=== PATIENT | female | born 1925 | race Caucasian/White ===

== ENCOUNTER 2016-11-09 15:02 | Inpatient (IN) | payer OTHER, MEDICARE ==
[~2016-11-09] VITALS: Ht 152.4 cm; Wt 70.8 kg
[~2016-11-09 15:02] MED LIST: ACCUPRIL20 MG PO; ACTOS15 MG PO; ANASTROZOLE1 M1 PO; ANTIVERT 12.512.5 MG PO; CALCIUM + D3 E1 EACH; CLEOCIN HCL300 MG PO; COUMADIN 2.5 M2.5 MG PO; COUMADIN2.5 M1 PO; FLEXERIL 5MG TAB5 MG PO; FOSAMAX70 M1 PO; FUROSEMIDE20 MG PO; IRON256 MG PO; IRON325 M1 PO; K-DUR 20MEQ TA20 MEQ PO; LASIX20 M1 PO; LASIX40 MG PO; LESCOL XL80 MG PO; LESCOL20 MG PO; LIDODERM 5% PAT1 PAT TOP; MAGNESIUM400 M1 PO; MECLIZINE HCL12.5 M1 PO; METFORMIN HCL500 M4; METFORMIN1000 MG PO; METHIMAZOLE5 M1 PO; METHIMAZOLE5 MG PO; MSM PO; PIOGLITAZONE30 MG PO; POTASSIUM CHLO20 ME2 PO; PROBIOTICA100 Millio PO; TYLENOL WITH C1 EACH PO; VITAMIN D31000 UNI2 PO; VOLTAREN100 GM TOP; WARFARIN SODIUM5 MG PO
--- NOTE | 2016-11-09 15:26 | ED AMS/SEIZURE/WEAK/DIZZY ---
History of Present Illness General Chief Complaint: Altered Mental Status Stated Complaint: BIBA AMS Source: patient Exam Limitations: no limitations Vital Signs & Intake/Output Vital Signs & Intake/Output Vital Signs Date Time Temp Pulse Resp B/P Pulse O2 O2 Flow FiO2 Ox Delivery Rate 11/10 0828 98.8 88 18 126/86 96 Room Air 11/10 0754 88 126/86 11/09 2200 97.4 80 18 150/90 97 Room Air 11/09 2010 96.8 62 18 160/76 97 Room Air 11/09 2007 180/90 11/09 2004 180/90 11/09 1943 200/106 11/09 1941 198/95 11/09 1830 97.8 78 20 200/90 97 Room Air 11/09 1718 98.7 81 227/92 97 11/09 1504 98.2 88 18 180/95 97 Room Air ED Intake and Output 11/10 0000 11/09 1200 Intake Total 540 Output Total Balance 540 Intake, IV 300 Intake, Oral 240 Patient 156 lb Weight Allergies Coded Allergies: atorvastatin (Intermediate, MODERATE PAIN TO BACK AND SHOULDERS 01/20/16) scallops (GI DISTRESS 01/20/16) Triage Note: BIBA FOUND W/ CHANGE IN MENTAL STATUS PER FAMILY MEMBER Triage Nurses Notes Reviewed? yes Onset: Abrupt Duration: day(s):, constant, continues in ED Timing: recent history Injury Environment: home Severity: moderate, severe HPI: 89-year-old female with no history of dementia that lives by herself and is high functioning was brought into the emergency room for increased confusion. Daughter reports the last time the patient was seen her normal self was 2 days ago this past Thursday. Patient cannot answer the phone yesterday. Daughter reports that today the patient has been confused. History of urinary tract infection. Denies any fever chills vomiting. Denies any chest pain shortness of breath. (FARHAT MANRIQUEZ) Reconcile Medications Alendronate Sodium (Fosamax) 70 MG TABLET 1 TAB PO QTUES BONES (Reported) in the morning, at least 30 minutes before the first food, beverage, or medication of the day Anastrozole 1 MG TABLET 1 MG PO DAILY IMMUNE SUPPORT (Reported) Calcium Carb & Citrate/Vit D3 (Calcium + D3 ER Tablet) 600 MG CALCIUM-500 UNIT TABLET.ER HEALTH SUPPLEMENT (Reported) Cholecalciferol (Vitamin D3) 1,000 UNIT TABLET HEALTH SUPPLEMENT (Reported) Diclofenac Sodium (Voltaren) 1 % GEL..GRAM. 1 GM TOP PRN PAIN (Reported) apply to affected area(s) Ferrous Gluconate (IRON) 256 MG (28 MG IRON) TABLET 1 TAB PO TID SUPPLEMENT ( Reported) Fluvastatin Sodium (Lescol 20MG) 20 MG CAP 1 CAP PO AT BEDTIME CHOLESTEROL ( Reported) Furosemide (Lasix) 20 MG TABLET 1 TAB PO PRN EDEMA (Reported) Magnesium Oxide (Magnesium) 400 MG CAPSULE 1 CAP PO DAILY low magnesium follows up with Dr. Young Mecandreszine (Antivert) 12.5 MG TAB 1 TAB PO Q6P PRN VERTIGO Methimazole 5 MG TABLET 2.5 MG PO Thursday THYROID PROBLEMS ( Reported) Potassium Chloride 20 MEQ TAB.ER.PRT 1 TAB PO DAILY SUPPLEMENT (Reported) QUINAPRIL HCL (Quinapril HCl) 20 MG TAB 1 TAB PO DAILY HEART (Reported) Warfarin Sodium (Coumadin) 2.5 MG TABLET 1 TAB PO AD BLOOD THINNER (Reported) (STARLA TSANG,MADELYN) Past History Travel History Traveled to [place] past 21 day No Medical History Any Pertinent Medical History? 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 No (FARHAT MANRIQUEZ) Review of Systems Review of Systems Constitutional: Reports: no symptoms. EENTM: Reports: no symptoms. Respiratory: Reports: no symptoms. Cardiovascular: Reports: no symptoms. GI: Reports: no symptoms. Genitourinary: Reports: no symptoms. Musculoskeletal: Reports: no symptoms. Skin: Reports: no symptoms. Neurological/Psychological: Reports: see HPI. Hematologic/Endocrine: Reports: no symptoms. Immunologic/Allergic: Reports: no symptoms. All Other Systems: Reviewed and Negative (FARHAT MANRIQUEZ) Physical Exam Physical Exam General Appearance: well developed/nourished, no apparent distress, alert Head: atraumatic, normal appearance Eyes: Bilateral: normal appearance. Ears, Nose, Throat: normal ENT inspection, hearing grossly normal Neck: normal inspection Respiratory: normal breath sounds, no respiratory distress Cardiovascular: regular rate/rhythm Gastrointestinal: soft Back: normal inspection, normal range of motion Extremities: normal range of motion Neurologic/Psych: awake, alert, oriented x 3, normal gait, normal mood/affect Skin: intact, normal color Core Measures ACS in differential dx? No CVA/TIA Diagnosis: No Severe Sepsis Present: No Septic Shock Present: No (FARHAT MANRIQUEZ) Progress Differential Diagnosis: arrythmia, alcohol intoxication, CVA/stroke, encephalitis, electrolyte imbalance, GI bleed, hypoxia, meningitis, multiple sclerosis, pneumonia, postural hypotension, presyncope, post-traumatic vertigo, sepsis, seizure disorder, UTI/pyelo Plan of Care: Orders Procedure Date/time Status Heart Healthy Diet 11/10 B Active EKG 11/10 0955 Active Lab Add-on Test 11/10 0954 Active TROPONIN LEVEL 11/10 0630 Complete PROTHROMBIN TIME 11/10 0500 Complete CBC WITHOUT DIFFERENTIAL 11/10 0500 Complete BASIC ELECTROLYTES PLUS BUN&CR 11/10 0500 Complete Lab Add-on Test 11/10 UNK Active Teach/Educate 11/09 2206 Active Nutritional Intake, Monitor 11/09 2206 Active Isolation 11/09 2206 Active Patient Care Conference 11/09 2206 Active Activity/Ambulation 11/09 2206 Active TROPONIN LEVEL 11/09 2199 Complete EKG 11/09 2199 Active Pathway - chart 11/09 2058 Active Pathway - chart 11/09 2054 Active House Staff 11/09 2054 Active Patient Data 11/09 2054 Active Code Status 11/09 2054 Active Intake & Output 11/09 1950 Active Saline Lock 11/09 1934 Active Misc Message 11/09 1934 Active ED Holding Orders 11/09 1934 Active Admit to inpatient 11/09 1934 Active Vital Signs 11/09 1934 Active Code Status 11/09 1934 Complete Patient Data 11/09 191 Active LACTIC ACID 11/09 181 Complete CULTURE,URINE 11/09 1745 Active URINALYSIS 11/09 1518 Complete TROPONIN LEVEL 11/09 1518 Complete PROTHROMBIN TIME 11/09 1518 Complete MAGNESIUM 11/09 1518 Complete LACTIC ACID 11/09 1518 Complete COMPREHENSIVE METABOLIC PANEL 11/09 151 Complete CBC WITHOUT DIFFERENTIAL 11/09 151 Complete EKG 11/09 1518 Active VTE Mechanical Prophylaxis 11/09 UNK Active Telemetry/Firmware Developer 11/09 UNK Active FingerStick- Glucose 11/09 UNK Active Current Medications Sig/Misha Start time Last Medication Dose Stop Time Status Admin Alendronate Sodium 70 MG QTUES 11/11 0700 AC (Fosamax) Simvastatin 10 MG 1700 11/10 1700 AC (Zocor) Acetaminophen 650 MG Q6P PRN 11/09 2100 AC (Tylenol) Ibuprofen 600 MG Q6P PRN 11/09 2100 AC (Motrin) Laboratory Tests 11/10/16 0630: Anion Gap 12, Estimated GFR > 60, BUN/Creatinine Ratio 28.6 H, Troponin I 0.05, PT 33.5 H, INR 3.23 H, CBC w Diff NO MAN DIFF REQ, RBC 3.97 L, MCV 95.2, MCH 31.9 H, RDW 16.8 H, MPV 8.0, Gran % 60.3, Lymphocytes % 24.4, Monocytes % 12.7 H, Eosinophils % 1.9, Basophils % 0.7, Absolute Granulocytes 2.5, Absolute Lymphocytes 1.0 L, Absolute Monocytes 0.5, Absolute Eosinophils 0.1, Absolute Basophils 0, PUBS MCHC 33.5 11/09/16 2150: Troponin I 0.06 11/09/16 1805: Lactic Acid 3.2 H 11/09/16 1745: Urinalysis LIGHT H, Urine Color YEL, Urine Clarity CLEAR, Urine pH 5.5, Ur Specific [place] >= 1.030, Urine Protein NEG, Urine Ketones NEG, Urine Nitrite NEG, Urine Bilirubin NEG, Urine Urobilinogen 0.2, Ur Leukocyte Esterase TRACE H , Ur Microscopic SEDIMENT EXAMINED, Urine WBC RARE, Ur Epithelial Cells FEW, Urine Hemoglobin NEG, Urine Glucose NEG 11/09/16 1544: Anion Gap 14, Estimated GFR > 60, BUN/Creatinine Ratio 26.3 H, Glucose 135 H, Lactic Acid 4.3 H, Calcium 8.8, Magnesium 1.5 L, Total Bilirubin 4.1 H, AST 63 H, ALT 33, Alkaline Phosphatase 126, Troponin I 0.04, Total Protein 6.7, Albumin 2.6 L, Globulin 4.1, Albumin/Globulin Ratio 0.6 L, PT 35.5 H, INR 3.42 H, CBC w Diff NO MAN DIFF REQ, RBC 3.88 L, MCV 94.5, MCH 31.8 H, RDW 16.9 H, MPV 7.9, Gran % 68.3, Lymphocytes % 22.1, Monocytes % 8.4, Eosinophils % 0.2, Basophils % 1.0, Absolute Granulocytes 2.4, Absolute Lymphocytes 0.8 L, Absolute Monocytes 0.3, Absolute Eosinophils 0, Absolute Basophils 0, PUBS MCHC 33.7 Microbiology 11/09 1745 URINE ROUT: Urine Culture - RECD Diagnostic Imaging: Viewed by Me: Radiology Read, CT Scan. Discussed w/RAD: Radiology Read, CT Scan. Radiology Impression: SERVICE DATE: 11/09/16-151 EXAM TYPE: RAD - XRY- PORTABLE CHEST XRAY EXAMINATION: XR PORTABLE CHEST CLINICAL INFORMATION: Altered mental status. COMPARISON: Chest x-ray 10/10/2016. TECHNIQUE: Portable view of the chest was obtained. FINDINGS: Single AP view of the chest demonstrates pulmonary hypoinflation. Redemonstrated is a moderate to large left-sided pleural effusion, not significantly changed in volume relative to a prior examination dated 10/10/2016. There is persistent left basilar opacification which could reflect atelectasis although superimposed infection cannot be excluded. Cardiomediastinal contours are obscured. There are no pneumothoraces. Surgical clips are present within the left axilla. IMPRESSION: Moderate to large left-sided pleural effusion, not significantly changed in volume relative to the prior exam. DICTATED BY: LESTER BRANCH MD DATE/TIME DICTATED:11/09/161601 UNIT ASSISTANT:KWESI DATE/TIME TRANSCRIBED:11/09/161601, EXAM TYPE: CAT - CT HEAD WO IV CONTRAST EXAMINATION: CT HEAD WITHOUT CONTRAST CLINICAL INFORMATION: Confusion. COMPARISON: 09/07/2016 TECHNIQUE: Contiguous axial imaging was performed from the skull base to vertex without intravenous administration of contrast. DLP: 600.71 mGy-cm. FINDINGS: No mass effect or shift of midline structures. The ventricles and sulcal spaces are symmetrically prominent consistent with mild age-related volume loss. No evidence of acute territorial infarction. Patchy periventricular and deep white matter hypoattenuation unchanged consistent with mild chronic ischemic microangiopathy. No acute hemorrhage. No abnormal extra-axial collection. Status post bilateral lens extraction. No acute osseous finding. Mastoid air cells and visualized paranasal sinuses clear. IMPRESSION: No acute intracranial pathology. Mild ischemic microangiopathy and age-related volume loss. Initial ED EKG: rate (90), AFIB Prior EKG: unchanged (FARHAT MANRIQUEZ) Departure Departure Disposition: STILL A PATIENT Condition: Stable Clinical Impression Primary Impression: Hypertensive encephalopathy Secondary Impressions: Lactic acidosis Referrals: AMBAR YOUNG MD (PCP/Family) Departure Forms: Customer Survey General Discharge Information Admission Note Spoke With: ALFREDO JEAN MD Documentation of Exam: Documentation of any treatments & extenuating circumstances including Concerns Regarding Discharge (functional status, medication knowledge or non-compliance, living conditions, etc.) that warrant an admission rather than observation: Patient will require IV antihypertensives. Cardiac telemetry. Serial blood pressure checks. Acutely confused with low blood pressure. (FARHAT MANRIQUEZ) PA/[employer] MANAGED SERV[employer] Co-Sign Statement Statement: ED Attending supervision documentation- [X] I saw and evaluated the patient. I have also reviewed all the pertinent lab results and diagnostic results. I agree with the findings and the plan of care as documented in the PA's/[employer] MANAGED SERVICE SALES [employer]'s documentation. [X] I have reviewed the ED Record and agree with the PA's/[employer] MANA[employer]ED SERV[employer] SALES [employer]'s documentation. [] Additions or exceptions (if any) to the PAs/[employer] MANAGED SERVICE SALES [employer]'s note and plan are summarized below: [] (STARLA TSANG,MADELYN) Critical Care Note Critical Care Note Critical Care Time: 30-74 min (FARHAT MANRIQUEZ) ED Attending Observation Initial Observation Note: I have seen and personally examined RUEL CARRASCO on 11/09/16 at 1529. I agree with the current emergency department documentation. The disposition (admission or discharge) is uncertain at this time, she needs a period of observation for the following reason(s): The ED Nurse caring for this patient has been personally informed as to what the patient is being observed for. (ASHER BRAR,FARHAT)
[2016-11-09 16:04] LABS: ABSOLUTE BASOPHIL COUNT 0 /CUMM (0.0-0.2); ABSOLUTE EOSINOPHIL COUNT 0 /CUMM (0.0-0.7); ABSOLUTE GRANULOCYTE CT 2.4 /CUMM (1.4-6.5); ABSOLUTE LYMPH COUNT 0.8 /CUMM (1.2-3.4); ABSOLUTE MONOCYTE COUNT 0.3 /CUMM (0.10-0.60); EOSINOPHIL % 0.2 % (0-5); GRANULOCYTE % 68.3 % (42.2-75.2); HEMATOCRIT 36.7 % (37-47); MEAN CORPUSCULAR HGB 31.8 PG (27.0-31.0); MEAN CORPUSCULAR HGB CONC 33.7 G/DL (33.0-37.0); MEAN CORPUSCULAR VOLUME 94.5 FL (81.0-99.0); MEAN PLATELET VOLUME 7.9 FL (7.4-10.4); PLATELET COUNT 151 /CUMM (130-400); RBC DISTRIBUTION WIDTH 16.9 % (11.5-14.5); RED BLOOD CELL CT 3.88 /CUMM (4.20-5.40); WHITE BLOOD CELL COUNT 3.5 /CUMM (4.8-10.8)
[2016-11-09 16:11] LABS: PT 35.5 SEC (9.4-12.5)
--- NOTE | 2016-11-09 16:17 | RADIOLOGY REPORT ---
EXAMINATION: XR PORTABLE CHEST CLINICAL INFORMATION: Altered mental status. COMPARISON: Chest x-ray 10/10/2016. TECHNIQUE: Portable view of the chest was obtained. FINDINGS: Single AP view of the chest demonstrates pulmonary hypoinflation. Redemonstrated is a moderate to large left-sided pleural effusion, not significantly changed in volume relative to a prior examination dated 10/10/2016. There is persistent left basilar opacification which could reflect atelectasis although superimposed infection cannot be excluded. Cardiomediastinal contours are obscured. There are no pneumothoraces. Surgical clips are present within the left axilla. IMPRESSION: Moderate to large left-sided pleural effusion, not significantly changed in volume relative to the prior exam.
[2016-11-09] MEDS ORDERED: METFORMIN HCL500 M4 PO (16:46)
--- NOTE | 2016-11-09 19:17 | CT SCAN REPORT ---
EXAMINATION: CT HEAD WITHOUT CONTRAST CLINICAL INFORMATION: Confusion. COMPARISON: 09/07/2016 TECHNIQUE: Contiguous axial imaging was performed from the skull base to vertex without intravenous administration of contrast. DLP: 600.71 mGy-cm. FINDINGS: No mass effect or shift of midline structures. The ventricles and sulcal spaces are symmetrically prominent consistent with mild age-related volume loss. No evidence of acute territorial infarction. Patchy periventricular and deep white matter hypoattenuation unchanged consistent with mild chronic ischemic microangiopathy. No acute hemorrhage. No abnormal extra-axial collection. Status post bilateral lens extraction. No acute osseous finding. Mastoid air cells and visualized paranasal sinuses clear. IMPRESSION: No acute intracranial pathology. Mild ischemic microangiopathy and age-related volume loss.
--- NOTE | 2016-11-09 20:48 | History & Physical ---
General Information and HPI MD Statement: I have seen and personally examined RUEL CARRASCO and documented this H&P. The patient is a 89 year old F who presented with a patient stated chief complaint of [change in mentation and elevated blood ]. Source of Information: patient, family Exam Limitations: clinical condition History of Present Illness: Ms Frausto is an 89-year-old lady with a PMH of A. fib on Coumadin, DM, HTN, previous left-sided pleural effusion S/paracentesis, neutropenia, breast CA S/B bilateral lumpectomy and radiation, multinodular goiter brought in for new onset change in mentation. Information obtained from the patient's daughter indicates that she was last normal 2 days ago. However, after she refilled to answer phone she went to her house and found her disoriented, confused and unable to answer questions appropriately. She denied any noticeable facial droop, slurring speech, bowel/ bladder incontinence. she has previously had similar episodes when she was diagnosed with a UTI but reports that she was more unsteady on her feet today. At her baseline she lives by herself, ambulates with a cane and does have a visiting aide comes to check on her weekly. She denies any fevers, chills, changes in medication, recent travel, headache, chest pain, palpitations, nausea, vomiting, diarrhea, urinary frequency/burning, changes in appetite. She follows up with Dr. Conteh, Dr. Lunyd (hematology oncology), Dr. Herring ( retinopathy), and Dr. Cadena. Allergies/Medications Allergies: Coded Allergies: atorvastatin (Intermediate, MODERATE PAIN TO BACK AND SHOULDERS 01/20/16) scallops (GI DISTRESS 01/20/16) Home Med list Alendronate Sodium (Fosamax) 70 MG TABLET 1 TAB PO QTUES BONES (Reported) in the morning, at least 30 minutes before the first food, beverage, or medication of the day Anastrozole 1 MG TABLET 1 MG PO DAILY IMMUNE SUPPORT (Reported) Calcium Carb & Citrate/Vit D3 (Calcium + D3 ER Tablet) 600 MG CALCIUM-500 UNIT TABLET.ER HEALTH SUPPLEMENT (Reported) Cholecalciferol (Vitamin D3) 1,000 UNIT TABLET HEALTH SUPPLEMENT (Reported) Diclofenac Sodium (Voltaren) 1 % GEL..GRAM. 1 GM TOP PRN PAIN (Reported) apply to affected area(s) Ferrous Gluconate (IRON) 256 MG (28 MG IRON) TABLET 1 TAB PO TID SUPPLEMENT ( Reported) Fluvastatin Sodium (Lescol 20MG) 20 MG CAP 1 CAP PO AT BEDTIME CHOLESTEROL ( Reported) Furosemide (Lasix) 20 MG TABLET 1 TAB PO PRN EDEMA (Reported) Magnesium Oxide (Magnesium) 400 MG CAPSULE 1 CAP PO DAILY low magnesium follows up with Dr. Yougn Meclizine (Antivert) 12.5 MG TAB 1 TAB PO Q6P PRN VERTIGO Methimazole 5 MG TABLET 2.5 MG PO Thursday THYROID PROBLEMS ( Reported) Potassium Chloride 20 MEQ TAB.ER.PRT 1 TAB PO DAILY SUPPLEMENT (Reported) QUINAPRIL HCL (Quinapril HCl) 20 MG TAB 1 TAB PO DAILY HEART (Reported) Warfarin Sodium (Coumadin) 2.5 MG TABLET 1 TAB PO AD BLOOD THINNER (Reported) Past History Travel History Traveled to [place] past 21 day No Medical History Neurological: SHINGLES LYMES DISEASE EENT: allergies, cataracts, hearing loss, POSTNASAL DRIP Cardiovascular: AFIB, hypertension, hyperlipidemia, AORTIC STENOSIS AORTIC STENOSIS Respiratory: bronchitis, pneumonia, L pleural effusion THORACENTESIS Gastrointestinal: NONE Hepatic: NONE Renal: NONE Musculoskeletal: osteoarthritis, osteoporosis, BAKERS CYST LEFT WRIST FRACTURE LEFT ANKLE FRACTURE Psychiatric: NONE Endocrine: diabetes, hyperthyroidism Blood Disorders: anemia, LYME DISEASE Cancer(s): breast cancer, SKIN CANCER 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 self Services at Home: None Review of Systems Review of Systems Constitutional: Reports: see HPI. Exam & Diagnostic Data Last 24 Hrs of Vital Signs/I&O Vital Signs Date Time Temp Pulse Resp B/P Pulse O2 O2 Flow FiO2 Ox Delivery Rate 11/11 0055 152/60 11/11 0033 98.5 68 22 94 Room Air 11/10 1800 82 24 170/98 94 Room Air 11/10 1601 97.6 87 18 175/69 94 Room Air 11/10 1600 94 Room Air 11/10 0828 98.8 88 18 126/86 96 Room Air 11/10 0754 88 126/86 Intake & Output 11/11 0800 11/11 0000 11/10 1600 Intake Total 360 500 Output Total 450 Balance -90 500 Intake, IV 10 Intake, Oral 350 500 Number 0 Bowel Movements Output, Urine 450 Physical Exam General Appearance No Acute Distress HEENT EOMI, Mucous Membr. moist/pink Cardiovascular Normal S1, Normal S2 Lungs Normal Air Movement Abdomen Normal Bowel Sounds, Soft Extremities Normal Pulses Vascular Pulses Symmetrical Last 24 Hrs of Labs/Claude: Laboratory Tests 11/10/16 0630: Anion Gap 12, Estimated GFR > 60, BUN/Creatinine Ratio 28.6 H, Troponin I 0.05, PT 33.5 H, INR 3.23 H, CBC w Diff NO MAN DIFF REQ, RBC 3.97 L, MCV 95.2, MCH 31.9 H, RDW 16.8 H, MPV 8.0, Gran % 60.3, Lymphocytes % 24.4, Monocytes % 12.7 H, Eosinophils % 1.9, Basophils % 0.7, Absolute Granulocytes 2.5, Absolute Lymphocytes 1.0 L, Absolute Monocytes 0.5, Absolute Eosinophils 0.1, Absolute Basophils 0, PUBS MCHC 33.5 Assessment/Plan Assessment: Ms Frausto is an 89-year-old lady with a PMH of A. fib on Coumadin, DM, HTN, previous left-sided pleural effusion S/paracentesis, neutropenia, breast CA s/p bilateral lumpectomy and radiation, multinodular goiter brought in for new onset change in mentation. Information obtained from the patient's daughter indicates that she was last normal 2 days ago. However, after she refilled to answer phone she went to her house and found her disoriented, confused and unable to answer questions appropriately. She denied any noticeable facial droop, slurring speech, bowel/ bladder incontinence. Daughter reports similar episodes when she was diagnosed with a UTI but reports that she was more unsteady on her feet today. At her baseline she lives by herself, ambulates with a cane and does have a visiting aide comes to check on her weekly. She denies any fevers, chills, changes in medication, recent travel, headache, chest pain, palpitations, nausea, vomiting, diarrhea, urinary frequency/burning, changes in appetite. She follows up with Dr. Conteh, Dr. Lundy (hematology oncology), Dr. Herring ( retinopathy), and Dr. Cadena. VS: BP 180/95, HR 80, RR 18, SPO2 97% on RA, T 98.2 Peak blood pressure: 227/92 Pertinent labs: WBC 3.5, H&H 12.4/36.7, sodium 143, potassium 3.8, BUN/Cr/CR 21/ 0.8, glucose 135 INR: 3.42 Lactic acid: 4.3, 3.2 UA: Trace leukocyte esterase CXR: Moderate to large left pleural effusion with no change in volume from previous Head CT: No acute intracranial pathology. Mild ischemic microangiopathic age- related volume loss. EKG: Atrial fibrillation, HR 90. Borderline prolonged QT interval. QTC 495 Problem list: 1. Altered mental status: Likely secondary to hypertensive encephalopathy 2. Hypertensive emergency 3. Elevated INR 4. Neutropenia Plan: * Admit to telemetry for continuous cardiac monitoring. Serial EKG/troponin: 2200 hrs., 0630hrs * Continue to monitor blood pressures with goal BP less than 150/90 * Latest echocardiogram 09/08/2016: LVEF greater than 60%, RV systolic pressure [address]. [address] Manriquez to see patient in the a.m. * Patient is on furosemide 20 mg a.m./afternoon depending on activity according to her medication list. Please dose based on patient's symptoms * Etiology of UTI less likely at this time. If no improvement, consider starting the patient on ceftriaxone * Holding Coumadin at this time in the setting of INR 3.42. Trend INR and dose accordingly * Heart healthy diet * DVT prophylaxis: Coumadin * CODE STATUS: DNR/DNI Of note: Patient's medication list from home does show metformin 500 mg daily. Patient's daughter reports that this medication has been discontinued by her PCP. Monitor Accu-Cheks and consider low-dose sliding scale if needed. As Ranked By This Provider Problem List: 1. Hypertensive encephalopathy 2. Supratherapeutic INR Core Measures/Miscellaneous Acute Coronary Syndrome ACS Diagnosis: No Cerebrovascular Accident CVA/TIA Diagnosis: No Congestive Heart Failure CHF Diagnosis: No Venous Thromboembolism VTE Risk Factors: Age > 40 VTE Prophylaxis Ordered Inpt: Mechanical (ALPS/TEDS) No Mech VTE prophylaxis d/t: No contraindications No VTE Pharm Prophylaxis d/t: No contraindications VTE Diagnosis: No VTE Type: NONE VTE Confirmed by (Test): NONE Severe Sepsis Severe Sepsis Present: No BC x2: Yes Lactic Acid x2: Yes IV ABX Broad Spectrum: Yes Septic Shock Septic Shock Present: No Miscellaneous Documentation Attending Case Discussed With: MIRANDA TSAGN,ALFREDO Fraire Primary Care Physician: AMBAR YOUNG MD Patient sees these Specialists NA Level of Patient Care: Telemetry
[2016-11-09 22:00] VITALS: BP 150/90
[2016-11-10 08:03] LABS: ABSOLUTE BASOPHIL COUNT 0 /CUMM (0.0-0.2); ABSOLUTE EOSINOPHIL COUNT 0.1 /CUMM (0.0-0.7); ABSOLUTE GRANULOCYTE CT 2.5 /CUMM (1.4-6.5); ABSOLUTE MONOCYTE COUNT 0.5 /CUMM (0.10-0.60); BASOPHIL % 0.7 % (0.0-2.0); EOSINOPHIL % 1.9 % (0-5); GRANULOCYTE % 60.3 % (42.2-75.2); HEMATOCRIT 37.7 % (37-47); MEAN CORPUSCULAR HGB 31.9 PG (27.0-31.0); MEAN CORPUSCULAR HGB CONC 33.5 G/DL (33.0-37.0); MEAN CORPUSCULAR VOLUME 95.2 FL (81.0-99.0); PLATELET COUNT 135 /CUMM (130-400); RBC DISTRIBUTION WIDTH 16.8 % (11.5-14.5); RED BLOOD CELL CT 3.97 /CUMM (4.20-5.40); WHITE BLOOD CELL COUNT 4.2 /CUMM (4.8-10.8)
[2016-11-10 08:17] LABS: PT 33.5 SEC (9.4-12.5)
[2016-11-10 08:28] VITALS: BP 126/86
--- NOTE | 2016-11-10 09:31 | PN- Housestaff ---
Subjective Follow-up For: 1. Altered mental status: Likely secondary to hypertensive encephalopathy 2. Hypertensive emergency 3. Elevated INR 4. elevated lactic acid 5. Chronic diastolic congestive heart failure Complaints: pain scale (0-10) Tele-Events Since Last Visit: Atrial fibrillation Rate 68-80 No events on school lunch monitor Subjective: patient was seen and examined this morning. She is alert, awake and oriented to time place and person. No acute events monitored overnight. She denied any headache, confusion, dizziness or lightheadedness. She denied any weakness or sensory changes, gait changes, vision changes, swallowing difficulty. She denied any chest pain, racing of heart, shortness of breath. She offers no complaints this morning. Vitals were stable. Afebrile. Heart rate 88, respiratory rate 18, blood pressure 126/86, saturating at 96% on room air. Review of Systems Constitutional: Denies: see HPI. Objective Last 24 Hrs of Vital Signs/I&O Vital Signs Date Time Temp Pulse Resp B/P Pulse O2 O2 Flow FiO2 Ox Delivery Rate 11/10 1601 97.6 87 18 175/69 94 Room Air 11/10 0828 98.8 88 18 126/86 96 Room Air 11/10 0754 88 126/86 11/09 2200 97.4 80 18 150/90 97 Room Air 11/09 2010 96.8 62 18 160/76 97 Room Air 11/09 2008 180/90 11/09 2004 180/90 11/09 1943 200/106 11/09 1941 198/95 11/09 1830 97.8 78 20 200/90 97 Room Air Intake & Output 11/10 1600 11/10 0800 11/10 0000 Intake Total 500 320 540 Output Total 500 Balance 500 -180 540 Intake, IV 200 300 Intake, Oral 500 120 240 Output, Urine 500 Patient 70.76 kg Weight Physical Exam General Appearance: Alert, Oriented X3, Cooperative, No Acute Distress Skin: No Rashes, No Breakdown HEENT: Atraumatic, Mucous Membr. moist/pink Neck: Supple, No JVD Lymphatic: Cervical nl Cardiovascular: Normal S1, Normal S2, irregular rhythm Lungs: Normal Air Movement Abdomen: Normal Bowel Sounds, Soft, No Tenderness Neurological: Normal Speech, Strength at 5/5 X4 Ext, Normal Tone, Sensation Intact, Cranial Nerves 3-12 NL, Reflexes 2+ Extremities: No Clubbing, No Cyanosis, No Edema Vascular: Normal Pulses Current Medications: Current Medications Sig/Misha Start time Last Medication Dose Route Stop Time Status Admin Acetaminophen 650 MG Q6P PRN 11/09 2099 AC PO Alendronate Sodium 70 MG QTUES 11/11 0700 AC PO Anastrozole 1 MG DAILY 11/10 1000 AC 11/10 PO 0755 Cholecalciferol 1,000 IU DAILY 11/10 1000 AC 11/10 PO 0755 Ferrous Gluconate 325 MG TID 11/09 2200 AC 11/10 PO 0755 Ibuprofen 600 MG Q6P PRN 11/09 2100 AC PO Labetalol HCl 0 .STK-MED ONE 11/09 1954 DC IV Labetalol HCl 10 MG ONCE ONE 11/09 1914 DC 11/09 IV 11/09 Lisinopril 20 MG DAILY 11/10 1000 AC 11/10 PO 0754 Magnesium Oxide 400 MG DAILY 11/10 1000 AC 11/10 PO 0751 Methimazole 2.5 MG 11/10 1000 AC 11/10 PO 0755 Oxycodone/ 1 TAB Q6P PRN 11/09 2099 DC Acetaminophen PO Oxycodone/ 2 TAB Q6P PRN 11/09 2099 DC Acetaminophen PO Potassium Chloride 20 MEQ DAILY 11/10 1000 AC 11/10 PO 0751 Simvastatin 10 MG 1700 11/10 1700 AC PO Sodium Chloride 1,000 ML ONCE ONE 11/09 2029 DC 11/09 IV 11/10 [id number] Last 24 Hrs of Lab/Claude Results Last 24 Hrs of Labs/Mics: Laboratory Tests 11/10/16 0630: Anion Gap 12, Estimated GFR > 60, BUN/Creatinine Ratio 28.6 H, Troponin I 0.05, PT 33.5 H, INR 3.23 H, CBC w Diff NO MAN DIFF REQ, RBC 3.97 L, MCV 95.2, MCH 31.9 H, RDW 16.8 H, MPV 8.0, Gran % 60.3, Lymphocytes % 24.4, Monocytes % 12.7 H, Eosinophils % 1.9, Basophils % 0.7, Absolute Granulocytes 2.5, Absolute Lymphocytes 1.0 L, Absolute Monocytes 0.5, Absolute Eosinophils 0.1, Absolute Basophils 0, PUBS MCHC 33.5 11/09/16 2150: Troponin I 0.06 11/09/16 1805: Lactic Acid 3.2 H 11/09/16 1745: Urinalysis LIGHT H, Urine Color YEL, Urine Clarity CLEAR, Urine pH 5.5, Ur Specific [place] >= 1.030, Urine Protein NEG, Urine Ketones NEG, Urine Nitrite NEG, Urine Bilirubin NEG, Urine Urobilinogen 0.2, Ur Leukocyte Esterase TRACE H , Ur Microscopic SEDIMENT EXAMINED, Urine WBC RARE, Ur Epithelial Cells FEW, Urine Hemoglobin NEG, Urine Glucose NEG Microbiology 11/09 1744 URINE ROUT: Urine Culture - RECD Assessment/Plan Assessment: Ms Frausto is an 89-year-old lady with a PMH of A. fib on Coumadin, DM, HTN, hyperlipidemia,aortic stenosis, previous left-sided pleural effusion S/ paracentesis, neutropenia, breast CA s/p bilateral lumpectomy and radiation, multinodular goiter, chronic diastolic heart failure, Hart's cyst, left wrist fracture, left ankle fracture, osteoarthritis, osteoporosis, hyperthyroidism on methimazole, past history of Lyme's disease brought in for new onset change in mentation. Information obtained from the patient's daughter indicates that she was last normal 2 days ago. However, after she found her disoriented, confused and unable to answer questions appropriately. Daughter reports similar episodes when she was diagnosed with a UTI. VS: BP 180/95, HR 80, RR 18, SPO2 97% on RA, T 98.2. Peak blood pressure: 227/92 Pertinent labs: WBC 3.5, H&H 12.4/36.7, sodium 143, potassium 3.8, BUN/Cr/CR 21/ 0.8, glucose 135 INR: 3.42 Lactic acid: 4.3, 3.2 UA: Trace leukocyte esterase. CXR: Moderate to large left pleural effusion with no change in volume from previous Head CT: No acute intracranial pathology. Mild ischemic microangiopathic age- related volume loss. EKG: Atrial fibrillation, HR 90. Borderline prolonged QT interval. QTC 495. Problem list: 1. Altered mental status: Likely secondary to hypertensive encephalopathy 2. Hypertensive emergency 3. Elevated INR 4. Lactic acidosis 5. Chronic diastolic congestive heart failure 6. Hyperthyroidism 7. Atrial fibrillation on Coumadin 8. Hyperlipidemia Altered mental status/hypertensive encephalopathy Patient was brought to emergency department after she was found altered and confused. Denied any headache, dizziness or lightheadedness, weakness or sensory changes, vision changes, gait changes. neuro Exam is normal. No focal neurologic deficits. CAT scan head was normal. * Found to be hypertensive 220/90 * She was given IV labetalol 10 mg * Admitted to telemetry for continuous cardiac monitoring * Serial EKGs and troponins were negative * Continue to monitor blood pressures with goal BP less than 150/90 * Latest echocardiogram 09/08/2016: LVEF greater than 60%, RV systolic pressure 42 mmHg. * Notified Dr. Manriquez about the admission. * Neuro checks * Ruled out TIA and stroke. * Continue lisinopril 20 mg daily for now. * Monitoring of blood pressures. Atrial fibrillation * On warfarin 2.5 mg daily * Supratherapeutic INR on admission 3.23 * Warfarin on hold for now Hyperlipidemia Continue simvastatin Hyperthyroidism Continue home dose of methimazole on Thursday and Thursday chronic diastolic congestive heart failure Takes Lasix 20 mg whenever necessary for edema Lasix on hold for now vertigo Takes meclizine whenever necessary Meclizine on hold Osteoporosis Continue alendronate Continue vitamin D Diabetes mellitus Metformin was discontinued by her primary care doctor Monitor Accu-Cheks NovoLog sliding scale Patient is DNR/DNI Heart healthy diet Problem List: 1. Hypertensive encephalopathy Pain Ratin Pain Location: none Pain Goal: Remain pain free Pain Plan: wendy Tomorrow's Labs & Rationales: inr in the setting of supratherapeutic range
--- NOTE | 2016-11-10 11:53 | Cons- Cardiology ---
General Information and HPI Consulting Request Date of Consult: 11/10/16 Requested By: ALFREDO JEAN MD Reason for Consult: Hypertension History of Present Illness: The patient is an 89-year-old female with history of hypertension, chronic atrial fibrillation, diabetes mellitus, aortic stenosis, and chronic pleural effusion. She was in her usual state of health until 2 days ago. Subsequently the patient stopped answering the phone. Her daughter went to her house and found her to be disoriented and confused. She was unable to answer questions appropriately. No facial droop or slurring of speech was noted. She's had similar episodes in the past when diagnosed with a urinary tract infection but she was more unsteady on her feet this time. She was brought to the emergency department where she was found to have severely elevated blood pressure. She was admitted for presumed hypertensive encephalopathy. The blood pressure has been decreased, and she is now feeling better. He is now awake and alert and is oriented. She is not having any chest pain. No palpitations. No shortness of breath. No diaphoresis. No syncope. No orthopnea. Allergies/Medications Allergies: Coded Allergies: atorvastatin (Intermediate, MODERATE PAIN TO BACK AND SHOULDERS 01/20/16) scallops (GI DISTRESS 01/20/16) Home Med List: Alendronate Sodium (Fosamax) 70 MG TABLET 1 TAB PO QTUES BONES (Reported) in the morning, at least 30 minutes before the first food, beverage, or medication of the day Anastrozole 1 MG TABLET 1 MG PO DAILY IMMUNE SUPPORT (Reported) Calcium Carb & Citrate/Vit D3 (Calcium + D3 ER Tablet) 600 MG CALCIUM-500 UNIT TABLET.ER HEALTH SUPPLEMENT (Reported) Cholecalciferol (Vitamin D3) 1,000 UNIT TABLET HEALTH SUPPLEMENT (Reported) Diclofenac Sodium (Voltaren) 1 % GEL..GRAM. 1 GM TOP PRN PAIN (Reported) apply to affected area(s) Ferrous Gluconate (IRON) 256 MG (28 MG IRON) TABLET 1 TAB PO TID SUPPLEMENT ( Reported) Fluvastatin Sodium (Lescol 20MG) 20 MG CAP 1 CAP PO AT BEDTIME CHOLESTEROL ( Reported) Furosemide (Lasix) 20 MG TABLET 1 TAB PO PRN EDEMA (Reported) Magnesium Oxide (Magnesium) 400 MG CAPSULE 1 CAP PO DAILY low magnesium follows up with Dr. Radha Constantino (Antivert) 12.5 MG TAB 1 TAB PO Q6P PRN VERTIGO Methimazole 5 MG TABLET 2.5 MG PO Thursday THYROID PROBLEMS ( Reported) Potassium Chloride 20 MEQ TAB.ER.PRT 1 TAB PO DAILY SUPPLEMENT (Reported) QUINAPRIL HCL (Quinapril HCl) 20 MG TAB 1 TAB PO DAILY HEART (Reported) Warfarin Sodium (Coumadin) 2.5 MG TABLET 1 TAB PO AD BLOOD THINNER (Reported) Current Medications: Current Medications Sig/Misha Start time Last Medication Dose Route Stop Time Status Admin Acetaminophen 650 MG Q6P PRN 11/09 2100 AC PO Alendronate Sodium 70 MG QTUES 11/11 0700 AC PO Anastrozole 1 MG DAILY 11/10 1000 AC 11/10 PO 0755 Cholecalciferol 1,000 IU DAILY 11/10 1000 AC 11/10 PO 0755 Ferrous Gluconate 325 MG TID 11/09 2200 AC 11/10 PO 1744 Ibuprofen 600 MG Q6P PRN 11/09 2100 AC PO Labetalol HCl 0 .STK-MED ONE 11/09 1954 DC IV Labetalol HCl 10 MG ONCE ONE 11/09 1914 DC 11/09 IV 11/09 Lisinopril 20 MG DAILY 11/10 1000 AC 11/10 PO 0754 Magnesium Oxide 400 MG DAILY 11/10 1000 AC 11/10 PO 0751 Methimazole 2.5 MG 11/10 1000 AC 11/10 PO 0755 Oxycodone/ 1 TAB Q6P PRN 11/09 2100 DC Acetaminophen PO Oxycodone/ 2 TAB Q6P PRN 11/09 2100 DC Acetaminophen PO Potassium Chloride 20 MEQ DAILY 11/10 1000 AC 11/10 PO 0751 Simvastatin 10 MG 1700 11/10 1700 AC 11/10 PO 1743 Sodium Chloride 1,000 ML ONCE ONE 11/09 2030 DC 11/09 IV 11/10 0309 2030 Review of Systems Review of Systems: No rash. No tremor. No melena. No diaphoresis. All other systems were reviewed, and were noted to be negative. Past History Travel History Traveled to [place] past 21 day No Medical History Blood Transfusion Hx: Yes Neurological: SHINGLES LYMES DISEASE EENT: allergies, cataracts, hearing loss, POSTNASAL DRIP Cardiovascular: AFIB, hypertension, hyperlipidemia, AORTIC STENOSIS Respiratory: bronchitis, pneumonia, L pleural effusion THORACENTESIS Gastrointestinal: NONE Hepatic: NONE Renal: NONE Musculoskeletal: osteoarthritis, osteoporosis, BAKERS CYST LEFT WRIST FRACTURE LEFT ANKLE FRACTURE Psychiatric: NONE Endocrine: diabetes, hyperthyroidism Blood Disorders: anemia, LYME DISEASE Cancer(s): breast cancer, SKIN CANCER (LUMPECTOMY NO LYMPH NODES REMOVED) 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 Home Who Do You Live With? self Services at Home: None Smoking Status: Never Smoked Exam & Diagnostic Data Vital Signs and I&O Vital Signs Date Time Temp Pulse Resp B/P Pulse O2 O2 Flow FiO2 Ox Delivery Rate 11/10 1601 97.6 87 18 175/69 94 Room Air 11/10 827 98.8 88 18 126/86 96 Room Air 11/10 0754 88 126/86 11/09 2200 97.4 80 18 150/90 97 Room Air 11/09 2010 96.8 62 18 160/76 97 Room Air 11/09 2007 180/90 11/09 2003 180/90 11/09 1943 200/106 11/09 1941 198/95 Intake & Output 11/10 1600 11/10 0800 11/10 0000 11/09 1600 11/09 0000 Intake Total 500 320 540 Output Total 500 Balance 500 -180 540 Intake, IV 200 300 Intake, Oral 500 120 240 Output, Urine 500 Patient 156 lb 156 lb Weight Physical Exam: Gen: The patient is in no acute distress HEENT: Normal nose, ears, and oropharynx. Pupils equal bilaterally. Conjunctiva normal. Neck: Supple with no JVD, no masses, and no thyromegaly Lungs: Clear to auscultation with normal respiratory effort Heart: RRR, S1, S2, 3/6 systolic murmur. 1-2 + peripheral edema, 2+ pulses in the lower extremities bilaterally Abdomen: Soft, nontender, no masses. No hepatomegaly. No splenomegaly Extremities: No clubbing or cyanosis. Normal muscle strength in the upper and lower extremities Skin: Normal skin turgor with no skin ulcers or lesions noted. Neuro: Cranial nerves intact. Sensation intact Psych: Alert and oriented 3 with appropriate affect Labs/Claude Results: Laboratory Tests 11/10 11/09 11/09 0630 2150 1805 Chemistry Sodium (137 - 145 mmol/L) 142 Potassium (3.5 - 5.1 mmol/L) 3.5 Chloride (98 - 107 mmol/L) 105 Carbon Dioxide (22 - 30 mmol/L) 24 Anion Gap (5 - 16) 12 BUN (7 - 17 mg/dL) 20 H Creatinine (0.5 - 1.0 mg/dL) 0.7 Estimated GFR (>60 ml/min) > 60 BUN/Creatinine Ratio (7 - 25 %) 28.6 H Lactic Acid (0.7 - 2.1 mmol/L) 3.2 H Troponin I (< 0.11 ng/ml) 0.05 0.06 Coagulation PT (9.4 - 12.5 SEC) 33.5 H INR (0.90 - 1.19) 3.23 H Hematology CBC w Diff NO MAN DIFF REQ WBC (4.8 - 10.8 /CUMM) 4.2 L RBC (4.20 - 5.40 /CUMM) 3.97 L Hgb (12.0 - 16.0 G/DL) 12.6 Hct (37 - 47 %) 37.7 MCV (81.0 - 99.0 FL) 95.2 MCH (27.0 - 31.0 PG) 31.9 H RDW (11.5 - 14.5 %) 16.8 H Plt Count (130 - 400 /CUMM) 135 MPV (7.4 - 10.4 FL) 8.0 Gran % (42.2 - 75.2 %) 60.3 Lymphocytes % (20.5 - 51.1 %) 24.4 Monocytes % (1.7 - 9.3 %) 12.7 H Eosinophils % (0 - 5 %) 1.9 Basophils % (0.0 - 2.0 %) 0.7 Absolute Granulocytes (1.4 - 6.5 /CUMM) 2.5 Absolute Lymphocytes (1.2 - 3.4 /CUMM) 1.0 L Absolute Monocytes (0.10 - 0.60 /CUMM) 0.5 Absolute Eosinophils (0.0 - 0.7 /CUMM) 0.1 Absolute Basophils (0.0 - 0.2 /CUMM) 0 PUBS MCHC (33.0 - 37.0 G/DL) 33.5 11/09 11/09 1745 1544 Chemistry Sodium (137 - 145 mmol/L) 143 Potassium (3.5 - 5.1 mmol/L) 3.8 Chloride (98 - 107 mmol/L) 103 Carbon Dioxide (22 - 30 mmol/L) 26 Anion Gap (5 - 16) 14 BUN (7 - 17 mg/dL) 21 H Creatinine (0.5 - 1.0 mg/dL) 0.8 Estimated GFR (>60 ml/min) > 60 BUN/Creatinine Ratio (7 - 25 %) 26.3 H Glucose (65 - 99 mg/dL) 135 H Lactic Acid (0.7 - 2.1 mmol/L) 4.3 H Calcium (8.4 - 10.2 mg/dL) 8.8 Magnesium (1.6 - 2.3 mg/dL) 1.5 L Total Bilirubin (0.2 - 1.3 mg/dL) 4.1 H AST (14 - 36 U/L) 63 H ALT (9 - 52 U/L) 33 Alkaline Phosphatase (<127 U/L) 126 Troponin I (< 0.11 ng/ml) 0.04 Total Protein (6.3 - 8.2 g/dL) 6.7 Albumin (3.5 - 5.0 g/dL) 2.6 L Globulin (1.9 - 4.2 gm/dL) 4.1 Albumin/Globulin Ratio (1.1 - 2.2 %) 0.6 L Coagulation PT (9.4 - 12.5 SEC) 35.5 H INR (0.90 - 1.19) 3.42 H Hematology CBC w Diff NO MAN DIFF REQ WBC (4.8 - 10.8 /CUMM) 3.5 L RBC (4.20 - 5.40 /CUMM) 3.88 L Hgb (12.0 - 16.0 G/DL) 12.4 Hct (37 - 47 %) 36.7 L MCV (81.0 - 99.0 FL) 94.5 MCH (27.0 - 31.0 PG) 31.8 H RDW (11.5 - 14.5 %) 16.9 H Plt Count (130 - 400 /CUMM) 151 MPV (7.4 - 10.4 FL) 7.9 Gran % (42.2 - 75.2 %) 68.3 Lymphocytes % (20.5 - 51.1 %) 22.1 Monocytes % (1.7 - 9.3 %) 8.4 Eosinophils % (0 - 5 %) 0.2 Basophils % (0.0 - 2.0 %) 1.0 Absolute Granulocytes (1.4 - 6.5 /CUMM) 2.4 Absolute Lymphocytes (1.2 - 3.4 /CUMM) 0.8 L Absolute Monocytes (0.10 - 0.60 /CUMM) 0.3 Absolute Eosinophils (0.0 - 0.7 /CUMM) 0 Absolute Basophils (0.0 - 0.2 /CUMM) 0 PUBS MCHC (33.0 - 37.0 G/DL) 33.7 Urines Urinalysis LIGHT H Urine Color (YEL,AMB,STR) YEL Urine Clarity (CLEAR) CLEAR Urine pH (5.0 - 8.0) 5.5 Ur Specific [place] (1.001 - 1.035) >= 1.030 Urine Protein (NEG,<30 MG/DL) NEG Urine Ketones (NEG) NEG Urine Nitrite (NEG) NEG Urine Bilirubin (NEG) NEG Urine Urobilinogen (0.1 - 1.0 EU/dl) 0.2 Ur Leukocyte Esterase (NEG) TRACE H Ur Microscopic SEDIMENT EXAMINED Urine WBC (0 - 2 /HPF) RARE Ur Epithelial Cells (NONE,FEW) FEW Urine Hemoglobin (NEG) NEG Urine Glucose (N MG/DL) NEG Diagnostic Data EKG Results EKG tracing is independently reviewed, and reveals atrial fibrillation with ventricular response of 90 CXR Results Moderate to large left-sided pleural effusion, not significantly changed in volume relative to the prior exam. Other Results Head CT: No acute intracranial pathology. Mild ischemic microangiopathy and age-related volume loss. Echocardiogram 09/09/16: Mild concentric left ventricular hypertrophy. Normal left ventricular ejection fraction visually estimated at >60 Mild left atrial dilatation. Moderate mitral regurgitation. Moderate aortic stenosis. Mild tricuspid regurgitation. Right ventricular systolic pressure estimated at 42 mmHg. Trace pulmonic regurgitation. Assessment/Plan Assessment/Plan The patient is an 89-year-old female with history of HTN, chronic atrial fibrillation, aortic stenosis, chronic HFpEF, and chronic pleural effusion . She presented with severely elevated blood pressure, and confusion, possibly secondary to hypertensive encephalopathy. Blood pressure is now primarily under control on oral medications. Recommendations: * Continue lisinopril * If she has further significantly elevated blood pressure readings, would consider adding amlodipine 5 mg daily * Hold warfarin today for INR greater than 3, and recheck INR tomorrow. * Check basic metabolic profile in the morning. Consult Acknowledgment - Thank you for your consult request.
--- NOTE | 2016-11-10 14:16 | PN- Att Addend ---
Attending Addendum Attending Brief Note Mrs. Lei was interviewed and examined. Her EMR was reviewed. She is afebrile with stable vital signs. Her systolic blood pressures have been in the mid 120s. Her physical exam is benign. She is alert, oriented, and appropriate. Her laboratory values are satisfactory. At this point we should continue to monitor her blood pressures. Her encephalopathy appears to have cleared. We should also involve physical therapy to increase her activity in anticipation of discharge. Her present medical at the hypertensive should be continued as well as her chronic maintenance medications.
[2016-11-10 16:01] VITALS: BP 175/69
[2016-11-10 18:00] VITALS: BP 170/98
[2016-11-11 00:55] VITALS: BP 152/60
--- NOTE | 2016-11-11 07:21 | PN- Housestaff ---
SULY VIVAR 11/11/16 0721: Subjective Follow-up For: 1. Altered mental status: Likely secondary to hypertensive encephalopathy 2. Hypertensive emergency 3. Elevated INR 4. elevated lactic acid 5. Chronic diastolic congestive heart failure Complaints: pain scale (0-10) Tele-Events Since Last Visit: Atrial fibrillation Rate 68-80 No events on bicycle messenger Subjective: patient was seen and examined this morning. She is alert, awake and oriented to time place and person. No acute events monitored overnight. She denied any headache, confusion, dizziness or lightheadedness. She denied any weakness or sensory changes, gait changes, vision changes, swallowing difficulty. She denied any chest pain, racing of heart, shortness of breath. She offers no complaints this morning. Vitals were stable. Afebrile. Heart rate 68, respiratory rate 20, blood pressure 152/80, saturating at 94% on room air. Review of Systems Constitutional: Denies: see HPI. Objective Last 24 Hrs of Vital Signs/I&O Vital Signs Date Time Temp Pulse Resp B/P Pulse O2 O2 Flow FiO2 Ox Delivery Rate 11/11 1000 84 152/98 11/11 0822 98.6 84 22 152/98 94 Room Air 11/11 0055 152/60 11/11 0033 98.5 68 22 94 Room Air 11/10 1800 82 24 170/98 94 Room Air 11/10 1601 97.6 87 18 175/69 94 Room Air 11/10 1600 94 Room Air Intake & Output 11/11 1600 11/11 0800 11/11 0000 Intake Total 360 Output Total 450 Balance -90 Intake, IV 10 Intake, Oral 350 Number 0 Bowel Movements Output, Urine 450 Physical Exam General Appearance: Alert, Oriented X3, Cooperative, No Acute Distress Skin: No Rashes, No Breakdown HEENT: Atraumatic, Mucous Membr. moist/pink Neck: Supple, No JVD Lymphatic: Cervical nl Cardiovascular: Normal S1, Normal S2 Lungs: Normal Air Movement Abdomen: Normal Bowel Sounds, Soft, No Tenderness Extremities: No Clubbing, No Cyanosis, No Edema Vascular: Normal Pulses Current Medications: Current Medications Sig/Misha Start time Last Medication Dose Route Stop Time Status Admin Acetaminophen 650 MG Q6P PRN 11/09 2100 AC PO Alendronate Sodium 70 MG QTUES 11/11 0700 AC 11/11 PO 0628 Amlodipine Besylate 5 MG DAILY 11/11 1458 AC PO Anastrozole 1 MG DAILY 11/10 1000 AC 11/11 PO 1000 Cholecalciferol 1,000 IU DAILY 11/10 1000 AC 11/11 PO 1000 Ferrous Gluconate 325 MG TID 11/09 2200 AC 11/11 PO 1000 Ibuprofen 600 MG Q6P PRN 11/09 2100 AC PO Lisinopril 20 MG DAILY 11/10 1000 AC 11/11 PO 1000 Magnesium Oxide 400 MG ONE ONE 11/11 0800 DC 11/11 PO 11/11 08 0800 Magnesium Oxide 400 MG DAILY 11/10 1000 AC 11/11 PO 1000 Methimazole 2.5 MG 11/10 1000 AC 11/10 PO 0755 Patient Medication 1 ED .STK-MED ONE 11/11 1359 DC Teaching ED 11/11 1400 Potassium Chloride 20 MEQ DAILY 11/10 1000 AC 11/11 PO 1000 Simvastatin 10 MG 1700 11/10 1700 AC 11/10 PO 1743 Last 24 Hrs of Lab/Claude Results Last 24 Hrs of Labs/Mics: Laboratory Tests 11/11/16 0625: Anion Gap 9, Estimated GFR > 60, BUN/Creatinine Ratio 26.7 H, Magnesium 1.2 L, PT 34.3 H, INR 3.31 H, CBC w Diff NO MAN DIFF REQ, RBC 3.70 L, MCV 94.8, MCH 31.8 H, RDW 16.9 H, MPV 8.4, Gran % 49.9, Lymphocytes % 32.2, Monocytes % 15.1 H, Eosinophils % 2.2, Basophils % 0.6, Absolute Granulocytes 1.5, Absolute Lymphocytes 1.0 L, Absolute Monocytes 0.4, Absolute Eosinophils 0.1, Absolute Basophils 0, PUBS MCHC 33.5 Assessment/Plan Assessment: Ms Frausto is an 89-year-old lady with a PMH of A. fib on Coumadin, DM, HTN, hyperlipidemia,aortic stenosis, previous left-sided pleural effusion S/ paracentesis, neutropenia, breast CA s/p bilateral lumpectomy and radiation, multinodular goiter, chronic diastolic heart failure, Hart's cyst, left wrist fracture, left ankle fracture, osteoarthritis, osteoporosis, hyperthyroidism on methimazole, past history of Lyme's disease brought in for new onset change in mentation. Information obtained from the patient's daughter indicates that she was last normal 2 days ago. However, after she found her disoriented, confused and unable to answer questions appropriately. Daughter reports similar episodes when she was diagnosed with a UTI. VS: BP 180/95, HR 80, RR 18, SPO2 97% on RA, T 98.2. Peak blood pressure: 227/92 Pertinent labs: WBC 3.5, H&H 12.4/36.7, sodium 143, potassium 3.8, BUN/Cr/CR 21/ 0.8, glucose 135 INR: 3.42 Lactic acid: 4.3, 3.2 UA: Trace leukocyte esterase. CXR: Moderate to large left pleural effusion with no change in volume from previous Head CT: No acute intracranial pathology. Mild ischemic microangiopathic age- related volume loss. EKG: Atrial fibrillation, HR 90. Borderline prolonged QT interval. QTC 495. Problem list: 1. Altered mental status: Likely secondary to hypertensive encephalopathy 2. Hypertensive emergency 3. Elevated INR 4. Lactic acidosis 5. Chronic diastolic congestive heart failure 6. Hyperthyroidism 7. Atrial fibrillation on Coumadin 8. Hyperlipidemia Altered mental status/hypertensive encephalopathy Patient was brought to emergency department after she was found altered and confused. Denied any headache, dizziness or lightheadedness, weakness or sensory changes, vision changes, gait changes. neuro Exam is normal. No focal neurologic deficits. CAT scan head was normal. * Found to be hypertensive 220/90 * She was given IV labetalol 10 mg * Admitted to telemetry for continuous cardiac monitoring * Serial EKGs and troponins were negative * Continue to monitor blood pressures with goal BP less than 150/90 * Latest echocardiogram 09/08/2016: LVEF greater than 60%, RV systolic pressure 42 mmHg. * Notified Dr. Manriquez about the admission. * Neuro checks * Ruled out TIA and stroke. * Continue lisinopril 20 mg daily for now. * added amlodipine 5mg today for bp control. * Monitoring of blood pressures. Atrial fibrillation * On warfarin 2.5 mg daily at home * Supratherapeutic INR on admission 3.23 * inr 3.31 today * Warfarin on hold for now left sided pleural effusion cxr- Moderate to large left-sided pleural effusion, not significantly changed in volume relative to the prior exam. * pulmonology was consulted * asymptomatic now Hyperlipidemia Continue simvastatin Hyperthyroidism Continue home dose of methimazole on Thursday and Thursday chronic diastolic congestive heart failure Takes Lasix 20 mg whenever necessary for edema Lasix on hold for now vertigo Takes meclizine whenever necessary Meclizine on hold Osteoporosis Continue alendronate Continue vitamin D Diabetes mellitus Metformin was discontinued by her primary care doctor Monitor Accu-Cheks NovoLog sliding scale Patient is DNR/DNI Heart healthy diet Problem List: 1. Hypertensive encephalopathy Pain Ratin Pain Location: none Pain Goal: Remain pain free Pain Plan: tylinol Tomorrow's Labs & Rationales: inr in the setting of supratherapeutic inr. AMBAR YOUNG MD 11/11/16 1443: Attending MD Review Statement Attending Statement Attending MD Statement: examined this patient, agreed w/resident/PA/DISPATCH CLERK, reviewed EMR data (avail), reviewed images, amended to note Attending Assessment/Plan: Mrs. Lei was again visited today. She has no complaints. Systolic blood pressure today has ranged from 150-170' Notable on exam is patient seems to be a little hyperneic. Her oxygen saturation levels remain adequate on room air. Laboratory values show a neutropenia which is chronic and related to her methimazole. Recent thyroid functions were reviewed and are essentially normal. Her INR remains elevated at above 3. Chest x-ray from admission was also reviewed and shows a moderate to large left pleural effusion. Blood pressure control has been marginal and agree with Dr. Manriquez that amlodipine should be added to her regimen. In addition I have requested Mono Arguello MD to see the patient in order to establish a plan for treatment of her recurrent chronic left pleural effusion. We should continue to hold her warfarin and monitor her INR's.
[2016-11-11 08:22] VITALS: BP 152/98
[2016-11-11 08:23] LABS: ABSOLUTE BASOPHIL COUNT 0 /CUMM (0.0-0.2); ABSOLUTE EOSINOPHIL COUNT 0.1 /CUMM (0.0-0.7); ABSOLUTE GRANULOCYTE CT 1.5 /CUMM (1.4-6.5); ABSOLUTE MONOCYTE COUNT 0.4 /CUMM (0.10-0.60); BASOPHIL % 0.6 % (0.0-2.0); EOSINOPHIL % 2.2 % (0-5); GRANULOCYTE % 49.9 % (42.2-75.2); MEAN CORPUSCULAR HGB 31.8 PG (27.0-31.0); MEAN CORPUSCULAR HGB CONC 33.5 G/DL (33.0-37.0); MEAN CORPUSCULAR VOLUME 94.8 FL (81.0-99.0); MEAN PLATELET VOLUME 8.4 FL (7.4-10.4); PLATELET COUNT 116 /CUMM (130-400); RBC DISTRIBUTION WIDTH 16.9 % (11.5-14.5)
[2016-11-11 08:25] LABS: PT 34.3 SEC (9.4-12.5)
--- NOTE | 2016-11-11 11:56 | Patient Discharge Instructions ---
Discharge Instructions General Discharge Information You were seen/treated for: Hypertensive encephalopathy Supratherapeutic INR left sided pleural effusion You had these procedures: left side thoracocentesis Watch for these problems: Elevated blood pressure Headache Dizziness or lightheadedness Acute confusion Special Instructions: Follow-up with primary care doctor , Dr. Garcia, within a week of discharge and follow up with the pleural fluid results. Follow-up with director of occupational therapy in one week. Follow up with casing trimmer, Dr. Saundra zazueta in one week. Follow up with Dr. Lundy (hematology oncology) and Dr. Herring (retinopathy) in 1-2 weeks. Please monitor daily INRs and does warfarin accordingly, target INR 2-3. Diet Continue normal diet: Yes Activity Full Activity/No Limits: Yes Acute Coronary Syndrome Inclusion Criteria At DC or during hospital stay patient has or had the following: ACS DIAGNOSIS No Discharge Core Measures Meds if any: Prescribed or Continued at Discharge Meds if any: NOT Prescribed or Continued at Discharge Congestive Heart Failure Inclusion Criteria At DC or during hospital stay patient has or had the following: CHF DIAGNOSIS No Discharge Core Measures Meds if any: Prescribed or Continued at Discharge Meds if any: NOT Prescribed or Continued at Discharge Cerebrovascular accident Inclusion Criteria At DC or during hospital stay patient has or had the following: CVA/TIA Diagnosis No Discharge Core Measures Meds if any: Prescribed or Continued at Discharge Meds if any: NOT Prescribed or Continued at Discharge Venous thromboembolism Inclusion Criteria VTE Diagnosis No VTE Type NONE VTE Confirmed by (Test) NONE Discharge Core Measures - Per Current guidelines, there needs to be overlap - treatment for the first 5 days of Warfarin therapy. - If discharged on Warfarin prior to 5 days of - overlap therapy, the patient will need to be - assessed for post discharge needs including - *Post discharge parental anticoagulation - *Warfarin and/or parental anticoagulation education - *Follow up date to check INR post discharge At least 5 days overlap therapy as Inpatient No Meds if any: Prescribed or Continued at Discharge Note: Overlap Therapy is Warfarin and Anticoagulant Meds if any: NOT Prescribed or Continued at Discharge
--- NOTE | 2016-11-11 14:08 | PN- Cardiology ---
Subjective Subjective: Feeling better. Mental status is improving. No chest pain. No shortness of breath. No palpitations. No diaphoresis. Objective Vital Signs and I&Os Vital Signs Date Time Temp Pulse Resp B/P Pulse O2 O2 Flow FiO2 Ox Delivery Rate 11/11 1000 84 152/98 11/11 0822 98.6 84 22 152/98 94 Room Air 11/11 0055 152/60 11/11 0033 98.5 68 22 94 Room Air 11/10 1800 82 24 170/98 94 Room Air 11/10 1601 97.6 87 18 175/69 94 Room Air 11/10 1600 94 Room Air Intake & Output 11/11 1600 11/11 0800 11/11 0000 11/10 1600 11/10 0811/10 0000 Intake Total 360 500 320 540 Output Total 450 500 Balance -90 500 -180 540 Intake, IV 10 200 300 Intake, Oral 350 500 120 240 Number 0 Bowel Movements Output, Urine 450 500 Patient 156 lb Weight Physical Exam: Gen: The patient is in no acute distress HEENT: Normal nose, ears, and oropharynx. Pupils equal bilaterally. Conjunctiva normal. Neck: Supple with no JVD, no masses, and no thyromegaly Lungs: Clear to auscultation with normal respiratory effort Heart: RRR, S1, S2, 3/6 systolic murmur. 1-2 + peripheral edema, 2+ pulses in the lower extremities bilaterally Abdomen: Soft, nontender, no masses. No hepatomegaly. No splenomegaly Extremities: No clubbing or cyanosis. Normal muscle strength in the upper and lower extremities Skin: Normal skin turgor with no skin ulcers or lesions noted. Current Medications: Current Medications Sig/Misha Start time Last Medication Dose Route Stop Time Status Admin Acetaminophen 650 MG Q6P PRN 11/09 2100 AC PO Alendronate Sodium 70 MG QTUES 11/11 07 AC 11/11 PO 0628 Anastrozole 1 MG DAILY 11/10 999 AC 11/11 PO 1000 Cholecalciferol 1,000 IU DAILY 11/10 1000 AC 11/11 PO 1000 Ferrous Gluconate 325 MG TID 11/09 2200 AC 11/11 PO 1000 Ibuprofen 600 MG Q6P PRN 11/09 2100 AC PO Lisinopril 20 MG DAILY 11/10 1000 AC 11/11 PO 1000 Magnesium Oxide 400 MG ONE ONE 11/11 799 DC 11/11 PO 01/10 0801 0800 Magnesium Oxide 400 MG DAILY 11/10 1000 AC 11/11 PO 1000 Methimazole 2.5 MG 11/10 1000 AC 11/10 PO 0755 Patient Medication 1 ED .[facility]-MED ONE 11/11 1359 [place] Teaching ED 11/11 1400 Potassium Chloride 20 MEQ DAILY 11/10 1000 AC 11/11 PO 1000 Simvastatin 10 MG 1700 11/10 1700 AC 11/10 PO 1743 Results Last 48 Hrs of Labs/Mics: Laboratory Tests 11/11/16 0625: Anion Gap 9, Estimated GFR > 60, BUN/Creatinine Ratio 26.7 H, Magnesium 1.2 L, PT 34.3 H, INR 3.31 H, CBC w Diff NO MAN DIFF REQ, RBC 3.70 L, MCV 94.8, MCH 31.8 H, RDW 16.9 H, MPV 8.4, Gran % 49.9, Lymphocytes % 32.2, Monocytes % 15.1 H, Eosinophils % 2.2, Basophils % 0.6, Absolute Granulocytes 1.5, Absolute Lymphocytes 1.0 L, Absolute Monocytes 0.4, Absolute Eosinophils 0.1, Absolute Basophils 0, PUBS MCHC 33.5 11/10/16 0630: Anion Gap 12, Estimated GFR > 60, BUN/Creatinine Ratio 28.6 H, Troponin I 0.05, PT 33.5 H, INR 3.23 H, CBC w Diff NO MAN DIFF REQ, RBC 3.97 L, MCV 95.2, MCH 31.9 H, RDW 16.8 H, MPV 8.0, Gran % 60.3, Lymphocytes % 24.4, Monocytes % 12.7 H, Eosinophils % 1.9, Basophils % 0.7, Absolute Granulocytes 2.5, Absolute Lymphocytes 1.0 L, Absolute Monocytes 0.5, Absolute Eosinophils 0.1, Absolute Basophils 0, PUBS MCHC 33.5 11/09/16 2150: Troponin I 0.06 11/09/16 1805: Lactic Acid 3.2 H 11/09/16 1745: Urinalysis LIGHT H, Urine Color YEL, Urine Clarity CLEAR, Urine pH 5.5, Ur Specific [place] >= 1.030, Urine Protein NEG, Urine Ketones NEG, Urine Nitrite NEG, Urine Bilirubin NEG, Urine Urobilinogen 0.2, Ur Leukocyte Esterase TRACE H , Ur Microscopic SEDIMENT EXAMINED, Urine WBC RARE, Ur Epithelial Cells FEW, Urine Hemoglobin NEG, Urine Glucose NEG 11/09/16 1544: Anion Gap 14, Estimated GFR > 60, BUN/Creatinine Ratio 26.3 H, Glucose 135 H, Lactic Acid 4.3 H, Calcium 8.8, Magnesium 1.5 L, Total Bilirubin 4.1 H, AST 63 H, ALT 33, Alkaline Phosphatase 126, Troponin I 0.04, Total Protein 6.7, Albumin 2.6 L, Globulin 4.1, Albumin/Globulin Ratio 0.6 L, PT 35.5 H, INR 3.42 H, CBC w Diff NO MAN DIFF REQ, RBC 3.88 L, MCV 94.5, MCH 31.8 H, RDW 16.9 H, MPV 7.9, Gran % 68.3, Lymphocytes % 22.1, Monocytes % 8.4, Eosinophils % 0.2, Basophils % 1.0, Absolute Granulocytes 2.4, Absolute Lymphocytes 0.8 L, Absolute Monocytes 0.3, Absolute Eosinophils 0, Absolute Basophils 0, PUBS MCHC 33.7 Assessment/Plan Assessment/Plan Assessment: 1. Chronic atrial fibrillation 2. Chronic HFpEF 3. Chronic pleural effusion 4. Hypertension, uncontrolled 5. Hypertensive encephalopathy, improving Plan: * Amlodipine 5 mg daily for additional blood pressure control * Continue other meds. * Pulmonary consult for pleural effusion, possible thoracentesis * Hold warfarin for possible thoracentesis Continue telemetry? Yes
[2016-11-11 16:18] VITALS: BP 144/80
--- NOTE | 2016-11-11 19:08 | Cons- Pulmonary ---
General Information and HPI Consulting Request Date of Consult: 11/11/16 Requested By: Dr. Garcia Reason for Consult: pleural effusion Source of Information: patient Exam Limitations: no limitations History of Present Illness: 89 year old woman. Consultation for persistent pleural effusion. Mrs. Lei was admitted to with AMS that was deemed to be secondary to hypertensive encephalopathy. Her mentation resolved to baseline and she is doing better with respect to her blood pressure and hemodynamics. Her oxygen saturation is 95% on room air. She is known to me from the office and I have followed her for a persistent left sided pleural effusion that has been sampled diagnostically and therapeutically in the past, last time being in September 2016. At that time 1.2 Liters of clear yellow serous fluid was aspirated. The fluid has not had any features of malignancy with a negative cytology and was transudative in nature. Recently 09/17 admitted for sepsis of urological origin. S/p 1.2L pleural fluid drainage. Mrs. Lei notably has a history of breast cancer, osteoporosis and vertigo. She is on Coumadin for atrial fibrillation. She has dyspnea that is exertional and conversational that has somewhat progressed. The CXR reviewed this admission shows a moderate pleural effusion without significant change in comparison to the last CXR. No fevers, no chills. No chest pain, no n/v/d/c. Allergies/Medications Allergies: Coded Allergies: atorvastatin (Intermediate, MODERATE PAIN TO BACK AND SHOULDERS 01/20/16) scallops (GI DISTRESS 01/20/16) Home Med List: Alendronate Sodium (Fosamax) 70 MG TABLET 1 TAB PO QTUES BONES (Reported) in the morning, at least 30 minutes before the first food, beverage, or medication of the day Anastrozole 1 MG TABLET 1 MG PO DAILY IMMUNE SUPPORT (Reported) Calcium Carb & Citrate/Vit D3 (Calcium + D3 ER Tablet) 600 MG CALCIUM-500 UNIT TABLET.ER HEALTH SUPPLEMENT (Reported) Cholecalciferol (Vitamin D3) 1,000 UNIT TABLET HEALTH SUPPLEMENT (Reported) Diclofenac Sodium (Voltaren) 1 % GEL..GRAM. 1 GM TOP PRN PAIN (Reported) apply to affected area(s) Ferrous Gluconate (IRON) 256 MG (28 MG IRON) TABLET 1 TAB PO TID SUPPLEMENT ( Reported) Fluvastatin Sodium (Lescol 20MG) 20 MG CAP 1 CAP PO AT BEDTIME CHOLESTEROL ( Reported) Furosemide (Lasix) 20 MG TABLET 1 TAB PO PRN EDEMA (Reported) Magnesium Oxide (Magnesium) 400 MG CAPSULE 1 CAP PO DAILY low magnesium follows up with Dr. Radha Constantino (Antivert) 12.5 MG TAB 1 TAB PO Q6P PRN VERTIGO Methimazole 5 MG TABLET 2.5 MG PO Thursday THYROID PROBLEMS ( Reported) Potassium Chloride 20 MEQ TAB.ER.PRT 1 TAB PO DAILY SUPPLEMENT (Reported) QUINAPRIL HCL (Quinapril HCl) 20 MG TAB 1 TAB PO DAILY HEART (Reported) Warfarin Sodium (Coumadin) 2.5 MG TABLET 1 TAB PO AD BLOOD THINNER (Reported) Current Medications: Current Medications Sig/Misha Start time Last Medication Dose Route Stop Time Status Admin Acetaminophen 650 MG Q6P PRN 11/09 2100 AC PO Alendronate Sodium 70 MG QTUES 11/11 0700 AC 11/11 PO 0628 Amlodipine Besylate 5 MG DAILY 11/11 1458 AC 11/11 PO 1703 Anastrozole 1 MG DAILY 11/10 1000 AC 11/11 PO 1000 Cholecalciferol 1,000 IU DAILY 11/10 1000 AC 11/11 PO 1000 Ferrous Gluconate 325 MG TID 11/09 2200 AC 11/11 PO 1703 Ibuprofen 600 MG Q6P PRN 11/09 2100 AC PO Lisinopril 20 MG DAILY 11/10 1000 AC 11/11 PO 1000 Magnesium Oxide 400 MG ONE ONE 11/11 0800 DC 11/11 PO 11/11 0801 0800 Magnesium Oxide 400 MG DAILY 11/10 1000 AC 11/11 PO 1000 Methimazole 2.5 MG 11/10 1000 AC 11/10 PO 0755 Patient Medication 1 ED .STK-MED ONE 11/11 1359 [place] Teaching ED 11/11 1400 Potassium Chloride 20 MEQ DAILY 11/10 1000 AC 11/11 PO 1000 Simvastatin 10 MG 1700 11/10 1700 AC 11/11 PO 1703 Review of Systems Comments 18 point ROS reviewed pertinent positives and negatives are in the HPI otherwise negative Past History Travel History Traveled to [place] past 21 day No Medical History Blood Transfusion Hx: Yes Neurological: SHINGLES LYMES DISEASE EENT: allergies, cataracts, hearing loss, POSTNASAL DRIP Cardiovascular: AFIB, hypertension, hyperlipidemia, AORTIC STENOSIS Respiratory: bronchitis, pneumonia, L pleural effusion THORACENTESIS Gastrointestinal: NONE Hepatic: NONE Renal: NONE Musculoskeletal: osteoarthritis, osteoporosis, BAKERS CYST LEFT WRIST FRACTURE LEFT ANKLE FRACTURE Psychiatric: NONE Endocrine: diabetes, hyperthyroidism Blood Disorders: anemia, LYME DISEASE Cancer(s): breast cancer, SKIN CANCER (LUMPECTOMY NO LYMPH NODES REMOVED) 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 Home Who Do You Live With? self Services at Home: None Smoking Status: Never Smoked Exam & Diagnostic Data Last 24 Hrs of Vital Signs/I&O Vital Signs Date Time Temp Pulse Resp B/P Pulse O2 O2 Flow FiO2 Ox Delivery Rate 11/11 1703 152/60 11/11 1618 99.1 87 22 144/80 95 Room Air 11/11 1600 Room Air 11/11 1000 84 152/98 11/11 0822 98.6 84 22 152/98 94 Room Air 11/11 0055 152/60 11/11 0033 98.5 68 22 94 Room Air Intake & Output 11/11 1600 11/11 0800 11/11 0000 Intake Total 500 360 Output Total 450 450 Balance 50 -90 Intake, IV 10 Intake, Oral 500 350 Number 1 0 Bowel Movements Output, Urine 450 450 Physical Exam Other Physical Findings: gen - awake, alert, oriented heent - ncat cvs - s1, s2, systolic murmur lungs - dimnished breath sounds primarily on the left with dullness ext - edematous Last 48 Hrs of Labs/Claude: Laboratory Tests 11/11/16 0625: Anion Gap 9, Estimated GFR > 60, BUN/Creatinine Ratio 26.7 H, Magnesium 1.2 L, PT 34.3 H, INR 3.31 H, CBC w Diff NO MAN DIFF REQ, RBC 3.70 L, MCV 94.8, MCH 31.8 H, RDW 16.9 H, MPV 8.4, Gran % 49.9, Lymphocytes % 32.2, Monocytes % 15.1 H, Eosinophils % 2.2, Basophils % 0.6, Absolute Granulocytes 1.5, Absolute Lymphocytes 1.0 L, Absolute Monocytes 0.4, Absolute Eosinophils 0.1, Absolute Basophils 0, PUBS MCHC 33.5 11/10/16 0630: Anion Gap 12, Estimated GFR > 60, BUN/Creatinine Ratio 28.6 H, Troponin I 0.05, PT 33.5 H, INR 3.23 H, CBC w Diff NO MAN DIFF REQ, RBC 3.97 L, MCV 95.2, MCH 31.9 H, RDW 16.8 H, MPV 8.0, Gran % 60.3, Lymphocytes % 24.4, Monocytes % 12.7 H, Eosinophils % 1.9, Basophils % 0.7, Absolute Granulocytes 2.5, Absolute Lymphocytes 1.0 L, Absolute Monocytes 0.5, Absolute Eosinophils 0.1, Absolute Basophils 0, PUBS MCHC 33.5 11/09/16 2150: Troponin I 0.06 Assessment/Plan Impression/Plan: Impression 89 year old woman * Resolved hypertensive encephalopathy * atrial fibrillation on coumadin * Left sided Pleural Effusion - fluid has not had any features of malignancy with a negative cytology and was transudative in nature. * Mrs. Lei notably has a history of breast cancer, osteoporosis and vertigo. Plan Dyspnea is exertional and conversational that has somewhat progressed. The CXR reviewed this admission shows a moderate pleural effusion without significant change in comparison to the last CXR. Given symptoms and a significant effusion, a thoracentesis for therapeutic purposes will be pursued with assistance from interventional radiology. Diagnostic specimens should be sent as well including all Lights criteria including: cell count, LDH, total protein, cell count, microbiology with a gram stain, pH and cytology. In order to safely perform the thoracentesis the INR should be less than 1.5. Please continued to hold coumadin and inquire from cardiology if Vit. K administration would be acceptable to facilitate reduction in INR. Lastly the nature of the effusion is unclear. Differential diagnosis can include cirrhosis that the patient has, malignancy is less likely given multiple negative cytology specimens and the transudative nature. Also the pleura with a long standing effusion can facilitate development of a "Trapped Lung" Trapped lung is one of the outcomes of fibrinous or granulomatous pleuritis and is a cause of chronic, benign, unilateral pleural effusion. It is characterized by inability of the lung to expand and fill the thoracic cavity due to a restricting fibrous visceral pleural peel. Will follow with you. Consult Acknowledgment - Thank you for your consult request.
[2016-11-11 23:33] VITALS: BP 140/80
--- NOTE | 2016-11-12 07:31 | PN- Housestaff ---
SULY VIVAR 11/12/16 0731: Subjective Follow-up For: 1. Altered mental status: Likely secondary to hypertensive encephalopathy 2. Hypertensive emergency 3. Elevated INR 4. elevated lactic acid 5. Chronic diastolic congestive heart failurE 6. LEFT SIDED PLEURAL EFFUSION Complaints: pain scale (0-10) Tele-Events Since Last Visit: Atrial fibrillation Rate 69-87 No events on environmental monitoring technician Subjective: patient was seen and examined this morning. She is alert, awake and oriented to time place and person. No acute events monitored overnight. She denied any headache, confusion, dizziness or lightheadedness. She denied any weakness or sensory changes, gait changes, vision changes, swallowing difficulty. She denied any chest pain, racing of heart, shortness of breath. She offers no complaints this morning. Vitals were stable. Afebrile. Heart rate 92, respiratory rate 22, blood pressure 140/80, saturating at 94% on room air. OVERNIGHT SHE DROPPED HER SATURATIONS AND REQUIRED OXYGEN 3L THROUGH NASAL CANULA. Review of Systems Constitutional: Denies: see HPI. Objective Last 24 Hrs of Vital Signs/I&O Vital Signs Date Time Temp Pulse Resp B/P Pulse O2 O2 Flow FiO2 Ox Delivery Rate 11/12 1050 99.2 80 20 164/84 11/12 1049 99.2 80 20 164/84 11/12 0804 99.2 80 20 164/84 92 Room Air 11/12 0000 93 Nasal 3.0L Cannula 11/11 2333 98.9 92 22 140/80 97 Nasal Cannula 11/11 1703 152/60 11/11 1618 99.1 87 22 144/80 95 Room Air 11/11 1600 Room Air Intake & Output 11/12 1600 11/12 0800 11/12 0000 Intake Total 240 Output Total 300 Balance -60 Intake, Oral 240 Output, Urine 300 Physical Exam General Appearance: Alert, Oriented X3, Cooperative, No Acute Distress Skin: No Rashes, No Breakdown HEENT: Atraumatic, Mucous Membr. moist/pink Neck: Supple, No JVD Lymphatic: Cervical nl Cardiovascular: Normal S1, Normal S2, No Murmurs Lungs: Normal Air Movement Abdomen: Normal Bowel Sounds, Soft, No Tenderness Extremities: No Clubbing, No Cyanosis, No Edema, Normal Pulses Vascular: Normal Pulses Current Medications: Current Medications Sig/Misha Start time Last Medication Dose Route Stop Time Status Admin Acetaminophen 650 MG Q6P PRN 11/09 2100 AC PO Alendronate Sodium 70 MG QTUES 11/11 0700 AC 11/11 PO 0628 Amlodipine Besylate 7.5 MG DAILY 11/13 1000 AC PO Amlodipine Besylate 5 MG DAILY 11/11 1458 DC 11/12 PO 1049 Anastrozole 1 MG DAILY 11/10 1000 AC 11/12 PO 1051 Cholecalciferol 1,000 IU DAILY 11/10 1000 AC 11/12 PO 1050 Ferrous Gluconate 325 MG TID 11/09 2200 AC 11/12 PO 1050 Ibuprofen 600 MG Q6P PRN 11/09 2100 AC PO Lisinopril 20 MG DAILY 11/10 1000 AC 11/12 PO 1050 Magnesium Oxide 400 MG ONE ONE 11/12 1400 UNVr PO 11/12 1401 Magnesium Oxide 400 MG DAILY 11/10 1000 AC 11/12 PO 1049 Methimazole 2.5 MG 11/10 1000 AC 11/12 PO 1048 Potassium Chloride 20 MEQ DAILY 11/10 1000 AC 11/12 PO 1048 Simvastatin 10 MG 1700 11/10 1700 AC 11/11 PO 1703 Last 24 Hrs of Lab/Claude Results Last 24 Hrs of Labs/Mics: Laboratory Tests 11/12/16 0610: Anion Gap 10, Estimated GFR > 60, BUN/Creatinine Ratio 31.7 H, Magnesium 1.5 L , PT 28.4 H, INR 2.73 H Assessment/Plan Assessment: Ms Frausto is an 89-year-old lady with a PMH of A. fib on Coumadin, DM, HTN, hyperlipidemia,aortic stenosis, previous left-sided pleural effusion S/ paracentesis, neutropenia, breast CA s/p bilateral lumpectomy and radiation, multinodular goiter, chronic diastolic heart failure, Hart's cyst, left wrist fracture, left ankle fracture, osteoarthritis, osteoporosis, hyperthyroidism on methimazole, past history of Lyme's disease brought in for new onset change in mentation. Information obtained from the patient's daughter indicates that she was last normal 2 days ago. However, after she found her disoriented, confused and unable to answer questions appropriately. Daughter reports similar episodes when she was diagnosed with a UTI. VS: BP 180/95, HR 80, RR 18, SPO2 97% on RA, T 98.2. Peak blood pressure: 227/92 Pertinent labs: WBC 3.5, H&H 12.4/36.7, sodium 143, potassium 3.8, BUN/Cr/CR 21/ 0.8, glucose 135 INR: 3.42 Lactic acid: 4.3, 3.2 UA: Trace leukocyte esterase. CXR: Moderate to large left pleural effusion with no change in volume from previous Head CT: No acute intracranial pathology. Mild ischemic microangiopathic age- related volume loss. EKG: Atrial fibrillation, HR 90. Borderline prolonged QT interval. QTC 495. Problem list: 1. Altered mental status: Likely secondary to hypertensive encephalopathy 2. Hypertensive emergency 3. Elevated INR 4. Lactic acidosis 5. Chronic diastolic congestive heart failure 6. Hyperthyroidism 7. Atrial fibrillation on Coumadin 8. Hyperlipidemia Altered mental status/hypertensive encephalopathy Patient was brought to emergency department after she was found altered and confused. Denied any headache, dizziness or lightheadedness, weakness or sensory changes, vision changes, gait changes. neuro Exam is normal. No focal neurologic deficits. CAT scan head was normal. * Found to be hypertensive 220/90 * She was given IV labetalol 10 mg * Admitted to telemetry for continuous cardiac monitoring * Serial EKGs and troponins were negative * Continue to monitor blood pressures with goal BP less than 150/90 * Latest echocardiogram 09/08/2016: LVEF greater than 60%, RV systolic pressure 42 mmHg. * Notified Dr. Manriquez about the admission. * Neuro checks * Ruled out TIA and stroke. * Continue lisinopril 20 mg daily for now. * added amlodipine 5mg for bp control- amlodipine increased to 7.5 this morning as blood pressure is running around 160s. * Monitoring of blood pressures. Atrial fibrillation * On warfarin 2.5 mg daily at home * Supratherapeutic INR on admission 3.23 * inr 2.73 today * Warfarin on hold for now left sided pleural effusion cxr- Moderate to large left-sided pleural effusion, not significantly changed in volume relative to the prior exam. * pulmonology was consulted * asymptomatic now * planning for thoracocentesis tomorrow if INR is 1.5 and below * Warfarin on hold for now * No recommendations for vitamin K * Patient may require fresh frozen plasma tomorrow if INR remains high Hyperlipidemia Continue simvastatin Hyperthyroidism Continue home dose of methimazole on Thursday and Thursday chronic diastolic congestive heart failure Takes Lasix 20 mg whenever necessary for edema Lasix on hold for now vertigo Takes meclizine whenever necessary Meclizine on hold Osteoporosis Continue alendronate Continue vitamin D Diabetes mellitus Metformin was discontinued by her primary care doctor Monitor Accu-Cheks NovoLog sliding scale Patient is DNR/DNI Heart healthy diet Problem List: 1. Hypertensive encephalopathy 2. Pleural effusion Pain Ratin Pain Location: None Pain Goal: Remain pain free Pain Plan: Tylenol Tomorrow's Labs & Rationales: BEP in the setting of electrolyte abnormality INR in the setting of supratherapeutic INR AMBAR YOUNG MD 11/12/16 0954: Attending MD Review Statement Attending Statement Attending MD Statement: examined this patient, discuss w/resident/PA/CONCRETE PRODUCTS DISPATCHER, agreed w/resident/PA/CONCRETE PRODUCTS DISPATCHER, reviewed EMR data (avail), amended to note Attending Assessment/Plan: Mrs. Lei is comfortable today and she has no complaints. Her systolic blood pressure is improving however it is not consistently below 150 which is desirable. Her physical exam is benign. Her mental status has returned to baseline. We should continue to monitor her blood pressures to get them consistently below 150 perhaps by adjusting her amlodipine. We should continue to hold her warfarin and we should not give oral vitamin K at this time. If her blood pressures are satisfactory and her INR still elevated we can give FFP tomorrow and then proceed with her thoracentesis and possibly consider discharge.
[2016-11-12 08:04] VITALS: BP 164/84
[2016-11-12 08:20] LABS: PT 28.4 SEC (9.4-12.5)
--- NOTE | 2016-11-12 09:52 | PN- Pulmonary ---
Subjective HPI/Critical Care Issues: Patient seen and examined this morning. She is feeling a little better on oxygen however she is continuing to have conversational dyspnea. INR is 2.73 today. Objective Current Medications: Current Medications Sig/Misha Start time Last Medication Dose Route Stop Time Status Admin Acetaminophen 650 MG Q6P PRN 11/09 2100 AC PO Alendronate Sodium 70 MG QTUES 11/11 0700 AC 11/11 PO 0628 Amlodipine Besylate 5 MG DAILY 11/11 1458 AC 11/11 PO 1703 Anastrozole 1 MG DAILY 11/10 1000 AC 11/11 PO 1000 Cholecalciferol 1,000 IU DAILY 11/10 1000 AC 11/11 PO 1000 Ferrous Gluconate 325 MG TID 11/09 2200 AC 11/11 PO 2056 Ibuprofen 600 MG Q6P PRN 11/09 2100 AC PO Lisinopril 20 MG DAILY 11/10 1000 AC 11/11 PO 1000 Magnesium Oxide 400 MG DAILY 11/10 1000 AC 11/11 PO 1000 Methimazole 2.5 MG 11/10 1000 AC 11/10 PO 0755 Patient Medication 1 ED .STK-MED ONE 11/11 1359 [place] Teaching ED 11/11 1400 Potassium Chloride 20 MEQ DAILY 11/10 1000 AC 11/11 PO 1000 Simvastatin 10 MG 1700 11/10 1700 AC 11/11 PO 1703 Vital Signs & I&O Last 24 Hrs of Vitals and I&O: Vital Signs Date Time Temp Pulse Resp B/P Pulse O2 O2 Flow FiO2 Ox Delivery Rate 11/12 0804 99.2 80 20 164/84 92 Room Air 11/12 0000 93 Nasal 3.0L Cannula 11/11 2333 98.9 92 22 140/80 97 Nasal Cannula 11/11 1703 152/60 11/11 1618 99.1 87 22 144/80 95 Room Air 11/11 1600 Room Air 11/11 1000 84 152/98 Intake & Output 11/12 1600 11/12 0800 11/12 0000 Intake Total 240 Output Total 300 Balance -60 Intake, Oral 240 Output, Urine 300 Exam Other Physical Findings: gen - awake, alert, oriented heent - ncat cvs - s1, s2, systolic murmur lungs - dimnished breath sounds primarily on the left with dullness ext - edematous Results Last 24 Hrs of Lab Results: Laboratory Tests 11/12/16 0610: Anion Gap 10, Estimated GFR > 60, BUN/Creatinine Ratio 31.7 H, Magnesium 1.5 L , PT 28.4 H, INR 2.73 H Impression/Plan Impression/Plan Impression/Plan: Impression 89 year old woman * Resolved hypertensive encephalopathy * atrial fibrillation on coumadin * Left sided Pleural Effusion - fluid has not had any features of malignancy with a negative cytology and was transudative in nature. * Mrs. Lei notably has a history of breast cancer, osteoporosis and vertigo. Plan Dyspnea is exertional and conversational that has somewhat progressed. The CXR reviewed this admission shows a moderate pleural effusion without significant change in comparison to the last CXR. Given symptoms and a significant effusion, a thoracentesis for therapeutic purposes will be pursued with assistance from interventional radiology. Diagnostic specimens should be sent as well including all Lights criteria including: cell count, LDH, total protein, cell count, microbiology with a gram stain, pH and cytology. In order to safely perform the thoracentesis the INR should be less than 1.5. Please continued to hold coumadin and inquire from cardiology if Vit. K administration would be acceptable to facilitate reduction in INR. Lastly the nature of the effusion is unclear. Differential diagnosis can include cirrhosis that the patient has, malignancy is less likely given multiple negative cytology specimens and the transudative nature. Also the pleura with a long standing effusion can facilitate development of a "Trapped Lung" Trapped lung is one of the outcomes of fibrinous or granulomatous pleuritis and is a cause of chronic, benign, unilateral pleural effusion. It is characterized by inability of the lung to expand and fill the thoracic cavity due to a restricting fibrous visceral pleural peel. Lastly an indwelling catheter would be the last resort as the thoracentesis episodes are sporadic and intermittent. An indwelling catheter can pose a risk for malnutrition and infection.
--- NOTE | 2016-11-12 13:32 | PN- Cardiology ---
Subjective Subjective: The patient seems to be improving. She remains visibly dyspneic with conversation. Mental status improved. BP remains mildly elevated though improved Objective Vital Signs and I&Os Vital Signs Date Time Temp Pulse Resp B/P Pulse O2 O2 Flow FiO2 Ox Delivery Rate 11/12 1050 99.2 80 20 164/84 11/12 1049 99.2 80 20 164/84 11/12 0804 99.2 80 20 164/84 92 Room Air 11/12 0000 93 Nasal 3.0L Cannula 11/11 2333 98.9 92 22 140/80 97 Nasal Cannula 11/11 1703 152/60 11/11 1618 99.1 87 22 144/80 95 Room Air 11/11 1600 Room Air Intake & Output 11/12 1600 11/12 0800 11/12 0000 11/11 1600 11/11 0800 11/11 0000 Intake Total 240 500 360 Output Total 300 450 450 Balance -60 50 -90 Intake, IV 10 Intake, Oral 240 500 350 Number 1 0 Bowel Movements Output, Urine 300 450 450 Physical Exam: General Appearance: Alert, Oriented X3, Cooperative, No Acute Distress Skin: No Rashes, No Breakdown HEENT: Atraumatic, Mucous Membr. moist/pink Neck: Supple, No JVD, carotids normal Cardiovascular: Normal S1, Normal S2, 2/6 systolic murmur Lungs: Clear bilaterally Abdomen: Normal Bowel Sounds, Soft, No Tenderness Extremities: No Clubbing, No Cyanosis, No Edema, Normal Pulses Vascular: Normal Pulses Current Medications: Current Medications Sig/Misha Start time Last Medication Dose Route Stop Time Status Admin Acetaminophen 650 MG Q6P PRN 11/09 2100 AC PO Alendronate Sodium 70 MG QTUES 11/11 0700 AC 11/11 PO 0628 Amlodipine Besylate 7.5 MG DAILY 11/13 1000 AC PO Amlodipine Besylate 5 MG DAILY 11/11 1458 DC 11/12 PO 1049 Anastrozole 1 MG DAILY 11/10 1000 AC 11/12 PO 1051 Cholecalciferol 1,000 IU DAILY 11/10 1000 AC 11/12 PO 1050 Ferrous Gluconate 325 MG TID 11/09 2200 AC 11/12 PO 1050 Ibuprofen 600 MG Q6P PRN 11/09 2100 AC PO Lisinopril 20 MG DAILY 11/10 1000 AC 11/12 PO 1050 Magnesium Oxide 400 MG DAILY 11/10 1000 AC 11/12 PO 1049 Methimazole 2.5 MG 11/10 1000 AC 11/12 PO 1048 Patient Medication 1 ED .K-MED ONE 11/11 1359 [place] Teaching ED 11/11 1400 Potassium Chloride 20 MEQ DAILY 11/10 1000 AC 11/12 PO 1048 Simvastatin 10 MG 1700 11/10 1700 AC 11/11 PO 1703 Results Last 48 Hrs of Labs/Mics: Laboratory Tests 11/12/16 0610: Anion Gap 10, Estimated GFR > 60, BUN/Creatinine Ratio 31.7 H, Magnesium 1.5 L , PT 28.4 H, INR 2.73 H 11/11/16 0625: Anion Gap 9, Estimated GFR > 60, BUN/Creatinine Ratio 26.7 H, Magnesium 1.2 L, PT 34.3 H, INR 3.31 H, CBC w Diff NO MAN DIFF REQ, RBC 3.70 L, MCV 94.8, MCH 31.8 H, RDW 16.9 H, MPV 8.4, Gran % 49.9, Lymphocytes % 32.2, Monocytes % 15.1 H, Eosinophils % 2.2, Basophils % 0.6, Absolute Granulocytes 1.5, Absolute Lymphocytes 1.0 L, Absolute Monocytes 0.4, Absolute Eosinophils 0.1, Absolute Basophils 0, PUBS MCHC 33.5 Assessment/Plan Assessment/Plan Assessment: 1. Chronic atrial fibrillation 2. Chronic HFpEF 3. Chronic pleural effusion 4. Hypertension, uncontrolled 5. Hypertensive encephalopathy, improving Recommendations: -The patient's mental status has significantly improved. -As discussed with Dr. Garcia, more aggressive blood pressure control. -If possible, avoid giving vitamin K for another 24 hours. Recheck INR tomorrow. Further plans at that time. Continue telemetry? No
[2016-11-12 16:16] VITALS: BP 116/70
[2016-11-13 01:16] VITALS: BP 102/62
--- NOTE | 2016-11-13 07:20 | PN- Housestaff ---
SULY VIVAR 11/13/16 0720: Subjective Follow-up For: 1. Altered mental status: Likely secondary to hypertensive encephalopathy 2. Hypertensive emergency 3. Elevated INR 4. elevated lactic acid 5. Chronic diastolic congestive heart failurE 6. LEFT SIDED PLEURAL EFFUSION Complaints: pain scale (0-10) Tele-Events Since Last Visit: Atrial fibrillation Rate 77-90 No events on lunchroom monitor Subjective: patient was seen and examined this morning. She is alert, awake and oriented to time place and person. No acute events monitored overnight. She denied any headache, confusion, dizziness or lightheadedness. She denied any weakness or sensory changes, gait changes, vision changes, swallowing difficulty. She denied any chest pain, racing of heart, shortness of breath. She offers no complaints this morning. Vitals were stable. Afebrile. Heart rate 96, respiratory rate 20, blood pressure 102/62, saturating at 93% on room air. Review of Systems Constitutional: Denies: see HPI. Objective Last 24 Hrs of Vital Signs/I&O Vital Signs Date Time Temp Pulse Resp B/P Pulse O2 O2 Flow FiO2 Ox Delivery Rate 11/13 0949 83 122/64 11/13 0948 83 122/64 11/13 0800 98.5 83 20 122/64 92 Room Air 11/13 0116 98.9 96 20 102/62 93 11/13 0000 Room Air 11/12 1616 99.5 81 15 116/70 96 Room Air 11/12 1600 Room Air Intake & Output 11/13 1600 11/13 0800 11/13 0000 Intake Total 480 100 240 Output Total 400 550 300 Balance 80 -450 -60 Intake, Oral 480 100 240 Output, Urine 400 550 300 Physical Exam General Appearance: Alert, Oriented X3, Cooperative, No Acute Distress Skin: No Rashes, No Breakdown HEENT: Atraumatic, Mucous Membr. moist/pink Neck: Supple, No JVD Lymphatic: Cervical nl Cardiovascular: Normal S1, Normal S2 Lungs: exp wheezes Abdomen: Normal Bowel Sounds, Soft, No Tenderness Extremities: No Clubbing, No Cyanosis, No Edema Vascular: Normal Pulses Current Medications: Current Medications Sig/Misah Start time Last Medication Dose Route Stop Time Status Admin Acetaminophen 650 MG Q6P PRN 11/09 2100 AC PO Alendronate Sodium 70 MG QTUES 11/11 0700 AC 11/11 PO 0628 Amlodipine Besylate 7.5 MG DAILY 11/13 1000 DC PO Amlodipine Besylate 5 MG DAILY 11/13 1000 AC 11/13 PO 0948 Anastrozole 1 MG DAILY 11/10 999 AC 11/13 PO 0948 Cholecalciferol 1,000 IU DAILY 11/10 999 AC 11/13 PO 0948 Ferrous Gluconate 325 MG TID 11/09 2200 AC 11/13 PO 0948 Ibuprofen 600 MG Q6P PRN 11/09 2100 AC PO Lisinopril 20 MG DAILY 11/10 1000 AC 11/13 PO 0949 Magnesium Oxide 400 MG DAILY 11/10 1000 AC 11/13 PO 0949 Methimazole 2.5 MG 11/10 1000 AC 11/12 PO 1048 Patient Medication 1 ED .STK-MED ONE 11/13 1359 DC Teaching ED 11/13 1400 Potassium Chloride 20 MEQ DAILY 11/10 999 AC 11/13 PO 0949 Simvastatin 10 MG 1700 11/10 1700 AC 11/12 PO 1726 Last 24 Hrs of Lab/Claude Results Last 24 Hrs of Labs/Mics: Laboratory Tests 11/13/16 0635: Anion Gap 9, Estimated GFR > 60, BUN/Creatinine Ratio 31.4 H, Magnesium 1.6, Lactate Dehydrogenase 704 H, Total Protein 6.7, PT 24.5 H, INR 2.35 H Microbiology 11/13 899 BODY FLUID: Body Fluid Culture - COLB 11/13 899 BODY FLUID: Gram Stain - COLB Assessment/Plan Assessment: Ms Frausto is an 89-year-old lady with a PMH of A. fib on Coumadin, DM, HTN, hyperlipidemia,aortic stenosis, previous left-sided pleural effusion S/ paracentesis, neutropenia, breast CA s/p bilateral lumpectomy and radiation, multinodular goiter, chronic diastolic heart failure, Hart's cyst, left wrist fracture, left ankle fracture, osteoarthritis, osteoporosis, hyperthyroidism on methimazole, past history of Lyme's disease brought in for new onset change in mentation. Information obtained from the patient's daughter indicates that she was last normal 2 days ago. However, after she found her disoriented, confused and unable to answer questions appropriately. Daughter reports similar episodes when she was diagnosed with a UTI. VS: BP 180/95, HR 80, RR 18, SPO2 97% on RA, T 98.2. Peak blood pressure: 227/92 Pertinent labs: WBC 3.5, H&H 12.4/36.7, sodium 143, potassium 3.8, BUN/Cr/CR 21/ 0.8, glucose 135 INR: 3.42 Lactic acid: 4.3, 3.2 UA: Trace leukocyte esterase. CXR: Moderate to large left pleural effusion with no change in volume from previous Head CT: No acute intracranial pathology. Mild ischemic microangiopathic age- related volume loss. EKG: Atrial fibrillation, HR 90. Borderline prolonged QT interval. QTC 495. Problem list: 1. Altered mental status: Likely secondary to hypertensive encephalopathy 2. Hypertensive emergency 3. Elevated INR 4. Lactic acidosis 5. Chronic diastolic congestive heart failure 6. Hyperthyroidism 7. Atrial fibrillation on Coumadin 8. Hyperlipidemia Altered mental status/hypertensive encephalopathy Patient was brought to emergency department after she was found altered and confused. Denied any headache, dizziness or lightheadedness, weakness or sensory changes, vision changes, gait changes. neuro Exam is normal. No focal neurologic deficits. CAT scan head was normal. * Found to be hypertensive 220/90 * She was given IV labetalol 10 mg * Admitted to telemetry for continuous cardiac monitoring * Serial EKGs and troponins were negative * Continue to monitor blood pressures with goal BP less than 150/90 * Latest echocardiogram 09/08/2016: LVEF greater than 60%, RV systolic pressure 42 mmHg. * Notified Dr. Manriquez about the admission. * Neuro checks * Ruled out TIA and stroke. * Continue lisinopril 20 mg daily for now. * added amlodipine 5mg for bp control- amlodipine can be increased to 7.5 if blood pressure greater than 150s. * Monitoring of blood pressures. Atrial fibrillation * On warfarin 2.5 mg daily at home * Supratherapeutic INR on admission 3.23 * inr 2.35 today * Warfarin on hold for now left sided pleural effusion cxr- Moderate to large left-sided pleural effusion, not significantly changed in volume relative to the prior exam. * pulmonology was consulted * asymptomatic now * planning for thoracocentesis tomorrow if INR is 2 and below * Warfarin on hold for now * No recommendations for vitamin K * Patient may require fresh frozen plasma tomorrow if INR remains high Hyperlipidemia Continue simvastatin Hyperthyroidism Continue home dose of methimazole on Thursday and [place]ner chronic diastolic congestive heart failure Takes Lasix 20 mg whenever necessary for edema Lasix on hold for now vertigo Takes meclizine whenever necessary Meclizine on hold Osteoporosis Continue alendronate Continue vitamin D Diabetes mellitus Metformin was discontinued by her primary care doctor Monitor Accu-Cheks NovoLog sliding scale Patient is DNR/DNI Heart healthy diet Problem List: 1. Hypertensive encephalopathy 2. Pleural effusion 3. Lactic acidosis Pain Ratin Pain Location: none Pain Goal: Remain pain free Pain Plan: tylinol Tomorrow's Labs & Rationales: inr- supratherapeutic now AMBAR YOUNG MD 11/13/16 1506: Attending MD Review Statement Attending Statement Attending MD Statement: examined this patient, discuss w/resident/PA/DOCUMENT CLERK, agreed w/resident/PA/DOCUMENT CLERK, reviewed EMR data (avail), discussed with nursing, amended to note Attending Assessment/Plan: Mrs. Lei was interviewed and examined. Her EMR was reviewed. She has no complaints today. Her blood pressure is much improved with systolic pressures during the day in the 120 systolic range. Pulmonary exam reveals an expiratory wheeze. Her INR is again greater than 2. Her hypertensive encephalopathy has resolved. I agree with Dr. Arguello given her symptoms that the thoracentesis should be pursued. Arrangements have been made in should her INR still be elevated tomorrow she will be given FFP prior to her procedure. Should everything go well it is possible that she may be discharged to home tomorrow afternoon.
[2016-11-13 08:00] VITALS: BP 122/64
[2016-11-13 08:25] LABS: PT 24.5 SEC (9.4-12.5)
--- NOTE | 2016-11-13 08:39 | PN- Cardiology ---
Subjective Subjective: The patient seems to be doing well today. She has no current symptoms. She notes that she had a low-grade fever overnight. Her blood pressure is significantly improved today. Today's lab reports are pending. Objective Vital Signs and I&Os Vital Signs Date Time Temp Pulse Resp B/P Pulse O2 O2 Flow FiO2 Ox Delivery Rate 11/13 0116 98.9 96 20 102/62 93 11/13 0000 Room Air 11/12 1616 99.5 81 15 116/70 96 Room Air 11/12 1600 Room Air 11/12 1050 99.2 80 20 164/84 11/12 1049 99.2 80 20 164/84 Intake & Output 11/13 1600 11/13 0800 11/13 0000 11/12 1600 11/12 0800 11/12 0000 Intake Total 100 240 480 240 Output Total 550 300 300 Balance -450 -60 480 -60 Intake, Oral 100 240 480 240 Output, Urine 550 300 300 Current Medications: Current Medications Sig/Misha Start time Last Medication Dose Route Stop Time Status Admin Acetaminophen 650 MG Q6P PRN 11/09 2100 AC PO Alendronate Sodium 70 MG QTUES 11/11 0700 AC 11/11 PO 0628 Amlodipine Besylate 7.5 MG DAILY 11/13 1000 DC PO Amlodipine Besylate 5 MG DAILY 11/13 1000 AC PO Amlodipine Besylate 5 MG DAILY 11/11 1458 DC 11/12 PO 1049 Anastrozole 1 MG DAILY 11/10 1000 AC 11/12 PO 1051 Cholecalciferol 1,000 IU DAILY 11/10 1000 AC 11/12 PO 1050 Ferrous Gluconate 325 MG TID 11/09 2200 AC 11/12 PO 2121 Ibuprofen 600 MG Q6P PRN 11/09 2100 AC PO Lisinopril 20 MG DAILY 11/10 1000 AC 11/12 PO 1050 Magnesium Oxide 400 MG ONE ONE 11/12 1400 DC 11/12 PO 11/12 1401 1451 Magnesium Oxide 400 MG DAILY 11/10 1000 AC 11/12 PO 1049 Methimazole 2.5 MG 11/10 1000 AC 11/12 PO 1048 Potassium Chloride 20 MEQ DAILY 11/10 1000 AC 11/12 PO 1048 Simvastatin 10 MG 1700 11/10 1700 AC 11/12 PO 1726 Results Last 48 Hrs of Labs/Mics: Laboratory Tests 11/13/16 0635: Anion Gap 9, Estimated GFR > 60, BUN/Creatinine Ratio 31.4 H, Magnesium 1.6, Lactate Dehydrogenase 704 H, Total Protein 6.7, PT 24.5 H, INR 2.35 H 11/12/16 0610: Anion Gap 10, Estimated GFR > 60, BUN/Creatinine Ratio 31.7 H, Magnesium 1.5 L , PT 28.4 H, INR 2.73 H Assessment/Plan Assessment/Plan Assessment: 1. Chronic atrial fibrillation 2. Chronic HFpEF 3. Chronic pleural effusion 4. Hypertension, uncontrolled 5. Hypertensive encephalopathy, improving Recommendations: -The patient's mental status has significantly improved. -Blood pressure improved today, continue current regimen. -Further plans about timing of thoracentesis depending on today's INR. Continue telemetry? No
--- NOTE | 2016-11-13 10:53 | PN- Pulmonary ---
Subjective HPI/Critical Care Issues: Patient seen and examined. No chest pain, dyspnea somewhat improved but remains No nausea, vomiting, diarrhea or constipation. Afebrile and hemodynamically stable. Objective Current Medications: Current Medications Sig/Misha Start time Last Medication Dose Route Stop Time Status Admin Acetaminophen 650 MG Q6P PRN 11/09 2100 AC PO Alendronate Sodium 70 MG QTUES 11/11 0700 AC 11/11 PO 0628 Amlodipine Besylate 7.5 MG DAILY 11/13 1000 DC PO Amlodipine Besylate 5 MG DAILY 11/13 1000 AC 11/13 PO 0948 Amlodipine Besylate 5 MG DAILY 11/11 1458 DC 11/12 PO 1049 Anastrozole 1 MG DAILY 11/10 1000 AC 11/13 PO 0948 Cholecalciferol 1,000 IU DAILY 11/10 1000 AC 11/13 PO 0948 Ferrous Gluconate 325 MG TID 11/09 2200 AC 11/13 PO 0948 Ibuprofen 600 MG Q6P PRN 11/09 2100 AC PO Lisinopril 20 MG DAILY 11/10 1000 AC 11/13 PO 0949 Magnesium Oxide 400 MG ONE ONE 11/12 1400 DC 11/12 PO 11/12 1401 1451 Magnesium Oxide 400 MG DAILY 11/10 1000 AC 11/13 PO 0949 Methimazole 2.5 MG 11/10 1000 AC 11/12 PO 1048 Potassium Chloride 20 MEQ DAILY 11/10 1000 AC 11/13 PO 0949 Simvastatin 10 MG 1700 11/10 1700 AC 11/12 PO 1726 Vital Signs & I&O Last 24 Hrs of Vitals and I&O: Vital Signs Date Time Temp Pulse Resp B/P Pulse O2 O2 Flow FiO2 Ox Delivery Rate 11/13 0949 83 122/64 11/13 0948 83 122/64 11/13 0800 98.5 83 20 122/64 92 Room Air 11/13 0116 98.9 96 20 102/62 93 11/13 0000 Room Air 11/12 1616 99.5 81 15 116/70 96 Room Air 11/12 1600 Room Air Intake & Output 11/13 1600 11/13 0800 11/13 0000 Intake Total 100 240 Output Total 550 300 Balance -450 -60 Intake, Oral 100 240 Output, Urine 550 300 Exam Other Physical Findings: gen - awake, alert, oriented heent - ncat cvs - s1, s2, systolic murmur lungs - dimnished breath sounds primarily on the left with dullness ext - edematous Results Last 24 Hrs of Lab Results: Laboratory Tests 11/13/16 0635: Anion Gap 9, Estimated GFR > 60, BUN/Creatinine Ratio 31.4 H, Magnesium 1.6, Lactate Dehydrogenase 704 H, Total Protein 6.7, PT 24.5 H, INR 2.35 H Impression/Plan Impression/Plan Impression/Plan: Impression 89 year old woman * Left sided Pleural Effusion - fluid has not had any features of malignancy with a negative cytology and was transudative in nature. * Mrs. Lei notably has a history of breast cancer, osteoporosis and vertigo. Plan Given symptoms and a significant effusion, a thoracentesis for therapeutic purposes will be pursued with assistance from interventional radiology. Diagnostic specimens should be sent as well including all Lights criteria including: cell count, LDH, total protein, cell count, microbiology with a gram stain, pH and cytology. Based on INR tomorrow thoracentesis should be performed the patient did not do well with vitamin K previously and took a really long time to return to therapeutic INR. If INR is greater than acceptable level per IR would administer FFP.
[2016-11-13 16:01] VITALS: BP 100/60
[2016-11-14 00:53] VITALS: BP 122/72
[2016-11-14 05:50] LABS: PT 23.2 SEC (9.4-12.5)
--- NOTE | 2016-11-14 07:38 | PN- Housestaff ---
Subjective Follow-up For: 1. Altered mental status: Likely secondary to hypertensive encephalopathy 2. Hypertensive emergency 3. Elevated INR 4. elevated lactic acid 5. Chronic diastolic congestive heart failurE 6. 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 She is alert, awake and oriented to time place and person. No acute events monitored overnight. She denied any headache, confusion, dizziness or lightheadedness. She denied any weakness or sensory changes, gait changes, vision changes, swallowing difficulty. She denied any chest pain, racing of heart. Mild short of breath and cough this morning. Vitals were stable. Afebrile. Heart rate 92, respiratory rate 20, blood pressure 122/62, saturating at 94% on room air. Review of Systems Constitutional: Denies: see HPI. Objective Last 24 Hrs of Vital Signs/I&O Vital Signs Date Time Temp Pulse Resp B/P Pulse O2 O2 Flow FiO2 Ox Delivery Rate 11/14 1028 Room Air 3.0L 11/14 1002 130/76 11/14 1002 130/76 11/14 0918 Room Air 11/14 0828 97.9 86 17 130/76 96 Room Air 11/14 0053 97.8 92 20 122/72 94 Room Air 11/14 0000 94 Room Air 11/13 1601 98.3 71 18 100/60 94 Room Air Intake & Output 11/14 1600 11/14 0800 11/14 0000 Intake Total 200 210 Output Total 450 Balance -250 210 Intake, IV 10 Intake, Oral 200 200 Output, Urine 450 Physical Exam General Appearance: Alert, Oriented X3, Cooperative, No Acute Distress Skin: No Rashes, No Breakdown HEENT: Atraumatic, Mucous Membr. moist/pink Neck: Supple, No JVD Lymphatic: Cervical nl Cardiovascular: Normal S1, Normal S2, No Murmurs Lungs: Normal Air Movement, b/l wheezes Abdomen: Normal Bowel Sounds, Soft, No Tenderness Extremities: No Clubbing, No Cyanosis, No Edema Vascular: Normal Pulses Current Medications: Current Medications Sig/Misha Start time Last Medication Dose Route Stop Time Status Admin Acetaminophen 650 MG Q6P PRN 11/09 2100 AC PO Alendronate Sodium 70 MG QTUES 11/11 0700 AC 11/11 PO 0628 Amlodipine Besylate 5 MG DAILY 11/13 1000 AC 11/14 PO 1002 Anastrozole 1 MG DAILY 11/10 1000 AC 11/14 PO 1001 Cholecalciferol 1,000 IU DAILY 11/10 1000 AC 11/14 PO 1002 Ferrous Gluconate 325 MG TID 11/09 2200 AC 11/14 PO 1004 Ibuprofen 600 MG Q6P PRN 11/09 2100 AC PO Lisinopril 20 MG DAILY 11/10 1000 AC 11/14 PO 1002 Magnesium Oxide 400 MG DAILY 11/10 1000 AC 11/14 PO 1001 Methimazole 2.5 MG 11/10 1000 AC 11/14 PO 1003 Potassium Chloride 20 MEQ DAILY 11/10 1000 AC 11/14 PO 1001 Simvastatin 10 MG 1700 11/10 1700 AC 11/13 PO 1558 Warfarin Sodium 2.5 MG COUMADIN 1700 ONE 11/14 1700 AC PO 11/14 1701 Last 24 Hrs of Lab/Claude Results Last 24 Hrs of Labs/Mics: Laboratory Tests 11/14/16 1140: Pleural pH 7.47 11/14/16 1140: Fluid WBC 305 H, Fld Total RBCs Counted 768 H 11/14/16 1140: Lymphocytes 11, % Normal PMNs 3, Misc Hematology Test 85, Phlebotomy Draw Site LT THORA, Fluid Glucose 178, Fluid Total Protein 2.4, Fluid Albumin < 1.0, Fluid LDH 384, Fluid Amylase < 30 11/14/16 1020: PT 21.7 H, INR 2.08 H 11/14/16 0515: Anion Gap 8, Estimated GFR > 60, BUN/Creatinine Ratio 35.0 H, Magnesium 1.7, Lactate Dehydrogenase 633 H, Total Protein 6.6, PT 23.2 H, INR 2.23 H Microbiology 11/14 1140 BODY FLUID: Body Fluid Culture - RECD 11/14 114 BODY FLUID: Gram Stain - RECD 11/14 822 BODY FLUID: Body Fluid Culture - CAN Cancelled: WRONG SITE 11/14 822 BODY FLUID: Gram Stain - CAN Cancelled: WRONG SITE Assessment/Plan Assessment: Ms Frausto is an 89-year-old lady with a PMH of A. fib on Coumadin, DM, HTN, hyperlipidemia,aortic stenosis, previous left-sided pleural effusion S/ paracentesis, neutropenia, breast CA s/p bilateral lumpectomy and radiation, multinodular goiter, chronic diastolic heart failure, Hart's cyst, left wrist fracture, left ankle fracture, osteoarthritis, osteoporosis, hyperthyroidism on methimazole, past history of Lyme's disease brought in for new onset change in mentation. Information obtained from the patient's daughter indicates that she was last normal 2 days ago. However, after she found her disoriented, confused and unable to answer questions appropriately. Daughter reports similar episodes when she was diagnosed with a UTI. VS: BP 180/95, HR 80, RR 18, SPO2 97% on RA, T 98.2. Peak blood pressure: 227/92 Pertinent labs: WBC 3.5, H&H 12.4/36.7, sodium 143, potassium 3.8, BUN/Cr/CR 21/ 0.8, glucose 135 INR: 3.42 Lactic acid: 4.3, 3.2 UA: Trace leukocyte esterase. CXR: Moderate to large left pleural effusion with no change in volume from previous Head CT: No acute intracranial pathology. Mild ischemic microangiopathic age- related volume loss. EKG: Atrial fibrillation, HR 90. Borderline prolonged QT interval. QTC 495. Problem list: 1. Altered mental status: Likely secondary to hypertensive encephalopathy 2. Hypertensive emergency 3. Elevated INR 4. Lactic acidosis 5. Chronic diastolic congestive heart failure 6. Hyperthyroidism 7. Atrial fibrillation on Coumadin 8. Hyperlipidemia Altered mental status/hypertensive encephalopathy Patient was brought to emergency department after she was found altered and confused. Denied any headache, dizziness or lightheadedness, weakness or sensory changes, vision changes, gait changes. neuro Exam is normal. No focal neurologic deficits. CAT scan head was normal. * Found to be hypertensive 220/90 * She was given IV labetalol 10 mg * Admitted to telemetry for continuous cardiac monitoring * Serial EKGs and troponins were negative * Continue to monitor blood pressures with goal BP less than 150/90 * Latest echocardiogram 09/08/2016: LVEF greater than 60%, RV systolic pressure 42 mmHg. * Notified Dr. Manriquez about the admission. * Neuro checks * Ruled out TIA and stroke. * Continue lisinopril 20 mg daily for now. * added amlodipine 5mg for bp control- amlodipine can be increased to 7.5 if blood pressure greater than 150s. * Monitoring of blood pressures. Atrial fibrillation * On warfarin 2.5 mg daily at home * Supratherapeutic INR on admission 3.23 * inr 2.08 today * will get warfarin 2.5 mg today left sided pleural effusion cxr- Moderate to large left-sided pleural effusion, not significantly changed in volume relative to the prior exam. * pulmonology was consulted * asymptomatic now * patient received one bag of ffp this morning. INR came down to 2.03. * thoracocentesis done today. * transudative effusion Hyperlipidemia Continue simvastatin Hyperthyroidism Continue home dose of methimazole on Thursday and Thursday chronic diastolic congestive heart failure Takes Lasix 20 mg whenever necessary for edema Lasix on hold for now vertigo Takes meclizine whenever necessary Meclizine on hold Osteoporosis Continue alendronate Continue vitamin D Diabetes mellitus Metformin was discontinued by her primary care doctor Monitor Accu-CheRuiYi NovoLog sliding scale Patient is DNR/DNI Heart healthy diet Problem List: 1. Hypertensive encephalopathy 2. Pleural effusion due to CHF (congestive heart failure) Pain Ratin Pain Location: none Pain Goal: Remain pain free Pain Plan: adriannainol Tomorrow's Labs & Rationales: inr in the setting to dose coumadin
[2016-11-14 08:28] VITALS: BP 130/76
[2016-11-14 10:42] LABS: PT 21.7 SEC (9.4-12.5)
--- NOTE | 2016-11-14 11:13 | PN- Pulmonary ---
Subjective HPI/Critical Care Issues: Patient seen and examined. No chest pain, at respiratory baseline. No nausea, vomiting, diarrhea or constipation. Afebrile and hemodynamically stable. Objective Current Medications: Current Medications Sig/Misha Start time Last Medication Dose Route Stop Time Status Admin Acetaminophen 650 MG Q6P PRN 11/09 2100 AC PO Alendronate Sodium 70 MG QTUES 11/11 0700 AC 11/11 PO 0628 Amlodipine Besylate 5 MG DAILY 11/13 1000 AC 11/14 PO 1002 Anastrozole 1 MG DAILY 11/10 1000 AC 11/14 PO 1001 Cholecalciferol 1,000 IU DAILY 11/10 1000 AC 11/14 PO 1002 Ferrous Gluconate 325 MG TID 11/09 2200 AC 11/14 PO 1004 Ibuprofen 600 MG Q6P PRN 11/09 2100 AC PO Lisinopril 20 MG DAILY 11/10 1000 AC 11/14 PO 1002 Magnesium Oxide 400 MG DAILY 11/10 1000 AC 11/14 PO 1001 Methimazole 2.5 MG 11/10 1000 AC 11/14 PO 1003 Patient Medication 1 ED .STK-MED ONE 11/13 1359 DC Teaching ED 11/13 1400 Potassium Chloride 20 MEQ DAILY 11/10 1000 AC 11/14 PO 1001 Simvastatin 10 MG 1700 11/10 1700 AC 11/13 PO 1558 Vital Signs & I&O Last 24 Hrs of Vitals and I&O: Vital Signs Date Time Temp Pulse Resp B/P Pulse O2 O2 Flow FiO2 Ox Delivery Rate 11/14 1028 Room Air 3.0L 11/14 1002 130/76 11/14 1002 130/76 11/14 0918 Room Air 11/14 0828 97.9 86 17 130/76 96 Room Air 11/14 0053 97.8 92 20 122/72 94 Room Air 11/14 0000 94 Room Air 11/13 1601 98.3 71 18 100/60 94 Room Air Intake & Output 11/14 1600 11/14 0800 11/14 0000 Intake Total 200 210 Output Total 450 Balance -250 210 Intake, IV 10 Intake, Oral 200 200 Output, Urine 450 Exam Other Physical Findings: gen - awake, alert, oriented heent - ncat cvs - s1, s2, systolic murmur lungs - dimnished breath sounds primarily on the left with dullness ext - edematous Results Last 24 Hrs of Lab Results: Laboratory Tests 11/14/16 1020: PT 21.7 H, INR 2.08 H 11/14/16 0515: Anion Gap 8, Estimated GFR > 60, BUN/Creatinine Ratio 35.0 H, Magnesium 1.7, Lactate Dehydrogenase 633 H, Total Protein 6.6, PT 23.2 H, INR 2.23 H Impression/Plan Impression/Plan Impression/Plan: Impression 89 year old woman * Left sided Pleural Effusion - fluid has not had any features of malignancy with a negative cytology and was transudative in nature. * Mrs. Lei notably has a history of breast cancer, osteoporosis and vertigo. Plan -Plan for thoracentesis for therapeutic purposes will be pursued with assistance from interventional radiology. FFP may be warranted. -Diagnostic specimens should be sent as well including all Lights criteria including: cell count, LDH, total protein, cell count, microbiology with a gram stain, pH and cytology.
--- NOTE | 2016-11-14 12:19 | RADIOLOGY REPORT ---
EXAMINATION:\H\ \N\XR CHEST CLINICAL INFORMATION: Status post left thoracentesis. Left-sided pleural effusion. COMPARISON: Chest x-ray dated 11/09/2016. TECHNIQUE: Single AP semierect view of the chest was obtained. FINDINGS: Compared to prior exam, decrease in size of the left-sided pleural effusion is seen. A moderate left-sided pleural effusion remains with improved aeration in the left lung base. No pneumothorax is present. Low lung volumes are seen. No evidence of pulmonary edema. Bony structures grossly unremarkable. Changes of prior left axillary lymph node resection seen. IMPRESSION: Improved aeration in the left lung base with decrease in size of left-sided pleural effusion status post thoracentesis. No evidence of pneumothorax.
[2016-11-14] MEDS ORDERED: AMLODIPINE BESYL5 M1 PO (13:24)
--- NOTE | 2016-11-14 14:26 | Discharge Summary ---
Visit Information Visit Dates Admission Date: 11/09/16 Discharge Date: 11/17/16 Hospital Course Course Attending Physician: ALFREDO JEAN MD Primary Care Physician: AMBAR YOUNG MD Consulting Request: 1 Consulting Specialty: Cardiology Consulting Request: 2 Consulting Specialty: Pulmonary Disease Hospital Course: This is an 89-year-old lady with past medical history significant for atrial fibrillation on warfarin, diabetes, hypertension, previous left-sided pleural effusion S/P paracentesis, neutropenia, breast CA S/B bilateral lumpectomy and radiation, multinodular goiter who was brought to the hospital for altered mental status. On admission, the patient denied any fevers, chills, changes in medication, recent travel, headache, chest pain, palpitations, nausea, vomiting, diarrhea, urinary frequency/burning, changes in appetite. Vital signs on admission: Blood pressure 180/95, HR 80, RR 18, SPO2 97% on RA, T 98.2. Peak blood pressure : 227/92 Pertinent physical exam at the time of admission:General Appearance: Alert, Oriented X3, Cooperative, No Acute Distress Skin: No Rashes, No Breakdown HEENT: Atraumatic, Mucous Membr. moist/pink Neck: Supple, No JVD Lymphatic: Cervical nl Cardiovascular: Normal S1, Normal S2, No Murmurs Lungs: Normal Air Movement, b/l wheezes Abdomen: Normal Bowel Sounds, Soft, No Tenderness Extremities: No Clubbing, No Cyanosis, No Edema Vascular: Normal Pulses Pertinent labs: WBC 3.5, H&H 12.4/36.7, sodium 143, potassium 3.8, BUN/Cr/CR 21/ 0.8, glucose 135 INR: 3.42 Lactic acid: 4.3, 3.2 UA: Trace leukocyte esterase. CXR: Moderate to large left pleural effusion with no change in volume from previous Head CT: No acute intracranial pathology. Mild ischemic microangiopathic age- related volume loss. EKG: Atrial fibrillation, HR 90. Borderline prolonged QT interval. QTC 495. The patient was admitted to telemetry monitored sepsis. The following problems were addressed during the course of her hospital stay: #Altered mental status/hypertensive encephalopathy: Patient was brought to emergency department after she was found altered and confused. Denied any headache, dizziness or lightheadedness, weakness or sensory changes, vision changes, gait changes. No focal neurologic deficits. CAT scan head was normal. He was found to be hypertensive to 220/90, she was given IV labetalol 10 mg 1 was admitted to telemetry monitored service for continuous cardiac monitoring. Cardiology was consulted. Vital signs were monitored closely. Frequent neuro checks were performed. ACS was ruled out with serial troponins and EKGs. Her blood pressures were monitored closely with goal of <150/90. Latest echocardiogram 09/08/2016: LVEF greater than 60%, RV systolic pressure 42 mmHg. Mild left atrial dilatation. Moderate mitral regurgitation. Moderate aortic stenosis. Mild tricuspid regurgitation. Right ventricular systolic pressure estimated at 42 mmHg. Trace pulmonic regurgitation. Large left pleural effusion. She was maintained on lisinopril 20 mg daily, amlodipine 5 mg daily was added to her antihypertensive regimen. She remained well controlled during the course of her hospital stay. #Left sided pleural effusion: Chest x-ray on admission showed moderate to large left-sided pleural effusion. The patient underwent thoracentesis for therapeutic purposes with approximately 1 L of transudate removed. The patient received 1 unit of FFP to reverse INR before the procedure. Warfarin was resumed after the procedure. Diagnostic specimens were sent as well including all Lights criteria including: cell count, LDH, total protein, cell count, microbiology with a gram stain, pH and cytology. #Atrial fibrillation The patient had INR elevated to 3.23 on admission. Her home medication of warfarin was held. Was resumed on 11/14/2016. #Hyperlipidemia Was maintained on simvastatin #Chronic HFpEF, lower extremity edema: Stable, was maintained on CHF diet. His monitorings of vitals on daily weights, Is &Os . Patient was on furosemide as outpatient on when necessary basis for lower extremity edema. She was maintained on PO furosemide 20 mg Q48 hrs. #Hyperthyroidism Was maintained on home dose of methimazole on Thursday and Thursday #Osteoporosis Was maintained on alendronate and vitamin D #Diabetes mellitus Was held on admission. Blood glucose levels were monitored closely. She was placed on diabetic diet. Glucose levels ranging from 86-231. She received insulin sliding scale. 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 #CODE STATUS DNI DNR Allergies: Coded Allergies: atorvastatin (Intermediate, MODERATE PAIN TO BACK AND SHOULDERS 01/20/16) scallops (GI DISTRESS 01/20/16) Significant Procedures: Therapeutic thoracentesis for left-sided pleural effusion. Pertinent Lab Results: Laboratory Tests 11/15 11/14 11/14 11/14 0700 1140 1140 1140 Coagulation PT (9.4 - 12.5 SEC) 21.5 H INR (0.90 - 1.19) 2.06 H Hematology Lymphocytes (%) 11 % Normal PMNs (%) 3 Misc Hematology Test (%) 85 Miscellaneous Phlebotomy Draw Site LT THORA Other Body Source Fluid WBC (0 - 5 /CUMM) 305 H Fld Total RBCs Counted (0 /CUMM) 768 H Fluid Glucose (mg/dL) 178 Fluid Total Protein (g/dL) 2.4 Fluid Albumin (g/dL) < 1.0 Fluid LDH (U/L) 384 Fluid Amylase (U/L) < 30 Pleural pH (PH) 7.47 Disposition Summary Disposition Principal Diagnosis: Altered mental status/hypertensive encephalopathy Additional Diagnosis: Left-sided pleural effusion Discharge Disposition: SNF Discharge Instructions General Discharge Information Code Status: Do Not Resucitate/Intubat Patient's Diet: CHF/diabetes diet Patient's Activity: As tolerated Follow-Up Instructions/Appts: Follow-up with primary care doctor , Dr. Young, within a week of discharge and follow up with the pleural fluid results. Follow-up with account manager sales representative Sarah Daley MD in one week. Follow up with manager privacy, Dr. Isidro zazueta in one week. Follow up with Dr. Lundy (hematology oncology) and Dr. Herring (retinopathy) in 1-2 weeks. Please monitor daily INRs and does warfarin accordingly, target INR 2-3. Medications at Discharge Discharge Medications: Continue taking these medications: Anastrozole (Anastrozole) 1 MG TABLET 1 Milligram ORAL DAILY Comments: Last Taken: 11/17/16 Time: 10:00A.M Cholecalciferol (Vitamin D3) 1,000 UNIT TABLET Comments: Last Taken:11/17/16 Time:10AM Calcium Carb & Citrate/Vit D3 (Calcium + D3 ER Tablet) 600 MG CALCIUM-500 UNIT TABLET.ER Comments: Last Taken: NOT GIVEN THIS ADMISSION Time:10AM Alendronate Sodium (Fosamax) 70 MG TABLET 1 Tablet ORAL EVERY THURSDAY Instructions: in the morning, at least 30 minutes before the first food, beverage, or medication of the day Comments: Last Taken:11/11/16 Time: 6:28A.M Methimazole (Methimazole) 5 MG TABLET 2.5 Milligram ORAL THURSDAY, THURSDAY AND THURSDAY Comments: Last Taken:11/17/26 Time:10AM QUINAPRIL HCL (Quinapril HCl) 20 MG TAB 1 Tablet ORAL DAILY Qty = 90 Comments: Last Taken:11/19 Time:9AM (LISINOPRIL) Fluvastatin Sodium (Lescol 20MG) 20 MG CAP 1 Capsule ORAL AT BEDTIME Meclizine (Antivert) 12.5 MG TAB 1 Tablet ORAL EVERY SIX HOURS NEEDED as needed for VERTIGO Qty = 30 Ferrous Gluconate (IRON) 256 MG (28 MG IRON) TABLET 1 Tablet ORAL THREE TIMES DAILY Comments: Last Taken:11/17/16 Time:10AM Potassium Chloride (Potassium Chloride) 20 MEQ TAB.ER.PRT 1 Tablet ORAL DAILY Qty = 90 Comments: Last Taken: 11/17/16 Time:10AM Warfarin Sodium (Coumadin) 2.5 MG TABLET 1 Tablet ORAL As Directed Qty = 90 Comments: Last Taken:11/16/16 Time: 5:22P.M Diclofenac Sodium (Voltaren) 1 % GEL..GRAM. 1 Gram On the skin as needed for PAIN Instructions: apply to affected area(s) Comments: NOT GIVEN IN THE HOSPITAL Furosemide (Lasix) 20 MG TABLET 1 Tablet ORAL as needed for EDEMA Comments: Last Taken: 11/15/16 Time: 6:18P.M Magnesium Oxide (Magnesium) 400 MG CAPSULE 1 Capsule ORAL DAILY Qty = 30 Instructions: follows up with Dr. Young Comments: Last Taken: 11/17/16 Time: 10:00A.M Metformin HCl (Metformin HCl ER) 500 MG TAB.ER.24 1 Tablet ORAL DAILY Comments: Last Taken:NOT GIVEN THIS ADMISSION Time: Start taking the following new medications: Amlodipine Besylate (Amlodipine Besylate) 5 MG TABLET 1 Tablet ORAL DAILY Qty = 30 No Refills Comments: Last Taken:11/17/16 Time: 10:00A.M Copies To: HECTOR TSANG,AMBAR Santos; Gab DALEY MD; ISIDRO TSANG,DARIEL; MATTHEW TSANG,CESAR
--- NOTE | 2016-11-14 14:35 | PN- Att Addend ---
Attending Addendum Attending Brief Note Mrs. Lei was again interviewed, examined and her EMR reviewed. She is status post an uneventful thoracentesis with approximately 1 L of transudate removed. She denies cough and shortness of breath. She is afebrile with systolic BPs of approximately 120 to 130 and satisfactory SaO2 on room air. She is in no acute distress and her respiratory effort is normalized. Her mental status is back to baseline. As she received FFP prior to her procedure we will reinitiate warfarin and repeat an INR in the a.m. As she is somewhat deconditioned short-term rehabilitation will be pursued. Her CMR has been reviewed and signed.
[2016-11-14 15:56] VITALS: BP 152/78
--- NOTE | 2016-11-14 16:58 | PN- Cardiology ---
Subjective Subjective: She continues to do ok. STable post thoracentesis. Respiratory status improved. Objective Vital Signs and I&Os Vital Signs Date Time Temp Pulse Resp B/P Pulse O2 O2 Flow FiO2 Ox Delivery Rate 11/14 1556 98.1 72 16 152/78 95 Room Air 11/14 1028 Room Air 3.0L 11/14 1002 130/76 11/14 1002 130/76 11/14 0918 Room Air 11/14 0828 97.9 86 17 130/76 96 Room Air 11/14 0053 97.8 92 20 122/72 94 Room Air 11/14 0000 94 Room Air Intake & Output 11/14 1600 11/14 0800 11/14 0000 11/13 1600 11/13 0800 11/13 0000 Intake Total 720 200 210 480 100 240 Output Total 450 400 550 300 Balance 720 -250 210 80 -450 -60 Intake, IV 10 Intake, Oral 720 200 200 480 100 240 Output, Urine 450 400 550 300 Patient 156 lb Weight Physical Exam: Physical Exam: General Appearance: Alert, Oriented X3, Cooperative, No Acute Distress Skin: No Rashes, No Breakdown HEENT: Atraumatic, Mucous Membr. moist/pink Neck: Supple, No JVD, carotids normal Cardiovascular: Normal S1, Normal S2, 2/6 systolic murmur Lungs: Clear bilaterally Abdomen: Normal Bowel Sounds, Soft, No Tenderness Extremities: No Clubbing, No Cyanosis, No Edema, Normal Pulses Vascular: Normal Pulses Current Medications: Current Medications Sig/Misha Start time Last Medication Dose Route Stop Time Status Admin Acetaminophen 650 MG Q6P PRN 11/09 2099 AC PO Alendronate Sodium 70 MG QTUES 11/11 0700 AC 11/11 PO 0628 Amlodipine Besylate 5 MG DAILY 11/13 1000 AC 11/14 PO 1002 Anastrozole 1 MG DAILY 11/10 999 AC 11/14 PO 1001 Cholecalciferol 1,000 IU DAILY 11/10 1000 AC 11/14 PO 1002 Ferrous Gluconate 325 MG TID 11/09 2199 AC 11/14 PO 1612 Ibuprofen 600 MG Q6P PRN 11/09 2100 AC PO Lisinopril 20 MG DAILY 11/10 999 AC 11/14 PO 1002 Magnesium Oxide 400 MG DAILY 11/10 999 AC 11/14 PO 1001 Melatonin 5 MG AT BEDTIME 11/14 2199 AC PO Methimazole 2.5 MG 11/10 AC 11/14 PO 1003 Potassium Chloride 20 MEQ DAILY 11/10 1000 AC 11/14 PO 1001 Simvastatin 10 MG 1700 11/10 1700 AC 11/14 PO 1613 Warfarin Sodium 2.5 MG COUMADIN 1700 ONE 11/14 1700 AC 11/14 PO 11/14 1701 1614 Results Last 48 Hrs of Labs/Mics: Laboratory Tests 11/14/16 1140: Pleural pH 7.47 11/14/16 1140: Fluid WBC 305 H, Fld Total RBCs Counted 768 H 11/14/16 1140: Lymphocytes 11, % Normal PMNs 3, Misc Hematology Test 85, Phlebotomy Draw Site LT THORA, Fluid Glucose 178, Fluid Total Protein 2.4, Fluid Albumin < 1.0, Fluid LDH 384, Fluid Amylase < 30 11/14/16 1020: PT 21.7 H, INR 2.08 H 11/14/16 0515: Anion Gap 8, Estimated GFR > 60, BUN/Creatinine Ratio 35.0 H, Magnesium 1.7, Lactate Dehydrogenase 633 H, Total Protein 6.6, PT 23.2 H, INR 2.23 H 11/13/16 0900: Fluid WBC Cancelled, Fld Total RBCs Counted Cancelled 11/13/16 0900: Fluid Glucose Cancelled, Fluid Total Protein Cancelled, Fluid Albumin Cancelled, Fluid LDH Cancelled, Fluid Amylase Cancelled 11/13/16 0635: Anion Gap 9, Estimated GFR > 60, BUN/Creatinine Ratio 31.4 H, Magnesium 1.6, Lactate Dehydrogenase 704 H, Total Protein 6.7, PT 24.5 H, INR 2.35 H Assessment/Plan Assessment/Plan Assessment: 1. Chronic atrial fibrillation 2. Chronic HFpEF 3. Chronic pleural effusion 4. Hypertension, uncontrolled 5. Hypertensive encephalopathy, improving Recommendations: -The patient's mental status has significantly improved. -Blood pressure improved today, continue current regimen. -Discharge planning -Followup with me 4-6 weeks post discharge Continue telemetry? No
--- NOTE | 2016-11-14 17:09 | ULTRASOUND REPORT ---
PROCEDURE: Thoracentesis CLINICAL INFORMATION: Pleural Effusion COMPARISON: Chest x-ray 11/09/2015 TECHNIQUE: Indirect ultrasound guided thoracentesis using a 5 [place] Yueh catheter. FINDINGS: Informed consent was obtained from the patient prior to the procedure. During this process, the procedure alternatives were explained, along with the intended outcome and benefits. The risks of the procedure, as well as the risk of not doing the procedure, was discussed. The patient was given the opportunity to ask questions regarding the procedure and appeared competent to make medical decisions. A signed consent form which documents this discussion was placed in the medical record. A timeout procedure was performed. Ultrasound evaluation of the chest for pleural fluid was performed. A large pleural effusion is noted on the left side. Using standard interventional and sterile techniques, lidocaine was used to anesthetize the region. A 5 [place] Isac catheter was introduced into the left pleural fluid using standard safety needle technique. Approximately 1600 mL of light yellow fluid was removed into the Vacutainer bottles. The catheter was then removed. Good hemostasis was achieved. The patient tolerated the procedure well. A sterile dressing was placed. The patient was discharged from the department in stable condition. Patient scheduled for post procedure followup x-ray. COMPLICATIONS: None. IMPRESSION: Successful ultrasound-guided thoracentesis of approximately 1 L of fluid.
[2016-11-14 23:00] VITALS: BP 132/76
[2016-11-15 08:31] LABS: PT 21.5 SEC (9.4-12.5)
[2016-11-15 08:36] VITALS: BP 110/70
--- NOTE | 2016-11-15 08:40 | PN- Housestaff ---
Subjective Follow-up For: 1. Altered mental status: Likely secondary to hypertensive encephalopathy 2. Hypertensive emergency 3. Elevated INR 4. elevated lactic acid 5. Chronic diastolic congestive heart failurE 6. LEFT SIDED PLEURAL EFFUSION- s/p thoracocentesis Complaints: pain scale (0-10) Tele-Events Since Last Visit: Atrial fibrillation Rate 60-84 No events on monitoring tech Subjective: patient was seen and examined this morning. She is alert, awake and oriented to time place and person. No acute events monitored overnight. She denied any headache, confusion, dizziness or lightheadedness. She denied any weakness or sensory changes, gait changes, vision changes, swallowing difficulty. She denied any chest pain, racing of heart. Mild short of breath and cough this morning. Vitals were stable. Afebrile. Heart rate 60, respiratory rate 20, blood pressure 122/62, saturating at 94% on room air Review of Systems Constitutional: Denies: see HPI. Objective Last 24 Hrs of Vital Signs/I&O Vital Signs Date Time Temp Pulse Resp B/P Pulse O2 O2 Flow FiO2 Ox Delivery Rate 11/15 1611 97.8 69 18 120/62 97 Room Air 11/15 1600 97 Room Air 11/15 1020 64 110/70 11/15 1020 64 110/70 11/15 0836 97.9 64 20 110/70 98 Room Air 11/15 0000 Room Air 11/14 2300 98.7 67 20 132/76 98 Room Air Intake & Output 11/15 1600 11/15 0800 11/15 0000 Intake Total 700 250 350 Output Total 450 450 Balance 700 -200 -100 Intake, IV 0 0 Intake, Oral 700 250 350 Number 0 0 Bowel Movements Output, Urine 450 450 Physical Exam General Appearance: Alert, Oriented X3, Cooperative, No Acute Distress Skin: No Rashes, No Breakdown HEENT: Atraumatic, Mucous Membr. moist/pink Neck: Supple, No JVD Lymphatic: Cervical nl Cardiovascular: Normal S1, Normal S2 Lungs: Normal Air Movement Abdomen: Normal Bowel Sounds, Soft, No Tenderness Extremities: No Clubbing, No Cyanosis, No Edema Vascular: Normal Pulses Current Medications: Current Medications Sig/Misha Start time Last Medication Dose Route Stop Time Status Admin Acetaminophen 650 MG Q6P PRN 11/09 2100 AC PO Alendronate Sodium 70 MG QTUES 11/11 0700 AC 11/11 PO 0628 Amlodipine Besylate 5 MG DAILY 11/13 1000 AC 11/15 PO 1020 Anastrozole 1 MG DAILY 11/10 1000 AC 11/15 PO 1021 Calcium Carbonate 500 MG DAILY PRN 11/15 1700 AC PO Cholecalciferol 1,000 IU DAILY 11/10 1000 AC 11/15 PO 1020 Ferrous Gluconate 325 MG TID 11/09 2200 AC 11/15 PO 1621 Furosemide 20 MG Q48H 11/15 1700 AC PO Furosemide 20 MG DAILY 11/15 1645 DC PO Ibuprofen 600 MG Q6P PRN 11/09 2100 AC 11/15 PO 1704 Lisinopril 20 MG DAILY 11/10 1000 AC 11/15 PO 1020 Magnesium Oxide 400 MG DAILY 11/10 1000 AC 11/15 PO 1020 Melatonin 5 MG AT BEDTIME 11/14 2200 AC 11/14 PO 2117 Methimazole 2.5 MG 11/10 1000 AC 11/14 PO 1003 Patient Medication 1 UNIT ONE NR 11/15 1700 DC Teaching ED 11/15 1730 Potassium Chloride 20 MEQ DAILY 11/10 1000 AC 11/15 PO 1020 Simvastatin 10 MG 1700 11/10 1700 AC 11/15 PO 1621 Warfarin Sodium 2.5 MG COUMADIN 1700 ONE 11/15 1700 DC 11/15 PO 11/15 1701 1621 Last 24 Hrs of Lab/Claude Results Last 24 Hrs of Labs/Mics: Laboratory Tests 11/15/16 0700: PT 21.5 H, INR 2.06 H Assessment/Plan Assessment: Ms Frausto is an 89-year-old lady with a PMH of A. fib on Coumadin, DM, HTN, hyperlipidemia,aortic stenosis, previous left-sided pleural effusion S/ paracentesis, neutropenia, breast CA s/p bilateral lumpectomy and radiation, multinodular goiter, chronic diastolic heart failure, Hart's cyst, left wrist fracture, left ankle fracture, osteoarthritis, osteoporosis, hyperthyroidism on methimazole, past history of Lyme's disease brought in for new onset change in mentation. Information obtained from the patient's daughter indicates that she was last normal 2 days ago. However, after she found her disoriented, confused and unable to answer questions appropriately. Daughter reports similar episodes when she was diagnosed with a UTI. VS: BP 180/95, HR 80, RR 18, SPO2 97% on RA, T 98.2. Peak blood pressure: 227/92 Pertinent labs: WBC 3.5, H&H 12.4/36.7, sodium 143, potassium 3.8, BUN/Cr/CR 21/ 0.8, glucose 135 INR: 3.42 Lactic acid: 4.3, 3.2 UA: Trace leukocyte esterase. CXR: Moderate to large left pleural effusion with no change in volume from previous Head CT: No acute intracranial pathology. Mild ischemic microangiopathic age- related volume loss. EKG: Atrial fibrillation, HR 90. Borderline prolonged QT interval. QTC 495. Problem list: 1. Altered mental status: Likely secondary to hypertensive encephalopathy 2. Hypertensive emergency 3. Elevated INR 4. Lactic acidosis 5. Chronic diastolic congestive heart failure 6. Hyperthyroidism 7. Atrial fibrillation on Coumadin 8. Hyperlipidemia Altered mental status/hypertensive encephalopathy Patient was brought to emergency department after she was found altered and confused. Denied any headache, dizziness or lightheadedness, weakness or sensory changes, vision changes, gait changes. neuro Exam is normal. No focal neurologic deficits. CAT scan head was normal. * Found to be hypertensive 220/90 * She was given IV labetalol 10 mg * Admitted to telemetry for continuous cardiac monitoring * Serial EKGs and troponins were negative * Continue to monitor blood pressures with goal BP less than 150/90 * Latest echocardiogram 09/08/2016: LVEF greater than 60%, RV systolic pressure 42 mmHg. * Notified Dr. Manriquez about the admission. * Neuro checks * Ruled out TIA and stroke. * Continue lisinopril 20 mg daily for now. * added amlodipine 5mg for bp control- amlodipine can be increased to 7.5 if blood pressure greater than 150s. * Monitoring of blood pressures. Atrial fibrillation * On warfarin 2.5 mg daily at home * Supratherapeutic INR on admission 3.23 * inr 2.06 today * will get warfarin 2.5 mg today left sided pleural effusion cxr- Moderate to large left-sided pleural effusion, not significantly changed in volume relative to the prior exam. * pulmonology was consulted * asymptomatic now * patient received one bag of ffp this morning. INR came down to 2.03. * thoracocentesis done * transudative effusion Hyperlipidemia Continue simvastatin Hyperthyroidism Continue home dose of methimazole on Thursday and Thursday chronic diastolic congestive heart failure Takes Lasix 20 mg whenever necessary for edema at home getting lasix 20 every other day vertigo Takes meclizine whenever necessary Meclizine on hold Osteoporosis Continue alendronate Continue vitamin D Diabetes mellitus Metformin was discontinued by her primary care doctor Monitor Accu-Cheks NovoLog sliding scale Patient is DNR/DNI Heart healthy diet Problem List: 1. Hypertensive encephalopathy Pain Ratin Pain Location: none Pain Goal: Remain pain free Pain Plan: tylinol Tomorrow's Labs & Rationales: inr- on coumadin Consulting Request: Consulting Specialty: Pulmonary Disease
[2016-11-15] MEDS ORDERED: METFORMIN HCL500 M2 PO (10:01)
--- NOTE | 2016-11-15 12:21 | PN- Pulmonary ---
Subjective HPI/Critical Care Issues: Doing much better Afebrile Review of symptoms unremarkable Objective Current Medications: Current Medications Sig/Misha Start time Last Medication Dose Route Stop Time Status Admin Acetaminophen 650 MG Q6P PRN 11/09 2100 AC PO Alendronate Sodium 70 MG QTUES 11/11 0700 AC 11/11 PO 0628 Amlodipine Besylate 5 MG DAILY 11/13 1000 AC 11/15 PO 1020 Anastrozole 1 MG DAILY 11/10 1000 AC 11/15 PO 1021 Cholecalciferol 1,000 IU DAILY 11/10 1000 AC 11/15 PO 1020 Ferrous Gluconate 325 MG TID 11/09 2200 AC 11/15 PO 1021 Ibuprofen 600 MG .STK-MED ONE 11/14 1705 DC PO 11/14 1706 Ibuprofen 600 MG Q6P PRN 11/09 2100 AC 11/14 PO 1708 Lisinopril 20 MG DAILY 11/10 1000 AC 11/15 PO 1020 Magnesium Oxide 400 MG DAILY 11/10 1000 AC 11/15 PO 1020 Melatonin 5 MG AT BEDTIME 11/14 2200 AC 11/14 PO 2117 Methimazole 2.5 MG 11/10 1000 AC 11/14 PO 1003 Potassium Chloride 20 MEQ DAILY 11/10 1000 AC 11/15 PO 1020 Simvastatin 10 MG 1700 11/10 1700 AC 11/14 PO 1613 Warfarin Sodium 2.5 MG COUMADIN 1700 ONE 11/14 1700 DC 11/14 PO 11/14 1701 1614 Warfarin Sodium 5 MG .STK-MED ONE 11/14 1608 DC PO 11/14 1609 Vital Signs & I&O Last 24 Hrs of Vitals and I&O: Vital Signs Date Time Temp Pulse Resp B/P Pulse O2 O2 Flow FiO2 Ox Delivery Rate 11/15 1020 64 110/70 11/15 1020 64 110/70 11/15 0836 97.9 64 20 110/70 98 Room Air 11/15 0000 Room Air 11/14 2300 98.7 67 20 132/76 98 Room Air 11/14 1556 98.1 72 16 152/78 95 Room Air Intake & Output 11/15 1600 11/15 0800 11/15 0000 Intake Total 300 250 350 Output Total 450 450 Balance 300 -200 -100 Intake, IV 0 0 Intake, Oral 300 250 350 Number 0 0 Bowel Movements Output, Urine 450 450 Laboratory Tests 11/15 11/14 11/14 11/14 11/14 0700 1140 1140 1140 1020 Coagulation PT (9.4 - 12.5 SEC) 21.5 H 21.7 H INR (0.90 - 1.19) 2.06 H 2.08 H Hematology Lymphocytes (%) 11 % Normal PMNs (%) 3 Misc Hematology Test (%) 85 Miscellaneous Phlebotomy Draw Site LT THORA Other Body Source Fluid WBC (0 - 5 /CUMM) 305 H Fld Total RBCs Counted (0 /CUMM) 768 H Fluid Glucose (mg/dL) 178 Fluid Total Protein (g/dL) 2.4 Fluid Albumin (g/dL) < 1.0 Fluid LDH (U/L) 384 Fluid Amylase (U/L) < 30 Pleural pH (PH) 7.47 11/14 0515 Chemistry Sodium (137 - 145 mmol/L) 138 Potassium (3.5 - 5.1 mmol/L) 4.5 Chloride (98 - 107 mmol/L) 99 Carbon Dioxide (22 - 30 mmol/L) 31 H Anion Gap (5 - 16) 8 BUN (7 - 17 mg/dL) 28 H Creatinine (0.5 - 1.0 mg/dL) 0.8 Estimated GFR (>60 ml/min) > 60 BUN/Creatinine Ratio (7 - 25 %) 35.0 H Magnesium (1.6 - 2.3 mg/dL) 1.7 Lactate Dehydrogenase (313 - 618 U/L) 633 H Total Protein (6.3 - 8.2 g/dL) 6.6 Coagulation PT (9.4 - 12.5 SEC) 23.2 H INR (0.90 - 1.19) 2.23 H Microbiology Date/Time Procedure - Status Source Growth 11/14 1140 Body Fluid Culture - RES BODY FLUID 11/14 1140 Gram Stain - RES BODY FLUID 11/14 0823 Body Fluid Culture - CAN BODY FLUID Cancelled: WRONG SITE 11/14 822 Gram Stain - CAN BODY FLUID Cancelled: WRONG SITE 11/13 09 Body Fluid Culture - CAN BODY FLUID Cancelled: SPECIMEN NEVER RECEIVED 11/13 899 Gram Stain - CAN BODY FLUID Cancelled: SPECIMEN NEVER RECEIVED Impression/Plan Impression/Plan Impression/Plan: SIGNIFICANT DATA BUN/creatinine stable white count down to 3 hemoglobin 11.8 platelets are low with 15% monocytes Pleural fluid analysis was suggestive of a transudate LDH was slightly elevated The cell count and differential showed miso monocyte combination with one eosinophil no significant hemothorax INR 2.06 Pleural pH normal IMPRESSION This is a lady with atrial fibrillation with * Chronic AF stable * Chronic heart failure with preserved ejection fraction * Chronic pleural effusion which appears to be a transudate * Hypertensive encephalopathy which is now resolved and improving * 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
[2016-11-15 16:11] VITALS: BP 120/62
[2016-11-16 01:00] VITALS: BP 118/64
[2016-11-16 08:07] VITALS: BP 110/60
--- NOTE | 2016-11-16 08:15 | PN- Housestaff ---
Subjective Follow-up For: 1. Altered mental status: Likely secondary to hypertensive encephalopathy 2. Hypertensive emergency 3. Elevated INR 4. elevated lactic acid 5. Chronic diastolic congestive heart failurE 6. LEFT SIDED PLEURAL EFFUSION- s/p thoracocentesis Tele-Events Since Last Visit: Atrial fibrillation, rate 60-72, no events. Subjective: Patient seen and examined. Feels much better compared to yesterday. Denies nausea, vomiting, headache, shortness of breath, chest pain, palpitation, abdominal pain, urinary symptoms. Vital signs stable, no overnight events reported. Review of Systems Constitutional: Denies: see HPI. Objective Last 24 Hrs of Vital Signs/I&O Vital Signs Date Time Temp Pulse Resp B/P Pulse O2 O2 Flow FiO2 Ox Delivery Rate 11/16 0923 68 116/66 11/16 0923 68 11666 11/16 0807 97.5 68 20 110/60 96 Room Air 11/16 0100 97.6 70 20 118/64 95 Room Air 11/15 1611 97.8 69 18 120/62 97 Room Air 11/15 1600 97 Room Air Intake & Output 11/16 1600 11/16 0800 11/16 0000 Intake Total 300 100 640 Output Total 250 250 Balance 50 -150 640 Intake, Oral 300 100 640 Number 1 Bowel Movements Output, Urine 250 250 Physical Exam General Appearance: Alert, Oriented X3, Cooperative Skin: No Rashes, No Breakdown, No Significant Lesion HEENT: Atraumatic, PERRLA, EOMI, Mucous Membr. moist/pink Neck: Supple, No JVD, No thryomegaly, +2 Carotid Pulse wo Bruit Lymphatic: Axillary nl, Cervical nl Cardiovascular: Regular Rate, Normal S1, Normal S2, No Murmurs Lungs: Clear to Auscultation, Normal Air Movement Abdomen: Normal Bowel Sounds, Soft, No Tenderness Neurological: Normal Speech, Strength at 5/5 X4 Ext, Normal Tone, Sensation Intact, Cranial Nerves 3-12 NL Extremities: No Clubbing, No Cyanosis, No Edema, Normal Pulses, No Tenderness/ Swelling Assessment/Plan Assessment: Ms Frausto is an 89-year-old lady with a PMH of A. fib on Coumadin, DM, HTN, hyperlipidemia,aortic stenosis, previous left-sided pleural effusion S/ paracentesis, neutropenia, breast CA s/p bilateral lumpectomy and radiation, multinodular goiter, chronic diastolic heart failure, Hart's cyst, left wrist fracture, left ankle fracture, osteoarthritis, osteoporosis, hyperthyroidism on methimazole, past history of Lyme's disease brought in for new onset change in mentation. Problem list: 1. Altered mental status: Likely secondary to hypertensive encephalopathy 2. Hypertensive emergency 3. Elevated INR 4. Lactic acidosis 5. Chronic diastolic congestive heart failure 6. Hyperthyroidism 7. Atrial fibrillation on Coumadin 8. Hyperlipidemia Altered mental status/hypertensive encephalopathy Patient was brought to emergency department after she was found altered and confused. Denied any headache, dizziness or lightheadedness, weakness or sensory changes, vision changes, gait changes. neuro Exam is normal. No focal neurologic deficits. CAT scan head was normal. * Found to be hypertensive 220/90 * She was given IV labetalol 10 mg * Admitted to telemetry for continuous cardiac monitoring * Serial EKGs and troponins were negative * Continue to monitor blood pressures with goal BP less than 150/90 * Latest echocardiogram 09/08/2016: LVEF greater than 60%, RV systolic pressure 42 mmHg. * Notified Dr. Manriquez about the admission. * Neuro checks * Ruled out TIA and stroke. * Continue lisinopril 20 mg daily for now. * added amlodipine 5mg for bp control- amlodipine can be increased to 7.5 if blood pressure greater than 150s. * Monitoring of blood pressures. Atrial fibrillation * On warfarin 2.5 mg daily at home * Supratherapeutic INR on admission 3.23 * inr 2.06 today * will get warfarin 2.5 mg today left sided pleural effusion cxr- Moderate to large left-sided pleural effusion, not significantly changed in volume relative to the prior exam. * pulmonology was consulted * asymptomatic now * patient received one bag of ffp this morning. INR came down to 2.03. * thoracocentesis done * transudative effusion Hyperlipidemia Continue simvastatin Hyperthyroidism Continue home dose of methimazole on Thursday and Thursday chronic diastolic congestive heart failure Takes Lasix 20 mg whenever necessary for edema at home getting lasix 20 every other day vertigo Takes meclizine whenever necessary Meclizine on hold Osteoporosis Continue alendronate Continue vitamin D Diabetes mellitus Metformin was discontinued by her primary care doctor Monitor Accu-Cheks NovoLog sliding scale Patient is DNR/DNI Heart healthy diet Problem List: 1. Hypertensive encephalopathy Pain Ratin Pain Location: NA Pain Goal: Remain pain free Pain Plan: Tylenol Tomorrow's Labs & Rationales: INR; Pt on warfarin Consulting Request: Consulting Specialty: Pulmonary Disease Consulting Request: Consulting Specialty: Pulmonary Disease
[2016-11-16 08:52] LABS: PT 23.4 SEC (9.4-12.5)
--- NOTE | 2016-11-16 10:28 | PN- Pulmonary ---
Subjective HPI/Critical Care Issues: Doing much better Wishes to be discharged Afebrile Review of symptoms otherwise unremarkable Objective Current Medications: Current Medications Sig/Misha Start time Last Medication Dose Route Stop Time Status Admin Acetaminophen 650 MG .STK-MED ONE 11/15 1647 DC PO 11/15 1648 Acetaminophen 650 MG Q6P PRN 11/09 2100 AC PO Alendronate Sodium 70 MG QTUES 11/11 0700 AC 11/11 PO 0628 Amlodipine Besylate 5 MG DAILY 11/13 1000 AC 11/16 PO 0923 Anastrozole 1 MG DAILY 11/10 1000 AC 11/16 PO 0922 Calcium Carbonate 500 MG DAILY PRN 11/15 1700 AC 11/15 PO 1819 Cholecalciferol 1,000 IU DAILY 11/10 1000 AC 11/16 PO 0923 Ferrous Gluconate 325 MG TID 11/09 2200 AC 11/16 PO 0922 Furosemide 20 MG Q48H 11/15 1700 AC 11/15 PO 1819 Furosemide 20 MG DAILY 11/15 1645 DC PO Ibuprofen 600 MG .STK-MED ONE 11/15 1658 DC PO 11/15 1659 Ibuprofen 600 MG Q6P PRN 11/09 2100 AC 11/15 PO 1704 Lisinopril 20 MG DAILY 11/10 1000 AC 11/16 PO 0923 Magnesium Oxide 400 MG DAILY 11/10 1000 AC 11/16 PO 0923 Melatonin 5 MG AT BEDTIME 11/14 2200 AC 11/15 PO 2054 Methimazole 2.5 MG 11/10 1000 AC 11/14 PO 1003 Patient Medication 1 UNIT ONE NR 11/15 1700 NH Teaching ED 11/15 1730 Potassium Chloride 20 MEQ DAILY 11/10 1000 AC 11/16 PO 0923 Simvastatin 10 MG 1700 11/10 1700 AC 11/15 PO 1621 Warfarin Sodium 2.5 MG COUMADIN 1700 ONE 11/15 1700 DC 11/15 PO 11/15 1701 1621 Vital Signs & I&O Last 24 Hrs of Vitals and I&O: Vital Signs Date Time Temp Pulse Resp B/P Pulse O2 O2 Flow FiO2 Ox Delivery Rate 11/16 922 68 116/66 11/16 09 68 116/66 11/16 0807 97.5 68 20 110/60 96 Room Air 11/16 0100 97.6 70 20 118/64 95 Room Air 11/15 1611 97.8 69 18 120/62 97 Room Air 11/15 1600 97 Room Air Intake & Output 11/16 1600 11/16 0800 11/16 0000 Intake Total 100 640 Output Total 250 Balance -150 640 Intake, Oral 100 640 Output, Urine 250 Impression/Plan Impression/Plan Impression/Plan: SIGNIFICANT DATA BUN/creatinine stable white count down to 3 hemoglobin 11.8 platelets are low with 15% monocytes Pleural fluid analysis was suggestive of a transudate LDH was slightly elevated The cell count and differential showed miso monocyte combination with one eosinophil no significant hemothorax INR 2.06 Pleural pH normal IMPRESSION This is a lady with atrial fibrillation with * Chronic AF stable * Chronic heart failure with preserved ejection fraction * Chronic pleural effusion which appears to be a transudate * Hypertensive encephalopathy which is now resolved and improving * Probable myelodysplasia as blood work is highly suggestive of that patient would benefit from JK2 mutation and peripheral flow cytometry in the future as she has significant monocytosis thrombocytopenia and leukopenia * Hyperthyroid on methimazole RECOMMENDATION Continue present therapy Patient should be discharged to rehabilitation facility Blood pressure management per cardiology Continue her current medications Patient might benefit from Lasix every other day 20 mg Discharge patient to group home facility
[2016-11-16 15:48] VITALS: BP 110/60
[2016-11-16 22:58] VITALS: BP 110/60
--- NOTE | 2016-11-17 07:29 | PN- Housestaff ---
SULY VIVAR 11/17/16 0729: Subjective Follow-up For: 1. Altered mental status: Likely secondary to hypertensive encephalopathy 2. Hypertensive emergency 3. Elevated INR 4. elevated lactic acid 5. Chronic diastolic congestive heart failurE 6. LEFT SIDED PLEURAL EFFUSION- s/p thoracocentesis Complaints: pain scale (0-10) Tele-Events Since Last Visit: Atrial fibrillation Rate 70-90 No events on threat monitoring analyst Subjective: patient was seen and examined this morning. She is alert, awake and oriented to time place and person. No acute events monitored overnight. She denied any headache, confusion, dizziness or lightheadedness. She denied any weakness or sensory changes, gait changes, vision changes, swallowing difficulty. She denied any chest pain, racing of heart. Mild short of breath. Vitals were stable. Afebrile. Heart rate 70, respiratory rate 20, blood pressure 112/62, saturating at 94% on room air Review of Systems Constitutional: Denies: see HPI. Objective Last 24 Hrs of Vital Signs/I&O Vital Signs Date Time Temp Pulse Resp B/P Pulse O2 O2 Flow FiO2 Ox Delivery Rate 11/17 0957 83 120/62 11/17 0957 97.8 83 20 120/62 11/17 0815 97.8 83 20 120/62 94 Room Air 11/17 0000 Room Air 11/16 2258 98.6 70 20 110/60 98 Room Air 11/16 1600 96 Room Air 11/16 1548 98.2 77 20 110/60 96 Room Air Intake & Output 11/17 1600 11/17 0800 11/17 0000 Intake Total 440 Output Total Balance 440 Intake, Oral 440 Physical Exam General Appearance: Alert, Oriented X3, Cooperative, No Acute Distress Skin: No Rashes, No Breakdown HEENT: Atraumatic, Mucous Membr. moist/pink Neck: Supple, No JVD Lymphatic: Cervical nl Cardiovascular: Normal S1, Normal S2 Lungs: Normal Air Movement Abdomen: Normal Bowel Sounds, Soft, No Tenderness Extremities: No Clubbing, No Cyanosis, No Edema Vascular: Normal Pulses Current Medications: Current Medications Sig/Misha Start time Last Medication Dose Route Stop Time Status Admin Acetaminophen 650 MG Q6P PRN 11/09 2100 AC PO Alendronate Sodium 70 MG QTUES 11/11 0700 AC 11/11 PO 0628 Amlodipine Besylate 5 MG DAILY 11/13 1000 AC 11/17 PO 0957 Anastrozole 1 MG DAILY 11/10 1000 AC 11/17 PO 0958 Calcium Carbonate 500 MG DAILY PRN 11/15 1700 AC 11/16 PO 1529 Cholecalciferol 1,000 IU DAILY 11/10 1000 AC 11/17 PO 0958 Ferrous Gluconate 325 MG TID 11/09 2200 AC 11/17 PO 0958 Furosemide 20 MG Q48H 11/15 1700 AC 11/15 PO 1819 Ibuprofen 600 MG Q6P PRN 11/09 2100 AC 11/15 PO 1704 Lisinopril 20 MG DAILY 11/10 1000 AC 11/17 PO 0957 Magnesium Oxide 400 MG DAILY 11/10 1000 AC 11/17 PO 0957 Melatonin 5 MG AT BEDTIME 11/14 2199 AC 11/16 PO 2140 Methimazole 2.5 MG 11/10 1000 AC 11/17 PO 0958 Patient Medication 1 UNIT ONE NR 11/16 1115 DC Teaching ED 11/16 1200 Potassium Chloride 20 MEQ DAILY 11/10 1000 AC 11/17 PO 0957 Simvastatin 10 MG 1700 11/10 1700 AC 11/16 PO 1723 Warfarin Sodium 2.5 MG COUMADIN 1700 ONE 11/17 1700 AC PO 11/17 1701 Warfarin Sodium 2.5 MG COUMADIN 1700 ONE 11/16 1700 DC 11/16 PO 11/16 1701 1722 Last 24 Hrs of Lab/Claude Results Last 24 Hrs of Labs/Mics: Laboratory Tests 11/17/16 0625: Anion Gap 3 L, Estimated GFR > 60, BUN/Creatinine Ratio 42.9 H, PT 28.5 H, INR 2.74 H, CBC w Diff NO MAN DIFF REQ, RBC 3.58 L, MCV 96.8, MCH 32.3 H, RDW 16.0 H, MPV 8.7, Gran % 51.6, Lymphocytes % 31.8, Monocytes % 11.8 H, Eosinophils % 4.1, Basophils % 0.7, Absolute Granulocytes 2.1, Absolute Lymphocytes 1.3, Absolute Monocytes 0.5, Absolute Eosinophils 0.2, Absolute Basophils 0, PUBS MCHC 33.3 Assessment/Plan Assessment: Ms Frausto is an 89-year-old lady with a PMH of A. fib on Coumadin, DM, HTN, hyperlipidemia,aortic stenosis, previous left-sided pleural effusion S/ paracentesis, neutropenia, breast CA s/p bilateral lumpectomy and radiation, multinodular goiter, chronic diastolic heart failure, Hart's cyst, left wrist fracture, left ankle fracture, osteoarthritis, osteoporosis, hyperthyroidism on methimazole, past history of Lyme's disease brought in for new onset change in mentation. Information obtained from the patient's daughter indicates that she was last normal 2 days ago. However, after she found her disoriented, confused and unable to answer questions appropriately. Daughter reports similar episodes when she was diagnosed with a UTI. VS: BP 180/95, HR 80, RR 18, SPO2 97% on RA, T 98.2. Peak blood pressure: 227/92 Pertinent labs: WBC 3.5, H&H 12.4/36.7, sodium 143, potassium 3.8, BUN/Cr/CR 21/ 0.8, glucose 135 INR: 3.42 Lactic acid: 4.3, 3.2 UA: Trace leukocyte esterase. CXR: Moderate to large left pleural effusion with no change in volume from previous Head CT: No acute intracranial pathology. Mild ischemic microangiopathic age- related volume loss. EKG: Atrial fibrillation, HR 90. Borderline prolonged QT interval. QTC 495. Problem list: 1. Altered mental status: Likely secondary to hypertensive encephalopathy 2. Hypertensive emergency 3. Elevated INR 4. Lactic acidosis 5. Chronic diastolic congestive heart failure 6. Hyperthyroidism 7. Atrial fibrillation on Coumadin 8. Hyperlipidemia Altered mental status/hypertensive encephalopathy Patient was brought to emergency department after she was found altered and confused. Denied any headache, dizziness or lightheadedness, weakness or sensory changes, vision changes, gait changes. neuro Exam is normal. No focal neurologic deficits. CAT scan head was normal. * Found to be hypertensive 220/90 * She was given IV labetalol 10 mg * Admitted to telemetry for continuous cardiac monitoring * Serial EKGs and troponins were negative * Continue to monitor blood pressures with goal BP less than 150/90 * Latest echocardiogram 09/08/2016: LVEF greater than 60%, RV systolic pressure 42 mmHg. * Notified Dr. Manriquez about the admission. * Neuro checks * Ruled out TIA and stroke. * Continue lisinopril 20 mg daily for now. * added amlodipine 5mg for bp control- amlodipine can be increased to 7.5 if blood pressure greater than 150s. * Monitoring of blood pressures. Atrial fibrillation * On warfarin 2.5 mg daily at home * Supratherapeutic INR on admission 3.23 * inr 1.96 today * will get warfarin 2.5 mg today left sided pleural effusion cxr- Moderate to large left-sided pleural effusion, not significantly changed in volume relative to the prior exam. * pulmonology was consulted * asymptomatic now * patient received one bag of ffp before thoracocentesis * thoracocentesis done * transudative effusion Hyperlipidemia Continue simvastatin Hyperthyroidism Continue home dose of methimazole on Thursday and Thursday chronic diastolic congestive heart failure Takes Lasix 20 mg whenever necessary for edema at home getting lasix 20 every other day vertigo Takes meclizine whenever necessary Meclizine on hold Osteoporosis Continue alendronate Continue vitamin D Diabetes mellitus Metformin was discontinued by her primary care doctor Monitor Accu-Cheks NovoLog sliding scale Patient is DNR/DNI Heart healthy diet Problem List: 1. Hypertensive encephalopathy 2. Pleural effusion Pain Ratin Pain Location: none Pain Goal: Remain pain free Pain Plan: tylinol Tomorrow's Labs & Rationales: none Consulting Request: Consulting Specialty: Pulmonary Disease AMBAR YOUNG MD 11/17/16 1124: Attending MD Review Statement Attending Statement Attending MD Statement: examined this patient, discuss w/resident/PA/CAMPAIGN COORDINATOR, agreed w/resident/PA/CAMPAIGN COORDINATOR, reviewed EMR data (avail), discussed with nursing, discussed with case mgmt, amended to note Attending Assessment/Plan: Mrs. Lei was interviewed and examined. Her EMR was reviewed. She has remained stable over the weekend while a bed search was undertaken.'s is been successful and she is now stable for transfer to short-term rehabilitation.
[2016-11-17 08:15] VITALS: BP 120/62
[2016-11-17 08:22] LABS: PT 28.5 SEC (9.4-12.5)
[2016-11-17 08:45] LABS: ABSOLUTE BASOPHIL COUNT 0 /CUMM (0.0-0.2); ABSOLUTE EOSINOPHIL COUNT 0.2 /CUMM (0.0-0.7); ABSOLUTE GRANULOCYTE CT 2.1 /CUMM (1.4-6.5); ABSOLUTE LYMPH COUNT 1.3 /CUMM (1.2-3.4); ABSOLUTE MONOCYTE COUNT 0.5 /CUMM (0.10-0.60); BASOPHIL % 0.7 % (0.0-2.0); EOSINOPHIL % 4.1 % (0-5); GRANULOCYTE % 51.6 % (42.2-75.2); HEMATOCRIT 34.7 % (37-47); MEAN CORPUSCULAR HGB 32.3 PG (27.0-31.0); MEAN CORPUSCULAR HGB CONC 33.3 G/DL (33.0-37.0); MEAN CORPUSCULAR VOLUME 96.8 FL (81.0-99.0); MEAN PLATELET VOLUME 8.7 FL (7.4-10.4); PLATELET COUNT 148 /CUMM (130-400); RED BLOOD CELL CT 3.58 /CUMM (4.20-5.40)
--- NOTE | 2016-11-17 09:14 | PN- Pulmonary ---
Subjective HPI/Critical Care Issues: pt seen and examined s/p thoracentesis INR 2.74 continues to be transudative no other new events no n/v/d/c no shah Objective Current Medications: Current Medications Sig/Misha Start time Last Medication Dose Route Stop Time Status Admin Acetaminophen 650 MG Q6P PRN 11/09 2100 AC PO Alendronate Sodium 70 MG QTUES 11/11 0700 AC 11/11 PO 0628 Amlodipine Besylate 5 MG DAILY 11/13 1000 AC 11/16 PO 0923 Anastrozole 1 MG DAILY 11/10 1000 AC 11/16 PO 0922 Calcium Carbonate 500 MG DAILY PRN 11/15 1700 AC 11/16 PO 1529 Cholecalciferol 1,000 IU DAILY 11/10 1000 AC 11/16 PO 0923 Ferrous Gluconate 325 MG TID 11/09 2200 AC 11/16 PO 2140 Furosemide 20 MG Q48H 11/15 1700 AC 11/15 PO 1819 Ibuprofen 600 MG Q6P PRN 11/09 2100 AC 11/15 PO 1704 Lisinopril 20 MG DAILY 11/10 1000 AC 11/16 PO 0923 Magnesium Oxide 400 MG DAILY 11/10 1000 AC 11/16 PO 0923 Melatonin 5 MG AT BEDTIME 11/14 2200 AC 11/16 PO 2140 Methimazole 2.5 MG 11/10 1000 AC 11/14 PO 1003 Patient Medication 1 UNIT ONE NR 11/16 1115 DC Teaching ED 11/16 1200 Potassium Chloride 20 MEQ DAILY 11/10 1000 AC 11/16 PO 0923 Simvastatin 10 MG 1700 11/10 1700 AC 11/16 PO 1723 Warfarin Sodium 2.5 MG COUMADIN 1700 ONE 11/16 1700 DC 11/16 PO 11/16 1701 1722 Vital Signs & I&O Last 24 Hrs of Vitals and I&O: Vital Signs Date Time Temp Pulse Resp B/P Pulse O2 O2 Flow FiO2 Ox Delivery Rate 11/17 814 97.8 83 20 120/62 94 Room Air 11/17 0000 Room Air 11/16 2258 98.6 70 20 110/60 98 Room Air 11/16 1600 96 Room Air 11/16 1548 98.2 77 20 110/60 96 Room Air 11/16 0923 68 116/66 11/16 0923 68 116/66 Intake & Output 11/17 1600 11/17 0800 11/17 0000 Intake Total 440 Output Total Balance 440 Intake, Oral 440 Exam Other Physical Findings: gen - awake, alert, oriented heent - ncat cvs - s1, s2, systolic murmur lungs - dimnished breath sounds primarily on the left minimal improvement ext - edematous Results Last 24 Hrs of Lab Results: Laboratory Tests 11/17/16 0625: Anion Gap 3 L, Estimated GFR > 60, BUN/Creatinine Ratio 42.9 H, PT 28.5 H, INR 2.74 H, CBC w Diff NO MAN DIFF REQ, RBC 3.58 L, MCV 96.8, MCH 32.3 H, RDW 16.0 H, MPV 8.7, Gran % 51.6, Lymphocytes % 31.8, Monocytes % 11.8 H, Eosinophils % 4.1, Basophils % 0.7, Absolute Granulocytes 2.1, Absolute Lymphocytes 1.3, Absolute Monocytes 0.5, Absolute Eosinophils 0.2, Absolute Basophils 0, PUBS MCHC 33.3 Impression/Plan Impression/Plan Impression/Plan: Impression 89 year old woman * Left sided Pleural Effusion - fluid has not had any features of malignancy with a negative cytology and was transudative in nature. * Mrs. Lei notably has a history of breast cancer, osteoporosis and vertigo. Plan -s/p thoracentesis, continues to be transudative, cytology pending -inr therapeutic -dc planning
[2016-11-17 15:18] VITALS: BP 112/58
[2016-11-17 15:47] VITALS: BP 112/58
== END 2016-11-17 17:02 | DRG 78 ==
LOC: ERH 15:02 → 1NO 19:35 → ERHI 19:35 → ENPENDDIS 19:35 → 1NO 20:44
PROVIDERS: Internal Medicine; Physician Assistant Medical; ADMIT Internal Medicine
PROC: 0W9B3ZX Drainage of Left Pleural Cavity, Percutaneous Approach, Diagnostic (ICD-10-PCS; principal; 2016-11-14)
DX: I67.4 Hypertensive encephalopathy (principal); E87.2 Acidosis; J90 Pleural effusion, not elsewhere classified; I11.0 Hypertensive heart disease with heart failure; I50.32 Chronic diastolic (congestive) heart failure; I16.1 Hypertensive emergency; I48.2 Chronic atrial fibrillation; Z79.01 Long term (current) use of anticoagulants; E11.9 Type 2 diabetes mellitus without complications; Z85.3 Personal history of malignant neoplasm of breast; E04.2 Nontoxic multinodular goiter; E78.5 Hyperlipidemia, unspecified; I35.0 Nonrheumatic aortic (valve) stenosis; M81.0 Age-related osteoporosis without current pathological fracture; R42 Dizziness and giddiness
CPT/HCPCS: 1NSP; 87075; 36415; 81001; 82436; 87086; 88305; 93005; 93010; 96374; 97110-GO; 97116-GO; 97162-GP; 97530-GO; 99291; J3490

== ENCOUNTER 2016-12-03 18:06 | Inpatient (IN) | payer OTHER, MEDICARE ==
[~2016-12-03] VITALS: Ht 157.5 cm; Wt 73.9 kg
[~2016-12-03 18:06] MED LIST changes: +AMLODIPINE BESYL5 M1 PO; +METFORMIN HCL500 M2 PO; +METFORMIN HCL500 M4 PO
--- NOTE | 2016-12-03 18:10 | NUR ---
PT BIBA FROM [facility] FOR ALTERED MENTAL STATUS, LETHARGY. [facility] STATES PT IS USUALLY A/OX3. PT HAS NOT BEEN TALKING AND CONFUSED WHEN SHE DOES TALK. PT ARRIVES TO ED ALERT, RESPONDS TO PAINFUL STIMULI. VSS. PT ON 2L NC, SATS 99%. DR CHA AT BEDSIDE FOR EVAL UPON PT'S ARRIVAL TO ROOM.
--- NOTE | 2016-12-03 18:12 | ED AMS/SEIZURE/WEAK/DIZZY ---
History of Present Illness General Chief Complaint: Altered Mental Status Stated Complaint: BIBA, UNRESPONSIVE Source: family, EMS, W10 Exam Limitations: clinical condition Vital Signs & Intake/Output Vital Signs & Intake/Output Vital Signs Date Time Temp Pulse Resp B/P Pulse O2 O2 Flow FiO2 Ox Delivery Rate 12/10 0838 99.6 90 18 142/70 97 12/10 0817 95 Room Air Room Air 12/10 0358 96 Room Air 12/10 0335 100.1 83 18 110/72 98 Room Air 12/10 0032 98.6 80 20 126/68 97 Room Air 12/10 0022 97 12/09 1906 97 Room Air Room Air 12/09 1624 98.0 86 19 120/70 97 ED Intake and Output 12/10 0000 12/09 1200 Intake Total 1120 Output Total 200 200 Balance 920 -200 Intake, Oral 1120 Number 2 2 Bowel Movements Output, Urine 200 200 Allergies Coded Allergies: atorvastatin (Intermediate, MODERATE PAIN TO BACK AND SHOULDERS 01/20/16) scallops (GI DISTRESS 01/20/16) Reconcile Medications Acetaminophen (Tylenol) 325 MG TABLET 2 TAB PO Q6-PRN PRN FEVER > 101 ( Reported) Acetaminophen (Tylenol Arthritis) 650 MG TABLET.ER SUPPLEMENT (Reported) Alendronate Sodium (Fosamax) 70 MG TABLET 1 TAB PO QTUES BONES (Reported) in the morning, at least 30 minutes before the first food, beverage, or medication of the day Amlodipine Besylate 5 MG TABLET 1 TAB PO DAILY hypertension Anastrozole 1 MG TABLET 1 MG PO DAILY IMMUNE SUPPORT (Reported) Calcium Carbonate/Vitamin D3 (Os-Phill 500+D3 Caplet) 500 MG-200 TABLET 1 TAB PO BID SUPPLEMENT (Reported) Cholecalciferol (Vitamin D3) 1,000 UNIT TABLET HEALTH SUPPLEMENT (Reported) Diclofenac Sodium (Voltaren) 1 % GEL..GRAM. 1 GM TOP PRN PAIN (Reported) apply to affected area(s) Ferrous Gluconate (IRON) 256 MG (28 MG IRON) TABLET 1 TAB PO TID SUPPLEMENT ( Reported) Fluvastatin Sodium (Lescol 20MG) 20 MG CAP 1 CAP PO AT BEDTIME CHOLESTEROL ( Reported) Furosemide (Lasix) 20 MG TABLET 1 TAB PO PRN EDEMA (Reported) Ibuprofen 400 MG TABLET SUPPLEMENT (Reported) Magnesium Oxide (Magnesium) 400 MG CAPSULE 1 CAP PO DAILY low magnesium follows up with Dr. Garcia Meclizine (Antivert) 12.5 MG TAB 1 TAB PO Q6P PRN VERTIGO Melatonin 3 MG TABLET 1 TAB PO QPM INSOMNIA (Reported) Methimazole 5 MG TABLET 2.5 MG PO Thursday THYROID PROBLEMS ( Reported) Naloxone HCl (Narcan) 4 MG/ACTUATION SPRAY OPIOID INDUCED RD (Reported) Potassium Chloride 20 MEQ TAB.ER.PRT 1 TAB PO DAILY SUPPLEMENT (Reported) QUINAPRIL HCL (Quinapril HCl) 20 MG TAB 1 TAB PO DAILY HEART (Reported) Warfarin Sodium (Coumadin) 2.5 MG TABLET 1 TAB PO AD BLOOD THINNER (Reported) Triage Nurses Notes Reviewed? yes Onset: Gradual Duration: day(s): (few) Timing: recent history Injury Environment: [facility] Severity: moderate No Modifying Factors: none HPI: 89 year old female presents via EMS from [facility] for chief complaint of AMS and elevated INR. Daughter reports that they noted blood in her stool. They also report AMS and lethargy. According to her daughter she is usually much more alert than this. No reported fevers. Patient is resting with eyes closed, easily awoken with verbal stimuli, however not oriented. Past History Travel History Traveled to [place] past 21 day No Medical History Any Pertinent Medical History? see below for history Neurological: SHINGLES LYMES DISEASE EENT: allergies, cataracts, hearing loss, POSTNASAL DRIP Cardiovascular: AFIB, hypertension, hyperlipidemia, AORTIC STENOSIS Respiratory: bronchitis, pneumonia, L pleural effusion THORACENTESIS Gastrointestinal: NONE Hepatic: NONE Renal: NONE Musculoskeletal: osteoarthritis, osteoporosis, BAKERS CYST LEFT WRIST FRACTURE LEFT ANKLE FRACTURE Psychiatric: NONE Endocrine: diabetes, hyperthyroidism Blood Disorders: anemia, LYME DISEASE Cancer(s): breast cancer, SKIN CANCER (LUMPECTOMY NO LYMPH NODES REMOVED) COMMERCIAL AGENT/Reproductive: NONE History of MRSA: No History of VRE: No History of CDIFF: No Tetanus Vaccine: 09/02/15 Surgical History Surgical History: APPENDECTOMY BILATERAL LUMPECTOMY (NO LYMPH NODES REMOVED) Psychosocial History Who do you live with Patient/Self Services at Home None What is your primary language Indonesian Family History Family History, If Any: SON FH: Hodgkins disease MOTHER FH: diabetes mellitus FH: heart disease MOTHER FATHER FH: heart disease Hx Contributory? No Review of Systems Review of Systems Constitutional: Reports: see HPI (per w10). GI: Denies: vomiting. Neurological/Psychological: Reports: weakness, other (AMS). Hematologic/Endocrine: Reports: bleeding (IN STOOL). Physical Exam Physical Exam General Appearance: well developed/nourished, mild distress, AROUSABLE Head: atraumatic, normal appearance Eyes: Bilateral: PERRL. Ears, Nose, Throat: DRY MUCUS MEMBRANES Neck: normal inspection, supple, full range of motion Respiratory: normal breath sounds, chest non-tender, no respiratory distress Cardiovascular: regular rate/rhythm Peripheral Pulses: 2+ radial (R), 2+ radial (L) Gastrointestinal: soft, non-tender Back: BLOOD IN STOOL Extremities: normal range of motion, evidence of injury Neurologic/Psych: MOVING ALL EXTREMITIES Skin: intact, normal color, warm/dry Core Measures ACS in differential dx? No CVA/TIA Diagnosis: No Severe Sepsis Present: No Septic Shock Present: No Progress Differential Diagnosis: anemia, CVA/stroke, dehydration, hypoxia, UTI/pyelo Plan of Care: Orders Procedure Date/time Status CULTURE,BODY FLUID 12/10 07 Active CYTOLOGY SPECIMEN 12/10 712 Active BODY FLUID TOTAL PROTEIN 12/10 07 Active BODY FLUID LDH 12/10 07 Active BODY FLUID CELL COUNT 12/10 07 Active BODY FLUID GLUCOSE 12/10 07 Active BODY FLUID AMYLASE 12/10 07 Active BODY FLUID ALBUMIN 12/10 07 Active US-THORACENTESIS 12/10 0712 Active LDH (LACT ACID DEHYDROGENASE) 12/10 0645 Complete PROTHROMBIN TIME 12/10 06 Complete HEPATIC FUNCTION PANEL 12/10 06 Complete CBC WITHOUT DIFFERENTIAL 12/10 06 Complete Nursing Misc 12/10 0400 Active FRESH FROZEN PLASMA 12/10 0400 Complete BLOOD PRODUCT PICKUP 12/10 0321 Active Lab Add-on Test 12/10 UNK Active AEROSOL CHG 12/09 UNK Complete Therapeutic Activities 12/09 UNK Complete PT EVAL MOD COMPLEX 30 MIN 12/09 UNK Complete Laboratory Tests 12/10/16 0645: Total Bilirubin 3.7 H, Direct Bilirubin 1.6 H, AST 57 H, ALT 42, Alkaline Phosphatase 141 H, Lactate Dehydrogenase 719 H, Total Protein 6.6, Albumin 2.4 L, PT 19.3 H, INR 1.85 H, CBC w Diff NO MAN DIFF REQ, RBC 2.98 L, MCV 96.9, MCH 32.7 H, RDW 15.4 H, MPV 8.6, Gran % 75.1, Lymphocytes % 9.7 L, Monocytes % 11.0 H, Eosinophils % 3.8, Basophils % 0.4, Absolute Granulocytes 3.3, Absolute Lymphocytes 0.4 L, Absolute Monocytes 0.5, Absolute Eosinophils 0.2, Absolute Basophils 0, PUBS MCHC 33.7 Microbiology 12/10 712 BODY FLUID: Body Fluid Culture - COLB 12/10 712 BODY FLUID: Gram Stain - COLB Diagnostic Imaging: Viewed by Me: CT Scan. Discussed w/RAD: CT Scan. Initial ED EKG: AFIB Prior EKG: unchanged Rhythm Strip: atrial fibrillation Comments: PATIENT: RUEL CARRASCO PRESENT AGE: 89 PATIENT ACCOUNT NO: [id number] : [birth year] LOCATION: [facility] ORDERING PHYSICIAN: MADELYN CHA MD SERVICE DATE: 12/03/16 EXAM TYPE: CAT - CT HEAD WO IV CONTRAST EXAMINATION: CT HEAD WITHOUT CONTRAST CLINICAL INFORMATION: Altered mental status. Coagulopathy COMPARISON: CT head 11/09/2016 TECHNIQUE: Contiguous axial imaging was performed from the skull base to vertex without intravenous administration of contrast. DLP: 743.8 mGy-cm. FINDINGS: There is no evidence of acute intracranial hemorrhage or territorial infarction. No abnormal mass effect or midline shift is seen. Brantley to white matter differentiation is well preserved. No extra-axial fluid collections are identified. There is atrophy with prominence of the ventricles and the sulci and hypodensity of the periventricular white matter due to chronic small vessel ischemic disease. There is vascular calcifications of the internal carotid arteries bilaterally. The osseous structures and soft tissues are normal. The mastoid air cells and visualized portions of the paranasal sinuses are well aerated. Bilateral lens extraction. IMPRESSION: No acute intracranial pathology. DICTATED BY: EMELY JEWELL MD DATE/TIME DICTATED:12/03/161828 TRANSITION PROGRAM MANAGER:KWESI DATE/TIME TRANSCRIBED:12/03/161828 CONFIDENTIAL, DO NOT COPY WITHOUT APPROPRIATE AUTHORIZATION. <Electronically signed in Other Vendor System> SIGNED BY: EMELY JEWELL MD 12/03/16 1841 PATIENT: RUEL CARRASCO PRESENT AGE: 89 PATIENT ACCOUNT NO: [id number] : [birth year] LOCATION: [facility] ORDERING PHYSICIAN: MADELYN CHA MD SERVICE DATE: 12/03/16 EXAM TYPE: CAT - CT ABD & PELVIS W/O IV CONTRAS; CT CHEST WO IV CONTRAST EXAMINATION: CT CHEST WITHOUT CONTRAST CT ABDOMEN AND PELVIS WITHOUT CONTRAST CLINICAL INFORMATION: GI bleed. Coagulopathy. Retroperitoneal bleed. History of breast cancer. COMPARISON: CT chest 09/07/2016. MR abdomen 09/08/2016. TECHNIQUE: Multidetector volumetric CT imaging of the chest, abdomen and pelvis was obtained without IV or oral contrast. Coronal and sagittal reformatted images were performed at the CT scanner. DLP: 825.70 mGy-cm FINDINGS: CT CHEST: Lungs: Compression of atelectasis of the left lung inferiorly related to the large left pleural effusion. Right lung is clear. Mediastinum: Multiple coarse calcifications within the thyroid. Thyroid mildly prominent. Heart size enlarged. There are vascular calcifications of the aorta and coronary arteries. Small shotty lymph nodes in the mediastinum similar to prior CT scan. No bulky lymphadenopathy. Pleura: Large volume left pleural effusion similar to prior CT scan of 09/07/2016. Axillae: No lymphadenopathy. CT ABDOMEN AND PELVIS: Liver, Gallbladder, and Biliary Tree: Lobular contour of the surface of the liver consistent with cirrhosis. No focal liver lesion. No intrahepatic bile duct dilatation. Gallbladder is moderately distended. Calcified gallstones layering dependently in the gallbladder. No evidence of bile duct dilatation. The extrahepatic CBD measures 6 mm. No calcified stone within the bile ducts. Pancreas: Pancreas is atrophic. Spleen: Spleen normal in size and contour. No focal lesion. Adrenal Glands: Adrenal glands are normal in size. No focal mass. Kidneys and Ureters: The kidneys are normal in size, shape, and attenuation. No hydronephrosis, hydroureter, or calculi are seen. No perinephric stranding. Bladder: Patel catheter within the bladder. Bladder is empty. Gastrointestinal Tract: No acute change of the bowel. No bowel obstruction. No bowel wall thickening or edema. Moderate volume of stool throughout colon. Small bowel loops are normal. The appendix is not seen. Mesentery: Small volume of abdominal ascites around the liver and in the pelvis. No abscess or inflammation of the mesentery. No retroperitoneal bleed. No mesenteric mass. Abdominal Wall: No significant hernia is appreciated. Generalized anasarca present. Lymph Nodes: Small shotty lymph nodes in the retroperitoneum. No bulky adenopathy in the abdomen or pelvis. Vascular: Atherosclerotic vascular calcifications of the aorta and major branch vessels of the aorta without aneurysm. Pelvic Viscera: Uterus is retroverted. Small calcifications within the myometrium. No adnexal abnormality. Osseous Structures: Multilevel degenerative change of the spine with disc height narrowing, endplate spurs and facet joint arthrosis. S-shaped scoliosis of the spine. IMPRESSION: 1. Large left pleural effusion similar in volume to the prior CT scan of 09/07/2016. Compressive atelectasis at left lung base. 2. Small volume of abdominal ascites. Generalized anasarca. No retroperitoneal or intraperitoneal bleed or mass. 3. Cholelithiasis. 4. Cirrhosis of the liver. DICTATED BY: EMELY JEWELL MD DATE/TIME DICTATED:12/03/162017 TRANSITION PROGRAM MANAGER:KWESI DATE/TIME TRANSCRIBED:12/03/162017 CONFIDENTIAL, DO NOT COPY WITHOUT APPROPRIATE AUTHORIZATION. <Electronically signed in Other Vendor System> SIGNED BY: EMELY JEWELL MD 12/03/162055 PATIENT: RUEL CARRASCO PRESENT AGE: 89 PATIENT ACCOUNT NO: [id number] : [birth year] LOCATION: [facility] ORDERING PHYSICIAN: MADELYN CHA MD SERVICE DATE: 12/03/16 EXAM TYPE: CAT - CT ABD & PELVIS W/O IV CONTRAS; CT CHEST WO IV CONTRAST EXAMINATION: CT CHEST WITHOUT CONTRAST CT ABDOMEN AND PELVIS WITHOUT CONTRAST CLINICAL INFORMATION: GI bleed. Coagulopathy. Retroperitoneal bleed. History of breast cancer. COMPARISON: CT chest 09/07/2016. MR abdomen 09/08/2016. TECHNIQUE: Multidetector volumetric CT imaging of the chest, abdomen and pelvis was obtained without IV or oral contrast. Coronal and sagittal reformatted images were performed at the CT scanner. DLP: 825.70 mGy-cm FINDINGS: CT CHEST: Lungs: Compression of atelectasis of the left lung inferiorly related to the large left pleural effusion. Right lung is clear. Mediastinum: Multiple coarse calcifications within the thyroid. Thyroid mildly prominent. Heart size enlarged. There are vascular calcifications of the aorta and coronary arteries. Small shotty lymph nodes in the mediastinum similar to prior CT scan. No bulky lymphadenopathy. Pleura: Large volume left pleural effusion similar to prior CT scan of 09/07/2016. Axillae: No lymphadenopathy. CT ABDOMEN AND PELVIS: Liver, Gallbladder, and Biliary Tree: Lobular contour of the surface of the liver consistent with cirrhosis. No focal liver lesion. No intrahepatic bile duct dilatation. Gallbladder is moderately distended. Calcified gallstones layering dependently in the gallbladder. No evidence of bile duct dilatation. The extrahepatic CBD measures 6 mm. No calcified stone within the bile ducts. Pancreas: Pancreas is atrophic. Spleen: Spleen normal in size and contour. No focal lesion. Adrenal Glands: Adrenal glands are normal in size. No focal mass. Kidneys and Ureters: The kidneys are normal in size, shape, and attenuation. No hydronephrosis, hydroureter, or calculi are seen. No perinephric stranding. Bladder: Patel catheter within the bladder. Bladder is empty. Gastrointestinal Tract: No acute change of the bowel. No bowel obstruction. No bowel wall thickening or edema. Moderate volume of stool throughout colon. Small bowel loops are normal. The appendix is not seen. Mesentery: Small volume of abdominal ascites around the liver and in the pelvis. No abscess or inflammation of the mesentery. No retroperitoneal bleed. No mesenteric mass. Abdominal Wall: No significant hernia is appreciated. Generalized anasarca present. Lymph Nodes: Small shotty lymph nodes in the retroperitoneum. No bulky adenopathy in the abdomen or pelvis. Vascular: Atherosclerotic vascular calcifications of the aorta and major branch vessels of the aorta without aneurysm. Pelvic Viscera: Uterus is retroverted. Small calcifications within the myometrium. No adnexal abnormality. Osseous Structures: Multilevel degenerative change of the spine with disc height narrowing, endplate spurs and facet joint arthrosis. S-shaped scoliosis of the spine. IMPRESSION: 1. Large left pleural effusion similar in volume to the prior CT scan of 09/07/2016. Compressive atelectasis at left lung base. 2. Small volume of abdominal ascites. Generalized anasarca. No retroperitoneal or intraperitoneal bleed or mass. 3. Cholelithiasis. 4. Cirrhosis of the liver. DICTATED BY: EMELY JEWELL MD DATE/TIME DICTATED:12/03/162017 TRANSITION PROGRAM MANAGER:KWESI DATE/TIME TRANSCRIBED:12/03/162017 CONFIDENTIAL, DO NOT COPY WITHOUT APPROPRIATE AUTHORIZATION. <Electronically signed in Other Vendor System> SIGNED BY: EMELY JEWELL MD 12/03/162055 Departure Departure Time of Disposition: 2116 Disposition: STILL A PATIENT Condition: Stable Clinical Impression Primary Impression: Encephalopathy Secondary Impressions: Altered mental status, Coagulopathy, Lactic acidosis, Rectal bleeding Referrals: JOB TSANG,RASTA Departure Forms: Customer Survey General Discharge Information Admission Note Spoke With: HECTOR TSANG,AMBAR Santos Documentation of Exam: Documentation of any treatments & extenuating circumstances including Concerns Regarding Discharge (functional status, medication knowledge or non-compliance, living conditions, etc.) that warrant an admission rather than observation: [ Monitor PT/INR, vitamin K, hold anticoagulation, monitor H&H, consider GI consultation, serial neuro checks as patient is encephalopathic, lactulose ( RESIDENT ORDERING NGT)]
--- NOTE | 2016-12-03 18:28 | NUR ---
TO AND FROM CAT SCAN ON MONITOR WITH THIS RN
[2016-12-03 18:32] LABS: ABSOLUTE BASOPHIL COUNT 0 /CUMM (0.0-0.2); ABSOLUTE EOSINOPHIL COUNT 0 /CUMM (0.0-0.7); ABSOLUTE GRANULOCYTE CT 2.2 /CUMM (1.4-6.5); ABSOLUTE LYMPH COUNT 0.6 /CUMM (1.2-3.4); ABSOLUTE MONOCYTE COUNT 0.3 /CUMM (0.10-0.60); BASOPHIL % 0.5 % (0.0-2.0); EOSINOPHIL % 0.5 % (0-5); GRANULOCYTE % 72.1 % (42.2-75.2); HEMATOCRIT 31.2 % (37-47); MEAN CORPUSCULAR HGB CONC 33.5 G/DL (33.0-37.0); MEAN CORPUSCULAR VOLUME 95.3 FL (81.0-99.0); MEAN PLATELET VOLUME 8.3 FL (7.4-10.4); PLATELET COUNT 161 /CUMM (130-400); RBC DISTRIBUTION WIDTH 15.8 % (11.5-14.5); RED BLOOD CELL CT 3.27 /CUMM (4.20-5.40); WHITE BLOOD CELL COUNT 3.1 /CUMM (4.8-10.8)
--- NOTE | 2016-12-03 18:35 | NUR ---
URINE TRIO SENT TO LAB
--- NOTE | 2016-12-03 18:41 | CT SCAN REPORT ---
EXAMINATION: CT HEAD WITHOUT CONTRAST CLINICAL INFORMATION: Altered mental status. Coagulopathy COMPARISON: CT head 11/09/2016 TECHNIQUE: Contiguous axial imaging was performed from the skull base to vertex without intravenous administration of contrast. DLP: 743.8 mGy-cm. FINDINGS: There is no evidence of acute intracranial hemorrhage or territorial infarction. No abnormal mass effect or midline shift is seen. Brantley to white matter differentiation is well preserved. No extra-axial fluid collections are identified. There is atrophy with prominence of the ventricles and the sulci and hypodensity of the periventricular white matter due to chronic small vessel ischemic disease. There is vascular calcifications of the internal carotid arteries bilaterally. The osseous structures and soft tissues are normal. The mastoid air cells and visualized portions of the paranasal sinuses are well aerated. Bilateral lens extraction. IMPRESSION: No acute intracranial pathology.
[2016-12-03 18:46] LABS: PTT 61 SEC (25-37)
--- NOTE | 2016-12-03 18:52 | NUR ---
CRITICAL TEST RESULTS [id number] RUEL CARRASCO 89 F TESTS AND RESULTS: PT 63.7, INR 6.18 Results received and read back by: BIGG DE LA ROSA Results received date and time: 12/03/161852 The following provider was notified of the results, and read the results back: DR. CHA Notified date and time: 12/03/16 at [id number]
[2016-12-03 18:53] LABS: PT 63.7 SEC (9.4-12.5)
--- NOTE | 2016-12-03 19:07 | NUR ---
ASSUMED CARE OF PT PER GREGORIO SHARIF. PT RESTING IN RM WITH FAMILY AT BEDSIDE WILL CONTINUE TO MONITOR
--- NOTE | 2016-12-03 19:28 | NUR ---
SECOND IV SITE ESTABLISHED BY THIS RN #22 RH.
--- NOTE | 2016-12-03 19:34 | NUR ---
DR CHA IN FOR GUIAC +, RECTAL TEMP 95.1.
--- NOTE | 2016-12-03 19:54 | NUR ---
PT MEDICATED WITH 10MG VITAMIN K PER EMAR IN RIGHT ARM.
--- NOTE | 2016-12-03 19:56 | NUR ---
PT TO CT SCAN VIA STREMACIEL
--- NOTE | 2016-12-03 20:15 | NUR ---
PT O2 SAT 87% ON RA WHILE RESTING. jazz loyd notified and is at bedside now for POC
--- NOTE | 2016-12-03 20:55 | NUR ---
PT READJUSTED FOR COMFORT BY THIS RN AND GREGORIO RODRÍGUEZ.
--- NOTE | 2016-12-03 20:56 | CT SCAN REPORT ---
EXAMINATION: CT CHEST WITHOUT CONTRAST CT ABDOMEN AND PELVIS WITHOUT CONTRAST CLINICAL INFORMATION: GI bleed. Coagulopathy. Retroperitoneal bleed. History of breast cancer. COMPARISON: CT chest 09/07/2016. MR abdomen 09/08/2016. TECHNIQUE: Multidetector volumetric CT imaging of the chest, abdomen and pelvis was obtained without IV or oral contrast. Coronal and sagittal reformatted images were performed at the CT scanner. DLP: 825.70 mGy-cm FINDINGS: CT CHEST: Lungs: Compression of atelectasis of the left lung inferiorly related to the large left pleural effusion. Right lung is clear. Mediastinum: Multiple coarse calcifications within the thyroid. Thyroid mildly prominent. Heart size enlarged. There are vascular calcifications of the aorta and coronary arteries. Small shotty lymph nodes in the mediastinum similar to prior CT scan. No bulky lymphadenopathy. Pleura: Large volume left pleural effusion similar to prior CT scan of 09/07/2016. Axillae: No lymphadenopathy. CT ABDOMEN AND PELVIS: Liver, Gallbladder, and Biliary Tree: Lobular contour of the surface of the liver consistent with cirrhosis. No focal liver lesion. No intrahepatic bile duct dilatation. Gallbladder is moderately distended. Calcified gallstones layering dependently in the gallbladder. No evidence of bile duct dilatation. The extrahepatic CBD measures 6 mm. No calcified stone within the bile ducts. Pancreas: Pancreas is atrophic. Spleen: Spleen normal in size and contour. No focal lesion. Adrenal Glands: Adrenal glands are normal in size. No focal mass. Kidneys and Ureters: The kidneys are normal in size, shape, and attenuation. No hydronephrosis, hydroureter, or calculi are seen. No perinephric stranding. Bladder: Patel catheter within the bladder. Bladder is empty. Gastrointestinal Tract: No acute change of the bowel. No bowel obstruction. No bowel wall thickening or edema. Moderate volume of stool throughout colon. Small bowel loops are normal. The appendix is not seen. Mesentery: Small volume of abdominal ascites around the liver and in the pelvis. No abscess or inflammation of the mesentery. No retroperitoneal bleed. No mesenteric mass. Abdominal Wall: No significant hernia is appreciated. Generalized anasarca present. Lymph Nodes: Small shotty lymph nodes in the retroperitoneum. No bulky adenopathy in the abdomen or pelvis. Vascular: Atherosclerotic vascular calcifications of the aorta and major branch vessels of the aorta without aneurysm. Pelvic Viscera: Uterus is retroverted. Small calcifications within the myometrium. No adnexal abnormality. Osseous Structures: Multilevel degenerative change of the spine with disc height narrowing, endplate spurs and facet joint arthrosis. S-shaped scoliosis of the spine. IMPRESSION: 1. Large left pleural effusion similar in volume to the prior CT scan of 09/07/2016. Compressive atelectasis at left lung base. 2. Small volume of abdominal ascites. Generalized anasarca. No retroperitoneal or intraperitoneal bleed or mass. 3. Cholelithiasis. 4. Cirrhosis of the liver.
--- NOTE | 2016-12-03 21:13 | NUR ---
DR CHA IN FOR POC
--- NOTE | 2016-12-03 21:15 | NUR ---
PTS DAUGHTER BA RODRIGUEZ CELL [phone] [place] [phone]
--- NOTE | 2016-12-03 21:35 | NUR ---
PT READJUSTED IN BED FOR COMFORT. 2L NC 02 REMOVED, PA SAT ON RA 98%. AMMONIA DRAWN BY WINSTON NEUMANN AND SENT TO LAB. QUICK FLU COLLECTED AND SENT TO LAB BY SKINNY PERKINS
--- NOTE | 2016-12-03 21:59 | NUR ---
HOUSE STAFF IN FOR EVAL, THIS RN INFORMED HOUSE STAFF THAT PT MOST LIKELY WILL NOT ANSWER QUESTIONS CORRECTLY DUE TO DEMENITA AND AMS, THIS RN GAVE HOUSE STAFF DAUGHTER (IMELDA) CELL PHONE AND HOME NUMBER
[2016-12-03] MEDS ORDERED: OS-CAL 500+D31 EAC1 PO (22:09)
[2016-12-03] MEDS ORDERED: MELATONIN3 M4 PO (22:10)
--- NOTE | 2016-12-03 22:12 | History & Physical ---
See Addendum KAILYN TSANG,DEE DEE 12/03/16 2211: General Information and HPI MD Statement: I have seen and personally examined RUEL CARRASCO and documented this H&P. The patient is a 89 year old F who presented with a patient stated chief complaint of [altered mental status and bloody stool]. Source of Information: family, old records Exam Limitations: unable to give history, not alert/orientated History of Present Illness: Patient is a 89 year old lady who was BIBA from [facility] due to altered mental status since yesterday morning. According to the daughter patient was in her usual state and was supposed to get discharged home today but then the daughter got a call from the facility that she is not communicating and is very weak and lethargic. Patient also had chills, nausea but not vomiting, was able to follow directions, had small amount of food. She was also noted to have dark blood in the stool. In the ED patient appears lethargic, she is not following directions, says 'yes' to all questions, appears to be in pain, not diaphoretic, has swollen legs and arms, extremities are warm and distal pulses are palpable. she is saturating at 98% in room air, not in respiratory distress. patient has lizarraga catheter placed and urine appears clear but is dark yellow to orange. Patient was recently admitted at [facility] (11/09 to 11/17/2016) due to AMs and hypertensive encephalopathy. She was also admitted to the ICU in September 07, 2016 after an unwitnessed fall and was found to be in septic shock likely of urologic origin. Acute cholecystitis was ruled out, urine culture came back positive for Ecoli for which she received treatment with IV ceftriaxone. She was also found to have left pleural effusion at that time and underwent thoracentesis, which was negative for malignancy (of note, patient has a history of breast cancer and takes anastrozole). Allergies/Medications Allergies: Coded Allergies: atorvastatin (Intermediate, MODERATE PAIN TO BACK AND SHOULDERS 01/20/16) scallops (GI DISTRESS 01/20/16) Home Med list Acetaminophen (Tylenol) 325 MG TABLET 2 TAB PO Q6-PRN PRN FEVER > 101 ( Reported) Acetaminophen (Tylenol Arthritis) 650 MG TABLET.ER SUPPLEMENT (Reported) Alendronate Sodium (Fosamax) 70 MG TABLET 1 TAB PO QTUES BONES (Reported) in the morning, at least 30 minutes before the first food, beverage, or medication of the day Amlodipine Besylate 5 MG TABLET 1 TAB PO DAILY hypertension Anastrozole 1 MG TABLET 1 MG PO DAILY IMMUNE SUPPORT (Reported) Calcium Carbonate/Vitamin D3 (Os-Phill 500+D3 Caplet) 500 MG-200 TABLET 1 TAB PO BID SUPPLEMENT (Reported) Cholecalciferol (Vitamin D3) 1,000 UNIT TABLET HEALTH SUPPLEMENT (Reported) Diclofenac Sodium (Voltaren) 1 % GEL..GRAM. 1 GM TOP PRN PAIN (Reported) apply to affected area(s) Ferrous Gluconate (IRON) 256 MG (28 MG IRON) TABLET 1 TAB PO TID SUPPLEMENT ( Reported) Fluvastatin Sodium (Lescol 20MG) 20 MG CAP 1 CAP PO AT BEDTIME CHOLESTEROL ( Reported) Furosemide (Lasix) 20 MG TABLET 1 TAB PO PRN EDEMA (Reported) Ibuprofen 400 MG TABLET SUPPLEMENT (Reported) Magnesium Oxide (Magnesium) 400 MG CAPSULE 1 CAP PO DAILY low magnesium follows up with Dr. Radha Constantino (Antivert) 12.5 MG TAB 1 TAB PO Q6P PRN VERTIGO Melatonin 3 MG TABLET 1 TAB PO QPM INSOMNIA (Reported) Methimazole 5 MG TABLET 2.5 MG PO Thursday THYROID PROBLEMS ( Reported) Naloxone HCl (Narcan) 4 MG/ACTUATION SPRAY OPIOID INDUCED RD (Reported) Potassium Chloride 20 MEQ TAB.ER.PRT 1 TAB PO DAILY SUPPLEMENT (Reported) QUINAPRIL HCL (Quinapril HCl) 20 MG TAB 1 TAB PO DAILY HEART (Reported) Warfarin Sodium (Coumadin) 2.5 MG TABLET 1 TAB PO AD BLOOD THINNER (Reported) Past History Travel History Traveled to [place] past 21 day No Medical History Neurological: SHINGLES LYMES DISEASE EENT: allergies, cataracts, hearing loss, POSTNASAL DRIP Cardiovascular: AFIB, hypertension, hyperlipidemia, AORTIC STENOSIS Respiratory: bronchitis, pneumonia, L pleural effusion THORACENTESIS Gastrointestinal: NONE Hepatic: NONE Renal: NONE Musculoskeletal: osteoarthritis, osteoporosis, BAKERS CYST LEFT WRIST FRACTURE LEFT ANKLE FRACTURE Psychiatric: NONE Endocrine: diabetes, hyperthyroidism Blood Disorders: anemia, LYME DISEASE Cancer(s): breast cancer, SKIN CANCER (LUMPECTOMY NO LYMPH NODES REMOVED) LAB SUPPORT TECHNICIAN/Reproductive: NONE History of MRSA: No History of VRE: No History of CDIFF: No Tetanus Vaccine: 09/02/15 Surgical History Surgical History: APPENDECTOMY BILATERAL LUMPECTOMY (NO LYMPH NODES REMOVED) Past Family/Social History Family History Relations & Conditions if any SON FH: Hodgkins disease MOTHER FH: diabetes mellitus FH: heart disease MOTHER FATHER FH: heart disease Psychosocial History Who Do You Live With? self Services at Home: None ETOH Use: 6 Illicit Drug Use: UTD Functional Ability ADLs Needs Assist: dressing, eating, toileting, bathing. IADLs Needs Assist: shopping, housework, finances, food prep, telephone, transportation, medication admin. Review of Systems Review of Systems Constitutional: Denies: chills (ROS per daughter on the phone), fever. EENTM: Reports: no symptoms. Cardiovascular: Reports: edema. Denies: chest pain, palpitations. Respiratory: Denies: cough, short of breath, sputum production. GI: Reports: nausea, bloody stool. Denies: abdominal pain, diarrhea, vomiting. Genitourinary: Reports: no symptoms. Musculoskeletal: Reports: no symptoms. Skin: Reports: no symptoms. Neurological/Psychological: Reports: confusion, weakness. Hematologic/Endocrine: Reports: bruising, bleeding. Denies: polyuria, polydipsia. Exam & Diagnostic Data Last 24 Hrs of Vital Signs/I&O Vital Signs Date Time Temp Pulse Resp B/P Pulse O2 O2 Flow FiO2 Ox Delivery Rate 12/03 2202 98 Room Air 12/03 2144 97.3 81 18 118/58 99 Room Air 12/039 95.3 77 18 107/56 98 12/03 1932 95.1 12/03 1905 98 Nasal 2.0L Cannula 12/03 1843 95.3 68 20 100 Nasal 2.0L Cannula 12/03 1816 94.0 88 20 133/63 100 Nasal 2.0L Cannula Physical Exam General Appearance No Acute Distress, not alert or oirented, eyes are closed and will not open with verbal and tactile stimuli Skin No Rashes, No Breakdown, No Significant Lesion HEENT Atraumatic, PERRLA, EOMI, Mucous Membr. moist/pink Neck Supple, No JVD Lymphatic no LAP Cardiovascular Regular Rate, Normal S1, Normal S2, 3/6 murmur in aortic, pulmonic areas amd LSB Lungs unreliable exam, patient unable to follow command for deep respiration. decreased breath sounds on the left sides scattered rhonchi on both sides and Abdomen Normal Bowel Sounds, Soft, No Tenderness, No Hepatospenomegaly Neurological unreliable exam, patient does not follow directions. no leterality noted, normal muscle tones in BL upper and lower extrimities. Extremities 3+ pitting edema BL LE, edema of the upper extremities up to the elbows. pulses palpable and symmetric. Vascular Normal Pulses, Pulses Symmetrical Last 24 Hrs of Labs/Claude: Laboratory Tests 12/03/162133: Ammonia 129 H 12/03/162129: Urine Color Cancelled, Urine Clarity Cancelled, Urine pH Cancelled, Ur Specific [place] Cancelled, Urine Protein Cancelled, Urine Ketones Cancelled, Urine Nitrite Cancelled, Urine Bilirubin Cancelled, Urine Urobilinogen Cancelled, Ur Leukocyte Esterase Cancelled, Ur Microscopic Cancelled, Urine Hemoglobin Cancelled, Urine Glucose Cancelled 12/03/161834: Lactic Acid 2.8 H, Urine Color YEL, Urine Clarity CLEAR, Urine pH 6.0, Ur Specific [place] 1.015, Urine Protein NEG, Urine Ketones NEG, Urine Nitrite NEG, Urine Bilirubin NEG, Urine Urobilinogen 0.2, Ur Leukocyte Esterase NEG, Ur Microscopic SEDIMENT EXAMINED, Urine RBC RARE, Ur Epithelial Cells RARE, Hyaline Casts 3-5 H, Urine Hemoglobin TRACE-INTACT, Urine Glucose NEG 12/03/161816: Anion Gap 9, Estimated GFR 59 L, BUN/Creatinine Ratio 41.1 H, Glucose 90, Calcium 8.8, Total Bilirubin 2.1 H, Direct Bilirubin 1.2 H, AST 57 H, ALT 42, Alkaline Phosphatase 156 H, Troponin I 0.02, Total Protein 6.3, Albumin 2.4 L, Globulin 3.9, Albumin/Globulin Ratio 0.6 L, PT 63.7 *H, INR 6.18 *H, APTT 61 H , CBC w Diff NO MAN DIFF REQ, RBC 3.27 L, MCV 95.3, MCH 32.0 H, RDW 15.8 H, MPV 8.3, Gran % 72.1, Lymphocytes % 18.8 L, Monocytes % 8.1, Eosinophils % 0.5, Basophils % 0.5, Absolute Granulocytes 2.2, Absolute Lymphocytes 0.6 L, Absolute Monocytes 0.3, Absolute Eosinophils 0, Absolute Basophils 0, PUBS MCHC 33.5 12/03/161809: pH 7.49 H, pCO2 30 L, pO2 143 H, HCO3 22, ABG O2 Sat (Measured) 98.0, Carboxyhemoglobin 0.3 L, O2 Concentration % 3L, O2 Delivery Method NC, Phlebotomy Draw Site RIGHT RADIAL Microbiology 12/03 1851 BLOOD: Blood Culture - RECD 12/03 1850 BLOOD: Blood Culture - RECD 12/03 1834 URINE ROUT: Urine Culture - RECD Assessment/Plan Assessment: Patient is a 89 year old lady with PMH of liver cirrhosis, atrial fibrillation ( warfarin on hold due to supratherapeutic INR), diabetes, hypertension, breast CA S/B bilateral lumpectomy and radiation, persistent left-sided pleural effusion s /p paracentesis (non-malignant following with Dr. Arguello), neutropenia, multinodular goiter, who is BIBA from ECF due to acute onset AMS, decreased oral intake and blood in the stool. In the ED she was hypothermic (94.0 rectal T), lethargic, with generalized edema and was found to have blood in the stool. Lab work showed elevated ammonia level of 129, INR of 6.18, mildly elevated liver enzymes (AST and ALP), elevated total and direct bilirubin (2.1 and 1.2 respectively), and elevated lactic acid of 2.8 . Problem list and plan: Altered mental status likely due to hepatic encephalopathy in the setting of liver cirrhosis possible etiologies: 1. Intracranial bleed: Head CT unremarkable (patient has elevated INR). 2. Hepatic encephalopathy: history of liver dysfunction, with elevated ammonia and AMS 3. Sepsis: mild hypothermia, rest of the vital signs are stable, extremities are warm and pulses are full. Lactic acid elevated to 2.8. Although sepsis is a less likely diagnosis, possible sources of infection are: - Urinary tract: UA is normal and urine culture and blood cultures are sent. Patient was not reported to have UTI symptoms, urine look clear and UA is negative - Respiratory tract: patient has no symptoms of respiratory tract infection. She is not in respiratory distress and is saturating at 98% in RA. chest CT shows a stable large left sided pleural effusion. - Biliary tract: unlikely due to negative physical exam (no tenderness in RUQ). patient has history of cholelithiasis, today's CT shows 'No intrahepatic bile duct dilatation. Gallbladder is moderately distended. Calcified gallstones layering dependently in the gallbladder. No evidence of bile duct dilatation. The extrahepatic CBD measures 6 mm. No calcified stone within the bile ducts.' * Passive external warming for mild hypothermia * Monitor Temperature closely * vital signs every shift * IV fluids * Repeat lactic acid in 6 hours is 2.1, held off on antibiotics for now * follow blood culture x2 * follow urine culture * Lactulose enema * Recheck ammonia in a.m. Lower GI bleed and supratherapeutic INR Etiologies include upper GIB bleed from possible esophageal varices or upper/ lower GIB in the setting of coagulopathy and liver dysfunction. * Vitamin K was given the ED, second dose at 8 am * Warfarin on hold * Guaiac all stools * GI consult is placed for Dr. Yue HUFF * monitor H&H and INR closely History of breast cancer * continued anastrozole 1 mg daily Chronic left sided pleural effusion Patient underwent thoracentesis in September 2016, chest CT today showed large left pleural effusion similar in volume to the prior CT scan of 09/07/2016. Compressive atelectasis at left lung base. Patient is breathing comfortably and saturating in RA. History of DM * accu checks * not on oral agents or insulin History of HTN, HLD * Held BP meds for now due to low BP * Fluvastatin, currently on hold due to mental status, aspiration risk Multinodular goiter * on methimazole * check TSH, FT4 * consider consulting endocrinology DVT px * No pharm/mechanical prophylaxis (INR supratherapeutic) Diet * NPO Code Status * DNR/DNI As Ranked By This Provider Problem List: 1. Atrial fibrillation 2. Elevated bilirubin 3. Pleural effusion 4. Altered mental status 5. Coagulopathy 6. Rectal bleeding 7. Encephalopathy Core Measures/Miscellaneous Acute Coronary Syndrome ACS Diagnosis: No Cerebrovascular Accident CVA/TIA Diagnosis: No Congestive Heart Failure CHF Diagnosis: No Venous Thromboembolism VTE Risk Factors: Acute medical illness, Age > 40, Immobility, paresis, Obesity VTE Prophylaxis Ordered Inpt: Mech/Pharm Contraindicate No Mech VTE prophylaxis d/t: Confusional state No VTE Pharm Prophylaxis d/t: Active bleeding VTE Diagnosis: No VTE Type: NONE VTE Confirmed by (Test): NONE Severe Sepsis Severe Sepsis Present: No BC x2: Yes Lactic Acid x2: Yes IV ABX Broad Spectrum: Yes Septic Shock Septic Shock Present: No Miscellaneous Documentation Attending Case Discussed With: DR YOUNG Primary Care Physician: UNKNOWN Patient sees these Specialists unknown Level of Patient Care: General Medicine ROCHELLEARCADIO 12/03/16 2334: Resident Review Statement Resident Statement: examined this patient, discussed with commander internal affairs, agreed with commander internal affairs Other Findings: Patient is 89-year-old female with past medical history significant for atrial fibrillation on Coumadin, type 2 diabetes not on hypoglycemic agents, hypertension, hyperlipidemia, history of breast cancer status post lumpectomy and radiation, history of regarding her goiter on methimazole, chronic left- sided pleural effusion, osteoporosis and cirrhosis was recently admitted to [facility] due to hypertensive encephalopathy and was discharged to [facility] on November 17. Patient was brought in from facility due to confusion, lethargy and altered mental status since yesterday. When reexamined the patient patient was very confused and lethargic, continuously closed her eyes and was not able to answer any of our questions but was responding to loud voice and painful stimuli. History was taken on telephone from her daughter. According to her patient worse progressively doing better at nursing facility and was about to discharge today when she gets called from facility that her mom is not doing well. When she went to see her she was very weak and lethargic but able to hold conversation and was fed by her. She complains of some nausea and chills but denied chest pain, cough, fever, diarrhea, constipation, palpitations , headaches, any urinary or bowel complaints. Her vital signs on admission were temperature 94.0 liters on came back normal to 97.3, pulse 88, respiratory rate 20, blood pressure 133/63 and she was saturating 98% on 2 L nasal cannula later on was saturating fine on room air. Labs were significant for WBC count 3.1, hemoglobin 10.4, hematocrit 31.2, platelet count 161, INR 6.18 and PTT 63.7, sodium 143, potassium 4.8, BU and 37 and creatinine 0.9. Glucose was 90 and lactic acid was high to 2.8, phosphorus 4.7, bilirubin was 2.1, ammonia 129 and albumin was 2.4. Head CT was negative for any intracranial bleed, abdomen and pelvis CT was also negative for any retroperitoneal or intraperitoneal bleed, chest CT showed pleural effusion not changed from the previous examination. EKG showed atrial fibrillation with no acute ST-T wave changes Physical examination showed Lethargic, not oriented to time person and place Head atraumatic Neck supple Chest auscultation showed irregularly irregular heart rate. 3/6 systolic murmur Lungs decreased air entry Abdomen soft nontender with positive bowel sounds Bilateral lower extremity edema, anasarca Assessment and plan Patient is 89-year-old female with complicated past medical history including multinodular goiter, diabetes, hypertension, hyperlipidemia, osteoporosis, breast cancer, chronic pleural effusion, liver cirrhosis came with acute change in her mental status and found to have elevated ammonia and elevated INR. Her problem list includes 1. Altered mental status and hyper ammonemia most likely due to hepatic encephalopathy due to underlying cirrhosis 2. Coagulopathy with elevated INR to 6.18 3. Rectal bleed with supratherapeutic INR 4. History of breast cancer 5. chronic pleural effusion 6. Osteoporosis 7. Hyperlipidemia 8. Hypertension 9. Type 2 diabetes mellitus 10. History of multinodular goiter on methimazole PLAN We will admit patient to medical floor We'll check vital signs every shift Gentle IV hydration with dextrose and normal saline at rate 50 mils per hour Accu-Cheks Will put NG tube and start her on lactulose 20 g 3 times a day We will replete electrolytes/magnesium and we will check electrolytes daily and replete accordingly. GI consultation in a.m. Will recheck ammonia level in a.m. We will hold her antihypertensives as her blood pressure is in the low range and will restart accordingly if needed We'll continue her methimazole on scheduled days Her hyponatremia is better and we will watch for any signs of infection and right now we will watch her off of antibiotics as there is no evidence of infection. We will check her thyroid functions Guaiac all stools and hold Coumadin Patient was given vitamin K in ED we will repeat if needed We will keep her nothing by mouth No pharmacological DVT prophylaxis needed as of her supratherapeutic INR Patient is DNI DNR
[2016-12-03] MEDS ORDERED: TYLENOL ARTHRI650 M1 (22:13)
[2016-12-03] MEDS ORDERED: TYLENOL325 M1 PO (22:13)
[2016-12-03] MEDS ORDERED: IBUPROFEN400 M1 (22:14)
[2016-12-03] MEDS ORDERED: NARCAN4 MG NAS (22:15)
--- NOTE | 2016-12-03 22:15 | NUR ---
PT TO ROOM 210 BED 1
--- NOTE | 2016-12-03 22:36 | NUR ---
REPORT GIVEN TO GREGORIO DINH. TRANSPORT CALLED
[2016-12-03 23:40] VITALS: BP 129/82
--- NOTE | 2016-12-04 00:38 | NUR ---
PT RECTAL TEMP 94.1. APPLIED THREE BLANKETS ON PT. ADVISED INTEGRATED CIRCUIT FABRICATOR #147 VERBALLY. PER INTEGRATED CIRCUIT FABRICATOR FOLLOW HOSPITAL PROTOCOL. NURSING SIGN PAINTER INFORMED. ADVISED TO RECHECK TEMP IN 30 MINUTES. WILL CONTINUE TO MONITOR.
--- NOTE | 2016-12-04 00:59 | NUR ---
PT RECTAL TEMP 95.2. SENT TEXT PAGE TO ADVISE SHOP FIRER/FIREMAN #[id number]. WILL CONTINUE TO MONITOR PT.
--- NOTE | 2016-12-04 02:05 | Event Note ---
Event Note Event Note: At 2 am I was called by the nurse that patient had bloody bowel movement after the lactulose enema was given. the pad underneath her contained dark blood and blood clots. Patient's mentation has been unchanged, is not alert and oriented, does not follow directions and only says 'yes'. distal pulses are palpable, abdomen is not distended and is non-tender. rest of the exam are same as the admission. current vital sings: BP: 114/59 HI: 79 RR: 20 Temp: 94.7 rectal SO2 97% in room air Plan: * CBC and INR stat * blood type and screen is in place * Dr. Garcia was called on the phone and advised us to continue current management for now and GI consult in AM * GI consult was placed with Dr. Turner in a.m. Update: INR is 5.71 (down from 6.18) and H/H is 9.9/32.1 stable from previous measure. Will keep the patient in GM and monitor vital signs and H&H closely.
--- NOTE | 2016-12-04 02:11 | NUR ---
PT VERY AGITATED. HITTING STAFF AND SCREAMING "LET ME GO". PT NOT ORIENTED AND UNABLE TO FOLLOW ANY COMMANDS AT THIS TIME. VS 114/59, HR 79, RECTAL TEMP 94.7, 91% ON RA. PLACED PT ON 2LNC AND SENT PAGE TO RESP. PT STOOL WAS GUIAIC POSITIVE. PT STOOL CONSIST OF LG CLOTS OF BLOOD. MACHINE SHOP APPRENTICE #[id number] ALSO CAME AND ASSESSED PT.
--- NOTE | 2016-12-04 02:28 | NUR ---
BL WRIST RESTRAINTS ORDERED FOR PT PULLING OUT LINES. PT IS NOT ATTEMPTING TO PULL LINES OUT. PT BECOMES AGITATED WHEN CARE IS GIVEN. PT IS CURRENTLY SLEEPING. THIS RN D/C ORDER.
[2016-12-04 03:02] LABS: ABSOLUTE BASOPHIL COUNT 0 /CUMM (0.0-0.2); ABSOLUTE EOSINOPHIL COUNT 0 /CUMM (0.0-0.7); ABSOLUTE GRANULOCYTE CT 2.3 /CUMM (1.4-6.5); ABSOLUTE LYMPH COUNT 0.9 /CUMM (1.2-3.4); ABSOLUTE MONOCYTE COUNT 0.4 /CUMM (0.10-0.60); BASOPHIL % 0.8 % (0.0-2.0); EOSINOPHIL % 1.3 % (0-5); GRANULOCYTE % 62.4 % (42.2-75.2); HEMATOCRIT 29.6 % (37-47); MEAN CORPUSCULAR HGB 32.1 PG (27.0-31.0); MEAN CORPUSCULAR HGB CONC 33.6 G/DL (33.0-37.0); MEAN CORPUSCULAR VOLUME 95.4 FL (81.0-99.0); MEAN PLATELET VOLUME 8.1 FL (7.4-10.4); PLATELET COUNT 148 /CUMM (130-400); RBC DISTRIBUTION WIDTH 16.1 % (11.5-14.5); WHITE BLOOD CELL COUNT 3.7 /CUMM (4.8-10.8)
[2016-12-04 03:11] LABS: PT 58.9 SEC (9.4-12.5)
--- NOTE | 2016-12-04 03:30 | NUR ---
CRITICAL RESULT PT:58.9, INR:5.71 READ BACK VERBALLY TO CONCRETE FOREMAN #[id number].
--- NOTE | 2016-12-04 04:14 | NUR ---
INR 5.71, PT 58.9, H/H 9.9 & 29.6. SENT BALLOON DESIGN PRINTER MESSSAGE REQUESTING A CBC ORDER FOR 0600 TO RECEIVE MORE DEFINITIVE H/H LEVEL. ALSO, PT IS ACTIVELY BLEEDING & WITH INR @5.71 THIS RN DOES NOT FEEL IT IS SAFE PRACTICE TO DO THE SECOND ENEMA ORDERED FOR 0600. OBSTETRICS GYNECOLOGY PHYSICIAN & TOWER AIR TRAFFIC CONTROL SPECIALIST AWARE OF THIS DECISION.
--- NOTE | 2016-12-04 06:47 | PN- Housestaff ---
Subjective Follow-up For: Altered mental status Hepatic encephalopathy BRBPR Supratherapeutic INR Multinodular goiter Subjective: Patient seen and examined at bedside this AM. She was minimally responsive and unable to follow commands, but opened her eyes with sternal rub and groaned with occasional movements of her limbs. ROS unable to be obtained. Of note, patient's daughter at bedside and plan of action discussed with her. Daughter willing and did sign consent for FFP transfusion. Review of Systems Constitutional: Reports: see HPI. EENTM: Reports: see HPI. Cardiovascular: Reports: see HPI. Respiratory: Reports: see HPI. Gastrointestinal: Reports: see HPI. Genitourinary: Reports: see HPI. Musculoskeletal: Reports: see HPI. Skin: Reports: see HPI. Objective Last 24 Hrs of Vital Signs/I&O Vital Signs Date Time Temp Pulse Resp B/P Pulse O2 O2 Flow FiO2 Ox Delivery Rate 12/04 1246 97.0 72 16 118/54 12/04 1231 97.9 76 16 106/58 12/04 0855 97.4 83 22 137/70 97 Nasal 2.5L Cannula 12/04 0654 97.6 84 20 145/72 92 Nasal 2.0L Cannula 12/04 0445 96.3 12/04 0057 95.2 / 2340 94.2 75 20 129/82 97 Room Air 12/03 2203 98 Room Air 12/03 2145 97.3 81 18 118/58 99 Room Air 12/03 2139 95.3 77 18 107/56 98 / 1932 95.1 / 1905 98 Nasal 2.0L Cannula 12/03 1843 95.3 68 20 100 Nasal 2.0L Cannula 12/03 1816 94.0 88 20 133/63 100 Nasal 2.0L Cannula Intake & Output 12/04 1600 12/04 0800 12/04 0000 Intake Total 550 Output Total 450 100 Balance 100 -100 Intake, IV 550 Intake, Oral 0 Number 1 Bowel Movements Output, Urine 450 100 Physical Exam General Appearance: No acute distress, not alert or oriented, eyes only open to sternal rub. Skin: Scattered erythema and bruises noted with generalized edema HEENT: Atraumatic, PERRLA, Mucous Membr. moist/pink Neck: Supple Lymphatic: Cervical nl Cardiovascular: Normal S1, Normal S2, 3/6 systolic murmur appreciated Lungs: Diminished breath sounds bilaterally Abdomen: Normal Bowel Sounds, Soft Neurological: Normal Tone, Difficult to assess as patient not responsive to commands Extremities: No Clubbing, No Cyanosis, Bilateral lower extremity edema and noted generalized anasarca Current Medications: Current Medications Sig/Misha Start time Last Medication Dose Route Stop Time Status Admin Acetaminophen 1,000 MG Q6P PRN 12/04 0445 DC N/A 1 UNIT IV Acetaminophen 650 MG Q6P PRN 12/04 0315 DC PO Acetaminophen/ 1 TAB Q6P PRN 12/04 0315 DC Hydrocodone Bitart PO Anastrozole 1 MG DAILY 12/04 1000 AC PO Dextrose/Sodium 1,000 ML Q20H 12/03 2300 AC 12/04 Chloride IV 0105 Lactulose 1 BOT Q6 12/04 0008 AC 12/04 LA 0104 Lactulose 20 GM TID 12/03 2258 DC PO Magnesium Citrate 300 ML DAILY 12/04 1000 CAN PO Magnesium Oxide 400 MG DAILY 12/03 2330 AC PO Magnesium Sulfate 1 GM ONCE ONE 12/04 0015 DC 12/04 Dextrose/Water 100 ML IV 12/04 0214 0200 Methimazole 2.5 MG 12/05 1000 AC PO Phytonadione 10 MG ONCE ONE 12/04 0800 DC 12/04 SC 12/04 0801 0926 Phytonadione 0 .STK-MED ONE 12/03 1945 DC .ROUTE Phytonadione 10 MG ONCE ONE 12/03 1944 DC 12/03 IM 12/03 Potassium Chloride 20 MEQ DAILY 12/04 1000 AC PO Sodium Chloride 500 ML BOLUS ONE 12/03 1914 DC 12/03 IV 12/03 Last 24 Hrs of Lab/Claude Results Last 24 Hrs of Labs/Mics: Laboratory Tests 12/04/16 0705: Anion Gap 6, Estimated GFR 52 L, BUN/Creatinine Ratio 40.0 H, Phosphorus 4.7 H, Magnesium 2.0, Total Bilirubin 2.2 H, Direct Bilirubin 1.2 H, AST 54 H, ALT 44, Alkaline Phosphatase 137 H, Ammonia 58 H, Total Protein 6.0 L, Albumin 2.3 L, CBC w Diff NO MAN DIFF REQ, RBC 3.08 L, MCV 95.7, MCH 32.5 H, RDW 16.4 H, MPV 8.3, Gran % 66.8, Lymphocytes % 21.9, Monocytes % 9.6 H, Eosinophils % 1.4, Basophils % 0.3, Absolute Granulocytes 2.6, Absolute Lymphocytes 0.9 L, Absolute Monocytes 0.4, Absolute Eosinophils 0.1, Absolute Basophils 0, [facility] 34.0 12/04/16 0600: PT Cancelled, INR Cancelled, CBC w Diff Cancelled, WBC Cancelled, RBC Cancelled, Hgb Cancelled, Hct Cancelled, MCV Cancelled, MCH Cancelled, RDW Cancelled, Plt Count Cancelled, MPV Cancelled, [facility] C[facility] 12/04/16 0240: PT 58.9 *H, INR 5.71 *H, CBC w Diff NO MAN DIFF REQ, RBC 3.10 L, MCV 95.4, MCH 32.1 H, RDW 16.1 H, MPV 8.1, Gran % 62.4, Lymphocytes % 25.1, Monocytes % 10.4 H, Eosinophils % 1.3, Basophils % 0.8, Absolute Granulocytes 2.3, Absolute Lymphocytes 0.9 L, Absolute Monocytes 0.4, Absolute Eosinophils 0, Absolute Basophils 0, [facility] 33.6 12/04/16 0050: Lactic Acid 2.1 12/03/162133: Ammonia 129 H 12/03/162130: Lactic Acid Cancelled 12/03/162129: Urine Color Cancelled, Urine Clarity Cancelled, Urine pH Cancelled, Ur Specific [place] Cancelled, Urine Protein Cancelled, Urine Ketones Cancelled, Urine Nitrite Cancelled, Urine Bilirubin Cancelled, Urine Urobilinogen Cancelled, Ur Leukocyte Esterase Cancelled, Ur Microscopic Cancelled, Urine Hemoglobin Cancelled, Urine Glucose Cancelled 12/03/16 1835: Lactic Acid 2.8 H, Urine Color YEL, Urine Clarity CLEAR, Urine pH 6.0, Ur Specific [place] 1.015, Urine Protein NEG, Urine Ketones NEG, Urine Nitrite NEG, Urine Bilirubin NEG, Urine Urobilinogen 0.2, Ur Leukocyte Esterase NEG, Ur Microscopic SEDIMENT EXAMINED, Urine RBC RARE, Ur Epithelial Cells RARE, Hyaline Casts 3-5 H, Urine Hemoglobin TRACE-INTACT, Urine Glucose NEG 12/03/16 1817: Anion Gap 9, Estimated GFR 59 L, BUN/Creatinine Ratio 41.1 H, Glucose 90, Calcium 8.8, Phosphorus 4.7 H, Magnesium 1.7, Total Bilirubin 2.1 H, Direct Bilirubin 1.2 H, AST 57 H, ALT 42, Alkaline Phosphatase 156 H, Troponin I 0.02, Total Protein 6.3, Albumin 2.4 L, Globulin 3.9, Albumin/Globulin Ratio 0.6 L, TSH 2.670, Free T4 2.76 H, PT 63.7 *H, INR 6.18 *H, APTT 61 H, CBC w Diff NO MAN DIFF REQ, RBC 3.27 L, MCV 95.3, MCH 32.0 H, RDW 15.8 H, MPV 8.3, Gran % 72.1, Lymphocytes % 18.8 L, Monocytes % 8.1, Eosinophils % 0.5, Basophils % 0.5, Absolute Granulocytes 2.2, Absolute Lymphocytes 0.6 L, Absolute Monocytes 0.3, Absolute Eosinophils 0, Absolute Basophils 0, PUBS MCHC 33.5 12/03/16 1810: pH 7.49 H, pCO2 30 L, pO2 143 H, HCO3 22, ABG O2 Sat (Measured) 98.0, Carboxyhemoglobin 0.3 L, O2 Concentration % 3L, O2 Delivery Method NC, Phlebotomy Draw Site RIGHT RADIAL Microbiology 12/03 1851 BLOOD: Blood Culture - RES 12/03 185 BLOOD: Blood Culture - RES 12/03 1835 URINE ROUT: Urine Culture - RES Orders Radiology Findings: EXAMINATION: CT CHEST WITHOUT CONTRAST CT ABDOMEN AND PELVIS WITHOUT CONTRAST CLINICAL INFORMATION: GI bleed. Coagulopathy. Retroperitoneal bleed. History of breast cancer. COMPARISON: CT chest 09/07/2016. MR abdomen 09/08/2016. TECHNIQUE: Multidetector volumetric CT imaging of the chest, abdomen and pelvis was obtained without IV or oral contrast. Coronal and sagittal reformatted images were performed at the CT scanner. DLP: 825.70 mGy-cm FINDINGS: CT CHEST: Lungs: Compression of atelectasis of the left lung inferiorly related to the large left pleural effusion. Right lung is clear. Mediastinum: Multiple coarse calcifications within the thyroid. Thyroid mildly prominent. Heart size enlarged. There are vascular calcifications of the aorta and coronary arteries. Small shotty lymph nodes in the mediastinum similar to prior CT scan. No bulky lymphadenopathy. Pleura: Large volume left pleural effusion similar to prior CT scan of 09/07/2016. Axillae: No lymphadenopathy. CT ABDOMEN AND PELVIS: Liver, Gallbladder, and Biliary Tree: Lobular contour of the surface of the liver consistent with cirrhosis. No focal liver lesion. No intrahepatic bile duct dilatation. Gallbladder is moderately distended. Calcified gallstones layering dependently in the gallbladder. No evidence of bile duct dilatation. The extrahepatic CBD measures 6 mm. No calcified stone within the bile ducts. Pancreas: Pancreas is atrophic. Spleen: Spleen normal in size and contour. No focal lesion. Adrenal Glands: Adrenal glands are normal in size. No focal mass. Kidneys and Ureters: The kidneys are normal in size, shape, and attenuation. No hydronephrosis, hydroureter, or calculi are seen. No perinephric stranding. Bladder: Patel catheter within the bladder. Bladder is empty. Gastrointestinal Tract: No acute change of the bowel. No bowel obstruction. No bowel wall thickening or edema. Moderate volume of stool throughout colon. Small bowel loops are normal. The appendix is not seen. Mesentery: Small volume of abdominal ascites around the liver and in the pelvis. No abscess or inflammation of the mesentery. No retroperitoneal bleed. No mesenteric mass. Abdominal Wall: No significant hernia is appreciated. Generalized anasarca present. Lymph Nodes: Small shotty lymph nodes in the retroperitoneum. No bulky adenopathy in the abdomen or pelvis. Vascular: Atherosclerotic vascular calcifications of the aorta and major branch vessels of the aorta without aneurysm. Pelvic Viscera: Uterus is retroverted. Small calcifications within the myometrium. No adnexal abnormality. Osseous Structures: Multilevel degenerative change of the spine with disc height narrowing, endplate spurs and facet joint arthrosis. S-shaped scoliosis of the spine. IMPRESSION: 1. Large left pleural effusion similar in volume to the prior CT scan of 09/07/2016. Compressive atelectasis at left lung base. 2. Small volume of abdominal ascites. Generalized anasarca. No retroperitoneal or intraperitoneal bleed or mass. 3. Cholelithiasis. 4. Cirrhosis of the liver. Miscellaneous Findings: Head CT: FINDINGS: There is no evidence of acute intracranial hemorrhage or territorial infarction. No abnormal mass effect or midline shift is seen. [place] to white matter differentiation is well preserved. No extra-axial fluid collections are identified. There is atrophy with prominence of the ventricles and the sulci and hypodensity of the periventricular white matter due to chronic small vessel ischemic disease. There is vascular calcifications of the internal carotid arteries bilaterally. The osseous structures and soft tissues are normal. The mastoid air cells and visualized portions of the paranasal sinuses are well aerated. Bilateral lens extraction. IMPRESSION: No acute intracranial pathology. Assessment/Plan Assessment: Ms. Lei is a pleasant 89 year old female with PMH atrial fibrillation on coumadin, liver cirrhosis, diabetes, HTN, persistent left-sided pleural effusion s/p paracentesis, neutropenia, breast CA S/B bilateral lumpectomy and radiation and multinodular goiter who was transferred from her extended care facility yesterday due to lethargy/weakness, decreased oral intake , altered mental status and blood in her stool. Patient was recently discharged from [place] on 11/17/16 after being treated for hepatic encephalopathy. She was also admitted in September of 2016 and found to be septic from a urinary tract infection; she was found to have a transudative left pleural effusion at that time as well, negative for malignancy. In the ED: Vital signs showed T 94.0, HR 88, RR 20, BP 133/63 and O2 saturation of 100% on 2L NC. Labs showed WBC count 3.1, hemoglobin 10.4, hematocrit 31.2, platelet count 161, INR 6.18 PTT 63.7, sodium 143, potassium 4.8, BUN 37 and creatinine 0.9. Glucose was 90, lactic acid was high to 2.8, phosphorus 4.7, bilirubin was 2.1, ammonia 129 and albumin was 2.4. EKG showed atrial fibrillation without ST-T wave changes. Head CT was done and showed no acute intracranial pathology. Chest/abdomen/pelvis CT was done and showed large left pleural effusion (similar to 09/07/16), small volume abdominal ascites, generalizes anasarca, no intra/retroperitoneal bleed, and cirrhosis of the liver. Patient was admitted to the general medicine floor and the following is the management: 1. Hepatic encephalopathy with hypothermia * Altered mental status likely secondary to hyperammonemia due to cirrhosis (no signs of infection [UA normal, CXR negative for PNA], head CT unremarkable for acute intracranial pathology) * Passive external warming was successful and patient is now normothermic * Blood and urine cultures drawn, f/u results * Lactulose enema to continue (titrate to 2 soft BMs daily), will trend ammonia level * GI consult placed and appreciated, suggested continuing lactulose enema * Continue IVF with D51/2NS at 75 cc/h 2. Acute blood loss anemia with BRBPR * Continue to follow GI recommendations * BRBPR is slowly subsiding, now patient passing clots * Patient recieved 10 mg IM x 1 Vit K * Vital signs Q shift, patient remains hemodynamically stable * INR reversal currently in process with 1U FFP transfused * If bleeding persists with an INR of 2-3 will continue with FFP and Vit K * Avoid NSAIDs * CBC Q12 H and transfuse to keep Hgb >8 * IV protonix 40 mg BID 3. Atrial fibrillation on coumadin with supratherapeutic INR * INR on admission of 6.18 * Currently reversing to 2-3 with 1 10mg IM Vit K and 1 U FFP * Repeating INR now to see if patient will require further reversal agents * Troponin negative on admission, no s/s ACS 4. Breast cancer * Continue anastrozole 1 mg PO daily 5. Multinodular goiter * Continue methimazol 2.5 mg PO M, W, F DNR/DNI Diet: NPO DVTP: ALPS Problem List: 1. Rectal bleeding 2. Supratherapeutic INR 3. Hypothermia 4. Hyperammonemia 5. Hepatic encephalopathy Pain Ratin Pain Location: Not able to assess due to clinical condition. Pain Goal: Remain pain free Pain Plan: N/A Tomorrow's Labs & Rationales: CBC (monitor H&H in the setting of active bleeding), BEP (very elevated BUN s/p lactulose), ammonia (s/p lactulose), INR (s/p FFP)
[2016-12-04 06:54] VITALS: BP 145/72
[2016-12-04 08:16] LABS: ABSOLUTE BASOPHIL COUNT 0 /CUMM (0.0-0.2); ABSOLUTE EOSINOPHIL COUNT 0.1 /CUMM (0.0-0.7); ABSOLUTE GRANULOCYTE CT 2.6 /CUMM (1.4-6.5); ABSOLUTE LYMPH COUNT 0.9 /CUMM (1.2-3.4); ABSOLUTE MONOCYTE COUNT 0.4 /CUMM (0.10-0.60); BASOPHIL % 0.3 % (0.0-2.0); EOSINOPHIL % 1.4 % (0-5); GRANULOCYTE % 66.8 % (42.2-75.2); MEAN CORPUSCULAR HGB 32.5 PG (27.0-31.0); MEAN PLATELET VOLUME 8.3 FL (7.4-10.4); PLATELET COUNT 153 /CUMM (130-400); RBC DISTRIBUTION WIDTH 16.4 % (11.5-14.5); RED BLOOD CELL CT 3.08 /CUMM (4.20-5.40)
[2016-12-04 08:32] LABS: HEMATOCRIT 29.4 % (37-47); MEAN CORPUSCULAR VOLUME 95.7 FL (81.0-99.0)
[2016-12-04 08:55] VITALS: BP 137/70
--- NOTE | 2016-12-04 11:29 | Cons- Gastroenterology ---
General Information and HPI Consulting Request Date of Consult: 12/04/16 Requested By: AMBAR YOUNG MD Reason for Consult: BRBPR, change in bowel habits. Source of Information: old records Exam Limitations: confusion, poor historian History of Present Illness: Ms. Lei is a 89 year old female with multiple medical problems including atrial fibrillation on Coumadin who was sent in from an ECF last night for changes in her mental status and brbpr. The patient was at an F after a recent hospitalization at and was due to be sent home in a few days, but she apparently became lethargic with altered mental status and was sent in to for further evaluation. She was also noted to have some dark blood mixed in with stool in her diaper. The patient is not able to give any meaningful history at the present time, but there are no reports in the chart of any abdominal pain or vomiting. She also has not had any melena. On admission, she was hemodynamically stable, to have an elevated INR of 6 and to have some dark blood in her diaper. She was rose cultured and admitted to the medical service for further management. Overnight she did pass some bright red blood according to nursing, but she remained hemodnamically stable. Allergies/Medications Allergies: Coded Allergies: atorvastatin (Intermediate, MODERATE PAIN TO BACK AND SHOULDERS 01/20/16) scallops (GI DISTRESS 01/20/16) Home Med List: Acetaminophen (Tylenol) 325 MG TABLET 2 TAB PO Q6-PRN PRN FEVER > 101 ( Reported) Acetaminophen (Acephen) 650 MG SUPP.RECT 1 SUPP [place] Q4H PRN PAIN/TEMP>100 ( Reported) Albuterol Sulfate 2.5 MG/3 ML (0.083 %) VIAL.NEB 1 Vial INH/BENJAMÍN Q6H PRN RESPIRATORY (Reported) Alendronate Sodium (Fosamax) 70 MG TABLET 1 TAB PO QTUES BONES (Reported) in the morning, at least 30 minutes before the first food, beverage, or medication of the day Amlodipine Besylate 5 MG TABLET 1 TAB PO DAILY hypertension Anastrozole 1 MG TABLET 1 MG PO DAILY ANTIESTROGEN (Reported) Bisacodyl 10 MG SUPP.RECT 1 SUP RC PRN GI (Reported) Calcium Carbonate/Vitamin D3 (Os-Phill 500+D3 Caplet) 500 MG-200 TABLET 1 TAB PO BID SUPPLEMENT (Reported) Cholecalciferol (Vitamin D3) 1,000 UNIT TABLET 1 TAB PO DAILY SUPPLEMENT ( Reported) Diclofenac Sodium (Voltaren) 1 % GEL..GRAM. 1 GM TOP PRN PAIN (Reported) apply to affected area(s) Ferrous Sulfate 325 MG (65 MG IRON) TABLET 1 TAB PO DAILY SUPPLEMENT ( Reported) Fluvastatin Sodium (Lescol) 20 MG CAPSULE 20 MG PO QHS CHOLESTEROL (Reported) Lactulose 10 GRAM/15 ML SOLUTION 30 ML PO QAM High ammonia Titrate to 2-3 bowel movements a day. Magnesium Hydroxide (Milk Of Magnesia) 400 MG/5 ML ORAL.SUSP 30 ML PO DAILY PRN CONSTIPATION (Reported) Magnesium Oxide (Magnesium) 400 MG CAPSULE 1 CAP PO DAILY low magnesium follows up with Dr. Young Meclizine HCl 12.5 MG TABLET 1 TAB PO Q6H PRN VERTIGO (Reported) Melatonin 3 MG TABLET 1 TAB PO QPM INSOMNIA (Reported) Methimazole 5 MG TABLET 2.5 MG PO Thursday THYROID PROBLEMS ( Reported) Na Phos,M-B/Na Phos,Di-Ba (Fleet Enema) 19 GRAM-7 GRAM/118 ML ENEMA 1 E RC DAILY PRN GI (Reported) Naloxone HCl (Narcan) 4 MG/ACTUATION SPRAY 4 MG ANTONIA AD PRN OPIOID INDUCED RESP DEPRESSION (Reported) Omeprazole 40 MG CAPSULE. 1 CAP PO DAILY Stomach health Potassium Chloride 20 MEQ TAB.ER.PRT 1 TAB PO DAILY SUPPLEMENT (Reported) Quinapril HCl (Accupril) 20 MG TABLET 1 TAB PO DAILY HEART/BP (Reported) Current Medications: Current Medications Sig/Misha Start time Last Medication Dose Route Stop Time Status Admin Acetaminophen 1,000 MG Q6P PRN 12/04 0445 DC N/A 1 UNIT IV Acetaminophen 650 MG Q6P PRN 12/04 0315 DC PO Acetaminophen/ 1 TAB Q6P PRN 12/04 0315 DC Hydrocodone Bitart PO Anastrozole 1 MG DAILY 12/04 1000 AC PO Dextrose/Sodium 1,000 ML Q20H 12/03 2300 AC 12/04 Chloride IV 0105 Lactulose 1 BOT Q6 12/04 0008 AC 12/04 [place] 0104 Lactulose 20 GM TID 12/03 2258 DC PO Magnesium Citrate 300 ML DAILY 12/04 1000 CAN PO Magnesium Oxide 400 MG DAILY 12/03 2330 AC PO Magnesium Sulfate 1 GM ONCE ONE 12/04 0015 DC 12/04 Dextrose/Water 100 ML IV 12/04 0214 0200 Methimazole 2.5 MG 12/05 1000 AC PO Phytonadione 10 MG ONCE ONE 12/04 0800 DC 12/04 SC 12/04 0801 0926 Phytonadione 0 .STK-MED ONE 12/03 1945 DC .ROUTE Phytonadione 10 MG ONCE ONE 12/03 1944 DC 12/03 IM 12/03 Potassium Chloride 20 MEQ DAILY 12/04 1000 AC PO Sodium Chloride 500 ML BOLUS ONE 12/03 1914 DC 12/03 IV 12/03 Past History Travel History Traveled to [place] past 21 day No Medical History Neurological: SHINGLES LYMES DISEASE EENT: allergies, cataracts, hearing loss, POSTNASAL DRIP Cardiovascular: AFIB, hypertension, hyperlipidemia, AORTIC STENOSIS Respiratory: bronchitis, pneumonia, L pleural effusion THORACENTESIS Gastrointestinal: NONE Hepatic: NONE Renal: NONE Musculoskeletal: osteoarthritis, osteoporosis, BAKERS CYST LEFT WRIST FRACTURE LEFT ANKLE FRACTURE Psychiatric: NONE Endocrine: diabetes, hyperthyroidism Blood Disorders: anemia, LYME DISEASE Cancer(s): breast cancer, SKIN CANCER (LUMPECTOMY NO LYMPH NODES REMOVED) 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 [facility]dc Facility Who Do You Live With? self Services at Home: None Smoking Status: Never Smoked ETOH Use: 6 Illicit Drug Use: UTD Functional Ability ADLs Needs Assist: dressing, eating, toileting, bathing. IADLs Needs Assist: shopping, housework, finances, food prep, telephone, transportation, medication admin. Review of Systems Review of Systems: A full 12 point review of systems is unobtainable secondary to her altered mental status. Exam & Diagnostic Data Vital Signs and I&O Vital Signs Date Time Temp Pulse Resp B/P Pulse O2 O2 Flow FiO2 Ox Delivery Rate 12/04 0855 97.4 83 22 137/70 97 Nasal 2.5L Cannula 12/04 0654 97.6 84 20 145/72 92 Nasal 2.0L Cannula 12/04 0445 96.3 12/04 0057 95.2 12/03 2340 94.2 75 20 129/82 97 Room Air 12/03 2203 98 Room Air 12/03 2145 97.3 81 18 118/58 99 Room Air 12/03 2139 95.3 77 18 107/56 98 12/03 1932 95.1 12/03 1905 98 Nasal 2.0L Cannula 12/03 1843 95.3 68 20 100 Nasal 2.0L Cannula 12/03 1816 94.0 88 20 133/63 100 Nasal 2.0L Cannula Intake & Output 12/04 04012/03 0400 Intake Total 400 150 Output Total 450 100 Balance -50 50 Intake, IV 400 150 Intake, Oral 0 0 Number 1 Bowel Movements Output, Urine 450 100 Physical Exam General Appearance: well developed/nourished, mild distress Head: atraumatic, normal appearance Eyes: Bilateral: normal appearance. Ears, Nose, Throat: normal pharynx, normal ENT inspection Neck: normal inspection, supple, full range of motion Respiratory: normal breath sounds, chest non-tender Cardiovascular: irregularly irregular Gastrointestinal: normal bowel sounds, soft, non-tender, no organomegaly Rectal: deferred Extremities: pedal edema Neurologic/Psych: disoriented x 3 Skin: intact, normal color Results Pertinent Lab Results: Laboratory Tests 12/04 12/04 0705 0600 Chemistry Sodium (137 - 145 mmol/L) 144 Potassium (3.5 - 5.1 mmol/L) 4.3 Chloride (98 - 107 mmol/L) 110 H Carbon Dioxide (22 - 30 mmol/L) 28 Anion Gap (5 - 16) 6 BUN (7 - 17 mg/dL) 40 H Creatinine (0.5 - 1.0 mg/dL) 1.0 Estimated GFR (>60 ml/min) 52 L BUN/Creatinine Ratio (7 - 25 %) 40.0 H Phosphorus (2.5 - 4.5 mg/dL) 4.7 H Magnesium (1.6 - 2.3 mg/dL) 2.0 Total Bilirubin (0.2 - 1.3 mg/dL) 2.2 H Direct Bilirubin (< 0.4 mg/dL) 1.2 H AST (14 - 36 U/L) 54 H ALT (9 - 52 U/L) 44 Alkaline Phosphatase (<127 U/L) 137 H Ammonia (9 - 30 umol/L) 58 H Total Protein (6.3 - 8.2 g/dL) 6.0 L Albumin (3.5 - 5.0 g/dL) 2.3 L Coagulation PT Cancelled INR Cancelled Hematology CBC w Diff NO MAN DIFF REQ Cancelled WBC (4.8 - 10.8 /CUMM) 4.0 L Cancelled RBC (4.20 - 5.40 /CUMM) 3.08 L Cancelled Hgb (12.0 - 16.0 G/DL) 10.0 L Cancelled Hct (37 - 47 %) 29.4 L Cancelled MCV (81.0 - 99.0 FL) 95.7 Cancelled MCH (27.0 - 31.0 PG) 32.5 H Cancelled RDW (11.5 - 14.5 %) 16.4 H Cancelled Plt Count (130 - 400 /CUMM) 153 Cancelled MPV (7.4 - 10.4 FL) 8.3 Cancelled Gran % (42.2 - 75.2 %) 66.8 Lymphocytes % (20.5 - 51.1 %) 21.9 Monocytes % (1.7 - 9.3 %) 9.6 H Eosinophils % (0 - 5 %) 1.4 Basophils % (0.0 - 2.0 %) 0.3 Absolute Granulocytes (1.4 - 6.5 /CUMM) 2.6 Absolute Lymphocytes (1.2 - 3.4 /CUMM) 0.9 L Absolute Monocytes (0.10 - 0.60 /CUMM) 0.4 Absolute Eosinophils (0.0 - 0.7 /CUMM) 0.1 Absolute Basophils (0.0 - 0.2 /CUMM) 0 PUBS MCHC (33.0 - 37.0 G/DL) 34.0 Cancelled 12/04 12/04 12/03 0240 0050 2134 Chemistry Lactic Acid (0.7 - 2.1 mmol/L) 2.1 Ammonia (9 - 30 umol/L) 129 H Coagulation PT (9.4 - 12.5 SEC) 58.9 *H INR (0.90 - 1.19) 5.71 *H Hematology CBC w Diff NO MAN DIFF REQ WBC (4.8 - 10.8 /CUMM) 3.7 L RBC (4.20 - 5.40 /CUMM) 3.10 L Hgb (12.0 - 16.0 G/DL) 9.9 L Hct (37 - 47 %) 29.6 L MCV (81.0 - 99.0 FL) 95.4 MCH (27.0 - 31.0 PG) 32.1 H RDW (11.5 - 14.5 %) 16.1 H Plt Count (130 - 400 /CUMM) 148 MPV (7.4 - 10.4 FL) 8.1 Gran % (42.2 - 75.2 %) 62.4 Lymphocytes % (20.5 - 51.1 %) 25.1 Monocytes % (1.7 - 9.3 %) 10.4 H Eosinophils % (0 - 5 %) 1.3 Basophils % (0.0 - 2.0 %) 0.8 Absolute Granulocytes (1.4 - 6.5 /CUMM) 2.3 Absolute Lymphocytes (1.2 - 3.4 /CUMM) 0.9 L Absolute Monocytes (0.10 - 0.60 /CUMM) 0.4 Absolute Eosinophils (0.0 - 0.7 /CUMM) 0 Absolute Basophils (0.0 - 0.2 /CUMM) 0 PUBS MCHC (33.0 - 37.0 G/DL) 33.6 12/03 12/03 12/03 2131 2130 1835 Chemistry Lactic Acid (0.7 - 2.1 mmol/L) Cancelled 2.8 H Urines Urine Color (YEL,AMB,STR) Cancelled YEL Urine Clarity (CLEAR) Cancelled CLEAR Urine pH (5.0 - 8.0) Cancelled 6.0 Ur Specific [place] (1.001 - 1.035) Cancelled 1.015 Urine Protein (NEG,<30 MG/DL) Cancelled NEG Urine Ketones (NEG) Cancelled NEG Urine Nitrite (NEG) Cancelled NEG Urine Bilirubin (NEG) Cancelled NEG Urine Urobilinogen (0.1 - 1.0 EU/dl) Cancelled 0.2 Ur Leukocyte Esterase (NEG) Cancelled NEG Ur Microscopic Cancelled SEDIMENT EXAMINED Urine RBC (0 - 5 /HPF) RARE Ur Epithelial Cells (NONE,FEW) RARE Hyaline Casts (0/LPF) 3-5 H Urine Hemoglobin (NEG) Cancelled TRACE-INTACT Urine Glucose (N MG/DL) Cancelled NEG 12/03 12/03 1817 1810 Blood Gas pH (7.35 - 7.45 PH) 7.49 H pCO2 (35 - 45 TORR) 30 L pO2 (80 - 100 TORR) 143 H HCO3 (21 - 28 MEQ/L) 22 ABG O2 Sat (Measured) (>96.0 %) 98.0 Carboxyhemoglobin (1.5 - 5.0 %) 0.3 L O2 Concentration % 3L O2 Delivery Method NC Chemistry Sodium (137 - 145 mmol/L) 143 Potassium (3.5 - 5.1 mmol/L) 4.8 Chloride (98 - 107 mmol/L) 108 H Carbon Dioxide (22 - 30 mmol/L) 25 Anion Gap (5 - 16) 9 BUN (7 - 17 mg/dL) 37 H Creatinine (0.5 - 1.0 mg/dL) 0.9 Estimated GFR (>60 ml/min) 59 L BUN/Creatinine Ratio (7 - 25 %) 41.1 H Glucose (65 - 99 mg/dL) 90 Calcium (8.4 - 10.2 mg/dL) 8.8 Phosphorus (2.5 - 4.5 mg/dL) 4.7 H Magnesium (1.6 - 2.3 mg/dL) 1.7 Total Bilirubin (0.2 - 1.3 mg/dL) 2.1 H Direct Bilirubin (< 0.4 mg/dL) 1.2 H AST (14 - 36 U/L) 57 H ALT (9 - 52 U/L) 42 Alkaline Phosphatase (<127 U/L) 156 H Troponin I (< 0.11 ng/ml) 0.02 Total Protein (6.3 - 8.2 g/dL) 6.3 Albumin (3.5 - 5.0 g/dL) 2.4 L Globulin (1.9 - 4.2 gm/dL) 3.9 Albumin/Globulin Ratio (1.1 - 2.2 %) 0.6 L TSH (0.270 - 4.200 uIU/mL) 2.670 Free T4 (0.85 - 1.93 ng/dL) 2.76 H Coagulation PT (9.4 - 12.5 SEC) 63.7 *H INR (0.90 - 1.19) 6.18 *H APTT (25 - 37 SEC) 61 H Hematology CBC w Diff NO MAN DIFF REQ WBC (4.8 - 10.8 /CUMM) 3.1 L RBC (4.20 - 5.40 /CUMM) 3.27 L Hgb (12.0 - 16.0 G/DL) 10.4 L Hct (37 - 47 %) 31.2 L MCV (81.0 - 99.0 FL) 95.3 MCH (27.0 - 31.0 PG) 32.0 H RDW (11.5 - 14.5 %) 15.8 H Plt Count (130 - 400 /CUMM) 161 MPV (7.4 - 10.4 FL) 8.3 Gran % (42.2 - 75.2 %) 72.1 Lymphocytes % (20.5 - 51.1 %) 18.8 L Monocytes % (1.7 - 9.3 %) 8.1 Eosinophils % (0 - 5 %) 0.5 Basophils % (0.0 - 2.0 %) 0.5 Absolute Granulocytes (1.4 - 6.5 /CUMM) 2.2 Absolute Lymphocytes (1.2 - 3.4 /CUMM) 0.6 L Absolute Monocytes (0.10 - 0.60 /CUMM) 0.3 Absolute Eosinophils (0.0 - 0.7 /CUMM) 0 Absolute Basophils (0.0 - 0.2 /CUMM) 0 PUBS MCHC (33.0 - 37.0 G/DL) 33.5 Miscellaneous Phlebotomy Draw Site RIGHT RADIAL Imaging/Other Studies: CT CHEST: Lungs: Compression of atelectasis of the left lung inferiorly related to the large left pleural effusion. Right lung is clear. Mediastinum: Multiple coarse calcifications within the thyroid. Thyroid mildly prominent. Heart size enlarged. There are vascular calcifications of the aorta and coronary arteries. Small shotty lymph nodes in the mediastinum similar to prior CT scan. No bulky lymphadenopathy. Pleura: Large volume left pleural effusion similar to prior CT scan of 09/07/2016. Axillae: No lymphadenopathy. CT ABDOMEN AND PELVIS: Liver, Gallbladder, and Biliary Tree: Lobular contour of the surface of the liver consistent with cirrhosis. No focal liver lesion. No intrahepatic bile duct dilatation. Gallbladder is moderately distended. Calcified gallstones layering dependently in the gallbladder. No evidence of bile duct dilatation. The extrahepatic CBD measures 6 mm. No calcified stone within the bile ducts. Pancreas: Pancreas is atrophic. Spleen: Spleen normal in size and contour. No focal lesion. Adrenal Glands: Adrenal glands are normal in size. No focal mass. Kidneys and Ureters: The kidneys are normal in size, shape, and attenuation. No hydronephrosis, hydroureter, or calculi are seen. No perinephric stranding. Bladder: Patel catheter within the bladder. Bladder is empty. Gastrointestinal Tract: No acute change of the bowel. No bowel obstruction. No bowel wall thickening or edema. Moderate volume of stool throughout colon. Small bowel loops are normal. The appendix is not seen. Mesentery: Small volume of abdominal ascites around the liver and in the pelvis. No abscess or inflammation of the mesentery. No retroperitoneal bleed. No mesenteric mass. Abdominal Wall: No significant hernia is appreciated. Generalized anasarca present. Lymph Nodes: Small shotty lymph nodes in the retroperitoneum. No bulky adenopathy in the abdomen or pelvis. Vascular: Atherosclerotic vascular calcifications of the aorta and major branch vessels of the aorta without aneurysm. Pelvic Viscera: Uterus is retroverted. Small calcifications within the myometrium. No adnexal abnormality. Osseous Structures: Multilevel degenerative change of the spine with disc height narrowing, endplate spurs and facet joint arthrosis. S-shaped scoliosis of the spine. IMPRESSION: 1. Large left pleural effusion similar in volume to the prior CT scan of 09/07/2016. Compressive atelectasis at left lung base. 2. Small volume of abdominal ascites. Generalized anasarca. No retroperitoneal or intraperitoneal bleed or mass. 3. Cholelithiasis. 4. Cirrhosis of the liver. Assessment/Plan Assessment/Recommendations: Assessment: Ms. Lei is an 89-year-old female admitted with altered mental status of uncertain etiology who has also been noted to have some bright red blood per rectum which is likely secondary to hemorrhoids exacerbated by her supratherapeutic INR. Considering her age it is possible she may also be bleeding from an undiagnosed malignancy as it is not clear from the medical record when her last colonoscopy was. Possible etiologies of her bleeding could be from AVMs, diverticulosis, or colitis, but the latter 2 possibilities are less likely as she does not seem to be passing much blood as one would expect from a diverticular bleed and she has a benign abdominal exam without any pain and no evidence of colitis on her admission CAT scan. While it may ultimately be necessary to perform a diagnostic/therapeutic colonoscopy to determine the etiology of her bleeding and also to stop any active ongoing bleeding I would only plan to pursue this if the bleeding persists in spite of correction of her INR and then only if the family or patient (if MS improves) is agreeable. Considering she has not had a significant fall in her hgb since admission though I don't feel he is having a hemodynamically significant GI bleed and I am hopeful that endoscopic intervention will not be necessary. Of note, she does have radiographic evidence of cirrhosis which I suspect is likely secocdary to underlying fatty liver disesae, but considering her age and other comorbidities I don't feel this needs to be address further other than to treat her ascites/ anasrca with diuretics if necessary and also administering lactulose for her altered mental status which may potentially be secondary to hepatic encephalopathy. Recommendations: 1. Hold coumadin and correct INR with a goal INR of 2-3 or as per cardiology recommendations. 2. If bleeding persists with an INR of 2-3 would then recommend correcting it further with vit k and FFP, but this may not be necessary if the bleeding stops with an INR of 2-3 3. Avoid NSAIDs 4. Administer lactulose and titrate to about 3 soft BMs a day 5. Follow CBC q12hrs and transfuse as needed to keep hgb > 8 or as per cardiology recommendtions 6. Notify GI for hemodynamically signifcant bleeding I will continue to follow this patient and make further recommendations based on her clinical course and results of repeat blood work, and to pursue endoscopic intervention for hemodynamically significant bleeding that does not stop with correction of her INR. Problem List: 1. Supratherapeutic INR 2. Rectal bleeding 3. Altered mental status 4. Encephalopathy 5. Hepatic encephalopathy 6. Cirrhosis 7. Anasarca Copies To: HECTOR TSANG,AMBAR Matias. Consult Acknowledgment - Thank you for your consult request.
--- NOTE | 2016-12-04 11:30 | NUR ---
DURING PATIENT CARE EXPERIENCE INTERVIEW, PT DISORIENTED AND RESTLESS, AGITATED. PULLING AT O2. PT'S DAUGHTER AT BEDSIDE STATES RAPID DECLINE IN MENTATION AT CORRECTION LAST NIGHT WAS REASON FOR PT'S ADMISSION. FURTHER INFORMATION REVEALED PT'S INR CURRENTLY ELEVATED 5.7 AND PT EXPERIENCED GROSS MELENA THIS MORNING WITH CLOTS AFTER 1ST ENEMA. PT IS ORDERED TO RECEIVE A SECOND ENEMA. PT ALSO NOTED TO HAVE HISTORY OF THORACENTESIS ON PRIOR ADMISSIONS AND CURRENTLY HAS EFFUSION, PULLING OFF 02 AND SPO2 DOWN TO 88% THIS ADMISSION LAST NIGHT IN ER. DR MARLENA VILLALTA NOTIFIED OF THIS RN'S CONCERNS AND TO BEDSIDE WITH DR YOUNG FOR ASSESSMENT.
[2016-12-04 12:31] VITALS: BP 106/58
[2016-12-04 12:46] VITALS: BP 118/54
[2016-12-04 14:44] VITALS: BP 118/56
[2016-12-04 15:24] LABS: PT 28.2 SEC (9.4-12.5)
[2016-12-04 15:46] LABS: ABSOLUTE BASOPHIL COUNT 0 /CUMM (0.0-0.2); ABSOLUTE EOSINOPHIL COUNT 0.1 /CUMM (0.0-0.7); ABSOLUTE GRANULOCYTE CT 2.1 /CUMM (1.4-6.5); ABSOLUTE MONOCYTE COUNT 0.3 /CUMM (0.10-0.60); BASOPHIL % 0.5 % (0.0-2.0); EOSINOPHIL % 1.9 % (0-5); GRANULOCYTE % 60.4 % (42.2-75.2); MEAN CORPUSCULAR HGB 31.9 PG (27.0-31.0); MEAN CORPUSCULAR HGB CONC 33.6 G/DL (33.0-37.0); MEAN CORPUSCULAR VOLUME 94.9 FL (81.0-99.0); MEAN PLATELET VOLUME 8.4 FL (7.4-10.4); PLATELET COUNT 140 /CUMM (130-400); RBC DISTRIBUTION WIDTH 16.2 % (11.5-14.5); RED BLOOD CELL CT 2.95 /CUMM (4.20-5.40); WHITE BLOOD CELL COUNT 3.5 /CUMM (4.8-10.8)
--- NOTE | 2016-12-04 16:23 | NUR ---
LATE ENTRY: PT LETHARGIC, RESPONDS TO HER NAME, NODS APPROPRIATELY TO QUESTIONS, VSS, RECEIVED 1 UNIT FFP, RECEIVED LACTULOSE ENEMA, PASSED CLOTS, NO DRU BLOOD, TOLERATED BOTH PROCEDURES WELL. WILL CONTINUE TO MONITOR.
--- NOTE | 2016-12-04 17:25 | Admission Certification ---
Admission Certification Certification Statement - As attending physician, I certify that at the time of - admission, based on clinical presentation, severity of - symptoms, need for further diagnostic testing and - therapeutic interventions, and risk of adverse outcomes - without in-hospital treatment, in my clinical assessment, - this patient requires an acute hospital stay for a minimum - of two nights or longer. I have also considered psychsocial - factors such as support system, advanced age, financial - issues, cognitive issues, and failed out-patient treatments, - past re-admission history, safety of patient, and lack of - compliance as applicable. Specific rationale supporting this admission is: Treat acute GI bleeding with medication induced coagulopathy and altered mental status.
--- NOTE | 2016-12-04 17:41 | PN- Att Addend ---
Attending Addendum Attending Brief Note Mrs Lei was examined in the presense of her daughter at approx 11:00 today. History was unable to be obtained as the patient is severely obtunded. She is as mentioned above obtunded with minimal response to voice. Her VS are sable as is her exam. The frequency of her active bleeding has decreased. Her h&h is also stable and her serum ammonia level has dercreased but remains eleveted. Her INR is >5. We will continue to treat her encephalopathy with lactulose and correct her INR with FFP. Monitoring of her h&h and serum ammonia will continue. Dr Aparicio of the GI service was consulted and his recommendations will be followed. Code status was discussed with the patient's daughter and DNR/DNI status was confirmed.
--- NOTE | 2016-12-04 19:00 | NUR ---
NURSING NOTE: LACTULOSE ENEMA NOT ON FLOOR @ 1750. PHARMACY CALLED, INFORMED IT WAS ON THE WAY. STILL NOT ARRIVED @ 1845. MISSING MEDICATION ORDER PLACED TO PHARMACY. THIS NURSE HANDED OFF IN REPORT THAT ENEMA WAS NOT AVAILABLE TO GIVE @ ORDERED TIME. NEXT NURSE TO GIVE ENEMA WHEN ARRIVES TO FLOOR.
[2016-12-04 23:30] VITALS: BP 139/70
--- NOTE | 2016-12-05 06:41 | PN- Housestaff ---
See Addendum Subjective Follow-up For: Altered mental status Hepatic encephalopathy Lower GI Bleed Subjective: Patient seen and examined at bedside this AM. She was extremely lethargic and only reported yes and no's to questioning. However, reevaluation a few hours later showed a dramatic change in mentation. Patient was AAOx3 and requesting a diet. She passed a bedside swallow without signs of coughing/choking and a heart healthy diet was ordered. Patient otherwise felt well. Review of Systems Constitutional: Denies: chills, fever. EENTM: Denies: blurred vision, nasal congestion. Cardiovascular: Denies: chest pain, palpitations. Respiratory: Denies: cough, short of breath. Gastrointestinal: Denies: abdominal pain. Genitourinary: Denies: dysuria. Musculoskeletal: Denies: back pain. Skin: Denies: lesions. Neurological/Psychological: Denies: confusion, headache. Hematologic/Endocrine: Denies: bleeding. Objective Last 24 Hrs of Vital Signs/I&O Vital Signs Date Time Temp Pulse Resp B/P Pulse O2 O2 Flow FiO2 Ox Delivery Rate 12/05 1144 Room Air 12/05 1107 97 Room Air Room Air 12/05 0836 97.5 63 20 128/68 96 Room Air 12/05 0800 97 Room Air 12/04 2330 98.7 82 20 139/70 97 Room Air / 1856 98.3 / 1444 97.7 83 18 118/56 Intake & Output 12/05 1600 12/05 0800 / 0000 Intake Total 600 225 Output Total 450 350 Balance 150 -125 Intake, IV 600 225 Number 2 1 Bowel Movements Output, Urine 450 350 Patient 163 lb Weight Physical Exam General Appearance: Alert, Oriented X3, Cooperative, No Acute Distress Skin: No Significant Lesion, Scattered ecchymosis with generalized edema appreciated. HEENT: Atraumatic, Mucous Membr. moist/pink Neck: Supple, No JVD Lymphatic: Cervical nl Cardiovascular: Regular Rate, Normal S1, Normal S2, 3/6 systolic murmur appreciated Lungs: Diminished breath sounds bilaterally Abdomen: Normal Bowel Sounds, Soft, No Tenderness Neurological: Normal Speech, Normal Tone Extremities: No Clubbing, No Cyanosis, No Edema Current Medications: Current Medications Sig/Misha Start time Last Medication Dose Route Stop Time Status Admin Albuterol Sulfate 3 ML TID 12/05 1100 AC 12/05 INH 1325 Anastrozole 1 MG DAILY 12/04 1000 AC 12/05 PO 1443 Dextrose/Sodium 1,000 ML Q20H 12/03 2300 AC 12/05 Chloride IV 0819 Lactulose 20 GM TID 12/05 1600 AC PO Lactulose 1 BOT Q6 12/04 0008 DC 12/05 ND 0608 Magnesium Oxide 400 MG DAILY 12/03 2330 AC PO Methimazole 2.5 MG 12/05 1000 AC PO Pantoprazole Sodium 40 MG BID 12/04 1500 AC 12/05 IV 1004 Patient Medication 1 ED .STK-MED ONE 12/05 1338 SD Teaching ED 12/05 1339 Potassium Chloride 20 MEQ DAILY 12/04 1000 AC PO Last 24 Hrs of Lab/Claude Results Last 24 Hrs of Labs/Mics: Laboratory Tests 12/05/16 0710: Anion Gap 9, Estimated GFR 52 L, BUN/Creatinine Ratio 33.0 H, Total Bilirubin Pending, Direct Bilirubin Pending, AST Pending, ALT Pending, Alkaline Phosphatase Pending, Ammonia 67 H, Total Protein Pending, Albumin Pending, PT 25.3 H, INR 2.43 H, CBC w Diff NO MAN DIFF REQ, RBC 3.06 L, MCV 96.1, MCH 32.7 H, RDW 16.4 H, MPV 8.2, Gran % 49.3, Lymphocytes % 34.4, Monocytes % 12.5 H, Eosinophils % 2.8, Basophils % 1.0, Absolute Granulocytes 1.8, Absolute Lymphocytes 1.2, Absolute Monocytes 0.4, Absolute Eosinophils 0.1, Absolute Basophils 0, PUBS MCHC 34.1 12/04/16 1515: CBC w Diff NO MAN DIFF REQ, RBC 2.95 L, MCV 94.9, MCH 31.9 H, RDW 16.2 H, MPV 8.4, Gran % 60.4, Lymphocytes % 27.5, Monocytes % 9.7 H, Eosinophils % 1.9, Basophils % 0.5, Absolute Granulocytes 2.1, Absolute Lymphocytes 1.0 L, Absolute Monocytes 0.3, Absolute Eosinophils 0.1, Absolute Basophils 0, PUBS MCHC 33.6 12/04/16 1455: Lactic Acid 1.6, Ammonia 56 H 12/04/16 1455: Anion Gap 8, Estimated GFR 59 L, BUN/Creatinine Ratio 42.2 H, Total Bilirubin 2.4 H, Direct Bilirubin 1.2 H, AST 58 H, ALT 47, Alkaline Phosphatase 126, Total Protein 6.2 L, Albumin 2.4 L, PT 28.2 H, INR 2.71 H Orders Radiology Findings: EXAMINATION: CT CHEST WITHOUT CONTRAST CT ABDOMEN AND PELVIS WITHOUT CONTRAST CLINICAL INFORMATION: GI bleed. Coagulopathy. Retroperitoneal bleed. History of breast cancer. COMPARISON: CT chest 09/07/2016. MR abdomen 09/08/2016. TECHNIQUE: Multidetector volumetric CT imaging of the chest, abdomen and pelvis was obtained without IV or oral contrast. Coronal and sagittal reformatted images were performed at the CT scanner. DLP: 825.70 mGy-cm FINDINGS: CT CHEST: Lungs: Compression of atelectasis of the left lung inferiorly related to the large left pleural effusion. Right lung is clear. Mediastinum: Multiple coarse calcifications within the thyroid. Thyroid mildly prominent. Heart size enlarged. There are vascular calcifications of the aorta and coronary arteries. Small shotty lymph nodes in the mediastinum similar to prior CT scan. No bulky lymphadenopathy. Pleura: Large volume left pleural effusion similar to prior CT scan of 09/07/2016. Axillae: No lymphadenopathy. CT ABDOMEN AND PELVIS: Liver, Gallbladder, and Biliary Tree: Lobular contour of the surface of the liver consistent with cirrhosis. No focal liver lesion. No intrahepatic bile duct dilatation. Gallbladder is moderately distended. Calcified gallstones layering dependently in the gallbladder. No evidence of bile duct dilatation. The extrahepatic CBD measures 6 mm. No calcified stone within the bile ducts. Pancreas: Pancreas is atrophic. Spleen: Spleen normal in size and contour. No focal lesion. Adrenal Glands: Adrenal glands are normal in size. No focal mass. Kidneys and Ureters: The kidneys are normal in size, shape, and attenuation. No hydronephrosis, hydroureter, or calculi are seen. No perinephric stranding. Bladder: Patel catheter within the bladder. Bladder is empty. Gastrointestinal Tract: No acute change of the bowel. No bowel obstruction. No bowel wall thickening or edema. Moderate volume of stool throughout colon. Small bowel loops are normal. The appendix is not seen. Mesentery: Small volume of abdominal ascites around the liver and in the pelvis. No abscess or inflammation of the mesentery. No retroperitoneal bleed. No mesenteric mass. Abdominal Wall: No significant hernia is appreciated. Generalized anasarca present. Lymph Nodes: Small shotty lymph nodes in the retroperitoneum. No bulky adenopathy in the abdomen or pelvis. Vascular: Atherosclerotic vascular calcifications of the aorta and major branch vessels of the aorta without aneurysm. Pelvic Viscera: Uterus is retroverted. Small calcifications within the myometrium. No adnexal abnormality. Osseous Structures: Multilevel degenerative change of the spine with disc height narrowing, endplate spurs and facet joint arthrosis. S-shaped scoliosis of the spine. IMPRESSION: 1. Large left pleural effusion similar in volume to the prior CT scan of 09/07/2016. Compressive atelectasis at left lung base. 2. Small volume of abdominal ascites. Generalized anasarca. No retroperitoneal or intraperitoneal bleed or mass. 3. Cholelithiasis. 4. Cirrhosis of the liver. Assessment/Plan Assessment: Ms. Lei is a pleasant 89 year old female with PMH atrial fibrillation on coumadin, liver cirrhosis, diabetes, HTN, persistent left-sided pleural effusion s/p paracentesis, neutropenia, breast CA S/B bilateral lumpectomy and radiation and multinodular goiter who was transferred from her extended care facility yesterday due to lethargy/weakness, decreased oral intake , altered mental status and blood in her stool. Patient was recently discharged from [facility] on 11/17/16 after being treated for hepatic encephalopathy. She was also admitted in September of 2016 and found to be septic from a urinary tract infection; she was found to have a transudative left pleural effusion at that time as well, negative for malignancy. In the ED: Vital signs showed T 94.0, HR 88, RR 20, BP 133/63 and O2 saturation of 100% on 2L NC. Labs showed WBC count 3.1, hemoglobin 10.4, hematocrit 31.2, platelet count 161, INR 6.18 PTT 63.7, sodium 143, potassium 4.8, BUN 37 and creatinine 0.9. Glucose was 90, lactic acid was high to 2.8, phosphorus 4.7, bilirubin was 2.1, ammonia 129 and albumin was 2.4. EKG showed atrial fibrillation without ST-T wave changes. Head CT was done and showed no acute intracranial pathology. Chest/abdomen/pelvis CT was done and showed large left pleural effusion (similar to 09/07/16), small volume abdominal ascites, generalizes anasarca, no intra/retroperitoneal bleed, and cirrhosis of the liver. Patient was admitted to the general medicine floor and the following is the management: 1. Hepatic encephalopathy with hypothermia * Altered mental status likely secondary to hyperammonemia due to cirrhosis (no signs of infection [UA normal, CXR negative for PNA], head CT unremarkable for acute intracranial pathology) * Passive external warming was successful and patient is now normothermic * Blood and urine cultures drawn, f/u results * Patient is more alert/oriented this afternoon, though ammonia slightly increased to 67 from 56 * Lactulose enema switched to PO lactulose as patient is now alert and can guard her airway, continue to trend ammonia * Trend LFTs daily * GI consult placed and appreciated, suggested continuing lactulose enema, notify GI with any hemodynamically significant bleeding * Continue IVF with D51/2NS at 75 cc/h 2. Acute blood loss anemia with BRBPR * Vital signs Q shift, patient remains hemodynamically stable * Continue to follow GI recommendations * BRBPR is slowly subsiding, now patient passing minimal blood * Patient recieved a total of 10 mg IM x 1, Vit K, 1 U FFP * INR now therapeutic to 2.43 * If bleeding persists with an INR of 2-3 will continue with FFP and Vit K * Avoid NSAIDs * CBC Q12 H and transfuse to keep Hgb >8 * IV protonix 40 mg BID 3. Atrial fibrillation on coumadin with supratherapeutic INR * INR on admission of 6.18, currently therapeutic * Repeating INR daily to trend * Cardiology consult placed, Dr. Lopez to see patient tomorrow to make recommendations on anticoagulation status in a patient with atrial fibrillation following LGIB * Troponin negative on admission, no s/s ACS 4. Breast cancer * Continue anastrozole 1 mg PO daily 5. Multinodular goiter * Continue methimazol 2.5 mg PO , , 6. Left pleural effusion * Left pleural effusion worsening today as noted by portable CXR done this afternoon * Monitor respiratory status closely, continue TRC nebs * Consider thoracentesis if worsening DNR/DNI Diet: NPO DVTP: ALPS Problem List: 1. Supratherapeutic INR 2. Hypothermia 3. Hyperammonemia 4. Hepatic encephalopathy 5. Rectal bleeding 6. Coagulopathy 7. Altered mental status Pain Ratin Pain Location: n/a Pain Goal: Remain pain free Pain Plan: Hold in setting of hepatic encephalopathy. Tomorrow's Labs & Rationales: CBC (acute blood loss anemia), BEP (elevated BUN and hyernatremia), ammonia ( hepatic encephalopathy), LFTs (acute liver dysfunction)
[2016-12-05 07:59] LABS: ABSOLUTE BASOPHIL COUNT 0 /CUMM (0.0-0.2); ABSOLUTE EOSINOPHIL COUNT 0.1 /CUMM (0.0-0.7); ABSOLUTE GRANULOCYTE CT 1.8 /CUMM (1.4-6.5); ABSOLUTE LYMPH COUNT 1.2 /CUMM (1.2-3.4); ABSOLUTE MONOCYTE COUNT 0.4 /CUMM (0.10-0.60); EOSINOPHIL % 2.8 % (0-5); GRANULOCYTE % 49.3 % (42.2-75.2); HEMATOCRIT 29.4 % (37-47); MEAN CORPUSCULAR HGB 32.7 PG (27.0-31.0); MEAN CORPUSCULAR HGB CONC 34.1 G/DL (33.0-37.0); MEAN CORPUSCULAR VOLUME 96.1 FL (81.0-99.0); MEAN PLATELET VOLUME 8.2 FL (7.4-10.4); PLATELET COUNT 151 /CUMM (130-400); RBC DISTRIBUTION WIDTH 16.4 % (11.5-14.5); RED BLOOD CELL CT 3.06 /CUMM (4.20-5.40); WHITE BLOOD CELL COUNT 3.6 /CUMM (4.8-10.8)
[2016-12-05 08:22] LABS: PT 25.3 SEC (9.4-12.5)
[2016-12-05 08:36] VITALS: BP 128/68
--- NOTE | 2016-12-05 13:49 | NUR ---
wound care: requested by nursing staff to evaluate pt for skin alterations present on admission - hx reviewed from chart - right wrist 4x4 cm category 2 skin tear 50% skin loss - dermal bleeding base - periwound bruising - left upper back healing stage 2 pressure injury 1x1 cm clean pink fill nearly 100% epithelialized recommendation: cleanse right wrist with ns fb bacitracin ointment fb telfa and dpd daily - apply hydrocolloid drsg to left back q 5 days and prn - encourage sidelying position please
--- NOTE | 2016-12-05 14:38 | PN- Gastroenterology ---
Assessment/Plan Assessment/Recommendations: Assessment: Ms. Lei is an 89-year-old female admitted with altered mental status of uncertain etiology who has also been noted to have some bright red blood per rectum which is likely secondary to hemorrhoids exacerbated by her supratherapeutic INR. Her mental status changes have improved with lactulose so it stands to reason that this was secondary to hepatic encephalopathy. She continues to have some bleeding, but this has improved with FFP and vitamin K and her hgb has been stable so I continue to feel that endoscopic intervention isn't necessary acutely. Recommendations: 1. If bleeding persists with an INR of 2-3 would then recommend correcting it further with vit k and FFP, but this may not be necessary if the bleeding stops with an INR of 2-3 2. Avoid NSAIDs and continue to hold coumadin for now 4. Continue lactulose and titrate to about 3 soft BMs a day 5. Follow CBC q12hrs and transfuse as needed to keep hgb > 8 or as per cardiology recommendtions 6. Notify GI for hemodynamically signifcant bleeding 7. Advance diet as tolerated. I will continue to follow this patient and make further recommendations based on her clinical course and results of repeat blood work. Problem List: 1. Supratherapeutic INR Subjective Subjective: Pt more alert and coherent today. Diet has been advanced. She is still having some rectal bleeding but it is lessening per nursing and is only with her bowel movements. Denies abdominal pain, no vomiting. She passed a swallowing study and she expressed a desire to not have a colonoscopy. Objective Vital Signs and I&Os Vital Signs Date Time Temp Pulse Resp B/P Pulse O2 O2 Flow FiO2 Ox Delivery Rate 12/05 1144 Room Air 12/05 1107 97 Room Air Room Air 12/05 0836 97.5 63 20 128/68 96 Room Air 12/05 0800 97 Room Air 12/04 2330 98.7 82 20 139/70 97 Room Air 12/04 1856 98.3 12/04 1444 97.7 83 18 118/56 Intake & Output 12/05 1600 12/05 0400 12/04 1600 12/04 0400 12/03 1600 12/03 0400 Intake Total 600 225 900 150 Output Total 450 350 450 100 Balance 150 -125 450 50 Intake, IV 600 225 900 150 Intake, Oral 0 0 Number 2 1 1 Bowel Movements Output, Urine 450 350 450 100 Patient 163 lb Weight Physical Exam General Appearance: no apparent distress, alert, comfortable Head: atraumatic, normal appearance Neck: normal inspection, supple Respiratory: normal breath sounds, chest non-tender Cardiovascular: regular rate/rhythm Abdomen: normal bowel sounds, soft, non-tender Extremities: normal inspection, normal capillary refill Neurologic/Psychiatric: no motor/sensory deficits, awake, alert, oriented x 3 Current Medications: Current Medications Sig/Misha Start time Last Medication Dose Route Stop Time Status Admin Albuterol Sulfate 3 ML TID 12/05 1100 AC 12/05 INH 1325 Anastrozole 1 MG DAILY 12/04 1000 AC PO Dextrose/Sodium 1,000 ML Q20H 12/03 2300 AC 12/05 Chloride IV 0819 Lactulose 1 BOT Q6 12/04 0008 AC 12/05 NM 0608 Magnesium Oxide 400 MG DAILY 12/03 2330 AC PO Methimazole 2.5 MG 12/05 1000 AC PO Pantoprazole Sodium 40 MG BID 12/04 1500 AC 12/05 IV 1004 Patient Medication 1 ED .STK-MED ONE 12/05 1338 RI Teaching ED 12/05 1339 Potassium Chloride 20 MEQ DAILY 12/04 1000 AC PO Results Pertinent Lab Results: Laboratory Tests 12/05 12/04 0710 1515 Chemistry Sodium (137 - 145 mmol/L) 146 H Potassium (3.5 - 5.1 mmol/L) 3.6 Chloride (98 - 107 mmol/L) 112 H Carbon Dioxide (22 - 30 mmol/L) 25 Anion Gap (5 - 16) 9 BUN (7 - 17 mg/dL) 33 H Creatinine (0.5 - 1.0 mg/dL) 1.0 Estimated GFR (>60 ml/min) 52 L BUN/Creatinine Ratio (7 - 25 %) 33.0 H Ammonia (9 - 30 umol/L) 67 H Coagulation PT (9.4 - 12.5 SEC) 25.3 H INR (0.90 - 1.19) 2.43 H Hematology CBC w Diff NO MAN DIFF REQ NO MAN DIFF REQ WBC (4.8 - 10.8 /CUMM) 3.6 L 3.5 L RBC (4.20 - 5.40 /CUMM) 3.06 L 2.95 L Hgb (12.0 - 16.0 G/DL) 10.0 L 9.4 L Hct (37 - 47 %) 29.4 L 28.0 L MCV (81.0 - 99.0 FL) 96.1 94.9 MCH (27.0 - 31.0 PG) 32.7 H 31.9 H RDW (11.5 - 14.5 %) 16.4 H 16.2 H Plt Count (130 - 400 /CUMM) 151 140 MPV (7.4 - 10.4 FL) 8.2 8.4 Gran % (42.2 - 75.2 %) 49.3 60.4 Lymphocytes % (20.5 - 51.1 %) 34.4 27.5 Monocytes % (1.7 - 9.3 %) 12.5 H 9.7 H Eosinophils % (0 - 5 %) 2.8 1.9 Basophils % (0.0 - 2.0 %) 1.0 0.5 Absolute Granulocytes (1.4 - 6.5 /CUMM) 1.8 2.1 Absolute Lymphocytes (1.2 - 3.4 /CUMM) 1.2 1.0 L Absolute Monocytes (0.10 - 0.60 /CUMM) 0.4 0.3 Absolute Eosinophils (0.0 - 0.7 /CUMM) 0.1 0.1 Absolute Basophils (0.0 - 0.2 /CUMM) 0 0 PUBS MCHC (33.0 - 37.0 G/DL) 34.1 33.6 02/02 02/02 02/02 1455 1455 0705 Chemistry Sodium (137 - 145 mmol/L) 144 144 Potassium (3.5 - 5.1 mmol/L) 4.1 4.3 Chloride (98 - 107 mmol/L) 110 H 110 H Carbon Dioxide (22 - 30 mmol/L) 26 28 Anion Gap (5 - 16) 8 6 BUN (7 - 17 mg/dL) 38 H 40 H Creatinine (0.5 - 1.0 mg/dL) 0.9 1.0 Estimated GFR (>60 ml/min) 59 L 52 L BUN/Creatinine Ratio (7 - 25 %) 42.2 H 40.0 H Lactic Acid (0.7 - 2.1 mmol/L) 1.6 Phosphorus (2.5 - 4.5 mg/dL) 4.7 H Magnesium (1.6 - 2.3 mg/dL) 2.0 Total Bilirubin (0.2 - 1.3 mg/dL) 2.4 H 2.2 H Direct Bilirubin (< 0.4 mg/dL) 1.2 H 1.2 H AST (14 - 36 U/L) 58 H 54 H ALT (9 - 52 U/L) 47 44 Alkaline Phosphatase (<127 U/L) 126 137 H Ammonia (9 - 30 umol/L) 56 H 58 H Total Protein (6.3 - 8.2 g/dL) 6.2 L 6.0 L Albumin (3.5 - 5.0 g/dL) 2.4 L 2.3 L Coagulation PT (9.4 - 12.5 SEC) 28.2 H INR (0.90 - 1.19) 2.71 H Hematology CBC w Diff NO MAN DIFF REQ WBC (4.8 - 10.8 /CUMM) 4.0 L RBC (4.20 - 5.40 /CUMM) 3.08 L Hgb (12.0 - 16.0 G/DL) 10.0 L Hct (37 - 47 %) 29.4 L MCV (81.0 - 99.0 FL) 95.7 MCH (27.0 - 31.0 PG) 32.5 H RDW (11.5 - 14.5 %) 16.4 H Plt Count (130 - 400 /CUMM) 153 MPV (7.4 - 10.4 FL) 8.3 Gran % (42.2 - 75.2 %) 66.8 Lymphocytes % (20.5 - 51.1 %) 21.9 Monocytes % (1.7 - 9.3 %) 9.6 H Eosinophils % (0 - 5 %) 1.4 Basophils % (0.0 - 2.0 %) 0.3 Absolute Granulocytes (1.4 - 6.5 /CUMM) 2.6 Absolute Lymphocytes (1.2 - 3.4 /CUMM) 0.9 L Absolute Monocytes (0.10 - 0.60 /CUMM) 0.4 Absolute Eosinophils (0.0 - 0.7 /CUMM) 0.1 Absolute Basophils (0.0 - 0.2 /CUMM) 0 PUBS MCHC (33.0 - 37.0 G/DL) 34.0 02/02 02/02 02/02 0600 0240 0050 Chemistry Lactic Acid (0.7 - 2.1 mmol/L) 2.1 Coagulation PT (9.4 - 12.5 SEC) Cancelled 58.9 *H INR (0.90 - 1.19) Cancelled 5.71 *H Hematology CBC w Diff Cancelled NO MAN DIFF REQ WBC (4.8 - 10.8 /CUMM) Cancelled 3.7 L RBC (4.20 - 5.40 /CUMM) Cancelled 3.10 L Hgb (12.0 - 16.0 G/DL) Cancelled 9.9 L Hct (37 - 47 %) Cancelled 29.6 L MCV (81.0 - 99.0 FL) Cancelled 95.4 MCH (27.0 - 31.0 PG) Cancelled 32.1 H RDW (11.5 - 14.5 %) Cancelled 16.1 H Plt Count (130 - 400 /CUMM) Cancelled 148 MPV (7.4 - 10.4 FL) Cancelled 8.1 Gran % (42.2 - 75.2 %) 62.4 Lymphocytes % (20.5 - 51.1 %) 25.1 Monocytes % (1.7 - 9.3 %) 10.4 H Eosinophils % (0 - 5 %) 1.3 Basophils % (0.0 - 2.0 %) 0.8 Absolute Granulocytes (1.4 - 6.5 /CUMM) 2.3 Absolute Lymphocytes (1.2 - 3.4 /CUMM) 0.9 L Absolute Monocytes (0.10 - 0.60 /CUMM) 0.4 Absolute Eosinophils (0.0 - 0.7 /CUMM) 0 Absolute Basophils (0.0 - 0.2 /CUMM) 0 PUBS MCHC (33.0 - 37.0 G/DL) Cancelled 33.6 12/03 12/03 12/03 12/03 2134 2131 2130 1835 Chemistry Lactic Acid (0.7 - 2.1 mmol/L) Cancelled 2.8 H Ammonia (9 - 30 umol/L) 129 H Urines Urine Color (YEL,AMB,STR) Cancelled YEL Urine Clarity (CLEAR) Cancelled CLEAR Urine pH (5.0 - 8.0) Cancelled 6.0 Ur Specific Beaver (1.001 - 1.035) Cancelled 1.015 Urine Protein (NEG,<30 MG/DL) Cancelled NEG Urine Ketones (NEG) Cancelled NEG Urine Nitrite (NEG) Cancelled NEG Urine Bilirubin (NEG) Cancelled NEG Urine Urobilinogen (0.1 - 1.0 EU/dl) Cancelled 0.2 Ur Leukocyte Esterase (NEG) Cancelled NEG Ur Microscopic Cancelled SEDIMENT EXAMINED Urine RBC (0 - 5 /HPF) RARE Ur Epithelial Cells (NONE,FEW) RARE Hyaline Casts (0/LPF) 3-5 H Urine Hemoglobin (NEG) Cancelled TRACE-INTACT Urine Glucose (N MG/DL) Cancelled NEG 12/03 12/03 1817 1810 Blood Gas pH (7.35 - 7.45 PH) 7.49 H pCO2 (35 - 45 TORR) 30 L pO2 (80 - 100 TORR) 143 H HCO3 (21 - 28 MEQ/L) 22 ABG O2 Sat (Measured) (>96.0 %) 98.0 Carboxyhemoglobin (1.5 - 5.0 %) 0.3 L O2 Concentration % 3L O2 Delivery Method NC Chemistry Sodium (137 - 145 mmol/L) 143 Potassium (3.5 - 5.1 mmol/L) 4.8 Chloride (98 - 107 mmol/L) 108 H Carbon Dioxide (22 - 30 mmol/L) 25 Anion Gap (5 - 16) 9 BUN (7 - 17 mg/dL) 37 H Creatinine (0.5 - 1.0 mg/dL) 0.9 Estimated GFR (>60 ml/min) 59 L BUN/Creatinine Ratio (7 - 25 %) 41.1 H Glucose (65 - 99 mg/dL) 90 Calcium (8.4 - 10.2 mg/dL) 8.8 Phosphorus (2.5 - 4.5 mg/dL) 4.7 H Magnesium (1.6 - 2.3 mg/dL) 1.7 Total Bilirubin (0.2 - 1.3 mg/dL) 2.1 H Direct Bilirubin (< 0.4 mg/dL) 1.2 H AST (14 - 36 U/L) 57 H ALT (9 - 52 U/L) 42 Alkaline Phosphatase (<127 U/L) 156 H Troponin I (< 0.11 ng/ml) 0.02 Total Protein (6.3 - 8.2 g/dL) 6.3 Albumin (3.5 - 5.0 g/dL) 2.4 L Globulin (1.9 - 4.2 gm/dL) 3.9 Albumin/Globulin Ratio (1.1 - 2.2 %) 0.6 L TSH (0.270 - 4.200 uIU/mL) 2.670 Free T4 (0.85 - 1.93 ng/dL) 2.76 H Coagulation PT (9.4 - 12.5 SEC) 63.7 *H INR (0.90 - 1.19) 6.18 *H APTT (25 - 37 SEC) 61 H Hematology CBC w Diff NO MAN DIFF REQ WBC (4.8 - 10.8 /CUMM) 3.1 L RBC (4.20 - 5.40 /CUMM) 3.27 L Hgb (12.0 - 16.0 G/DL) 10.4 L Hct (37 - 47 %) 31.2 L MCV (81.0 - 99.0 FL) 95.3 MCH (27.0 - 31.0 PG) 32.0 H RDW (11.5 - 14.5 %) 15.8 H Plt Count (130 - 400 /CUMM) 161 MPV (7.4 - 10.4 FL) 8.3 Gran % (42.2 - 75.2 %) 72.1 Lymphocytes % (20.5 - 51.1 %) 18.8 L Monocytes % (1.7 - 9.3 %) 8.1 Eosinophils % (0 - 5 %) 0.5 Basophils % (0.0 - 2.0 %) 0.5 Absolute Granulocytes (1.4 - 6.5 /CUMM) 2.2 Absolute Lymphocytes (1.2 - 3.4 /CUMM) 0.6 L Absolute Monocytes (0.10 - 0.60 /CUMM) 0.3 Absolute Eosinophils (0.0 - 0.7 /CUMM) 0 Absolute Basophils (0.0 - 0.2 /CUMM) 0 PUBS MCHC (33.0 - 37.0 G/DL) 33.5 Miscellaneous Phlebotomy Draw Site RIGHT RADIAL
--- NOTE | 2016-12-05 14:54 | RADIOLOGY REPORT ---
EXAMINATION: XR PORTABLE CHEST CLINICAL INFORMATION: Shortness of breath with occasional agonal breaths. Presumptive diagnosis of pneumonia and worsening pleural effusion. COMPARISON: Chest x-ray dated 11/14/2016 and 11/09/2016 and 10/10/2016. A CT scan of the chest dated 12/03/2016. TECHNIQUE: Portable AP semierect view of the chest was obtained. FINDINGS: The cardiomediastinal silhouette is obscured by a moderate size left-sided pleural effusion, which extends up to one half of the chest height. There is associated volume loss and consolidation in the left mid and lower lung. Compared to the prior chest x-ray from 11/14/2016, the volume of pleural fluid has increased. The right lung is fully expanded and shows no significant pleural effusion or focal consolidation. There is central vascular congestion. No overt pulmonary edema is seen. No pneumothorax is present. There are tay seen in the left axilla from prior lymph node resection. There is also asymmetry of the breast shadows from prior left breast lumpectomy. Osteopenia is seen with mild vertebral spondylosis in the thoracic spine. IMPRESSION: 1. Increasing left-sided pleural effusion. 2. Left mid and lower lung parenchymal consolidation and volume loss, similar to prior exam. 3. No pulmonary edema.
[2016-12-05 23:57] VITALS: BP 130/76
--- NOTE | 2016-12-06 00:40 | NUR ---
ALERT AND ORIENTED. VITAL SIGNS STABLE. ON ROOM AIR NO DISCOMFORT NOTED. DRESSING TO R FOREARM SKIN TEAR IN C/D/I 2200 NEW IV PLACED.
--- NOTE | 2016-12-06 08:09 | PN- Housestaff ---
REGI TSANG,ENMANUEL 12/06/16 0808: Subjective Follow-up For: Altered mental status Hepatic encephalopathy Subjective: Patient is seen and examined at bedside. Patient does not endorse any acute complaints including chest pain, palpitation, shortness of breath, fevers, chills, nausea, vomiting, abdominal pain or dysuria. She appears more comfortable and less lethargic compared to yesterday. Last night patient refused to take lactulose but was able to convince her today that she needed for ammonia levelS. Review of Systems Constitutional: Denies: see HPI. Objective Last 24 Hrs of Vital Signs/I&O Vital Signs Date Time Temp Pulse Resp B/P Pulse O2 O2 Flow FiO2 Ox Delivery Rate 12/06 1541 97.3 83 20 104/58 97 12/06 0912 93 Room Air 12/06 0807 97.5 79 18 97 Room Air 12/05 2357 97.9 72 18 130/76 96 Room Air 12/05 1831 97 Room Air Room Air 12/05 1600 Room Air Intake & Output 12/06 1600 12/06 0800 12/06 0000 Intake Total 1525 800 250 Output Total 150 550 460 Balance 1375 250 -210 Intake, IV 525 800 Intake, Oral 1000 250 Output, Urine 150 550 460 Physical Exam General Appearance: Alert, Oriented X3, Cooperative Other Physical Findings: Skin: No Significant Lesion, Scattered ecchymosis with generalized edema appreciated. HEENT: Atraumatic, Mucous Membr. moist/pink Neck: Supple, No JVD Lymphatic: Cervical nl Cardiovascular: Regular Rate, Normal S1, Normal S2, 3/6 systolic murmur appreciated Lungs: Diminished breath sounds bilaterally Abdomen: Normal Bowel Sounds, Soft, No Tenderness Neurological: Normal Speech, Normal Tone Extremities: No Clubbing, No Cyanosis, No Edema Current Medications: Current Medications Sig/Misha Start time Last Medication Dose Route Stop Time Status Admin Albuterol Sulfate 3 ML TID 12/05 1100 AC 12/06 INH 1343 Anastrozole 1 MG DAILY 12/04 1000 AC 12/06 PO 0813 Dextrose/Sodium 1,000 ML Q20H 12/03 2300 AC 12/06 Chloride IV 0517 Lactulose 20 GM TID 12/05 1600 AC 12/06 PO 0813 Magnesium Oxide 400 MG DAILY 12/03 2330 AC 12/06 PO 0813 Methimazole 2.5 MG 12/05 1000 AC 12/05 PO 1447 Pantoprazole Sodium 40 MG BID 12/04 1500 AC 12/06 IV 0809 Potassium Chloride 40 MEQ ONCE ONE 12/06 1115 DC 12/06 PO 12/06 1116 1336 Potassium Chloride 20 MEQ DAILY 12/04 1000 AC 12/06 PO 0813 Tramadol HCl 50 MG ONCE ONE 12/05 1914 DC 12/05 PO 12/05 Last 24 Hrs of Lab/Claude Results Last 24 Hrs of Labs/Mics: Laboratory Tests 12/06/16 0748: Anion Gap 7, Estimated GFR 59 L, BUN/Creatinine Ratio 33.3 H, Magnesium 1.7, Total Bilirubin 2.7 H, Direct Bilirubin 1.1 H, AST 53 H, ALT 45, Alkaline Phosphatase 108, Ammonia 72 H, Total Protein 5.8 L, Albumin 2.2 L, PT 21.8 H , INR 2.09 H, CBC w Diff NO MAN DIFF REQ, RBC 2.91 L, MCV 96.4, MCH 32.5 H, RDW 16.6 H, MPV 8.2, Gran % 58.0, Lymphocytes % 26.4, Monocytes % 11.5 H, Eosinophils % 3.5, Basophils % 0.6, Absolute Granulocytes 2.3, Absolute Lymphocytes 1.0 L, Absolute Monocytes 0.5, Absolute Eosinophils 0.1, Absolute Basophils 0, PUBS MCHC 33.7 Assessment/Plan Assessment: Ms. Lei is a pleasant 89 year old female with PMH atrial fibrillation on coumadin, liver cirrhosis, diabetes, HTN, persistent left-sided pleural effusion s/p paracentesis, neutropenia, breast CA S/B bilateral lumpectomy and radiation and multinodular goiter who was transferred from her extended care facility yesterday due to lethargy/weakness, decreased oral intake , altered mental status and blood in her stool. Patient was recently discharged from [facility] on 11/17/16 after being treated for hepatic encephalopathy. She was also admitted in September of 2016 and found to be septic from a urinary tract infection; she was found to have a transudative left pleural effusion at that time as well, negative for malignancy. In the ED: Vital signs showed T 94.0, HR 88, RR 20, BP 133/63 and O2 saturation of 100% on 2L NC. Labs showed WBC count 3.1, hemoglobin 10.4, hematocrit 31.2, platelet count 161, INR 6.18 PTT 63.7, sodium 143, potassium 4.8, BUN 37 and creatinine 0.9. Glucose was 90, lactic acid was high to 2.8, phosphorus 4.7, bilirubin was 2.1, ammonia 129 and albumin was 2.4. EKG showed atrial fibrillation without ST-T wave changes. Head CT was done and showed no acute intracranial pathology. Chest/abdomen/pelvis CT was done and showed large left pleural effusion (similar to 09/07/16), small volume abdominal ascites, generalizes anasarca, no intra/retroperitoneal bleed, and cirrhosis of the liver. Patient was admitted to the general medicine floor and the following is the management: 1. Hepatic encephalopathy * Altered mental status likely secondary to hyperammonemia due to cirrhosis (no signs of infection [UA normal, CXR negative for PNA], head CT unremarkable for acute intracranial pathology) * Patient is more alert/oriented this morning though ammonia slightly increased . Do not feel that there is a clinical need to trend the ammonia patient clinical status is more a reliable indicator then ammonia levels, * Continue lactulose, might consider adding rifaximin. * Trend LFTs daily * GI consult placed and appreciated, suggested continuing lactulose enema, notify GI with any hemodynamically significant bleeding 2. Acute blood loss anemia with BRBPR * Vital signs Q shift, patient remains hemodynamically stable * Continue to follow GI recommendations * BRBPR is slowly subsiding, now patient passing minimal blood * Patient recieved a total of 10 mg IM x 1, Vit K, 1 U FFP * INR now therapeutic to 2.0 * If bleeding persists with an INR of 2-3 will continue with FFP and Vit K * Avoid NSAIDs * CBC Q12 H and transfuse to keep Hgb >8 * IV protonix 40 mg BID 3. Atrial fibrillation on coumadin with supratherapeutic INR * INR on admission of 6.18, currently therapeutic * Repeating INR daily to trend * Cardiology consult placed, Dr. Lopez to see patient tomorrow to make recommendations on anticoagulation status in a patient with atrial fibrillation following LGIB * Troponin negative on admission, no s/s ACS 4. Breast cancer * Continue anastrozole 1 mg PO daily 5. Multinodular goiter * Continue methimazol 2.5 mg PO , W, F 6. Left pleural effusion * Left pleural effusion worsening today as noted by portable CXR done this afternoon * Monitor respiratory status closely, continue TRC nebs * Consider thoracentesis if worsening DNR/DNI Diet: NPO DVTP: ALPS Problem List: 1. Hepatic encephalopathy 2. Hyperammonemia Pain Ratin Pain Location: none Pain Goal: Pain 4 or less Pain Plan: apap for mild pain Tomorrow's Labs & Rationales: CBC-Liver cirrhosis with prior GI bleed LFTS: Liver cirrhosis AMBAR YOUNG MD 12/06/16 1530: Attending MD Review Statement Attending Statement Attending MD Statement: examined this patient, discuss w/resident/PA/SURTASS ANALYST, reviewed EMR data (avail), reviewed images, amended to note Attending Assessment/Plan: Pertinent issues to be addressed today include slow rise in level of serum ammonia. An adjustment should be made in her lactulose dosing to see if this can be corrected. In addition patient is hyperneic possibly secondary to the increase of her pleural effusion. Also on exam mild expiratory wheezes are noted and she is in a positive fluid balance. Given the findings of vascular congestion on chest x-ray I would give furosemide 20 mg intravenously today. I would continue TRC and nebulizer treatments and also continue her other maintenance medications. Nicola Vasques MD's input is greatly appreciated.
[2016-12-06 08:28] LABS: ABSOLUTE BASOPHIL COUNT 0 /CUMM (0.0-0.2); ABSOLUTE EOSINOPHIL COUNT 0.1 /CUMM (0.0-0.7); ABSOLUTE GRANULOCYTE CT 2.3 /CUMM (1.4-6.5); ABSOLUTE MONOCYTE COUNT 0.5 /CUMM (0.10-0.60); BASOPHIL % 0.6 % (0.0-2.0); EOSINOPHIL % 3.5 % (0-5); HEMATOCRIT 28.1 % (37-47); MEAN CORPUSCULAR HGB 32.5 PG (27.0-31.0); MEAN CORPUSCULAR HGB CONC 33.7 G/DL (33.0-37.0); MEAN CORPUSCULAR VOLUME 96.4 FL (81.0-99.0); MEAN PLATELET VOLUME 8.2 FL (7.4-10.4); PLATELET COUNT 129 /CUMM (130-400); RBC DISTRIBUTION WIDTH 16.6 % (11.5-14.5); RED BLOOD CELL CT 2.91 /CUMM (4.20-5.40); WHITE BLOOD CELL COUNT 3.9 /CUMM (4.8-10.8)
--- NOTE | 2016-12-06 09:00 | NUR ---
NURSING NOTE: PATIENT REFUSED BP THIS AM WITH MST. PATIENT STATED SHE IS NOT ALLOWED TO HAVE HER BLOOD PRESSUES TAKEN. THIS NURSE EXPLAINED TO THE PATIENT THE IMPORTANCE OF TAKING HER BLOOD PRESSURE. THE PATIENT STILL REFUSED. WILL TRY TO CHECK AGAIN LATER.
[2016-12-06 09:04] LABS: PT 21.8 SEC (9.4-12.5)
--- NOTE | 2016-12-06 14:25 | Cons- Pulmonary ---
General Information and HPI Consulting Request Date of Consult: 12/06/16 Requested By: Dr Garcia History of Present Illness: Ms. Lei is a 89 year old female with multiple medical problems including atrial fibrillation on Coumadin who was sent in from an ECF last night for changes in her mental status and brbpr. The patient was at an ECF after a recent hospitalization at and was due to be sent home in a few days, but she apparently became lethargic with altered mental status and was sent in to for further evaluation. She was also noted to have some dark blood mixed in with stool in her diaper. The patient is not able to give any meaningful history at the present time, but there are no reports in the chart of any abdominal pain or vomiting. She also has not had any melena. On admission, she was hemodynamically stable, to have an elevated INR of 6 and to have some dark blood in her diaeper. she was rose cultured and admitted to the medical service for further management. she did pass some bright red blood according to nursing, but she remained hemodnamically stable. Has worsening effusions and hence this consult WHen i saw her She was extremely lethargic and only reported yes and no's to questioning. Review of Systems Constitutional: Denies: chills, fever. EENTM: Denies: blurred vision, nasal congestion. Cardiovascular: Denies: chest pain, palpitations. Respiratory: Denies: cough, short of breath. Gastrointestinal: Denies: abdominal pain. Genitourinary: Denies: dysuria. Musculoskeletal: Denies: back pain. Skin: Denies: lesions. Neurological/Psychological: Denies: confusion, headache. Hematologic/Endocrine: Denies: bleeding. Allergies/Medications Allergies: Coded Allergies: atorvastatin (Intermediate, MODERATE PAIN TO BACK AND SHOULDERS 01/20/16) scallops (GI DISTRESS 01/20/16) Home Med List: Acetaminophen (Tylenol) 325 MG TABLET 2 TAB PO Q6-PRN PRN FEVER > 101 ( Reported) Acetaminophen (Tylenol Arthritis) 650 MG TABLET.ER SUPPLEMENT (Reported) Alendronate Sodium (Fosamax) 70 MG TABLET 1 TAB PO QTUES BONES (Reported) in the morning, at least 30 minutes before the first food, beverage, or medication of the day Amlodipine Besylate 5 MG TABLET 1 TAB PO DAILY hypertension Anastrozole 1 MG TABLET 1 MG PO DAILY IMMUNE SUPPORT (Reported) Calcium Carbonate/Vitamin D3 (Os-Phill 500+D3 Caplet) 500 MG-200 TABLET 1 TAB PO BID SUPPLEMENT (Reported) Cholecalciferol (Vitamin D3) 1,000 UNIT TABLET HEALTH SUPPLEMENT (Reported) Diclofenac Sodium (Voltaren) 1 % GEL..GRAM. 1 GM TOP PRN PAIN (Reported) apply to affected area(s) Ferrous Gluconate (IRON) 256 MG (28 MG IRON) TABLET 1 TAB PO TID SUPPLEMENT ( Reported) Fluvastatin Sodium (Lescol 20MG) 20 MG CAP 1 CAP PO AT BEDTIME CHOLESTEROL ( Reported) Furosemide (Lasix) 20 MG TABLET 1 TAB PO PRN EDEMA (Reported) Ibuprofen 400 MG TABLET SUPPLEMENT (Reported) Magnesium Oxide (Magnesium) 400 MG CAPSULE 1 CAP PO DAILY low magnesium follows up with Dr. Radha Constantino (Antivert) 12.5 MG TAB 1 TAB PO Q6P PRN VERTIGO Melatonin 3 MG TABLET 1 TAB PO QPM INSOMNIA (Reported) Methimazole 5 MG TABLET 2.5 MG PO Thursday THYROID PROBLEMS ( Reported) Naloxone HCl (Narcan) 4 MG/ACTUATION SPRAY OPIOID INDUCED RD (Reported) Potassium Chloride 20 MEQ TAB.ER.PRT 1 TAB PO DAILY SUPPLEMENT (Reported) QUINAPRIL HCL (Quinapril HCl) 20 MG TAB 1 TAB PO DAILY HEART (Reported) Warfarin Sodium (Coumadin) 2.5 MG TABLET 1 TAB PO AD BLOOD THINNER (Reported) Review of Systems Review of Systems Constitutional: Reports: see HPI. Past History Travel History Traveled to [place] past 21 day No Medical History Neurological: SHINGLES LYMES DISEASE EENT: allergies, cataracts, hearing loss, POSTNASAL DRIP Cardiovascular: AFIB, hypertension, hyperlipidemia, AORTIC STENOSIS Respiratory: bronchitis, pneumonia, L pleural effusion THORACENTESIS Gastrointestinal: NONE Hepatic: NONE Renal: NONE Musculoskeletal: osteoarthritis, osteoporosis, BAKERS CYST LEFT WRIST FRACTURE LEFT ANKLE FRACTURE Psychiatric: NONE Endocrine: diabetes, hyperthyroidism Blood Disorders: anemia, LYME DISEASE Cancer(s): breast cancer, SKIN CANCER (LUMPECTOMY NO LYMPH NODES REMOVED) 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 [facility] Facility Who Do You Live With? self Services at Home: None Smoking Status: Former Smoker ETOH Use: 6 Illicit Drug Use: UTD Functional Ability ADLs Needs Assist: dressing, eating, toileting, bathing. IADLs Needs Assist: shopping, housework, finances, food prep, telephone, transportation, medication admin. Exam & Diagnostic Data Last 24 Hrs of Vital Signs/I&O Vital Signs Date Time Temp Pulse Resp B/P Pulse O2 O2 Flow FiO2 Ox Delivery Rate 12/06 0912 93 Room Air 12/06 0807 97.5 79 18 97 Room Air 12/05 2357 97.9 72 18 130/76 96 Room Air 12/05 1831 97 Room Air Room Air 12/05 1600 Room Air Intake & Output 12/06 1600 12/06 0800 12/06 0000 Intake Total 1525 800 250 Output Total 150 550 460 Balance 1375 250 -210 Intake, IV 525 800 Intake, Oral 1000 250 Output, Urine 150 550 460 Last 48 Hrs of Labs/Claude: Laboratory Tests 12/06/16 0748: Anion Gap 7, Estimated GFR 59 L, BUN/Creatinine Ratio 33.3 H, Magnesium 1.7, Total Bilirubin 2.7 H, Direct Bilirubin 1.1 H, AST 53 H, ALT 45, Alkaline Phosphatase 108, Ammonia 72 H, Total Protein 5.8 L, Albumin 2.2 L, PT 21.8 H , INR 2.09 H, CBC w Diff NO MAN DIFF REQ, RBC 2.91 L, MCV 96.4, MCH 32.5 H, RDW 16.6 H, MPV 8.2, Gran % 58.0, Lymphocytes % 26.4, Monocytes % 11.5 H, Eosinophils % 3.5, Basophils % 0.6, Absolute Granulocytes 2.3, Absolute Lymphocytes 1.0 L, Absolute Monocytes 0.5, Absolute Eosinophils 0.1, Absolute Basophils 0, PUBS MCHC 33.7 12/05/16 0710: Anion Gap 9, Estimated GFR 52 L, BUN/Creatinine Ratio 33.0 H, Total Bilirubin 2.8 H, Direct Bilirubin 1.3 H, AST 59 H, ALT 47, Alkaline Phosphatase 124, Ammonia 67 H, Total Protein 6.2 L, Albumin 2.4 L, PT 25.3 H, INR 2.43 H, CBC w Diff NO MAN DIFF REQ, RBC 3.06 L, MCV 96.1, MCH 32.7 H, RDW 16.4 H, MPV 8.2, Gran % 49.3, Lymphocytes % 34.4, Monocytes % 12.5 H, Eosinophils % 2.8, Basophils % 1.0, Absolute Granulocytes 1.8, Absolute Lymphocytes 1.2, Absolute Monocytes 0.4, Absolute Eosinophils 0.1, Absolute Basophils 0, PUBS MCHC 34.1 12/04/16 1515: CBC w Diff NO MAN DIFF REQ, RBC 2.95 L, MCV 94.9, MCH 31.9 H, RDW 16.2 H, MPV 8.4, Gran % 60.4, Lymphocytes % 27.5, Monocytes % 9.7 H, Eosinophils % 1.9, Basophils % 0.5, Absolute Granulocytes 2.1, Absolute Lymphocytes 1.0 L, Absolute Monocytes 0.3, Absolute Eosinophils 0.1, Absolute Basophils 0, PUBS MCHC 33.6 12/04/16 1455: Lactic Acid 1.6, Ammonia 56 H 12/04/16 1455: Anion Gap 8, Estimated GFR 59 L, BUN/Creatinine Ratio 42.2 H, Total Bilirubin 2.4 H, Direct Bilirubin 1.2 H, AST 58 H, ALT 47, Alkaline Phosphatase 126, Total Protein 6.2 L, Albumin 2.4 L, PT 28.2 H, INR 2.71 H Assessment/Plan Impression/Plan: Physical Exam General Appearance: Alert, Oriented X3, Cooperative, No Acute Distress Skin: No Significant Lesion, Scattered ecchymosis with generalized edema appreciated. HEENT: Atraumatic, Mucous Membr. moist/pink Neck: Supple, No JVD Lymphatic: Cervical nl Cardiovascular: Regular Rate, Normal S1, Normal S2, 3/6 systolic murmur appreciated Lungs: Diminished breath sounds bilaterally Abdomen: Normal Bowel Sounds, Soft, No Tenderness Neurological: Normal Speech, Normal Tone Extremities: No Clubbing, No Cyanosis, No Edema CT CHEST ABD AND PELVIS IMPRESSION: 1. Large left pleural effusion similar in volume to the prior CT scan of 09/07/2016. Compressive atelectasis at left lung base. 2. Small volume of abdominal ascites. Generalized anasarca. No retroperitoneal or intraperitoneal bleed or mass. 3. Cholelithiasis. 4. Cirrhosis of the liver. IMPRESSION Ms. Lei is a pleasant 89 year old female with PMH atrial fibrillation on coumadin, liver cirrhosis, diabetes, HTN, persistent left-sided pleural effusion s/p paracentesis, neutropenia, breast CA S/B bilateral lumpectomy and radiation and multinodular goiter who was transferred from her extended care facility yesterday due to lethargy/weakness, decreased oral intake , altered mental status and blood in her stool. Patient was recently discharged from [facility] on 11/17/16 after being treated for hepatic encephalopathy. She was also admitted in September of 2016 and found to be septic from a urinary tract infection; she was found to have a transudative left pleural effusion at that time as well, negative for malignancy. ISSUES * LArge effuision in the left side consistant with prob hepatic hydrothorax * INR still high * REcent worsening mental status due to prob hep encephelopathy and responded to lactulose * REcent gi bleed which is better and gi on board and pt wishes no colonoscopy * REcent admission with sepsis * Chronic afib * Chf with preserved ef * SIg htn * Prob myelodysplasia * Hyperthyroid on methimazone REC * Cont present mgt * Hold warfarin * COnt bp meds and lactulose etc as is * No urgent need for thoracentesis * ONce inr is less than 1.8 and if pt is still dyspneic thoracentesis can be done on thursday * Will follow Consult Acknowledgment - Thank you for your consult request.
[2016-12-06 15:41] VITALS: BP 104/58
--- NOTE | 2016-12-06 21:12 | Cons- Cardiology ---
General Information and HPI Consulting Request Date of Consult: 12/06/16 Requested By: HECTOR TSANG,AMBAR Santos History of Present Illness: This patient is an 89 year old female with history of hypertension, diabetes and atrial fibrillation on coumadin who was admitted to [facility] with mental status changes. She was found to have a GI bleed with bright red blood per rectum in the setting of a very elevated INR of over 6. She is now noted to have worsening pleural effusions and she does complain of shortness of breath. Otherwise she has no chest discomfort, lightheadedness or palpitations. Ms. Lei was recently admitted at [place] in November for mental status changes and a hypertensive encephalopathy. In September she was admitted to the ICU after an unwitnessed fall and was found to be in septic shock likely of urologic origin. Acute cholecystitis was ruled out, urine culture came back positive for Ecoli for which she received treatment with IV ceftriaxone. She was also found to have left pleural effusion at that time and underwent thoracentesis, which was negative for malignancy despite her prior history of breast cancer. Allergies/Medications Allergies: Coded Allergies: atorvastatin (Intermediate, MODERATE PAIN TO BACK AND SHOULDERS 01/20/16) scallops (GI DISTRESS 01/20/16) Home Med List: Acetaminophen (Tylenol) 325 MG TABLET 2 TAB PO Q6-PRN PRN FEVER > 101 ( Reported) Acetaminophen (Tylenol Arthritis) 650 MG TABLET.ER SUPPLEMENT (Reported) Alendronate Sodium (Fosamax) 70 MG TABLET 1 TAB PO QTUES BONES (Reported) in the morning, at least 30 minutes before the first food, beverage, or medication of the day Amlodipine Besylate 5 MG TABLET 1 TAB PO DAILY hypertension Anastrozole 1 MG TABLET 1 MG PO DAILY IMMUNE SUPPORT (Reported) Calcium Carbonate/Vitamin D3 (Os-Phill 500+D3 Caplet) 500 MG-200 TABLET 1 TAB PO BID SUPPLEMENT (Reported) Cholecalciferol (Vitamin D3) 1,000 UNIT TABLET HEALTH SUPPLEMENT (Reported) Diclofenac Sodium (Voltaren) 1 % GEL..GRAM. 1 GM TOP PRN PAIN (Reported) apply to affected area(s) Ferrous Gluconate (IRON) 256 MG (28 MG IRON) TABLET 1 TAB PO TID SUPPLEMENT ( Reported) Fluvastatin Sodium (Lescol 20MG) 20 MG CAP 1 CAP PO AT BEDTIME CHOLESTEROL ( Reported) Furosemide (Lasix) 20 MG TABLET 1 TAB PO PRN EDEMA (Reported) Ibuprofen 400 MG TABLET SUPPLEMENT (Reported) Magnesium Oxide (Magnesium) 400 MG CAPSULE 1 CAP PO DAILY low magnesium follows up with Dr. Hector Constantino (Antivert) 12.5 MG TAB 1 TAB PO Q6P PRN VERTIGO Melatonin 3 MG TABLET 1 TAB PO QPM INSOMNIA (Reported) Methimazole 5 MG TABLET 2.5 MG PO Thursday THYROID PROBLEMS ( Reported) Naloxone HCl (Narcan) 4 MG/ACTUATION SPRAY OPIOID INDUCED RD (Reported) Potassium Chloride 20 MEQ TAB.ER.PRT 1 TAB PO DAILY SUPPLEMENT (Reported) QUINAPRIL HCL (Quinapril HCl) 20 MG TAB 1 TAB PO DAILY HEART (Reported) Warfarin Sodium (Coumadin) 2.5 MG TABLET 1 TAB PO AD BLOOD THINNER (Reported) Review of Systems Review of Systems: A review of systems is unobtainable. Past History Travel History Traveled to [place] past 21 day No Medical History Neurological: SHINGLES LYMES DISEASE EENT: allergies, cataracts, hearing loss, POSTNASAL DRIP Cardiovascular: AFIB, hypertension, hyperlipidemia, AORTIC STENOSIS Respiratory: bronchitis, pneumonia, L pleural effusion THORACENTESIS Gastrointestinal: NONE Hepatic: NONE Renal: NONE Musculoskeletal: osteoarthritis, osteoporosis, BAKERS CYST LEFT WRIST FRACTURE LEFT ANKLE FRACTURE Psychiatric: NONE Endocrine: diabetes, hyperthyroidism Blood Disorders: anemia, LYME DISEASE Cancer(s): breast cancer, SKIN CANCER (LUMPECTOMY NO LYMPH NODES REMOVED) 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 [facility] Facility Who Do You Live With? self Services at Home: None Smoking Status: Former Smoker ETOH Use: 6 Illicit Drug Use: UTD Functional Ability ADLs Needs Assist: dressing, eating, toileting, bathing. IADLs Needs Assist: shopping, housework, finances, food prep, telephone, transportation, medication admin. Exam & Diagnostic Data Vital Signs and I&O Vital Signs Date Time Temp Pulse Resp B/P Pulse O2 O2 Flow FiO2 Ox Delivery Rate 12/06 1600 Room Air 12/06 1541 97.3 83 20 104/58 97 12/06 0912 93 Room Air 12/06 0807 97.5 79 18 97 Room Air 12/05 2357 97.9 72 18 130/76 96 Room Air Intake & Output 12/06 1600 12/06 0800 12/06 0000 12/05 1600 12/05 0812/05 0000 Intake Total 1525 425 339 3922 600 225 Output Total 150 550 460 50 450 350 Balance 1375 250 -210 950 150 -125 Intake, IV 525 800 600 600 225 Intake, Oral 1000 250 400 Number 2 1 Bowel Movements Output, Stool 50 Output, Urine 150 550 460 450 350 Patient 163 lb Weight Physical Exam: General: WD/WN female in NAD; awake and responsive with decreased memory HEENT: NC/AT, PERRL, EOMI Neck: no JVD, no carotid bruit Heart: irregularly irregular with 2/6 systolic murmur Lungs:decreased breath sounds bilaterally without crackles Abdomen: soft, NT, +ve bowel sounds Extremities: no edema Assessment/Plan Assessment/Plan * This patient has a pleural effusion that is likely causing her shortness of breath. There are no crackles or overt pulmonary edema to suggest decompensated CHF. Obtain an echocardiogram. * This patient should no be on chronic anticoagulation due to her age and comorbidities including bleeding. Consult Acknowledgment - Thank you for your consult request.
[2016-12-06 23:53] VITALS: BP 108/60
[2016-12-07 00:15] LABS: ABSOLUTE BASOPHIL COUNT 0 /CUMM (0.0-0.2); ABSOLUTE EOSINOPHIL COUNT 0.1 /CUMM (0.0-0.7); ABSOLUTE GRANULOCYTE CT 2.5 /CUMM (1.4-6.5); ABSOLUTE LYMPH COUNT 0.8 /CUMM (1.2-3.4); ABSOLUTE MONOCYTE COUNT 0.5 /CUMM (0.10-0.60); BASOPHIL % 0.2 % (0.0-2.0); EOSINOPHIL % 3.3 % (0-5); HEMATOCRIT 28.3 % (37-47); MEAN CORPUSCULAR HGB 32.2 PG (27.0-31.0); MEAN CORPUSCULAR HGB CONC 33.4 G/DL (33.0-37.0); MEAN CORPUSCULAR VOLUME 96.6 FL (81.0-99.0); MEAN PLATELET VOLUME 8.4 FL (7.4-10.4); PLATELET COUNT 129 /CUMM (130-400); RBC DISTRIBUTION WIDTH 16.5 % (11.5-14.5); RED BLOOD CELL CT 2.93 /CUMM (4.20-5.40); WHITE BLOOD CELL COUNT 3.9 /CUMM (4.8-10.8)
--- NOTE | 2016-12-07 08:02 | PN- Housestaff ---
Subjective Follow-up For: AMS Hepatic encephalopathy LGIB Subjective: Patient seen and examined at bedside this AM. She is reporting several episodes of diarrhea with minimal but notable blood (dark, not bright red blood). Patient reports she is feeling much less lethargic than when she was admitted. Review of Systems Constitutional: Denies: chills, fever, malaise. EENTM: Denies: blurred vision, visual changes. Cardiovascular: Denies: chest pain. Respiratory: Denies: cough, short of breath. Gastrointestinal: Reports: diarrhea. Denies: abdominal pain, bloating, constipation. Genitourinary: Denies: dysuria. Musculoskeletal: Denies: back pain. Skin: Denies: lesions. Neurological/Psychological: Denies: confusion. Hematologic/Endocrine: Denies: polyuria, polydipsia. Objective Last 24 Hrs of Vital Signs/I&O Vital Signs Date Time Temp Pulse Resp B/P Pulse O2 O2 Flow FiO2 Ox Delivery Rate 12/07 0901 94 Room Air Room Air 12/07 0822 98.0 75 20 110/82 93 Room Air 12/07 0000 Room Air 12/06 2353 97.8 84 19 108/60 93 Room Air 12/06 2115 94 Room Air 12/06 1600 Room Air 12/06 1541 97.3 83 20 104/58 97 Intake & Output 12/07 1600 12/07 0800 / 0000 Intake Total 400 788 Output Total 300 400 Balance 100 388 Intake, IV 400 400 Intake, Oral 388 Output, Urine 300 400 Physical Exam General Appearance: Alert, Oriented X3, Cooperative, No Acute Distress Skin: No Significant Lesion, Scattered erythema around areas of blood draws. HEENT: Atraumatic, Mucous Membr. moist/pink Neck: Supple, No JVD Lymphatic: Cervical nl Cardiovascular: Normal S1, Normal S2 Lungs: Decreased breath sounds bilaterally, no crackles Abdomen: Soft, No Tenderness, Hyperactive BS Neurological: Normal Speech Extremities: Noted anasarca, generalized Vascular: Pulses Symmetrical Current Medications: Current Medications Sig/Misha Start time Last Medication Dose Route Stop Time Status Admin Albuterol Sulfate 3 ML TID 12/05 1100 AC 12/07 INH 0901 Anastrozole 1 MG DAILY 12/04 1000 AC / PO 0813 Dextrose/Sodium 1,000 ML Q20H 12/06 1630 AC / Chloride IV 1714 Dextrose/Sodium 1,000 ML Q20H 12/03 2300 DC 12/06 Chloride IV 0517 Furosemide 20 MG ONCE ONE 12/06 1645 DC IV 12/06 1646 Furosemide 40 MG .STK-MED ONE 12/06 1621 DC IV 12/06 1622 Furosemide 20 MG ONCE ONE 12/06 1615 DC 12/06 IV 12/06 1616 1711 Lactulose 20 GM TID 12/05 1600 AC 12/06 PO 2121 Magnesium Oxide 400 MG DAILY 12/03 2330 AC 12/06 PO 0813 Methimazole 2.5 MG 12/05 1000 AC 12/05 PO 1447 Pantoprazole Sodium 40 MG BID 12/04 1500 AC 12/06 IV 2121 Potassium Chloride 40 MEQ ONCE ONE 12/06 1115 DC 12/06 PO 12/06 1116 1336 Potassium Chloride 20 MEQ DAILY 12/04 1000 AC 12/06 PO 0813 Last 24 Hrs of Lab/Claude Results Last 24 Hrs of Labs/Mics: Laboratory Tests 12/06/160: CBC w Diff NO MAN DIFF REQ, RBC 2.93 L, MCV 96.6, MCH 32.2 H, RDW 16.5 H, MPV 8.4, Gran % 64.0, Lymphocytes % 19.4 L, Monocytes % 13.1 H, Eosinophils % 3.3, Basophils % 0.2, Absolute Granulocytes 2.5, Absolute Lymphocytes 0.8 L, Absolute Monocytes 0.5, Absolute Eosinophils 0.1, Absolute Basophils 0, PUBS MCHC 33.4 Orders Radiology Findings: CXR: IMPRESSION: 1. Increasing left-sided pleural effusion. 2. Left mid and lower lung parenchymal consolidation and volume loss, similar to prior exam. 3. No pulmonary edema. Assessment/Plan Assessment: Ms. Lei is a pleasant 89 year old female with PMH atrial fibrillation on coumadin, liver cirrhosis, diabetes, HTN, persistent left-sided pleural effusion s/p paracentesis, neutropenia, breast CA S/B bilateral lumpectomy and radiation and multinodular goiter who was transferred from her extended care facility yesterday due to lethargy/weakness, decreased oral intake , altered mental status and blood in her stool. Patient was recently discharged from [facility] on 11/17/16 after being treated for hepatic encephalopathy. She was also admitted in September of 2016 and found to be septic from a urinary tract infection; she was found to have a transudative left pleural effusion at that time as well, negative for malignancy. In the ED: Vital signs showed T 94.0, HR 88, RR 20, BP 133/63 and O2 saturation of 100% on 2L NC. Labs showed WBC count 3.1, hemoglobin 10.4, hematocrit 31.2, platelet count 161, INR 6.18 PTT 63.7, sodium 143, potassium 4.8, BUN 37 and creatinine 0.9. Glucose was 90, lactic acid was high to 2.8, phosphorus 4.7, bilirubin was 2.1, ammonia 129 and albumin was 2.4. EKG showed atrial fibrillation without ST-T wave changes. Head CT was done and showed no acute intracranial pathology. Chest/abdomen/pelvis CT was done and showed large left pleural effusion (similar to 09/07/16), small volume abdominal ascites, generalizes anasarca, no intra/retroperitoneal bleed, and cirrhosis of the liver. Patient was admitted to the general medicine floor and the following is the management: 1. Hepatic encephalopathy * Altered mental status likely secondary to hyperammonemia due to cirrhosis (no signs of infection [UA normal, CXR negative for PNA], head CT unremarkable for acute intracranial pathology) * Patient is more alert/oriented this morning though ammonia slightly increased to. * Continue lactulose, might consider adding rifaximin if GI recommends. * Trend LFTs daily. * GI consult placed and appreciated, suggested continuing lactulose enema, notify GI with any hemodynamically significant bleeding 2. Acute blood loss anemia with BRBPR * Vital signs Q shift, patient remains hemodynamically stable * Continue to follow GI recommendations * BRBPR is slowly subsiding, now patient passing minimal blood (call GI with any overt bleeding) * Patient recieved a total of 10 mg IM x 1, Vit K, 1 U FFP * INR this AM pending, f/u results * If bleeding persists with an INR of 2-3 will continue with FFP and Vit K * Avoid NSAIDs * CBC Q12 H and transfuse to keep Hgb >8 * IV protonix 40 mg BID 3. Atrial fibrillation on coumadin with supratherapeutic INR * INR on admission of 6.18, currently therapeutic * Repeating INR daily to trend * Cardiology consult placed, Dr. Lopez suggests patient not have lifelong anticoagulation due to age and comorbidities (will DC coumadin) * Troponin negative on admission, no s/s ACS 4. Breast cancer * Continue anastrozole 1 mg PO daily 5. Multinodular goiter * Continue methimazol 2.5 mg PO M, W, F 6. Left pleural effusion * Left pleural effusion worsening as noted by portable CXR * Monitor respiratory status closely, continue TRC nebs * Pulm consult with Dr. Vasques placed and appreciated * Patient will likely require thoracentesis tomorrow as recommended by Dr. Vasques DNR/DNI Diet: NPO DVTP: ALPS Problem List: 1. Supratherapeutic INR 2. Hypothermia 3. Hyperammonemia 4. Hepatic encephalopathy 5. Rectal bleeding 6. Coagulopathy 7. Altered mental status Pain Ratin Pain Location: n/a Pain Goal: Remain pain free Pain Plan: None. Tomorrow's Labs & Rationales: CBC (LGIB), BEP (hypokalemia, hypernatremia, renal dysf), LFTs with ammonia ( hepatic encephalopathy), INR (pre-op for thoracentesis) CBC (LGIB), BEP (hypokalemia, hypernatremia, renal dysf), LFTs with ammonia ( hepatic encephalopathy), INR (pre-op for thoracentesis)
[2016-12-07 08:22] VITALS: BP 110/82
[2016-12-07 11:33] LABS: ABSOLUTE BASOPHIL COUNT 0 /CUMM (0.0-0.2); ABSOLUTE EOSINOPHIL COUNT 0.2 /CUMM (0.0-0.7); ABSOLUTE GRANULOCYTE CT 2.6 /CUMM (1.4-6.5); ABSOLUTE LYMPH COUNT 1.1 /CUMM (1.2-3.4); ABSOLUTE MONOCYTE COUNT 0.5 /CUMM (0.10-0.60); BASOPHIL % 0.4 % (0.0-2.0); EOSINOPHIL % 3.8 % (0-5); GRANULOCYTE % 58.1 % (42.2-75.2); MEAN CORPUSCULAR HGB 32.5 PG (27.0-31.0); MEAN CORPUSCULAR HGB CONC 33.5 G/DL (33.0-37.0); MEAN CORPUSCULAR VOLUME 96.8 FL (81.0-99.0); MEAN PLATELET VOLUME 8.5 FL (7.4-10.4); PLATELET COUNT 125 /CUMM (130-400); RBC DISTRIBUTION WIDTH 16.6 % (11.5-14.5); RED BLOOD CELL CT 2.99 /CUMM (4.20-5.40); WHITE BLOOD CELL COUNT 4.4 /CUMM (4.8-10.8)
[2016-12-07 11:37] LABS: PT 22.1 SEC (9.4-12.5)
--- NOTE | 2016-12-07 11:57 | PN- Pulmonary ---
Subjective HPI/Critical Care Issues: She is reporting several episodes of diarrhea with minimal but notable blood ( dark, not bright red blood). Patient reports she is feeling much less lethargic than when she was admitted. Review of Systems Constitutional: Denies: chills, fever, malaise. EENTM: Denies: blurred vision, visual changes. Cardiovascular: Denies: chest pain. Respiratory: Denies: cough, short of breath. Gastrointestinal: Reports: diarrhea. Denies: abdominal pain, bloating, constipation. Genitourinary: Denies: dysuria. Musculoskeletal: Denies: back pain. Skin: Denies: lesions. Neurological/Psychological: Denies: confusion. Hematologic/Endocrine: Denies: polyuria, polydipsia. Objective Current Medications: Current Medications Sig/Misha Start time Last Medication Dose Route Stop Time Status Admin Albuterol Sulfate 3 ML TID 12/05 1100 AC 12/07 INH 0901 Anastrozole 1 MG DAILY 12/04 1000 AC 12/07 PO 0952 Dextrose/Sodium 1,000 ML Q20H 12/06 1630 AC 12/06 Chloride IV 1714 Dextrose/Sodium 1,000 ML Q20H 12/03 2300 WV 12/06 Chloride IV 0517 Furosemide 20 MG ONCE ONE 12/06 1645 DC IV 12/06 1646 Furosemide 40 MG .STK-MED ONE 12/06 1621 DC IV 12/06 1622 Furosemide 20 MG ONCE ONE 12/06 1615 DC / IV / 1616 1711 Lactulose 20 GM TID 12/05 1600 AC 12/07 PO 0952 Magnesium Oxide 400 MG DAILY 12/03 2330 AC 12/07 PO 0952 Methimazole 2.5 MG 12/05 1000 AC 12/05 PO 1447 Pantoprazole Sodium 40 MG BID 12/04 1500 AC 12/07 IV 0952 Potassium Chloride 20 MEQ DAILY 12/04 1000 AC 12/07 PO 0952 Vital Signs & I&O Last 24 Hrs of Vitals and I&O: Vital Signs Date Time Temp Pulse Resp B/P Pulse O2 O2 Flow FiO2 Ox Delivery Rate 12/07 09 94 Room Air Room Air 12/07 0822 98.0 75 20 110/82 93 Room Air 12/07 0000 Room Air 12/06 2353 97.8 84 19 108/60 93 Room Air 12/06 2115 94 Room Air 12/06 1600 Room Air 12/06 1541 97.3 83 20 104/58 97 Intake & Output 12/07 1600 12/07 0800 12/07 0000 Intake Total 400 788 Output Total 300 400 Balance 100 388 Intake, IV 400 400 Intake, Oral 388 Output, Urine 300 400 Laboratory Tests 12/07 12/07 0945 0945 Chemistry Sodium (137 - 145 mmol/L) 143 Potassium (3.5 - 5.1 mmol/L) 3.7 Chloride (98 - 107 mmol/L) 112 H Carbon Dioxide (22 - 30 mmol/L) 24 Anion Gap (5 - 16) 7 BUN (7 - 17 mg/dL) 24 H Creatinine (0.5 - 1.0 mg/dL) 0.9 Estimated GFR (>60 ml/min) 59 L BUN/Creatinine Ratio (7 - 25 %) 26.7 H Total Bilirubin (0.2 - 1.3 mg/dL) 3.5 H Direct Bilirubin (< 0.4 mg/dL) 1.6 H AST (14 - 36 U/L) 50 H ALT (9 - 52 U/L) 44 Alkaline Phosphatase (<127 U/L) 114 Ammonia (9 - 30 umol/L) 80 H Total Protein (6.3 - 8.2 g/dL) 6.0 L Albumin (3.5 - 5.0 g/dL) 2.3 L Coagulation PT (9.4 - 12.5 SEC) 22.1 H INR (0.90 - 1.19) 2.12 H Hematology CBC w Diff NO MAN DIFF REQ WBC (4.8 - 10.8 /CUMM) 4.4 L RBC (4.20 - 5.40 /CUMM) 2.99 L Hgb (12.0 - 16.0 G/DL) 9.7 L Hct (37 - 47 %) 29.0 L MCV (81.0 - 99.0 FL) 96.8 MCH (27.0 - 31.0 PG) 32.5 H RDW (11.5 - 14.5 %) 16.6 H Plt Count (130 - 400 /CUMM) 125 L MPV (7.4 - 10.4 FL) 8.5 Gran % (42.2 - 75.2 %) 58.1 Lymphocytes % (20.5 - 51.1 %) 25.4 Monocytes % (1.7 - 9.3 %) 12.3 H Eosinophils % (0 - 5 %) 3.8 Basophils % (0.0 - 2.0 %) 0.4 Absolute Granulocytes (1.4 - 6.5 /CUMM) 2.6 Absolute Lymphocytes (1.2 - 3.4 /CUMM) 1.1 L Absolute Monocytes (0.10 - 0.60 /CUMM) 0.5 Absolute Eosinophils (0.0 - 0.7 /CUMM) 0.2 Absolute Basophils (0.0 - 0.2 /CUMM) 0 PUBS MCHC (33.0 - 37.0 G/DL) 33.5 0204 02 2320 0748 Chemistry Sodium (137 - 145 mmol/L) 147 H Potassium (3.5 - 5.1 mmol/L) 3.3 L Chloride (98 - 107 mmol/L) 113 H Carbon Dioxide (22 - 30 mmol/L) 28 Anion Gap (5 - 16) 7 BUN (7 - 17 mg/dL) 30 H Creatinine (0.5 - 1.0 mg/dL) 0.9 Estimated GFR (>60 ml/min) 59 L BUN/Creatinine Ratio (7 - 25 %) 33.3 H Magnesium (1.6 - 2.3 mg/dL) 1.7 Total Bilirubin (0.2 - 1.3 mg/dL) 2.7 H Direct Bilirubin (< 0.4 mg/dL) 1.1 H AST (14 - 36 U/L) 53 H ALT (9 - 52 U/L) 45 Alkaline Phosphatase (<127 U/L) 108 Ammonia (9 - 30 umol/L) 72 H Total Protein (6.3 - 8.2 g/dL) 5.8 L Albumin (3.5 - 5.0 g/dL) 2.2 L Coagulation PT (9.4 - 12.5 SEC) 21.8 H INR (0.90 - 1.19) 2.09 H Hematology CBC w Diff NO MAN DIFF REQ NO MAN DIFF REQ WBC (4.8 - 10.8 /CUMM) 3.9 L 3.9 L RBC (4.20 - 5.40 /CUMM) 2.93 L 2.91 L Hgb (12.0 - 16.0 G/DL) 9.4 L 9.4 L Hct (37 - 47 %) 28.3 L 28.1 L MCV (81.0 - 99.0 FL) 96.6 96.4 MCH (27.0 - 31.0 PG) 32.2 H 32.5 H RDW (11.5 - 14.5 %) 16.5 H 16.6 H Plt Count (130 - 400 /CUMM) 129 L 129 L MPV (7.4 - 10.4 FL) 8.4 8.2 Gran % (42.2 - 75.2 %) 64.0 58.0 Lymphocytes % (20.5 - 51.1 %) 19.4 L 26.4 Monocytes % (1.7 - 9.3 %) 13.1 H 11.5 H Eosinophils % (0 - 5 %) 3.3 3.5 Basophils % (0.0 - 2.0 %) 0.2 0.6 Absolute Granulocytes (1.4 - 6.5 /CUMM) 2.5 2.3 Absolute Lymphocytes (1.2 - 3.4 /CUMM) 0.8 L 1.0 L Absolute Monocytes (0.10 - 0.60 /CUMM) 0.5 0.5 Absolute Eosinophils (0.0 - 0.7 /CUMM) 0.1 0.1 Absolute Basophils (0.0 - 0.2 /CUMM) 0 0 PUBS MCHC (33.0 - 37.0 G/DL) 33.4 33.7 Impression/Plan Impression/Plan Impression/Plan: Physical Exam General Appearance: Alert, Oriented X3, Cooperative, No Acute Distress Skin: No Significant Lesion, Scattered ecchymosis with generalized edema appreciated. HEENT: Atraumatic, Mucous Membr. moist/pink Neck: Supple, No JVD Lymphatic: Cervical nl Cardiovascular: Regular Rate, Normal S1, Normal S2, 3/6 systolic murmur appreciated Lungs: Diminished breath sounds bilaterally Abdomen: Normal Bowel Sounds, Soft, No Tenderness Neurological: Normal Speech, Normal Tone Extremities: No Clubbing, No Cyanosis, No Edema CT CHEST ABD AND PELVIS IMPRESSION: 1. Large left pleural effusion similar in volume to the prior CT scan of 09/07/2016. Compressive atelectasis at left lung base. 2. Small volume of abdominal ascites. Generalized anasarca. No retroperitoneal or intraperitoneal bleed or mass. 3. Cholelithiasis. 4. Cirrhosis of the liver. IMPRESSION Ms. Lei is a pleasant 89 year old female with PMH atrial fibrillation on coumadin, liver cirrhosis, diabetes, HTN, persistent left-sided pleural effusion s/p paracentesis, neutropenia, breast CA S/B bilateral lumpectomy and radiation and multinodular goiter who was transferred from her extended care facility yesterday due to lethargy/weakness, decreased oral intake , altered mental status and blood in her stool. Patient was recently discharged from [facility] on 11/17/16 after being treated for hepatic encephalopathy. She was also admitted in September of 2016 and found to be septic from a urinary tract infection; she was found to have a transudative left pleural effusion at that time as well, negative for malignancy. ISSUES * LArge effuision in the left side consistant with prob hepatic hydrothorax * INR still high * REcent worsening mental status due to prob hep encephelopathy and responded to lactulose now with diarrhea * REcent gi bleed which is better and gi on board and pt wishes no colonoscopy * REcent admission with sepsis * Chronic afib * Chf with preserved ef * SIg htn * Prob myelodysplasia * Hyperthyroid on methimazone REC * Cont present mgt * Hold warfarin * COnt bp meds and lactulose etc as is * No urgent need for thoracentesis * ONce inr is less than 1.8 and if pt is still dyspneic thoracentesis can be done hopefully in am * Will follow
--- NOTE | 2016-12-07 14:30 | PN- Att Addend ---
Attending Addendum Attending Brief Note Mrs. Lei feels that her mental status is improving. At this time she complains of only pain in her right heel. She continues to be afebrile with stable vital signs. Physical exam shows decreased breath sounds in the left hemithorax. She is hyperneic. Her serum ammonia continues to rise slowly. Her INR is 2.2. Of concern is continued slow rise of her serum ammonia levels. We should ask GI to revisit for further instruction. We should also ask IR to do a repeat thoracentesis and if necessary correct her INR with FFP. We should continue other modalities.
[2016-12-07 15:56] VITALS: BP 142/62
[2016-12-08 00:35] VITALS: BP 118/57
--- NOTE | 2016-12-08 06:48 | PN- Housestaff ---
Subjective Follow-up For: AMS Hepatic encephalopathy LGIB Subjective: Patient seen and examined at bedside this AM. She reports mild dyspnea, though she is less lethargic than before. She is very hungry and reports that now her appetite has returned. She continues to endorse bilateral heel pain, though no erythema, warmth or ulcers appreciated on examination. Review of Systems Constitutional: Denies: chills, fever, malaise. EENTM: Denies: blurred vision, hearing changes, nasal congestion, throat pain. Cardiovascular: Reports: peripheral edema. Denies: chest pain, palpitations. Respiratory: Reports: cough, short of breath, wheezing. Gastrointestinal: Denies: abdominal pain, diarrhea, nausea, bloody stool, vomiting. Genitourinary: Denies: dysuria. Musculoskeletal: Denies: back pain. Skin: Reports: erythema (s/p blood draws). Neurological/Psychological: Denies: confusion, headache. Hematologic/Endocrine: Reports: bruising. Objective Last 24 Hrs of Vital Signs/I&O Vital Signs Date Time Temp Pulse Resp B/P Pulse O2 O2 Flow FiO2 Ox Delivery Rate 12/08 1143 Room Air Room Air 12/08 1134 Room Air Room Air 12/08 0939 96 Room Air Room Air 12/08 0835 99.0 70 18 110/62 96 Room Air 12/08 0035 98.8 88 20 118/57 97 12/07 2135 91 Room Air 12/07 1600 98 Room Air 12/07 1556 97.2 83 20 142/62 98 Intake & Output 12/08 1600 /06 0800 02/06 0000 Intake Total 540 1000 Output Total 150 250 250 Balance -150 290 750 Intake, IV 400 400 Intake, Oral 140 600 Number 1 Bowel Movements Output, Urine 150 250 250 Physical Exam General Appearance: Alert, Oriented X3, Cooperative, No Acute Distress Skin: Generalized anasarca with scattered brusing from blood draws. Skin noted to be wheeping 2/2 anasarca. HEENT: Atraumatic, Mucous Membr. moist/pink Neck: Supple Cardiovascular: Regular Rate, Normal S1, Normal S2 Lungs: Reduced air entry bilaterally with decreased breath sounds left lung base. Occasional wheeze. Abdomen: Normal Bowel Sounds, Soft, No Tenderness Neurological: Normal Speech Extremities: No Clubbing, No Cyanosis, Generalized edema appreciated, no significant change from yesterday. Vascular: Normal Pulses Current Medications: Current Medications Sig/Misha Start time Last Medication Dose Route Stop Time Status Admin Albuterol Sulfate 3 ML TID 12/05 1100 AC 12/08 INH 1302 Anastrozole 1 MG DAILY 12/04 1000 AC 12/08 PO 0926 Dextrose/Sodium 1,000 ML Q20H 12/06 1630 DC 12/08 Chloride IV 0524 Lactulose 20 GM TID 12/05 1600 AC 12/08 PO 0926 Magnesium Oxide 400 MG DAILY 12/03 2330 AC 12/07 PO 0952 Methimazole 2.5 MG 12/05 1000 AC 12/08 PO 0926 Pantoprazole Sodium 40 MG BID 12/04 1500 AC 12/08 IV 0926 Potassium Chloride 20 MEQ DAILY 12/04 1000 AC 12/08 PO 0926 Last 24 Hrs of Lab/Claude Results Last 24 Hrs of Labs/Mics: Laboratory Tests 12/08/16 1200: PT Cancelled, INR Cancelled 12/08/16 1200: PT Cancelled, INR Cancelled 12/08/16 0830: Anion Gap 8, Estimated GFR > 60, BUN/Creatinine Ratio 26.3 H, Total Bilirubin 4.0 H, Direct Bilirubin 1.8 H, AST 60 H, ALT 44, Alkaline Phosphatase 136 H, Ammonia 20, Total Protein 6.6, Albumin 2.5 L, PT 22.7 H, INR 2.18 H, CBC w Diff NO MAN DIFF REQ, RBC 3.33 L, MCV 96.0, MCH 32.0 H, RDW 15.9 H, MPV 8.7, Gran % 61.8, Lymphocytes % 20.8, Monocytes % 11.9 H, Eosinophils % 4.8, Basophils % 0.7, Absolute Granulocytes 2.8, Absolute Lymphocytes 0.9 L, Absolute Monocytes 0.5, Absolute Eosinophils 0.2, Absolute Basophils 0, PUBS MCHC 33.3 Microbiology 12/08 751 BODY FLUID: Body Fluid Culture - COLB 12/08 751 BODY FLUID: Gram Stain - COLB Orders Radiology Findings: EXAMINATION: XR PORTABLE CHEST CLINICAL INFORMATION: Shortness of breath with occasional agonal breaths. Presumptive diagnosis of pneumonia and worsening pleural effusion. COMPARISON: Chest x-ray dated 11/14/2016 and 11/09/2016 and 10/10/2016. A CT scan of the chest dated 12/03/2016. TECHNIQUE: Portable AP semierect view of the chest was obtained. FINDINGS: The cardiomediastinal silhouette is obscured by a moderate size left-sided pleural effusion, which extends up to one half of the chest height. There is associated volume loss and consolidation in the left mid and lower lung. Compared to the prior chest x-ray from 11/14/2016, the volume of pleural fluid has increased. The right lung is fully expanded and shows no significant pleural effusion or focal consolidation. There is central vascular congestion. No overt pulmonary edema is seen. No pneumothorax is present. There are tay seen in the left axilla from prior lymph node resection. There is also asymmetry of the breast shadows from prior left breast lumpectomy. Osteopenia is seen with mild vertebral spondylosis in the thoracic spine. IMPRESSION: 1. Increasing left-sided pleural effusion. 2. Left mid and lower lung parenchymal consolidation and volume loss, similar to prior exam. 3. No pulmonary edema. Assessment/Plan Assessment: Ms. Lei is a pleasant 89 year old female with PMH atrial fibrillation on coumadin, liver cirrhosis, diabetes, HTN, persistent left-sided pleural effusion s/p paracentesis, neutropenia, breast CA S/B bilateral lumpectomy and radiation and multinodular goiter who was transferred from her extended care facility yesterday due to lethargy/weakness, decreased oral intake , altered mental status and blood in her stool. Patient was recently discharged from [facility] on 11/17/16 after being treated for hepatic encephalopathy. She was also admitted in September of 2016 and found to be septic from a urinary tract infection; she was found to have a transudative left pleural effusion at that time as well, negative for malignancy. In the ED: Vital signs showed T 94.0, HR 88, RR 20, BP 133/63 and O2 saturation of 100% on 2L NC. Labs showed WBC count 3.1, hemoglobin 10.4, hematocrit 31.2, platelet count 161, INR 6.18 PTT 63.7, sodium 143, potassium 4.8, BUN 37 and creatinine 0.9. Glucose was 90, lactic acid was high to 2.8, phosphorus 4.7, bilirubin was 2.1, ammonia 129 and albumin was 2.4. EKG showed atrial fibrillation without ST-T wave changes. Head CT was done and showed no acute intracranial pathology. Chest/abdomen/pelvis CT was done and showed large left pleural effusion (similar to 09/07/16), small volume abdominal ascites, generalizes anasarca, no intra/retroperitoneal bleed, and cirrhosis of the liver. Patient was admitted to the general medicine floor and the following is the management: 1. Hepatic encephalopathy * Altered mental status likely secondary to hyperammonemia due to cirrhosis (no signs of infection [UA normal, CXR negative for PNA], head CT unremarkable for acute intracranial pathology) * Patient is more alert/oriented this morning and ammonia WNL at 20, continue to trend * Continue lactulose, target #BMs 2-3 * Trend LFTs daily. * GI consult placed and appreciated, will continue to follow recommendations 2. Acute blood loss anemia with BRBPR * Vital signs Q shift, patient remains hemodynamically stable * Continue to follow GI recommendations * BRBPR slowly subsided, now patient has no reported bloody BMs * Patient recieved a total of 10 mg IM x 1, Vit K, 1 U FFP * INR this AM 2.18, though goal is <2 for therapeutic thoracentesis * Avoid NSAIDs * Continue to trend CBC * IV protonix 40 mg BID * Further workup likely to be done as an outpatient 3. Atrial fibrillation on coumadin with supratherapeutic INR * INR on admission of 6.18, currently therapeutic to 2.18 * Repeating INR daily to trend * Cardiology consult placed, Dr. Lopez suggests patient not have lifelong anticoagulation due to age and comorbidities (will DC coumadin) * Troponin negative on admission, no s/s ACS 4. Breast cancer * Continue anastrozole 1 mg PO daily 5. Multinodular goiter * Continue methimazol 2.5 mg PO M, W, F 6. Left pleural effusion * Left pleural effusion worsening as noted by portable CXR * Monitor respiratory status closely, continue TRC nebs * Pulm consult with Dr. Arguello/Caprice placed and appreciated * Patient will likely require thoracentesis tomorrow as recommended by Dr. Arguello, goal INR needs to be <2 DNR/DNI Diet: Regular diet DVTP: ALPS Problem List: 1. Supratherapeutic INR 2. Hypothermia 3. Hyperammonemia 4. Hepatic encephalopathy 5. Rectal bleeding 6. Coagulopathy Pain Ratin Pain Location: n/a Pain Goal: Remain pain free Pain Plan: Mild pain pathwy. Tomorrow's Labs & Rationales: CBC (monitor leukopenia, anemia), BEP (BUN), ammonia, LFTs, INR
[2016-12-08 08:35] VITALS: BP 110/62
[2016-12-08 09:01] LABS: PT 22.7 SEC (9.4-12.5)
[2016-12-08 09:05] LABS: ABSOLUTE BASOPHIL COUNT 0 /CUMM (0.0-0.2); ABSOLUTE EOSINOPHIL COUNT 0.2 /CUMM (0.0-0.7); ABSOLUTE GRANULOCYTE CT 2.8 /CUMM (1.4-6.5); ABSOLUTE LYMPH COUNT 0.9 /CUMM (1.2-3.4); ABSOLUTE MONOCYTE COUNT 0.5 /CUMM (0.10-0.60); BASOPHIL % 0.7 % (0.0-2.0); EOSINOPHIL % 4.8 % (0-5); GRANULOCYTE % 61.8 % (42.2-75.2); HEMATOCRIT 31.9 % (37-47); MEAN CORPUSCULAR HGB CONC 33.3 G/DL (33.0-37.0); MEAN PLATELET VOLUME 8.7 FL (7.4-10.4); PLATELET COUNT 139 /CUMM (130-400); RBC DISTRIBUTION WIDTH 15.9 % (11.5-14.5); RED BLOOD CELL CT 3.33 /CUMM (4.20-5.40); WHITE BLOOD CELL COUNT 4.5 /CUMM (4.8-10.8)
--- NOTE | 2016-12-08 09:21 | Discharge Summary ---
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 Patient was brought in from facility due to confusion, lethargy and altered mental status since 1 day before admission. When reexamined the patient patient was very confused and lethargic, continuously closed her eyes and was not able to answer any of our questions but was responding to loud voice and painful stimuli. History was taken on telephone from her daughter. According to her she was very weak and lethargic and She complained of some nausea and chills but denied chest pain, cough, fever, diarrhea, constipation, palpitations, headaches, any urinary or bowel complaints, 1 day before admission Her vital signs on admission were temperature 94.0 liters on came back normal to 97.3, pulse 88, respiratory rate 20, blood pressure 133/63 and she was saturating 98% on 2 L nasal cannula later on was saturating fine on room air. Labs were significant for WBC count 3.1, hemoglobin 10.4, hematocrit 31.2, platelet count 161, INR 6.18 and PTT 63.7, sodium 143, potassium 4.8, BU and 37 and creatinine 0.9. Glucose was 90 and lactic acid was high to 2.8, phosphorus 4.7, bilirubin was 2.1, ammonia 129 and albumin was 2.4. Head CT was negative for any intracranial bleed, abdomen and pelvis CT was also negative for any retroperitoneal or intraperitoneal bleed, chest CT showed pleural effusion not changed from the previous examination. EKG showed atrial fibrillation with no acute ST-T wave changes Physical examination Lethargic, not oriented to time person and place Head atraumatic Neck supple Chest auscultation showed irregularly irregular heart rate. 3/6 systolic murmur Lungs decreased air entry Abdomen soft nontender with positive bowel sounds Bilateral lower extremity edema, anasarca Patient was admitted to general floor and treated for these medical conditions: 1. Altered mental status and hyper ammonemia most likely due to hepatic encephalopathy due to underlying cirrhosis/Rectal bleed with supratherapeutic INR Patient was put on IV hydration and received rectal lactulose. However after the second dose of rectal lactulose patient and one episode of bloody bowel movement with clots. 2 units of FFP was given and we continued lactulose AK, per GI recommendation. Other episode of rectal bleeding was observed and patient mental status improved gradually to the point that she could take her pills and we changed her lactulose to oral, IV fluids were stopped. Ammonia trended down to 20. However bilirubin remained around 4. We continued oral lactulose and patient was discharged with STR with much better mental status. Patient had both lower and upper extremity edema. 2. Coagulopathy with elevated INR to 6.18/cirrhosis Patient was given one episode of subcutaneous vitamin K injection and 2 units of FFP. INR trended down to 2.12. For thoracocentesis patient was given another unit of FFP and INR trended down arund 2. Patient got another 2 units of FFP to bring down her INR to 1.8. Per cardiology warfarin should be stopped indefinitely. 5. chronic pleural effusion We decreased INR to 1.8 with FFP and vitamin K and patient underwent thoracentesis with removal of around 1 L of pleural effusion. Patient should follow-up with PCP for the results of the analysis of the pleural effusion fluid. 7. Hyperlipidemia,Hypertension,History of multinodular goiter on methimazole Initially we held all oral medications due to AMS. However patient status gradually improved and we resumed the medications, except Lasix which was stopped indefinitely per cardiology. Allergies: Coded Allergies: atorvastatin (Intermediate, MODERATE PAIN TO BACK AND SHOULDERS 01/20/16) scallops (GI DISTRESS 01/20/16) Significant Procedures: PATIENT: RUEL CARRASCO PRESENT AGE: 89 PATIENT ACCOUNT NO: [id number] : [birth year] LOCATION: 2NB ORDERING PHYSICIAN: ANGELINE SILVA MD SERVICE DATE: 12/10/16 EXAM TYPE: US - US-THORACENTESIS EXAMINATION: ULTRASOUND-GUIDED LEFT-SIDED THORACENTESIS CLINICAL INFORMATION: Large pleural effusion on chest x-ray and shortness of breath.. INTERVENTIONALIST: Samm Omer MD PROCEDURE/FINDINGS: After all the risks, benefits and alternatives were explained to the patient and all questions answered, informed consent was signed. Preliminary ultrasound demonstrates significant left-sided pleural fluid. Using ultrasound guidance with the usual sterile interventional technique, a 5 [place] Yueh needle and catheter was placed into the left pleural cavity. Approximately 960 mL of pleural fluid was evacuated. Samples of fluid were sent for the requested laboratory exams. A post procedure portable chest radiograph was performed, which demonstrates decreased size of the left pleural effusion and no evidence of pneumothorax. MEDICATIONS: Lidocaine 1% was used for local anesthesia. IMPRESSION: 1. Ultrasound-guided left-sided thoracentesis yielding 960 mL of pleural fluid. 2. Post procedure chest x-ray demonstrates decreased size of the left pleural effusion without pneumothorax. DICTATED BY: SAMM OMER MD DATE/TIME DICTATED:12/10/161251 RETAIL BRANCH MANAGER:[email or web address] DATE/TIME TRANSCRIBED:12/10/161251 CONFIDENTIAL, DO NOT COPY WITHOUT APPROPRIATE AUTHORIZATION. <Electronically signed in Other Vendor System> SIGNED BY: SAMM OMER MD [id number] Disposition Summary Disposition Principal Diagnosis: Hepatic encephalopathy GI bleeding with elevated INR Massive pleural effusion Additional Diagnosis: Hypertension Diabetes Hyperlipidemia Toxic Goiter Discharge Disposition: SNF Discharge Instructions General Discharge Information Code Status: Do Not Resucitate/Intubat Patient's Diet: Heart healthy/diabetic Patient's Activity: as tolerated Follow-Up Instructions/Appts: Please follow up with your PCP Dr. Garcia within 1 week of discharge. Please follow up with Dr. Aparicio within 2 weeks of discharge for continued management of your lower GI bleed. Please follow up with Dr. Arguello within 2 weeks for your recurrent pleural effusion. Please follow up with Dr. Cadena for continued cardiac care. Please take all medications as directed. We have STOPPED your lasix and coumadin , do NOT resume these. Medications at Discharge Discharge Medications: Stop taking the following medications: Warfarin Sodium (Coumadin) 2.5 MG TABLET ORAL As Directed Qty = 90 Furosemide (Lasix) 20 MG TABLET ORAL as needed for EDEMA Acetaminophen (Tylenol Arthritis) 650 MG TABLET.ER Ibuprofen (Ibuprofen) 400 MG TABLET Continue taking these medications: Anastrozole (Anastrozole) 1 MG TABLET 1 Milligram ORAL DAILY Comments: Last Taken: 12/10/16 Time: 1100AM Cholecalciferol (Vitamin D3) 1,000 UNIT TABLET Comments: NOT GIVEN IN HOSPITAL Alendronate Sodium (Fosamax) 70 MG TABLET 1 Tablet ORAL EVERY THURSDAY Instructions: in the morning, at least 30 minutes before the first food, beverage, or medication of the day Comments: NOT GIVEN IN HOSPITAL Methimazole (Methimazole) 5 MG TABLET 2.5 Milligram ORAL THURSDAY, THURSDAY AND THURSDAY Comments: Last Taken: 12/10/16 Time:1100AM QUINAPRIL HCL (Quinapril HCl) 20 MG TAB 1 Tablet ORAL DAILY Qty = 90 Comments: Last Taken:11/19 Time:9AM (LISINOPRIL) Fluvastatin Sodium (Lescol 20MG) 20 MG CAP 1 Capsule ORAL AT BEDTIME Meclizine (Antivert) 12.5 MG TAB 1 Tablet ORAL EVERY SIX HOURS NEEDED as needed for VERTIGO Qty = 30 Ferrous Gluconate (IRON) 256 MG (28 MG IRON) TABLET 1 Tablet ORAL THREE TIMES DAILY Comments: NOT GIVEN IN HOSPITAL Potassium Chloride (Potassium Chloride) 20 MEQ TAB.ER.PRT 1 Tablet ORAL DAILY Qty = 90 Comments: Last Taken: 12/10/16 Time:1100AM Diclofenac Sodium (Voltaren) 1 % GEL..GRAM. 1 Gram On the skin as needed for PAIN Instructions: apply to affected area(s) Comments: NOT GIVEN IN THE HOSPITAL Magnesium Oxide (Magnesium) 400 MG CAPSULE 1 Capsule ORAL DAILY Qty = 30 Instructions: follows up with Dr. Garcia Comments: Last Taken: 12/10/16 Time: 1100AM Amlodipine Besylate (Amlodipine Besylate) 5 MG TABLET 1 Tablet ORAL DAILY Qty = 30 Comments: NOT GIVEN IN HOSPITAL Calcium Carbonate/Vitamin D3 (Os-Phill 500+D3 Caplet) 500 MG-200 TABLET 1 Tablet ORAL TWICE DAILY Comments: NOT GIVEN IN HOSPITAL Melatonin (Melatonin) 3 MG TABLET 1 Tablet ORAL Every night Acetaminophen (Tylenol) 325 MG TABLET 2 Tablet ORAL EVERY 6 HOURS NEEDED as needed for FEVER > 101 Instructions: maximum 2 g a day Comments: NOT GIVEN IN HOSPITAL Naloxone HCl (Narcan) 4 MG/ACTUATION SPRAY Comments: NOT GIVEN IN HOPSITAL Start taking the following new medications: Omeprazole (Omeprazole) 40 MG CAPSULE.DR 1 Capsule ORAL DAILY Qty = 30 No Refills Comments: IV PROTONIX GIVEN 12/10/16 @1100AM Lactulose (Lactulose) 10 GRAM/15 ML SOLUTION 30 Milliliters ORAL Every Morning Qty = 900 No Refills Instructions: Titrate to 2-3 bowel movements a day. Comments: Last Taken: 12/10/16 Time: 1100AM Copies To: REJI TSANG,SHAKIRA Oleary; CONRAD APARICIO MD; ISIDRO TSANG,DARIEL
--- NOTE | 2016-12-08 09:30 | NUR ---
NURSING NOTE: PATIENT WAS TO RECEIVE FFP X1 UNIT AT THIS TIME. ORDER PLACED FOR BBT AND DISTRIBUTION CALLED. PATIENT VSS, ALL TUBING HUNG. AFTER ALL THIS WAS COMPLETED, PERSONNEL ASSOCIATE 133 CANCELLED THE ORDER FOR THE PATIENT TO GET FFP DUE TO MD DECISION. WILL CONTINUE TO MONITOR.
--- NOTE | 2016-12-08 10:50 | PN- Pulmonary ---
Subjective HPI/Critical Care Issues: pt seen and examined saturating well comfortable inr still elevated effusion persists Objective Current Medications: Current Medications Sig/Misha Start time Last Medication Dose Route Stop Time Status Admin Albuterol Sulfate 3 ML TID 12/05 1100 AC 12/08 INH 0935 Anastrozole 1 MG DAILY 12/04 1000 AC 12/08 PO 0926 Dextrose/Sodium 1,000 ML Q20H 12/06 1630 DC 12/08 Chloride IV 0524 Lactulose 20 GM TID 12/05 1600 AC 12/08 PO 0926 Magnesium Oxide 400 MG DAILY 12/03 2330 AC 12/07 PO 0952 Methimazole 2.5 MG 12/05 1000 AC 12/08 PO 0926 Pantoprazole Sodium 40 MG BID 12/04 1500 AC 12/08 IV 0926 Potassium Chloride 20 MEQ DAILY 12/04 1000 AC 12/08 PO 0926 Vital Signs & I&O Last 24 Hrs of Vitals and I&O: Vital Signs Date Time Temp Pulse Resp B/P Pulse O2 O2 Flow FiO2 Ox Delivery Rate 12/08 0939 96 Room Air Room Air 12/08 0835 99.0 70 18 110/62 96 Room Air 12/08 0035 98.8 88 20 118/57 97 12/07 2135 91 Room Air 12/07 1600 98 Room Air 12/07 1556 97.2 83 20 142/62 98 Intake & Output 12/08 1600 12/08 0800 12/08 0000 Intake Total 540 1000 Output Total 250 250 Balance 290 750 Intake, IV 400 400 Intake, Oral 140 600 Number 1 Bowel Movements Output, Urine 250 250 Exam Other Physical Findings: gen awake and alert heent ncat cvs s1, s2, +murmur lungs diminished bs on left abd soft bs+ ext edematous Results Last 24 Hrs of Lab Results: Laboratory Tests 12/08/16 0830: Anion Gap 8, Estimated GFR > 60, BUN/Creatinine Ratio 26.3 H, Total Bilirubin 4.0 H, Direct Bilirubin 1.8 H, AST 60 H, ALT 44, Alkaline Phosphatase 136 H, Ammonia 20, Total Protein 6.6, Albumin 2.5 L, PT 22.7 H, INR 2.18 H, CBC w Diff NO MAN DIFF REQ, RBC 3.33 L, MCV 96.0, MCH 32.0 H, RDW 15.9 H, MPV 8.7, Gran % 61.8, Lymphocytes % 20.8, Monocytes % 11.9 H, Eosinophils % 4.8, Basophils % 0.7, Absolute Granulocytes 2.8, Absolute Lymphocytes 0.9 L, Absolute Monocytes 0.5, Absolute Eosinophils 0.2, Absolute Basophils 0, PUBS MCHC 33.3 Impression/Plan Impression/Plan Impression/Plan: Impression 89F left effusion/transudative, could be releated to liver disease, stabilized gi bleed Plan -thoracentesis can be useful, however no urgency and would bring down INR as close to 1.5 as possible prior to procedure, ffp can be used if need be
--- NOTE | 2016-12-08 15:00 | NUR ---
NURSING NOTE: BULK SYSTEM OPERATOR 133 PLACED NEW ORDER FOR THE PATIENT TO RECIEVE FFP AT THIS TIME. 1 UNIT FFP TRANFUSED. WILL CONTINUE TO MONITOR PER PROTOCOL.
[2016-12-08 16:31] VITALS: BP 110/62
--- NOTE | 2016-12-08 18:04 | PN- Att Addend ---
Attending Addendum Attending Brief Note Mrs. Lei was interviewed, examined and her EMR reviewed. She remains afebrile and her vital signs are stable. Pulmonary exam is notable for hyperpnea and decreased breath sounds on the left side.cardiovascular exam is unchanged abdomen is soft. She does note bilateral upper extremity weakness. There is diffuse edema with weeping and vesicles. Her ammonia has corrected to 20. Her H&H is stable. Her bilirubin, alkaline phosphatase, and AST have continued to climb. I think we can improve her pulmonary status by decreasing her restrictive lung disease with a thoracentesis of her left pleural effusion. She has received fresh frozen plasma to improve her INR and her thoracentesis is scheduled for the a.m. We should ask GI to comment on the changes in her liver functions, he is known to have choledocholithiasis previously has had no evidence of obstruction or infection. Physical therapy should be asked to evaluate her complaint of upper extremity weakness.
[2016-12-08] MEDS ORDERED: OMEPRAZOLE40 M1 PO (19:46)
[2016-12-08] MEDS ORDERED: LACTULOSE10 GM/153 PO (19:47)
--- NOTE | 2016-12-08 19:51 | Patient Discharge Instructions ---
Discharge Instructions General Discharge Information You were seen/treated for: Hepatic encephalopathy Liver dysfunction Lower GI Bleed Special Instructions: Please follow up with your PCP Dr. Garcia within 1 week of discharge. Please follow up with Dr. Aparicio within 2 weeks of discharge for continued management of your lower GI bleed. Please follow up with Dr. Arguello within 2 weeks for your recurrent pleural effusion. Please follow up with Dr. Cadena for continued cardiac care. Please take all medications as directed. We have STOPPED your lasix and coumadin , do NOT resume these. Diet Recommended Diet: Heart Healthy Activity Activity Self Limited: Yes Acute Coronary Syndrome Inclusion Criteria At DC or during hospital stay patient has or had the following: ACS DIAGNOSIS No Discharge Core Measures Meds if any: Prescribed or Continued at Discharge Meds if any: NOT Prescribed or Continued at Discharge Congestive Heart Failure Inclusion Criteria At DC or during hospital stay patient has or had the following: CHF DIAGNOSIS No Discharge Core Measures Meds if any: Prescribed or Continued at Discharge Meds if any: NOT Prescribed or Continued at Discharge Cerebrovascular accident Inclusion Criteria At DC or during hospital stay patient has or had the following: CVA/TIA Diagnosis No Discharge Core Measures Meds if any: Prescribed or Continued at Discharge Meds if any: NOT Prescribed or Continued at Discharge Venous thromboembolism Inclusion Criteria VTE Diagnosis No VTE Type NONE VTE Confirmed by (Test) NONE Discharge Core Measures - Per Current guidelines, there needs to be overlap - treatment for the first 5 days of Warfarin therapy. - If discharged on Warfarin prior to 5 days of - overlap therapy, the patient will need to be - assessed for post discharge needs including - *Post discharge parental anticoagulation - *Warfarin and/or parental anticoagulation education - *Follow up date to check INR post discharge At least 5 days overlap therapy as Inpatient No Meds if any: Prescribed or Continued at Discharge Note: Overlap Therapy is Warfarin and Anticoagulant Meds if any: NOT Prescribed or Continued at Discharge
[2016-12-09 00:02] VITALS: BP 130/70
--- NOTE | 2016-12-09 07:01 | PN- Housestaff ---
Subjective Follow-up For: Hepatic encephalopathy Liver dysfunction with elevated total and direct bilirubin Gait instability Lower GI Bleed Subjective: Patient seen and examined at bedside this AM. She reports she is very hungry and has a great appetite. She does endorse dyspnea on exertion and at rest. She is amenable to thoracentesis once her INR is therapeutic. Review of Systems Constitutional: Denies: chills, fever. EENTM: Denies: blurred vision, hearing changes. Cardiovascular: Denies: chest pain, palpitations. Respiratory: Reports: short of breath, wheezing. Denies: cough, sputum production. Gastrointestinal: Denies: abdominal pain, bloating, constipation, diarrhea. Genitourinary: Denies: dysuria. Musculoskeletal: Denies: back pain. Skin: Reports: erythema (Scattered bruising). Neurological/Psychological: Denies: confusion, headache. Hematologic/Endocrine: Denies: bruising, bleeding. Objective Last 24 Hrs of Vital Signs/I&O Vital Signs Date Time Temp Pulse Resp B/P Pulse O2 O2 Flow FiO2 Ox Delivery Rate 12/09 0908 97 Room Air Room Air 12/09 0800 Room Air 12/09 0759 98.3 93 20 110/62 97 Room Air 12/09 0002 98.4 87 18 130/70 97 Room Air 12/09 0000 97 Room Air Room Air 12/08 1940 92 Room Air 12/08 1631 98.1 78 18 110/62 94 Intake & Output 12/09 1600 12/09 0800 12/09 0000 Intake Total 120 Output Total 200 225 Balance -200 -105 Intake, Oral 120 Number 2 Bowel Movements Output, Urine 200 225 Physical Exam General Appearance: Alert, Oriented X3, Cooperative, No Acute Distress Skin: Generalized anasarca with scattered ecchoymosis HEENT: Atraumatic, Mucous Membr. moist/pink Neck: Supple Cardiovascular: Regular Rate, Normal S1, Normal S2 Lungs: Normal Air Movement, Decreased left sided breath sounds Abdomen: Normal Bowel Sounds, Soft Neurological: Normal Speech, Normal Tone Extremities: No Clubbing, No Cyanosis, Persistent edema, slightly improved from yesterday Vascular: Pulses Symmetrical Current Medications: Current Medications Sig/Misha Start time Last Medication Dose Route Stop Time Status Admin Acetaminophen 650 MG ONCE ONE 12/08 1844 DC 12/08 PO 12/08 184 184 Albuterol Sulfate 3 ML TID 12/05 1100 AC 12/09 INH 0903 Anastrozole 1 MG DAILY 12/04 1000 AC 12/09 PO 0810 Lactulose 20 GM TID 12/05 1600 AC 12/09 PO 0810 Magnesium Oxide 400 MG DAILY 12/03 2330 AC 12/09 PO 0810 Methimazole 2.5 MG 12/05 1000 AC 12/08 PO 0926 Pantoprazole Sodium 40 MG BID 12/04 1500 AC 12/09 IV 0810 Patient Medication 1 ED .[facility] 12/08 1422 ME Teaching ED 12/08 1423 Potassium Chloride 20 MEQ DAILY 12/04 1000 AC 12/09 PO 0810 Last 24 Hrs of Lab/Claude Results Last 24 Hrs of Labs/Mics: Laboratory Tests 12/09/16 0800: Fluid WBC Cancelled, Fld Total RBCs Counted Cancelled 12/09/16 0800: Fluid Albumin Cancelled 12/09/16 0715: Anion Gap 4 L, Estimated GFR 59 L, BUN/Creatinine Ratio 23.3, Total Bilirubin 3.8 H, Direct Bilirubin 1.6 H, AST 48 H, ALT 43, Alkaline Phosphatase 117, Ammonia 41 H, Total Protein 5.7 L, Albumin 2.1 L, PT 24.3 H, INR 2.33 H, CBC w Diff NO MAN DIFF REQ, RBC 2.84 L, MCV 97.0, MCH 32.9 H, RDW 15.7 H, MPV 8.4, Gran % 57.2, Lymphocytes % 24.3, Monocytes % 12.9 H, Eosinophils % 4.9, Basophils % 0.7, Absolute Granulocytes 2.4, Absolute Lymphocytes 1.0 L, Absolute Monocytes 0.5, Absolute Eosinophils 0.2, Absolute Basophils 0, PUBS MCHC 34.0 Microbiology 12/09 799 BODY FLUID: Body Fluid Culture - COLB 12/09 799 BODY FLUID: Gram Stain - COLB Assessment/Plan Assessment: Ms. Lei is a pleasant 89 year old female with PMH atrial fibrillation on coumadin, liver cirrhosis, diabetes, HTN, persistent left-sided pleural effusion s/p paracentesis, neutropenia, breast CA S/B bilateral lumpectomy and radiation and multinodular goiter who was transferred from her extended care facility yesterday due to lethargy/weakness, decreased oral intake , altered mental status and blood in her stool. Patient was recently discharged from [facility] on 11/17/16 after being treated for hepatic encephalopathy. She was also admitted in September of 2016 and found to be septic from a urinary tract infection; she was found to have a transudative left pleural effusion at that time as well, negative for malignancy. In the ED: Vital signs showed T 94.0, HR 88, RR 20, BP 133/63 and O2 saturation of 100% on 2L NC. Labs showed WBC count 3.1, hemoglobin 10.4, hematocrit 31.2, platelet count 161, INR 6.18 PTT 63.7, sodium 143, potassium 4.8, BUN 37 and creatinine 0.9. Glucose was 90, lactic acid was high to 2.8, phosphorus 4.7, bilirubin was 2.1, ammonia 129 and albumin was 2.4. EKG showed atrial fibrillation without ST-T wave changes. Head CT was done and showed no acute intracranial pathology. Chest/abdomen/pelvis CT was done and showed large left pleural effusion (similar to 09/07/16), small volume abdominal ascites, generalizes anasarca, no intra/retroperitoneal bleed, and cirrhosis of the liver. Patient was admitted to the general medicine floor and the following is the management: 1. Hepatic encephalopathy * Altered mental status likely secondary to hyperammonemia due to cirrhosis (no signs of infection [UA normal, CXR negative for PNA], head CT unremarkable for acute intracranial pathology) * Patient is more alert/oriented this morning, however ammonia trended up again today * Continue lactulose, target #BMs 2-3 * Trend LFTs daily. * GI consulted again today, asked to make recommendations on further management of liver dysfunction and hyperbilirubinemia (direct and total) * PT evaluated patient and suggests STR, case managment has procured patient a bed, will discharge there once medically stable 2. Acute blood loss anemia with BRBPR * Vital signs Q shift, patient remains hemodynamically stable * Continue to follow GI recommendations * BRBPR slowly subsided, now patient has no reported bloody BMs * Patient recieved a total of 10 mg IM x 1, Vit K, 1 U FFP * INR this AM 2.33, though goal is <2 for therapeutic thoracentesis * Avoid NSAIDs * Continue to trend CBC * IV protonix 40 mg BID * Further workup of LGIB likely to be done as an outpatient 3. Atrial fibrillation on coumadin with supratherapeutic INR * INR on admission of 6.18, currently therapeutic to 2.33 * Repeating INR daily to trend * Cardiology consult placed, Dr. Lopez suggests patient not have lifelong anticoagulation due to age and comorbidities (will DC coumadin) * Troponin negative on admission, no s/s ACS * We have reconsulted cardiology to comment on generalized edema and appropriate therapy 4. Breast cancer * Continue anastrozole 1 mg PO daily 5. Multinodular goiter * Continue methimazol 2.5 mg PO M, W, F 6. Left pleural effusion * Left pleural effusion worsening as noted by portable CXR * Monitor respiratory status closely, continue TRC nebs * Pulm consult with Dr. Arguello/Caprice placed and appreciated * Patient will likely require thoracentesis tomorrow as recommended by Dr. Arguello, goal INR needs to be <2 We will discuss with attending about giving patient FFP/Vit K tomorrow morning with subsequent INR draw in hopes that INR <2 for thoracentesis DNR/DNI Diet: Regular diet DVTP: ALPS Problem List: 1. Supratherapeutic INR 2. Hypothermia 3. Hyperammonemia 4. Hepatic encephalopathy 5. Rectal bleeding 6. Pleural effusion Pain Ratin Pain Location: n/a Pain Goal: Remain pain free Pain Plan: mild pain pathway. Tomorrow's Labs & Rationales: CBC (monitor dropping H&H in setting of LGIB), LFTs/ammonia (hepatic encephalopathy), INR (pre-op)
[2016-12-09 07:58] LABS: ABSOLUTE BASOPHIL COUNT 0 /CUMM (0.0-0.2); ABSOLUTE EOSINOPHIL COUNT 0.2 /CUMM (0.0-0.7); ABSOLUTE GRANULOCYTE CT 2.4 /CUMM (1.4-6.5); ABSOLUTE MONOCYTE COUNT 0.5 /CUMM (0.10-0.60); BASOPHIL % 0.7 % (0.0-2.0); EOSINOPHIL % 4.9 % (0-5); GRANULOCYTE % 57.2 % (42.2-75.2); HEMATOCRIT 27.5 % (37-47); MEAN CORPUSCULAR HGB 32.9 PG (27.0-31.0); MEAN PLATELET VOLUME 8.4 FL (7.4-10.4); PLATELET COUNT 112 /CUMM (130-400); RBC DISTRIBUTION WIDTH 15.7 % (11.5-14.5); RED BLOOD CELL CT 2.84 /CUMM (4.20-5.40); WHITE BLOOD CELL COUNT 4.2 /CUMM (4.8-10.8)
[2016-12-09 07:59] VITALS: BP 110/62
[2016-12-09 08:22] LABS: PT 24.3 SEC (9.4-12.5)
--- NOTE | 2016-12-09 10:17 | PN- Pulmonary ---
Subjective HPI/Critical Care Issues: pt seen and examined anticipating thoracentesis no overnight events INR 2.33 some conversational dyspnea Objective Current Medications: Current Medications Sig/Misha Start time Last Medication Dose Route Stop Time Status Admin Acetaminophen 650 MG ONCE ONE 12/08 1845 DC 12/08 PO 12/08 1846 1849 Albuterol Sulfate 3 ML TID 12/05 1100 AC 12/09 INH 0903 Anastrozole 1 MG DAILY 12/04 1000 AC 12/09 PO 0810 Lactulose 20 GM TID 12/05 1600 AC 12/09 PO 0810 Magnesium Oxide 400 MG DAILY 12/03 2330 AC 12/09 PO 0810 Methimazole 2.5 MG 12/05 1000 AC 12/08 PO 0926 Pantoprazole Sodium 40 MG BID 12/04 1500 AC 12/09 IV 0810 Patient Medication 1 ED .STK-MED ONE 12/08 1422 DC Teaching ED 12/08 1423 Potassium Chloride 20 MEQ DAILY 12/04 1000 AC 12/09 PO 0810 Vital Signs & I&O Last 24 Hrs of Vitals and I&O: Vital Signs Date Time Temp Pulse Resp B/P Pulse O2 O2 Flow FiO2 Ox Delivery Rate 12/09 0908 97 Room Air Room Air 12/09 0800 Room Air 12/09 0759 98.3 93 20 110/62 97 Room Air 12/09 0002 98.4 87 18 130/70 97 Room Air 12/09 0000 97 Room Air Room Air 12/08 1940 92 Room Air 12/08 1631 98.1 78 18 110/62 94 / 1143 Room Air Room Air 12/08 1134 Room Air Room Air Intake & Output 12/09 1600 12/09 0800 12/09 0000 Intake Total 120 Output Total 200 225 Balance -200 -105 Intake, Oral 120 Output, Urine 200 225 Exam Other Physical Findings: gen awake and alert heent ncat cvs s1, s2, +murmur lungs diminished bs on left abd soft bs+ ext edematous Results Last 24 Hrs of Lab Results: Laboratory Tests 12/09/16 0800: Fluid WBC Cancelled, Fld Total RBCs Counted Cancelled 12/09/16 0800: Fluid Albumin Cancelled 12/09/16 0715: Anion Gap 4 L, Estimated GFR 59 L, BUN/Creatinine Ratio 23.3, Total Bilirubin 3.8 H, Direct Bilirubin 1.6 H, AST 48 H, ALT 43, Alkaline Phosphatase 117, Ammonia 41 H, Total Protein 5.7 L, Albumin 2.1 L, PT 24.3 H, INR 2.33 H, CBC w Diff NO MAN DIFF REQ, RBC 2.84 L, MCV 97.0, MCH 32.9 H, RDW 15.7 H, MPV 8.4, Gran % 57.2, Lymphocytes % 24.3, Monocytes % 12.9 H, Eosinophils % 4.9, Basophils % 0.7, Absolute Granulocytes 2.4, Absolute Lymphocytes 1.0 L, Absolute Monocytes 0.5, Absolute Eosinophils 0.2, Absolute Basophils 0, PUBS MCHC 34.0 12/08/16 1200: PT Cancelled, INR Cancelled 12/08/16 1200: PT Cancelled, INR Cancelled Impression/Plan Impression/Plan Impression/Plan: Impression 89F left effusion/transudative, could be releated to liver disease, stabilized gi bleed Plan -awaiting thoracentesis -INR elevated, d/w IR timing and need for further FFP prior to procedure -dc planning post procedure
--- NOTE | 2016-12-09 14:17 | PN- Att Addend ---
Attending Addendum Attending Brief Note Mrs. Lei was interviewed, examined, and her EHR reviewed. She still notes upper extremity weakness and also complains of hunger. She denies shortness of breath. Her vital signs are stable and her physical exam is essentially unchanged. Her INR and ammonia levels increased today. I agree with the suggestion that we should have GI revisit for further advice concerning her LFTs and ammonia levels. In addition I would give subcutaneous vitamin K and discuss with her concrete sculptor Dr. Cadena whether we should continue long-term anticoagulation. Physical therapy's input is greatly appreciated.
[2016-12-09 16:24] VITALS: BP 120/70
[2016-12-10 00:32] VITALS: BP 126/68
[2016-12-10 03:35] VITALS: BP 110/72
--- NOTE | 2016-12-10 04:55 | NUR ---
[address] AVINA PT WITH C/O SOME SHORTNESS OF BREATH AND WHEEZING. TEMP 100.1 MD NOTIFIED OF RESP. THERAPY TO COME AND EVALUATE THE PT. 0400 SEE RT NOTES-PT WAS GIVEN BREATHING RX. 0415 PT FEELS BETTER AFTER BREATHING RX. DR LOZA TO COME AND SEE PT. PER OK TO START FFP ORDERED. 0428 FFP INFUSING AND TOLERATING. 0500 DR AVINA IN TO SEE PT.
--- NOTE | 2016-12-10 06:58 | PN- Housestaff ---
Subjective Follow-up For: Hepatic encephalopathy Liver dysfunction Left pleural effusion Supratherapeutic INR Subjective: Patient seen and examined at bedside this AM. She endorses great appetite and overall feeling much better. She does continue to have reported dyspnea and is happy at the prospect of having a thoracentesis today. Review of Systems Constitutional: Denies: chills, fever. EENTM: Denies: hearing changes, nasal congestion. Cardiovascular: Denies: chest pain, palpitations. Respiratory: Reports: short of breath. Denies: cough, sputum production. Gastrointestinal: Denies: abdominal pain, bloating, constipation, diarrhea. Genitourinary: Denies: dysuria. Musculoskeletal: Denies: back pain. Skin: Reports: erythema (Scattered bruise 2/2 bloodraws). Neurological/Psychological: Denies: confusion, headache. Hematologic/Endocrine: Reports: bruising (From ). Denies: bleeding. Objective Last 24 Hrs of Vital Signs/I&O Vital Signs Date Time Temp Pulse Resp B/P Pulse O2 O2 Flow FiO2 Ox Delivery Rate 12/10 0738 99.6 90 18 142/70 97 12/10 0817 95 Room Air Room Air 12/10 0800 94 Room Air Room Air 12/10 0358 96 Room Air 12/10 0335 100.1 83 18 110/72 98 Room Air 12/10 0032 98.6 80 20 126/68 97 Room Air 12/10 0022 97 12/09 1906 97 Room Air Room Air 12/09 1624 98.0 86 19 120/70 97 Intake & Output 12/10 1600 /08 0800 12/10 0000 Intake Total 121 120 Output Total 200 Balance 121 -80 Intake, Blood 1 Product Intake, Oral 120 120 Number 1 Bowel Movements Output, Urine 200 Physical Exam General Appearance: Alert, Oriented X3, Cooperative, No Acute Distress Skin: SCATTERED BRUISING HEENT: Atraumatic, Mucous Membr. moist/pink Neck: Supple Cardiovascular: Regular Rate, Normal S1, Normal S2 Lungs: Normal Air Movement, Decreased breath sounds left hemithorax Abdomen: Normal Bowel Sounds, Soft, No Tenderness Neurological: Normal Speech, Normal Tone Extremities: No Clubbing, No Cyanosis, Generalized anasarca Vascular: Pulses Symmetrical Current Medications: Current Medications Sig/Misha Start time Last Medication Dose Route Stop Time Status Admin Albuterol Sulfate 3 ML TID 12/05 1100 AC 12/10 INH 0814 Anastrozole 1 MG DAILY 12/04 1000 AC 12/10 PO 1101 Lactulose 20 GM TID 12/05 1600 AC 12/10 PO 1101 Magnesium Oxide 400 MG DAILY 12/03 2330 AC 12/10 PO 1101 Methimazole 2.5 MG 12/05 1000 AC 12/10 PO 1101 Pantoprazole Sodium 40 MG BID 12/04 1500 AC 12/10 IV 1101 Phytonadione 10 MG ONCE ONE 12/09 1430 DC 12/09 SC 12/09 1431 1534 Potassium Chloride 20 MEQ DAILY 12/04 1000 AC 12/10 PO 1101 Last 24 Hrs of Lab/Claude Results Last 24 Hrs of Labs/Mics: Laboratory Tests 12/10/16 1205: Pleural pH 7.50 12/10/16 1205: Fluid WBC 119 H, Fld Mesothelial Cells 79, Fld Total RBCs Counted 1750 H 12/10/16 1205: Lymphocytes 19, % Normal PMNs 1, Misc Hematology Test 1, Phlebotomy Draw Site L THORACENTESIS, Fluid Glucose 117, Fluid Total Protein < 2.0, Fluid Albumin < 1.0 , Fluid LDH 407, Fluid Amylase < 30 12/10/16 0645: Total Bilirubin 3.7 H, Direct Bilirubin 1.6 H, AST 57 H, ALT 42, Alkaline Phosphatase 141 H, Lactate Dehydrogenase 719 H, Total Protein 6.6, Albumin 2.4 L, PT 19.3 H, INR 1.85 H, CBC w Diff NO MAN DIFF REQ, RBC 2.98 L, MCV 96.9, MCH 32.7 H, RDW 15.4 H, MPV 8.6, Gran % 75.1, Lymphocytes % 9.7 L, Monocytes % 11.0 H, Eosinophils % 3.8, Basophils % 0.4, Absolute Granulocytes 3.3, Absolute Lymphocytes 0.4 L, Absolute Monocytes 0.5, Absolute Eosinophils 0.2, Absolute Basophils 0, PUBS MCHC 33.7 Microbiology 12/10 1204 BODY FLUID: Body Fluid Culture - RECD 12/10 1204 BODY FLUID: Gram Stain - RECD Orders Radiology Findings: EXAMINATION:\H\ \N\XR CHEST CLINICAL INFORMATION: Status post left-sided thoracentesis. COMPARISON: 12/05/2016 TECHNIQUE: PA view of the chest was obtained. FINDINGS: Since the prior study there has been a decrease in the amount of pleural fluid in the left hemithorax. A small to moderate amount remains in the subpulmonic position. Surgical clips noted in the left axilla. The heart size is normal. No pneumothorax is seen. IMPRESSION: Decrease in size of pleural effusion after thoracentesis without pneumothorax seen. Some fluid remains. Assessment/Plan Assessment: Ms. Lei is a pleasant 89 year old female with PMH atrial fibrillation on coumadin, liver cirrhosis, diabetes, HTN, persistent left-sided pleural effusion s/p paracentesis, neutropenia, breast CA S/B bilateral lumpectomy and radiation and multinodular goiter who was transferred from her extended care facility yesterday due to lethargy/weakness, decreased oral intake , altered mental status and blood in her stool. Patient was recently discharged from [place] on 11/17/16 after being treated for hepatic encephalopathy. She was also admitted in September of 2016 and found to be septic from a urinary tract infection; she was found to have a transudative left pleural effusion at that time as well, negative for malignancy. In the ED: Vital signs showed T 94.0, HR 88, RR 20, BP 133/63 and O2 saturation of 100% on 2L NC. Labs showed WBC count 3.1, hemoglobin 10.4, hematocrit 31.2, platelet count 161, INR 6.18 PTT 63.7, sodium 143, potassium 4.8, BUN 37 and creatinine 0.9. Glucose was 90, lactic acid was high to 2.8, phosphorus 4.7, bilirubin was 2.1, ammonia 129 and albumin was 2.4. EKG showed atrial fibrillation without ST-T wave changes. Head CT was done and showed no acute intracranial pathology. Chest/abdomen/pelvis CT was done and showed large left pleural effusion (similar to 09/07/16), small volume abdominal ascites, generalizes anasarca, no intra/retroperitoneal bleed, and cirrhosis of the liver. Patient was admitted to the general medicine floor and the following is the management: 1. Hepatic encephalopathy * Altered mental status likely secondary to hyperammonemia due to cirrhosis (no signs of infection [UA normal, CXR negative for PNA], head CT unremarkable for acute intracranial pathology) * Patient is AAOx3 this AM, no need to trend ammonia, base tx on symptoms of encephalopathy * Continue lactulose, target #BMs 2-3, will discharge patient on this medication * Will not continue to trend LFTs/Ammonia as GI suggests no intervention at this time, patient has known fatty liver * PT evaluated patient and suggests STR, case managment has procured patient a bed, will discharge there either later today or tomorrow pending on how patient is doing s/p thoracentesis 2. Acute blood loss anemia with BRBPR * Vital signs Q shift, patient remains hemodynamically stable * Continue to follow GI recommendations * BRBPR slowly subsided, now patient has no reported bloody BMs * Patient s/p both Vit K and FFP * INR this AM 1.85 * Avoid NSAIDs * Continue to trend CBC * IV protonix 40 mg BID * Further workup of LGIB likely to be done as an outpatient 3. Atrial fibrillation on coumadin with supratherapeutic INR * INR on admission of 6.18, currently 1.85 * Cardiology consult placed, Dr. Cadena suggests that in view of comorbidities, patient should be taken off of coumadin and nto on lifelong AC * Troponin negative on admission, no s/s ACS * Cardiology also suggests keeping patient off of lasix which will be done 4. Breast cancer * Continue anastrozole 1 mg PO daily 5. Multinodular goiter * Continue methimazol 2.5 mg PO M, W, F 6. Left pleural effusion * Left pleural effusion was noted to be worsening on prior portable CXR * Patient had thoracentesis today with fluid removal and noted improvement in dyspnea * Pulm consult with Dr. Arguello/Caprice placed and appreciated * Further management outpatient by pulmonology to monitor recurrence of pleural effusion DNR/DNI Diet: Regular diet DVTP: ALPS Problem List: 1. Supratherapeutic INR 2. Hypothermia 3. Hyperammonemia 4. Hepatic encephalopathy 5. Encephalopathy 6. Rectal bleeding Pain Ratin Pain Location: n/a Pain Goal: Remain pain free Pain Plan: Mild pain pathway Tomorrow's Labs & Rationales: CBC (s/p thoracentesis) if not discharged today.
[2016-12-10 07:04] LABS: PT 19.3 SEC (9.4-12.5)
[2016-12-10 07:59] LABS: ABSOLUTE BASOPHIL COUNT 0 /CUMM (0.0-0.2); ABSOLUTE EOSINOPHIL COUNT 0.2 /CUMM (0.0-0.7); ABSOLUTE GRANULOCYTE CT 3.3 /CUMM (1.4-6.5); ABSOLUTE LYMPH COUNT 0.4 /CUMM (1.2-3.4); ABSOLUTE MONOCYTE COUNT 0.5 /CUMM (0.10-0.60); BASOPHIL % 0.4 % (0.0-2.0); EOSINOPHIL % 3.8 % (0-5); GRANULOCYTE % 75.1 % (42.2-75.2); HEMATOCRIT 28.8 % (37-47); MEAN CORPUSCULAR HGB 32.7 PG (27.0-31.0); MEAN CORPUSCULAR HGB CONC 33.7 G/DL (33.0-37.0); MEAN CORPUSCULAR VOLUME 96.9 FL (81.0-99.0); MEAN PLATELET VOLUME 8.6 FL (7.4-10.4); PLATELET COUNT 119 /CUMM (130-400); RBC DISTRIBUTION WIDTH 15.4 % (11.5-14.5); RED BLOOD CELL CT 2.98 /CUMM (4.20-5.40); WHITE BLOOD CELL COUNT 4.4 /CUMM (4.8-10.8)
[2016-12-10 08:38] VITALS: BP 142/70
--- NOTE | 2016-12-10 10:21 | PN- Cardiology ---
Subjective Subjective: The patient seems to be slightly better today. She is alert but remains slightly confused. She denies any specific complaints. Objective Vital Signs and I&Os Vital Signs Date Time Temp Pulse Resp B/P Pulse O2 O2 Flow FiO2 Ox Delivery Rate 12/10 837 99.6 90 18 142/70 97 12/10 0817 95 Room Air Room Air 12/10 0358 96 Room Air 12/10 0335 100.1 83 18 110/72 98 Room Air 12/10 0032 98.6 80 20 126/68 97 Room Air 12/10 0022 97 12/09 1906 97 Room Air Room Air 12/09 1624 98.0 86 19 120/70 97 Intake & Output 12/10 1600 12/10 0812/10 0000 12/09 1600 12/09 0812/09 0000 Intake Total 315 468 0814 120 Output Total 200 200 225 Balance 121 -80 1000 -200 -105 Intake, Blood 1 Product Intake, Oral 379 551 6882 120 Number 1 3 Bowel Movements Output, Urine 200 200 225 Physical Exam: General Appearance: Alert, Oriented X3, Cooperative, No Acute Distress, appears mildly confused Skin: Generalized anasarca with scattered ecchoymosis HEENT: Normal Neck: Supple, JVP elevated 2 cm at 45, carotids normal bilaterally, soft bilateral bruits Cardiovascular: Regular Rate, Normal S1, Normal S2, 2/6 systolic ejection murmur , 2/6 systolic murmur left lower sternal border Lungs: Normal Air Movement, Decreased left sided breath sounds Abdomen: Normal Bowel Sounds, Soft Neurological: Nonfocal Extremities: No Clubbing, No Cyanosis, Persistent edema, slightly improved from yesterday Vascular: Pulses Symmetrical Current Medications: Current Medications Sig/Misha Start time Last Medication Dose Route Stop Time Status Admin Albuterol Sulfate 3 ML TID 12/05 1100 AC 12/10 INH 0814 Anastrozole 1 MG DAILY 12/04 1000 AC 12/09 PO 0810 Lactulose 20 GM TID 12/05 1600 AC 12/09 PO 205 Magnesium Oxide 400 MG DAILY 12/03 2330 AC 12/09 PO 08 Methimazole 2.5 MG 12/05 1000 AC 12/08 PO 0926 Pantoprazole Sodium 40 MG BID 12/04 1500 AC 12/09 IV 205 Phytonadione 10 MG ONCE ONE 12/09 1430 DC 12/09 [place] 12/09 1431 1534 Potassium Chloride 20 MEQ DAILY 12/04 1000 AC 12/09 PO 0810 Results Last 48 Hrs of Labs/Mics: Laboratory Tests 12/10/16 0645: Total Bilirubin 3.7 H, Direct Bilirubin 1.6 H, AST 57 H, ALT 42, Alkaline Phosphatase 141 H, Lactate Dehydrogenase 719 H, Total Protein 6.6, Albumin 2.4 L, PT 19.3 H, INR 1.85 H, CBC w Diff NO MAN DIFF REQ, RBC 2.98 L, MCV 96.9, MCH 32.7 H, RDW 15.4 H, MPV 8.6, Gran % 75.1, Lymphocytes % 9.7 L, Monocytes % 11.0 H, Eosinophils % 3.8, Basophils % 0.4, Absolute Granulocytes 3.3, Absolute Lymphocytes 0.4 L, Absolute Monocytes 0.5, Absolute Eosinophils 0.2, Absolute Basophils 0, PUBS MCHC 33.7 12/09/16 0800: Fluid WBC Cancelled, Fld Total RBCs Counted Cancelled 12/09/16 0800: Fluid Albumin Cancelled 12/09/16 0715: Anion Gap 4 L, Estimated GFR 59 L, BUN/Creatinine Ratio 23.3, Total Bilirubin 3.8 H, Direct Bilirubin 1.6 H, AST 48 H, ALT 43, Alkaline Phosphatase 117, Ammonia 41 H, Total Protein 5.7 L, Albumin 2.1 L, PT 24.3 H, INR 2.33 H, CBC w Diff NO MAN DIFF REQ, RBC 2.84 L, MCV 97.0, MCH 32.9 H, RDW 15.7 H, MPV 8.4, Gran % 57.2, Lymphocytes % 24.3, Monocytes % 12.9 H, Eosinophils % 4.9, Basophils % 0.7, Absolute Granulocytes 2.4, Absolute Lymphocytes 1.0 L, Absolute Monocytes 0.5, Absolute Eosinophils 0.2, Absolute Basophils 0, PUBS MCHC 34.0 12/08/16 1200: PT Cancelled, INR Cancelled 12/08/16 1200: PT Cancelled, INR Cancelled Assessment/Plan Assessment/Plan Assessment: 1. Chronic, recurrent left pleural effusion 2. Chronic Atrial fibrillation 3. Hepatic encephalopathy 4. Acute blood loss anemia with bright red blood per rectum 5. Supratherapeutic INR 6. History of breast cancer 7. Moderate aortic stenosis and moderate mitral insufficiency with mild pulmonary hypertension Recommendations: -I had an extended discussion with the patient and also with Dr. Garcia earlier today. At the present time, I would have to agree that, in view of the patient' s age, multiple comorbid factors, etc., that discontinuation of her long-term anticoagulation would be horta. In view of this fact, I would recommend discontinuing her warfarin at this point. Continue telemetry? No
--- NOTE | 2016-12-10 12:57 | ULTRASOUND REPORT ---
EXAMINATION: ULTRASOUND-GUIDED LEFT-SIDED THORACENTESIS CLINICAL INFORMATION: Large pleural effusion on chest x-ray and shortness of breath.. INTERVENTIONALIST: Samm Omer MD PROCEDURE/FINDINGS: After all the risks, benefits and alternatives were explained to the patient and all questions answered, informed consent was signed. Preliminary ultrasound demonstrates significant left-sided pleural fluid. Using ultrasound guidance with the usual sterile interventional technique, a 5 Turkish Yueh needle and catheter was placed into the left pleural cavity. Approximately 960 mL of pleural fluid was evacuated. Samples of fluid were sent for the requested laboratory exams. A post procedure portable chest radiograph was performed, which demonstrates decreased size of the left pleural effusion and no evidence of pneumothorax. MEDICATIONS: Lidocaine 1% was used for local anesthesia. IMPRESSION: 1. Ultrasound-guided left-sided thoracentesis yielding 960 mL of pleural fluid. 2. Post procedure chest x-ray demonstrates decreased size of the left pleural effusion without pneumothorax.
--- NOTE | 2016-12-10 13:05 | RADIOLOGY REPORT ---
EXAMINATION:\H\ \N\XR CHEST CLINICAL INFORMATION: Status post left-sided thoracentesis. COMPARISON: 12/05/2016 TECHNIQUE: PA view of the chest was obtained. FINDINGS: Since the prior study there has been a decrease in the amount of pleural fluid in the left hemithorax. A small to moderate amount remains in the subpulmonic position. Surgical clips noted in the left axilla. The heart size is normal. No pneumothorax is seen. IMPRESSION: Decrease in size of pleural effusion after thoracentesis without pneumothorax seen. Some fluid remains.
[2016-12-10 16:14] VITALS: BP 138/70
[2016-12-10 16:18] VITALS: BP 138/70
--- NOTE | 2016-12-10 17:52 | PN- Att Addend ---
Attending Addendum Attending Brief Note Mrs. Lei was seen just prior to transfer. Her dyspnea is improved. She has no complaints. Her mentation continues to improve. We were able to correct het INR and she underwent thoracentesis today. As referenced in Dr Cadena's note we will D/C her warfarin due to her multiple comorbidities including liver Dz. We will also D/C her diuretic. Her CMR was reviewed and signed. At this point she is stable for transfer to [facility].
--- NOTE | 2016-12-10 17:59 | NUR ---
TRIED CALLING REPORT TO [facility]-PHONE CONTNUOUSLY RANG, NO ANSWER, WILL CONTIUE TO TRY
== END 2016-12-10 17:45 | DRG 442 ==
LOC: ENRESERVTM → ENRESERVDT → ERH 18:06 → ERHI 20:01 → ERH 20:01 → 2NB 21:17 → ERHI 21:17 → ENPENDDIS 21:17 → 2NB 22:48 → ERHI 12-04 00:28 → 2NB 12-04 00:32
PROVIDERS: Emergency Medicine; Ophthalmology; Student in an Organized Health Care Education/Training Program; ADMIT Internal Medicine
PROC: 0W9B3ZZ Drainage of Left Pleural Cavity, Percutaneous Approach (ICD-10-PCS; principal; 2016-12-10)
DX: K72.90 Hepatic failure, unspecified without coma (principal); J90 Pleural effusion, not elsewhere classified; E87.0 Hyperosmolality and hypernatremia; D68.32 Hemorrhagic disorder due to extrinsic circulating anticoagulants; I11.0 Hypertensive heart disease with heart failure; I50.32 Chronic diastolic (congestive) heart failure; D62 Acute posthemorrhagic anemia; K74.60 Unspecified cirrhosis of liver; Z85.3 Personal history of malignant neoplasm of breast; I48.2 Chronic atrial fibrillation; E78.5 Hyperlipidemia, unspecified; E11.9 Type 2 diabetes mellitus without complications; Z79.01 Long term (current) use of anticoagulants; E04.2 Nontoxic multinodular goiter; R68.0 Hypothermia, not associated with low environmental temperature; T45.515A Adverse effect of anticoagulants, initial encounter; K64.8 Other hemorrhoids; E87.6 Hypokalemia; I08.0 Rheumatic disorders of both mitral and aortic valves; Z87.891 Personal history of nicotine dependence
CPT/HCPCS: 2NBSP; 87075; 36415; 74176; 81001; 81003; 82436; 87040; 87086; 87804; 87804-59; 88305; 93005; 93010; 96360; 96361; 96372; 97162-GP; 97530-GO; J1940; J3490; J7040; J7042; P9017

== ENCOUNTER 2016-12-12 15:17 | Emergency (ER) | payer OTHER, MEDICARE ==
[~2016-12-12] VITALS: Ht 152.4 cm; Wt 70.8 kg
[~2016-12-12 15:17] MED LIST changes: +IBUPROFEN400 M1; +LACTULOSE10 GM/153 PO; +MELATONIN3 M4 PO; +NARCAN4 MG NAS; +OMEPRAZOLE40 M1 PO; +OS-CAL 500+D31 EAC1 PO; +TYLENOL ARTHRI650 M1; +TYLENOL325 M1 PO
--- NOTE | 2016-12-12 15:25 | ED DYSPNEA/ASTHMA COMPLAINT ---
History of Present Illness General Chief Complaint: Dyspnea (COPD, CHF, Other) Stated Complaint: SOB, EDEMA, RECURRENT PLEURAL EFFUSION Source: patient, old records, EMS, W10 Exam Limitations: no limitations Vital Signs & Intake/Output Vital Signs & Intake/Output Vital Signs Date Time Temp Pulse Resp B/P Pulse O2 O2 Flow FiO2 Ox Delivery Rate 12/12 1914 99.5 96 20 112/58 95 12/12 1821 87 24 100/50 98 Nasal 3.0L Cannula 12/12 1806 Nasal 3.0L Cannula 12/12 1750 90/50 12/12 1730 95/53 12/12 1715 96.8 83 28 88/49 97 Nasal 3.0L Cannula 12/12 1554 Nasal Cannula 12/12 1525 97.5 79 24 114/54 99 Aerosol Mask Allergies Coded Allergies: atorvastatin (Intermediate, MODERATE PAIN TO BACK AND SHOULDERS 01/20/16) scallops (GI DISTRESS 01/20/16) Reconcile Medications Acetaminophen (Tylenol) 325 MG TABLET 2 TAB PO Q6-PRN PRN FEVER > 101 ( Reported) Acetaminophen (Acephen) 650 MG SUPP.RECT 1 SUPP KY Q4H PRN PAIN/TEMP>100 ( Reported) Albuterol Sulfate 2.5 MG/3 ML (0.083 %) VIAL.NEB 1 Vial INH/BENJAMÍN Q6H PRN RESPIRATORY (Reported) Alendronate Sodium (Fosamax) 70 MG TABLET 1 TAB PO QTUES BONES (Reported) in the morning, at least 30 minutes before the first food, beverage, or medication of the day Amlodipine Besylate 5 MG TABLET 1 TAB PO DAILY hypertension Anastrozole 1 MG TABLET 1 MG PO DAILY UNKNOWN (Reported) Bisacodyl 10 MG SUPP.RECT 1 SUP RC PRN GI (Reported) Calcium Carbonate/Vitamin D3 (Os-Phill 500+D3 Caplet) 500 MG-200 TABLET 1 TAB PO BID SUPPLEMENT (Reported) Cholecalciferol (Vitamin D3) 1,000 UNIT TABLET 1 TAB PO DAILY SUPPLEMENT ( Reported) Diclofenac Sodium (Voltaren) 1 % GEL..GRAM. 1 GM TOP PRN PAIN (Reported) apply to affected area(s) Ferrous Sulfate 325 MG (65 MG IRON) TABLET 1 TAB PO DAILY SUPPLEMENT ( Reported) Fluvastatin Sodium (Lescol) 20 MG CAPSULE 20 MG PO QHS CHOLESTEROL (Reported) Lactulose 10 GRAM/15 ML SOLUTION 30 ML PO QAM High ammonia Titrate to 2-3 bowel movements a day. Magnesium Hydroxide (Milk Of Magnesia) 400 MG/5 ML ORAL.SUSP 30 ML PO DAILY PRN CONSTIPATION (Reported) Magnesium Oxide (Magnesium) 400 MG CAPSULE 1 CAP PO DAILY low magnesium follows up with Dr. Garcia Meclizine HCl 12.5 MG TABLET 1 TAB PO Q6H PRN VERTIGO (Reported) Melatonin 3 MG TABLET 1 TAB PO QPM INSOMNIA (Reported) Methimazole 5 MG TABLET 2.5 MG PO Thursday THYROID PROBLEMS ( Reported) Na Phos,M-B/Na Phos,Di-Ba (Fleet Enema) 19 GRAM-7 GRAM/118 ML ENEMA 1 E RC DAILY PRN GI (Reported) Naloxone HCl (Narcan) 4 MG/ACTUATION SPRAY 4 MG ANTONIA AD PRN OPIOID INDUCED RESP DEPRESSION (Reported) Omeprazole 40 MG CAPSULE.DR 1 CAP PO DAILY Stomach health Potassium Chloride 20 MEQ TAB.ER.PRT 1 TAB PO DAILY SUPPLEMENT (Reported) Quinapril HCl (Accupril) 20 MG TABLET 1 TAB PO DAILY HEART/BP (Reported) HPI: This is an 89-year-old female who presents by EMS from [facility] for chief complaint of recurrent left pleural effusion. Patient noted to be short of breath and in distress. According to Dr. Morales they tried to obtain an outpatient Pleurx catheter placement. She just had thoracentesis was discharged in the hospital 2 days ago. Patient arrives awake and alert complaining of some shortness of breath. Oxygen is 98% on room air. Bilateral wheezing. Had an outpatient chest x-ray today which also showed some mild CHF. (STARLA TSANG,MADELYN) Triage Nurses Notes Reviewed? yes Onset: Gradual Duration: day(s): Timing: recent history Severity: moderate Activities at Onset: none Prior Episodes/Possible Cause: occasional episodes Modifying Factors: Improves With: rest, other (better with 02). (JESSI TSANG,SHALA Salvador) Past History Medical History Any Pertinent Medical History? 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 No (SHALA BOWEN MD) Review of Systems Review of Systems Constitutional: Denies: chills, fever. Respiratory: Reports: short of breath, wheezing. Cardiovascular: Denies: chest pain. GI: Denies: abdominal pain. Genitourinary: Denies: discharge, dysuria. Musculoskeletal: Denies: back pain. Neurological/Psychological: Reports: anxiety. Hematologic/Endocrine: Denies: bruising, bleeding. Immunologic/Allergic: Denies: splenectomy. (MADELYN CHA MD) Review of Systems Constitutional: Reports: no symptoms. EENTM: Reports: no symptoms. Respiratory: Reports: no symptoms. Cardiovascular: Reports: no symptoms. GI: Reports: no symptoms. Genitourinary: Reports: no symptoms. Musculoskeletal: Reports: no symptoms. Skin: Reports: no symptoms. Neurological/Psychological: Reports: no symptoms. Hematologic/Endocrine: Reports: no symptoms. Immunologic/Allergic: Reports: no symptoms. All Other Systems: Reviewed and Negative (JESSI TSANG,SHALA Salvador) Physical Exam Physical Exam General Appearance: well developed/nourished, alert, awake, anxious, mild distress, thin Head: atraumatic, normal appearance Eyes: Bilateral: PERRL, EOMI. Ears, Nose, Throat: normal pharynx, normal ENT inspection, hearing grossly normal Neck: normal inspection, supple, full range of motion Respiratory: accessory muscle use, wheezing, respiratory distress Cardiovascular: regular rate/rhythm Peripheral Pulses: 2+ radial (R), 2+ radial (L) Gastrointestinal: soft, non-tender Extremities: pedal edema, swelling Neurologic/Psych: no motor/sensory deficits, awake, alert, oriented x 3 Skin: intact, normal color, warm/dry (STARLA TSANG,MADELYN) Physical Exam General Appearance: well developed/nourished, no apparent distress Head: atraumatic, normal appearance Eyes: Bilateral: normal appearance. Ears, Nose, Throat: normal pharynx, normal ENT inspection Neck: normal inspection, supple, full range of motion Respiratory: chest non-tender, no respiratory distress, decreased breath sounds Cardiovascular: regular rate/rhythm Gastrointestinal: normal bowel sounds, soft, non-tender, no organomegaly Extremities: anasarca in upper and lower extremities Neurologic/Psych: no motor/sensory deficits, awake, alert Skin: intact, normal color, warm/dry Core Measures ACS in differential dx? No Severe Sepsis Present: No Septic Shock Present: No (JESSI TSANG,SHALA Salvador) Progress Diagnostic Imaging: Viewed by Me: Radiology Read, Ultrasound. Discussed w/RAD: Radiology Read, Ultrasound. CXR Impression: PATIENT: RUEL CARRASCO PRESENT AGE: 89 PATIENT ACCOUNT NO: [id number] : [birth year] LOCATION: [facility] ORDERING PHYSICIAN: JENNIFER DAVE MD SERVICE DATE: 12/12/16 EXAM TYPE: RAD - XRY- PORTABLE CHEST XRAY EXAMINATION: XR PORTABLE CHEST CLINICAL INFORMATION: Status post thoracentesis. COMPARISON: Chest x-ray dated 12/12/2016 TECHNIQUE: Portable AP view of the chest was obtained. FINDINGS: Interval decrease in the left-sided pleural effusion with improved aeration in the medial left base. Small residual fluid with associated infiltrate or atelectasis. No evidence of pneumothorax. Stable prominence of the pulmonary markings.. IMPRESSION: Interval decrease in the left-sided pleural effusion. Small residual fluid with associated infiltrate or atelectasis. No evidence of pneumothorax. DICTATED BY: WOODROW STACK MD DATE/ TIME DICTATED:12/12/161805 CIGARETTE SELLER:[email or web address] DATE/TIME TRANSCRIBED: 12/12/161805 CONFIDENTIAL, DO NOT COPY WITHOUT APPROPRIATE AUTHORIZATION. < Electronically signed in Other Vendor System> SIGNED BY: WOODROW STACK MD 12/12/161810, PATIENT: RUEL CARRASCO PRESENT AGE : 89 PATIENT ACCOUNT NO: [id number] : [birth year] LOCATION: [facility] ORDERING PHYSICIAN: MADELYN CHA MD SERVICE DATE: 12/12/16-1523 EXAM TYPE: RAD - XRY -PORTABLE CHEST XRAY EXAMINATION: XR PORTABLE CHEST CLINICAL INFORMATION: Left- sided pleural effusion. Evaluate for CHF. COMPARISON: Multiple chest x-rays most recent prior dated 12/10/2016. TECHNIQUE: Portable AP view of the chest was obtained. FINDINGS: There has been subtle interval increase in the left-sided pleural effusion. There is associated consolidation or atelectatic changes. Low lung volumes. Mild prominence of the pulmonary markings represent a chronic change. No gross evidence of acute CHF. Stable cardiomediastinal silhouette. There is prominence of the left hilum which is unchanged over the interval. This may be secondary to vascular congestion and adjacent infiltrate or atelectasis. Surgical clips noted in the left axilla. IMPRESSION: Slight interval increase in the left-sided pleural effusion with associated infiltrate or atelectasis. No gross CHF. DICTATED BY: WOODROW STACK MD DATE/TIME DICTATED:12/12/161543 CIGARETTE SELLER:KWESI DATE/TIME TRANSCRIBED:12/12/161543 CONFIDENTIAL, DO NOT COPY WITHOUT APPROPRIATE AUTHORIZATION. <Electronically signed in Other Vendor System> SIGNED BY: WOODROW STACK MD 12/12/16 1552 Rhythm Strip: normal sinus rhythm (STARLA TSANG,MADELYN) Differential Diagnosis: asthma, CHF, musculoskeletal pain, pneumonia Plan of Care: Orders Procedure Date/time Status US-THORACENTESIS 12/12 1635 Active US-CHEST 12/12 1538 Active RT ED ORDERS 12/12 1529 Active RT ED ORDERS 12/12 1524 Active TROPONIN LEVEL 12/12 1524 Complete PARTIAL THROMBOPLASTIN TIME 12/12 1524 Complete PROTHROMBIN TIME 12/12 1524 Complete COMPREHENSIVE METABOLIC PANEL 12/12 1524 Complete CBC WITHOUT DIFFERENTIAL 12/12 1524 Complete B-TYPE NATRIURETIC PEP (BNP) 12/12 1524 Complete Laboratory Tests 12/12/16 1606: Anion Gap 9, Estimated GFR 47 L, BUN/Creatinine Ratio 25.5 H, Glucose 147 H, Calcium 8.2 L, Total Bilirubin 2.5 H, AST 86 H, ALT 46, Alkaline Phosphatase 153 H, Troponin I 0.04, Qit-U-Pnnznxjeplv Pept 1190 H, Total Protein 6.3, Albumin 2.2 L, Globulin 4.1, Albumin/Globulin Ratio 0.5 L, PT 16.8 H, INR 1.61 H, APTT 42 H, CBC w Diff NO MAN DIFF REQ, RBC 3.38 L, MCV 96.8, MCH 32.0 H, RDW 15.7 H, MPV 8.5, Gran % 58.6, Lymphocytes % 24.7, Monocytes % 13.8 H, Eosinophils % 2.0, Basophils % 0.9, Absolute Granulocytes 2.9, Absolute Lymphocytes 1.2, Absolute Monocytes 0.7 H, Absolute Eosinophils 0.1, Absolute Basophils 0, PUBS MCHC 33.0 12/12/2016 6:44:35 PM Patient doing much better after thoracentesis. 1 L was drained of alcira fluid. No audible wheezing at this time. Patient was stable for discharge back to [facility]. Blood pressure was up slightly at diminished upon return from thoracentesis and 200 mL of fluid was given. Blood pressure is now stable and she is stable for discharge. She will have outpatient Pleurx catheter discussed with Dr. Arguello at a later time. (MADELYN CHA MD) Initial ED EKG: none (JESSI TSANG,SHALA Salvador) Departure Departure Time of Disposition: 1842 Disposition: OTHER [facility] (ACUTE) Condition: Stable Clinical Impression Primary Impression: Pleural effusion Referrals: UNKNOWN (PCP/Family) Departure Forms: Customer Survey General Discharge Information (MADELYN CHA MD) Departure Comments 12/12/16, 21:00.... discussed with dr. meli lawton... pt stable on room air 97% on room air. Exam notable for anasarca but she is otherwise comfortable. He feels pt can be followed at [facility]. If she develops dyspnea, pt may be transferred to ED. Pt to follow up with pulmonary and PMD. (JESSI TSANG,SHALA Salvador) Critical Care Note Critical Care Note Critical Care Time: non-applicable (JESSI TSANG,SHALA Salvador)
--- NOTE | 2016-12-12 15:52 | RADIOLOGY REPORT ---
EXAMINATION: XR PORTABLE CHEST CLINICAL INFORMATION: Left-sided pleural effusion. Evaluate for CHF. COMPARISON: Multiple chest x-rays most recent prior dated 12/10/2016. TECHNIQUE: Portable AP view of the chest was obtained. FINDINGS: There has been subtle interval increase in the left-sided pleural effusion. There is associated consolidation or atelectatic changes. Low lung volumes. Mild prominence of the pulmonary markings represent a chronic change. No gross evidence of acute CHF. Stable cardiomediastinal silhouette. There is prominence of the left hilum which is unchanged over the interval. This may be secondary to vascular congestion and adjacent infiltrate or atelectasis. Surgical clips noted in the left axilla. IMPRESSION: Slight interval increase in the left-sided pleural effusion with associated infiltrate or atelectasis. No gross CHF.
[2016-12-12 16:19] LABS: ABSOLUTE BASOPHIL COUNT 0 /CUMM (0.0-0.2); ABSOLUTE EOSINOPHIL COUNT 0.1 /CUMM (0.0-0.7); ABSOLUTE GRANULOCYTE CT 2.9 /CUMM (1.4-6.5); ABSOLUTE LYMPH COUNT 1.2 /CUMM (1.2-3.4); ABSOLUTE MONOCYTE COUNT 0.7 /CUMM (0.10-0.60); BASOPHIL % 0.9 % (0.0-2.0); GRANULOCYTE % 58.6 % (42.2-75.2); HEMATOCRIT 32.7 % (37-47); MEAN CORPUSCULAR VOLUME 96.8 FL (81.0-99.0); MEAN PLATELET VOLUME 8.5 FL (7.4-10.4); PLATELET COUNT 136 /CUMM (130-400); RBC DISTRIBUTION WIDTH 15.7 % (11.5-14.5); RED BLOOD CELL CT 3.38 /CUMM (4.20-5.40)
[2016-12-12 16:38] LABS: PT 16.8 SEC (9.4-12.5); PTT 42 SEC (25-37)
[2016-12-12] MEDS ORDERED: FERROUS SULFAT325 M3 PO (17:50)
[2016-12-12] MEDS ORDERED: MILK OF MA400 MG/52 PO (17:53)
[2016-12-12] MEDS ORDERED: BISACODYL10 M1 RC (17:54)
[2016-12-12] MEDS ORDERED: FLEET ENEMA133 ML RC (17:55)
[2016-12-12] MEDS ORDERED: ACEPHEN650 M1 PR (17:56)
[2016-12-12] MEDS ORDERED: MECLIZINE HCL12.5 M1 PO (17:56)
[2016-12-12] MEDS ORDERED: ALBUTEROL2.5 MG/3 M INH/SOL (17:57)
--- NOTE | 2016-12-12 18:11 | RADIOLOGY REPORT ---
EXAMINATION: XR PORTABLE CHEST CLINICAL INFORMATION: Status post thoracentesis. COMPARISON: Chest x-ray dated 12/12/2016 TECHNIQUE: Portable AP view of the chest was obtained. FINDINGS: Interval decrease in the left-sided pleural effusion with improved aeration in the medial left base. Small residual fluid with associated infiltrate or atelectasis. No evidence of pneumothorax. Stable prominence of the pulmonary markings.. IMPRESSION: Interval decrease in the left-sided pleural effusion. Small residual fluid with associated infiltrate or atelectasis. No evidence of pneumothorax.
[2016-12-12 21:40] VITALS: BP 109/54
--- NOTE | 2016-12-13 07:19 | ULTRASOUND REPORT ---
CLINICAL HISTORY: This patient is a 89-year-old woman with recurrent left pleural effusion. The patient is referred to interventional radiology for diagnostic chest ultrasound and ultrasound-guided thoracentesis. PROCEDURE: 1. Limited ultrasound evaluation of the chest. 2. Ultrasound-guided thoracentesis. COMPARISON: 12/10/2016 ACCESS: 6 Fr [id number]-[id number] closed needle/catheter system. PROCEDURALIST: Dr. Henny Dwyer. MEDICATIONS: 10 mL of 1% lidocaine SQ. COMPLICATIONS: None. ESTIMATED BLOOD LOSS: <5 mL. SPECIMENS: No specimen was requested. PROCEDURE NOTE: Appropriate pre-procedure medical history and imaging studies were reviewed. Informed consent was obtained from the patient prior to the procedure. During this process, the procedure and potential alternatives were explained along with the intended outcome and benefits. The risks of the procedure, including the possibility of an unsuccessful procedure, as well as the risk of not doing the procedure, were discussed. The patient was given the opportunity to ask questions regarding the procedure and appeared competent to make decisions. A signed consent form documenting this discussion was placed in the medical record. SITE MARKING: As part of the preprocedure verification policy, a site marking procedure was initiated. Due to the nature the procedure, the insertion site could not be predetermined thus invoking the policy of exemption to site laterality and marking. Insertion site marking was performed in the procedure room in conjunction with imaging confirmation. A time-out procedure was performed. The patient was brought to the ultrasound department and placed in the seated position. Ultrasound images of the left thorax were obtained to localize a large pleural effusion. Images were permanently saved to the record. An area of the patient's left back was prepped and draped in the standard sterile fashion. 10 mL of 1% lidocaine was used to obtain local anesthesia of the skin and deeper tissues. A standard small-bore needle was introduced to sample fluid and demonstrated a safe access route. There was no evidence of traversing adjacent organs or vascular structures. A 6 Fr [id number]-Plsdtqsj closed needle/catheter system was utilized for access. 1000 mL of clear alcira-colored fluid was aspirated before drainage ceased. The catheter was removed and a sterile dressing applied. The patient tolerated the procedure well without evidence of immediate complications. FINDINGS: Large simple left pleural effusion. IMPRESSION: Successful left ultrasound-guided therapeutic thoracentesis. PLAN: 1. A postprocedure chest x-ray was ordered and will be dictated separately. 2. The patient was stable after the procedure and transferred back to the emergency room with instructions after standard monitoring.
== END 2016-12-12 22:34 ==
LOC: ERH 15:17
PROVIDERS: Emergency Medicine
DX: J90 Pleural effusion, not elsewhere classified (principal)
CPT/HCPCS: J7040

== ENCOUNTER 2016-12-17 15:59 | Observation (INO) | payer OTHER, MEDICARE ==
[~2016-12-17] VITALS: Ht 152.4 cm; Wt 76.2 kg
[~2016-12-17 15:59] MED LIST changes: +ACEPHEN650 M1 PR; +ALBUTEROL2.5 MG/3 M INH/SOL; +BISACODYL10 M1 RC; +FERROUS SULFAT325 M3 PO; +FLEET ENEMA133 ML RC; +MILK OF MA400 MG/52 PO
--- NOTE | 2016-12-17 16:38 | ED GENERAL ADULT ---
See Addendum History of Present Illness General Chief Complaint: General Adult Stated Complaint: BIBA FROM SNF FOR LEFT PLEURAL EFFUSION Source: patient, old records, EMS Exam Limitations: no limitations Vital Signs & Intake/Output Vital Signs & Intake/Output ED Intake and Output 12/20 0000 12/19 1200 Intake Total 40 Output Total Balance 40 Intake, IV 40 Allergies Coded Allergies: atorvastatin (Intermediate, MODERATE PAIN TO BACK AND SHOULDERS 01/20/16) scallops (GI DISTRESS 01/20/16) Triage Note: BIBA FROM [facility] FOR SOB. PER EMS, PT WAS TO HAVE PLEUREX CATH TOMORROW WITH DR. ASHLEY BUT HAD INCREASING SOB. DR. RENDON REQUESTED PT TO BE SENT TO ED. UPON ARRIVAL PT STATES HER SOB WAS WORSE EARLIER TODAY BUT HAS SINCE RESOLVED. 02 96-100% ON 2LNC. GENERALIZED PITTING EDEMA THROUGHOUT Triage Nurses Notes Reviewed? yes Onset: Gradual Duration: worse persistent since (1 DAY) Timing: recent history Injury Environment: home Severity: moderate Severity Numbers: 7 Modifying Factors: Worsens With: movement. HPI: Jaziel is an 89-year-old female coming in from a nursing facility with history of chronic left pleural effusions [place] by the nursing facility for increased shortness of breath and increased weight. Symptoms worsen over the past 24 hours. She recently had a thoracentesis which helped alleviate symptoms. Scheduled for a Pleurx catheter tomorrow. Denies chest pain or palpitations. He also reports history of CHF. Positive intermittent in productive cough of clear sputum. No fevers or chills. No nausea or vomiting. (YULIET BRAR,CHARLY) Reconcile Medications Acetaminophen (Tylenol) 325 MG TABLET 2 TAB PO Q6-PRN PRN FEVER > 101 ( Reported) Acetaminophen (Acephen) 650 MG SUPP.RECT 1 SUPP PA Q4H PRN PAIN/TEMP>100 ( Reported) Albuterol Sulfate 2.5 MG/3 ML (0.083 %) VIAL.NEB 1 Vial INH/BENJAMÍN Q6H PRN RESPIRATORY (Reported) Alendronate Sodium (Fosamax) 70 MG TABLET 1 TAB PO QTUES BONES (Reported) in the morning, at least 30 minutes before the first food, beverage, or medication of the day Amlodipine Besylate 5 MG TABLET 1 TAB PO DAILY hypertension Anastrozole 1 MG TABLET 1 MG PO DAILY ANTIESTROGEN (Reported) Bisacodyl 10 MG SUPP.RECT 1 SUP RC PRN GI (Reported) Calcium Carbonate/Vitamin D3 (Os-Phill 500+D3 Caplet) 500 MG-200 TABLET 1 TAB PO BID SUPPLEMENT (Reported) Cholecalciferol (Vitamin D3) 1,000 UNIT TABLET 1 TAB PO DAILY SUPPLEMENT ( Reported) Diclofenac Sodium (Voltaren) 1 % GEL..GRAM. 1 GM TOP PRN PAIN (Reported) apply to affected area(s) Ferrous Sulfate 325 MG (65 MG IRON) TABLET 1 TAB PO DAILY SUPPLEMENT ( Reported) Fluvastatin Sodium (Lescol) 20 MG CAPSULE 20 MG PO QHS CHOLESTEROL (Reported) Lactulose 10 GRAM/15 ML SOLUTION 30 ML PO QAM High ammonia Titrate to 2-3 bowel movements a day. Magnesium Hydroxide (Milk Of Magnesia) 400 MG/5 ML ORAL.SUSP 30 ML PO DAILY PRN CONSTIPATION (Reported) Magnesium Oxide (Magnesium) 400 MG CAPSULE 1 CAP PO DAILY low magnesium follows up with Dr. Garcia Meclizine HCl 12.5 MG TABLET 1 TAB PO Q6H PRN VERTIGO (Reported) Melatonin 3 MG TABLET 1 TAB PO QPM INSOMNIA (Reported) Methimazole 5 MG TABLET 2.5 MG PO Thursday THYROID PROBLEMS ( Reported) Na Phos,M-B/Na Phos,Di-Ba (Fleet Enema) 19 GRAM-7 GRAM/118 ML ENEMA 1 E RC DAILY PRN GI (Reported) Naloxone HCl (Narcan) 4 MG/ACTUATION SPRAY 4 MG ANTONIA AD PRN OPIOID INDUCED RESP DEPRESSION (Reported) Omeprazole 40 MG CAPSULE.DR 1 CAP PO DAILY Stomach health Potassium Chloride 20 MEQ TAB.ER.PRT 1 TAB PO DAILY SUPPLEMENT (Reported) Quinapril HCl (Accupril) 20 MG TABLET 1 TAB PO DAILY HEART/BP (Reported) (SATRLA TSANG,MADELYN) Past History Travel History Traveled to [place] past 21 day No Medical History Any Pertinent Medical History? see below for history Neurological: SHINGLES LYMES DISEASE EENT: allergies, cataracts, hearing loss, POSTNASAL DRIP Cardiovascular: AFIB, hypertension, hyperlipidemia, AORTIC STENOSIS Respiratory: bronchitis, pneumonia, L pleural effusion THORACENTESIS Gastrointestinal: NONE Hepatic: NONE Renal: NONE Musculoskeletal: osteoarthritis, osteoporosis, BAKERS CYST LEFT WRIST FRACTURE LEFT ANKLE FRACTURE Psychiatric: NONE Endocrine: diabetes, hyperthyroidism Blood Disorders: anemia, LYME DISEASE Cancer(s): breast cancer, SKIN CANCER (LUMPECTOMY NO LYMPH NODES REMOVED) QUALITY LIAISON/Reproductive: NONE History of MRSA: No History of VRE: No History of CDIFF: No Tetanus Vaccine: 09/02/15 Surgical History Surgical History: APPENDECTOMY BILATERAL LUMPECTOMY (NO LYMPH NODES REMOVED) Psychosocial History Who do you live with Patient/Self Services at Home None What is your primary language Arabic Tobacco Use: Quit >30 days ago Family History Family History, If Any: SON FH: Hodgkins disease MOTHER FH: diabetes mellitus FH: heart disease MOTHER FATHER FH: heart disease Hx Contributory? No (CHARLY RICHARDS) Review of Systems Review of Systems Constitutional: Reports: no symptoms. Comments Review of systems: See HPI, All other systems negative. Constitutional, no chills fever or weight loss HEENT: No visual changes no sore throat no congestion Cardiovascular: No chest pain ,palpitation , orthopnea Skin, no jaundice no rashes Respiratory: No hemoptysis GI: No nausea no vomiting : No dysuria No hematuria Muscle skeletal: no back pain, no neck pain, Neurologic: No numbness no confusion Pearson headaches Psych: No stress anxiety Immunology: No splenectomy or history of AIDS (CHARLY RICHARDS) Physical Exam Physical Exam General Appearance: well developed/nourished, alert, awake, mild distress Comments: Well-developed well-nourished person in mild respiratory distress HEENT: Normal EENT exam, extraocular motion intact, no nystagmus. Pupils equally round and reactive to light and accommodation. Nose is atraumatic. External auditory canal and Tympanic membranes clear. Pharynx normal. No swelling or edema. Neck: Normal inspection Back: Nontender, no CVA tenderness. Full range of motion Cardiovascular: IRRegular rate and rhythms no murmurs rubs or gallops, normal JVP Respiratory: Chest nontender. Mild respiratory distress, diminished lung sounds significantly on the left, scattered rhonchi noted on the right. Abdomen: Soft, nontender, mildly distended,no appreciable organomegaly. Normal bowel sounds. No ascites Extremity: 3+ pitting edema in the large semis bilaterally, no calf tenderness to palpation, pedal pulses are 1+ bilaterally. Neuro: Alert oriented x3, motor sensory normal, cranial nerves II through XII grossly intact. Skin: No appreciable rash on exposed skin, skin is warm and dry. Psych: Mood and affect is normal, memory and judgment is normal. Core Measures ACS in differential dx? No CVA/TIA Diagnosis: No Severe Sepsis Present: No Septic Shock Present: No (YULIET BRAR,CHARLY) Progress Differential Diagnoses I considered the following diagnoses in my evaluation of the patient: Worsening pleural effusion, pneumonia, CHF, anasarca ACS Plan of Care: PATIENT SEEN BY DR ASHLEY. WILL BRING IN OVERNIGHT FOR PLEUREL PLACEMENT. NO NEED FOR EMERGENT THORACENTESIS.Diagnostic Imaging: Viewed by Me: CT Scan. Discussed w/RAD: CT Scan. Radiology Impression: PATIENT: RUEL CARRASCO PRESENT AGE: 89 PATIENT ACCOUNT NO: [id number] : [birth year] LOCATION: [facility] ORDERING PHYSICIAN: CHARLY BRAR SERVICE DATE: 12/17/16 EXAM TYPE: CAT - CT ABD & PELVIS W/O IV CONTRAS; CT CHEST WO IV CONTRAST EXAMINATION: CT CHEST WO IV CONTRAST, CT ABD PELVIS W/O IV CONTRAS CLINICAL INFORMATION: Left pleural effusion. Abdominal distention. 89-year-old female patient. COMPARISON: Portable chest x-ray done earlier this afternoon. CT of the abdomen and pelvis on 12/03/2016. CT the chest on the same day. TECHNIQUE: Noncontrast enhanced CT of the chest, abdomen, and pelvis with coronal and sagittal reformats obtained at the acquisition workstation. Axial MIP reformats were added. FINDINGS: Pickling Tank Operator view demonstrates a left pleural effusion. There is abnormal gaseous distention of the stomach. Air-filled loops of small bowel in the left flank are mildly prominent. Air and stool is seen in the right colon. There is thoracolumbar scoliosis. CHEST: The thyroid gland is enlarged and the left lobe is substernal in location. Numerous calcified nodules are present in the thyroid gland. Clips are present in the left axilla and left breast which shows increased parenchymal thickening as well as skin thickening. Left atrial enlargement is related to calcification mitral annulus secondary to mitral insufficiency. The heart is enlarged. The left pleural effusion shows minimal decrease in volume. There is compression atelectasis of the left lower lobe. Otherwise the lungs are clear. There is no pleural effusion on the right side. ABDOMEN/PELVIS: Liver shows micronodular lesion of the surface consistent with cirrhosis. The bile ducts not dilated. The gallbladder is prominent in size containing numerous gallstones. The pancreas is atrophic. The spleen is not enlarged. The adrenal glands are normal. No acute renal disease is detected. The bladder is unremarkable. The volume of ascites has increased throughout the abdomen and pelvis. Significant edema and anasarca is noted in the subcutaneous soft tissues of the torso. The only difference in the GI tract is that of gastric distention. Lymph nodes are seen in the infrarenal periaortic region. They are abnormal in size and number. Multilevel degenerative disease and osteopenia are noted throughout the spine. IMPRESSION: 1. Minimal decrease in the volume of the moderately large left pleural effusion. Compression atelectasis of a portion of the left lung. 2. Abnormal appearance to the left breast. (Skin thickening and increased soft tissue density). 3. Increasing ascites. Increasing anasarca. 4. Cholelithiasis. 5. Lymphadenopathy in the infrarenal periaortic region. (No change from previous). Lymph nodes are also seen along both iliac chains. 6. Gastric distention. 7. Thyromegaly. 8. Mitral valve disease., ORDERING PHYSICIAN: CHARLY BRAR SERVICE DATE: EXAM TYPE: CAT - CT ABD & PELVIS W/O IV CONTRAS; CT CHEST WO IV CONTRAST EXAMINATION: CT CHEST WO IV CONTRAST, CT ABD PELVIS W/O IV CONTRAS CLINICAL INFORMATION: Left pleural effusion. Abdominal distention. 89-year-old female patient. COMPARISON: Portable chest x-ray done earlier this afternoon. CT of the abdomen and pelvis on 12/03/2016. CT the chest on the same day. TECHNIQUE: Noncontrast enhanced CT of the chest, abdomen, and pelvis with coronal and sagittal reformats obtained at the acquisition workstation. Axial MIP reformats were added. FINDINGS: Pickling Tank Operator view demonstrates a left pleural effusion. There is abnormal gaseous distention of the stomach. Air-filled loops of small bowel in the left flank are mildly prominent. Air and stool is seen in the right colon. There is thoracolumbar scoliosis. CHEST: The thyroid gland is enlarged and the left lobe is substernal in location. Numerous calcified nodules are present in the thyroid gland. Clips are present in the left axilla and left breast which shows increased parenchymal thickening as well as skin thickening. Left atrial enlargement is related to calcification mitral annulus secondary to mitral insufficiency. The heart is enlarged. The left pleural effusion shows minimal decrease in volume. There is compression atelectasis of the left lower lobe. Otherwise the lungs are clear. There is no pleural effusion on the right side. ABDOMEN/PELVIS: Liver shows micronodular lesion of the surface consistent with cirrhosis. The bile ducts not dilated. The gallbladder is prominent in size containing numerous gallstones. The pancreas is atrophic. The spleen is not enlarged. The adrenal glands are normal. No acute renal disease is detected. The bladder is unremarkable. The volume of ascites has increased throughout the abdomen and pelvis. Significant edema and anasarca is noted in the subcutaneous soft tissues of the torso. The only difference in the GI tract is that of gastric distention. Lymph nodes are seen in the infrarenal periaortic region. They are abnormal in size and number. Multilevel degenerative disease and osteopenia are noted throughout the spine. IMPRESSION: 1. Minimal decrease in the volume of the moderately large left pleural effusion. Compression atelectasis of a portion of the left lung. 2. Abnormal appearance to the left breast. (Skin thickening and increased soft tissue density). 3. Increasing ascites. Increasing anasarca. 4. Cholelithiasis. 5. Lymphadenopathy in the infrarenal periaortic region. (No change from previous). Lymph nodes are also seen along both iliac chains. 6. Gastric distention. 7. Thyromegaly. 8. Mitral valve disease. DICTATED BY: JUDAH BHATT MD DATE/TIME DICTATED:12/17/161808 Initial ED EKG: ATRIAL FIBRILLATION RATE IS 65 BPM Prior EKG: unchanged Comments: On arrival patient's oxygen saturation is 97 on 2 L. Patient does have increased work of breathing with diminished lung sounds and rhonchi on exam. Patient will go for reimaging of tests and blood work. Patient will likely be admitted for procedure done tomorrow. Patient was seen and evaluated by Dr. Galvez as well, and she agrees patient is improved from previous visit but patient will be admitted for increased shortness of breath for procedure tomorrow. Patient resting in no acute distress. Patient admitted for observation. Patient also seen by Dr. Ashley in the emergency department. He would like a CT scan of her chest. Patient informed of all blood work results and imaging study results. She knows that she will be staying for her procedure tomorrow. (CHARLY RICHARDS) Differential Diagnoses I considered the following diagnoses in my evaluation of the patient: Plan of Care: PATIENT SEEN BY DR ASHLEY. WILL BRING IN OVERNIGHT FOR PLEUREL PLACEMENT. NO NEED FOR EMERGENT THORACENTESIS. (MADELYN GALVEZ MD) Departure Departure Time of Disposition: 1941 Disposition: STILL A PATIENT Condition: Stable Clinical Impression Primary Impression: Pleural effusion Referrals: LIYAH BEAR MD (PCP/Family) Departure Forms: Customer Survey General Discharge Information Observation Note Spoke With: CLAIR TSANG,LCARE Physician Advisor Notified: ENZO TSANG,SHAKIRA [place] Patient In: Non-ED OBS Care Area Rationale for Observation: My rational for observation is as follows . Patient requiring observation for shortness of breath, oxygen saturation monitoring, will need pulmonology consultation and cardiothoracic intervention felt Pleurx catheter for recurrent pleural effusion. (CHARLY RICHARDS) PA/OWNER Co-Sign Statement Statement: ED Attending supervision documentation- [X] I saw and evaluated the patient. I have also reviewed all the pertinent lab results and diagnostic results. I agree with the findings and the plan of care as documented in the PA's/OWNER's documentation. [X] I have reviewed the ED Record and agree with the PA's/OWNER's documentation. [] Additions or exceptions (if any) to the PAs/OWNER's note and plan are summarized below: [] (MADELYN GALVEZ MD) Critical Care Note Critical Care Note Critical Care Time: 30-74 min (CHARLY RICHARDS) Critical Care Note Critical Care Note Critical Care Time: 30-74 min
[2016-12-17 16:54] LABS: ABSOLUTE BASOPHIL COUNT 0 /CUMM (0.0-0.2); ABSOLUTE EOSINOPHIL COUNT 0 /CUMM (0.0-0.7); ABSOLUTE LYMPH COUNT 0.3 /CUMM (1.2-3.4); WHITE BLOOD CELL COUNT 6.7 /CUMM (4.8-10.8)
[2016-12-17 17:03] LABS: ABSOLUTE GRANULOCYTE CT 6.1 /CUMM (1.4-6.5); ABSOLUTE MONOCYTE COUNT 0.2 /CUMM (0.10-0.60); BASOPHIL % 0 % (0.0-2.0); EOSINOPHIL % 0 % (0-5); HEMATOCRIT 30.1 % (37-47); MEAN CORPUSCULAR HGB CONC 33.7 G/DL (33.0-37.0); MEAN CORPUSCULAR VOLUME 95.1 FL (81.0-99.0); MEAN PLATELET VOLUME 8.4 FL (7.4-10.4); RBC DISTRIBUTION WIDTH 15.4 % (11.5-14.5); RED BLOOD CELL CT 3.16 /CUMM (4.20-5.40)
[2016-12-17 17:06] LABS: GRANULOCYTE % 92.2 % (42.2-75.2); PLATELET COUNT 142 /CUMM (130-400)
--- NOTE | 2016-12-17 17:26 | RADIOLOGY REPORT ---
EXAMINATION: XR PORTABLE CHEST CLINICAL INFORMATION: 89-year-old female patient with shortness of breath. Left pleural effusion. Status post thoracentesis on December 12, yielding 1000 mL clear alcira fluid. History of breast cancer. COMPARISON: Prethoracentesis chest x-ray on 12/12/2016. Immediate postthoracentesis film done the same day. TECHNIQUE: AP portable semierect view of the chest was obtained. FINDINGS: Reexamination shows evidence of some reaccumulation of the left pleural effusion. Numerous surgical clips are seen in the left axilla. No osseous abnormalities are detected. The right lung is clear. IMPRESSION: Some reaccumulation of the left-sided pleural effusion associated with compression atelectasis of the left lower lobe.
--- NOTE | 2016-12-17 18:35 | CT SCAN REPORT ---
EXAMINATION: CT CHEST WO IV CONTRAST, CT ABD PELVIS W/O IV CONTRAS CLINICAL INFORMATION: Left pleural effusion. Abdominal distention. 89-year-old female patient. COMPARISON: Portable chest x-ray done earlier this afternoon. CT of the abdomen and pelvis on 12/03/2016. CT the chest on the same day. TECHNIQUE: Noncontrast enhanced CT of the chest, abdomen, and pelvis with coronal and sagittal reformats obtained at the acquisition workstation. Axial MIP reformats were added. FINDINGS: Social Worker view demonstrates a left pleural effusion. There is abnormal gaseous distention of the stomach. Air-filled loops of small bowel in the left flank are mildly prominent. Air and stool is seen in the right colon. There is thoracolumbar scoliosis. CHEST: The thyroid gland is enlarged and the left lobe is substernal in location. Numerous calcified nodules are present in the thyroid gland. Clips are present in the left axilla and left breast which shows increased parenchymal thickening as well as skin thickening. Left atrial enlargement is related to calcification mitral annulus secondary to mitral insufficiency. The heart is enlarged. The left pleural effusion shows minimal decrease in volume. There is compression atelectasis of the left lower lobe. Otherwise the lungs are clear. There is no pleural effusion on the right side. ABDOMEN/PELVIS: Liver shows micronodular lesion of the surface consistent with cirrhosis. The bile ducts not dilated. The gallbladder is prominent in size containing numerous gallstones. The pancreas is atrophic. The spleen is not enlarged. The adrenal glands are normal. No acute renal disease is detected. The bladder is unremarkable. The volume of ascites has increased throughout the abdomen and pelvis. Significant edema and anasarca is noted in the subcutaneous soft tissues of the torso. The only difference in the GI tract is that of gastric distention. Lymph nodes are seen in the infrarenal periaortic region. They are abnormal in size and number. Multilevel degenerative disease and osteopenia are noted throughout the spine. IMPRESSION: 1. Minimal decrease in the volume of the moderately large left pleural effusion. Compression atelectasis of a portion of the left lung. 2. Abnormal appearance to the left breast. (Skin thickening and increased soft tissue density). 3. Increasing ascites. Increasing anasarca. 4. Cholelithiasis. 5. Lymphadenopathy in the infrarenal periaortic region. (No change from previous). Lymph nodes are also seen along both iliac chains. 6. Gastric distention. 7. Thyromegaly. 8. Mitral valve disease.
--- NOTE | 2016-12-17 20:03 | History & Physical ---
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 She denies nausea, vomiting, diarrhea, constipation, chest pain, fever, chills, sick contact. Personal history - Quit smoking smocking 30 years ago Allergies/Medications Allergies: Coded Allergies: atorvastatin (Intermediate, MODERATE PAIN TO BACK AND SHOULDERS 01/20/16) scallops (GI DISTRESS 01/20/16) Home Med list Acetaminophen (Tylenol) 325 MG TABLET 2 TAB PO Q6-PRN PRN FEVER > 101 ( Reported) Acetaminophen (Acephen) 650 MG SUPP.RECT 1 SUPP MN Q4H PRN PAIN/TEMP>100 ( Reported) Albuterol Sulfate 2.5 MG/3 ML (0.083 %) VIAL.NEB 1 Vial INH/BENJAMÍN Q6H PRN RESPIRATORY (Reported) Alendronate Sodium (Fosamax) 70 MG TABLET 1 TAB PO QTUES BONES (Reported) in the morning, at least 30 minutes before the first food, beverage, or medication of the day Amlodipine Besylate 5 MG TABLET 1 TAB PO DAILY hypertension Anastrozole 1 MG TABLET 1 MG PO DAILY ANTIESTROGEN (Reported) Bisacodyl 10 MG SUPP.RECT 1 SUP RC PRN GI (Reported) Calcium Carbonate/Vitamin D3 (Os-Phill 500+D3 Caplet) 500 MG-200 TABLET 1 TAB PO BID SUPPLEMENT (Reported) Cholecalciferol (Vitamin D3) 1,000 UNIT TABLET 1 TAB PO DAILY SUPPLEMENT ( Reported) Diclofenac Sodium (Voltaren) 1 % GEL..GRAM. 1 GM TOP PRN PAIN (Reported) apply to affected area(s) Ferrous Sulfate 325 MG (65 MG IRON) TABLET 1 TAB PO DAILY SUPPLEMENT ( Reported) Fluvastatin Sodium (Lescol) 20 MG CAPSULE 20 MG PO QHS CHOLESTEROL (Reported) Lactulose 10 GRAM/15 ML SOLUTION 30 ML PO QAM High ammonia Titrate to 2-3 bowel movements a day. Magnesium Hydroxide (Milk Of Magnesia) 400 MG/5 ML ORAL.SUSP 30 ML PO DAILY PRN CONSTIPATION (Reported) Magnesium Oxide (Magnesium) 400 MG CAPSULE 1 CAP PO DAILY low magnesium follows up with Dr. Young Meclizine HCl 12.5 MG TABLET 1 TAB PO Q6H PRN VERTIGO (Reported) Melatonin 3 MG TABLET 1 TAB PO QPM INSOMNIA (Reported) Methimazole 5 MG TABLET 2.5 MG PO Thursday THYROID PROBLEMS ( Reported) Na Phos,M-B/Na Phos,Di-Ba (Fleet Enema) 19 GRAM-7 GRAM/118 ML ENEMA 1 E RC DAILY PRN GI (Reported) Naloxone HCl (Narcan) 4 MG/ACTUATION SPRAY 4 MG ANTONIA AD PRN OPIOID INDUCED RESP DEPRESSION (Reported) Omeprazole 40 MG CAPSULE.DR 1 CAP PO DAILY Stomach health Potassium Chloride 20 MEQ TAB.ER.PRT 1 TAB PO DAILY SUPPLEMENT (Reported) Quinapril HCl (Accupril) 20 MG TABLET 1 TAB PO DAILY HEART/BP (Reported) Past History Travel History Traveled to [place] past 21 day No Medical History Neurological: SHINGLES LYMES DISEASE EENT: allergies, cataracts, hearing loss, POSTNASAL DRIP Cardiovascular: AFIB, hypertension, hyperlipidemia, AORTIC STENOSIS Respiratory: bronchitis, pneumonia, L pleural effusion THORACENTESIS Gastrointestinal: NONE Hepatic: NONE Renal: NONE Musculoskeletal: osteoarthritis, osteoporosis, BAKERS CYST LEFT WRIST FRACTURE LEFT ANKLE FRACTURE Psychiatric: NONE Endocrine: diabetes, hyperthyroidism Blood Disorders: anemia, LYME DISEASE Cancer(s): breast cancer, SKIN CANCER (LUMPECTOMY NO LYMPH NODES REMOVED) PANTOGRAPHER/Reproductive: NONE History of MRSA: No History of VRE: No History of CDIFF: No Tetanus Vaccine: 09/02/15 Surgical History Surgical History: APPENDECTOMY BILATERAL LUMPECTOMY (NO LYMPH NODES REMOVED) Past Family/Social History Family History Relations & Conditions if any SON FH: Hodgkins disease MOTHER FH: diabetes mellitus FH: heart disease MOTHER FATHER FH: heart disease Psychosocial History Who Do You Live With? self Services at Home: None Functional Ability ADLs Needs Assist: dressing, eating, toileting, bathing. IADLs Needs Assist: shopping, housework, finances, food prep, telephone, transportation, medication admin. Review of Systems Review of Systems Constitutional: Reports: weakness. Denies: chills, diaphoresis, fever, malaise. EENTM: Denies: no symptoms. Cardiovascular: Reports: edema, peripheral edema. Denies: chest pain. Respiratory: Reports: short of breath. Denies: cough, hemoptysis, orthopnea. GI: Reports: diarrhea. Denies: abdominal pain, bloating, constipation, distention, bowel incontinence, melena, nausea, bloody stool, changes in stool. Genitourinary: Denies: discharge, dysuria, frequency, hematuria, hesitation, nocturia. Musculoskeletal: Denies: back pain, gout, joint pain, joint swelling, muscle pain. Skin: Reports: erythema, rash. Denies: no symptoms. Neurological/Psychological: Reports: anxiety, depressed. Denies: ataxia, cognitive dysfunction, confusion, dementia, emotional problems, headache, numbness, paresthesia, pre-existing deficit, petit mal seizures, tingling, tremors. Exam & Diagnostic Data Last 24 Hrs of Vital Signs/I&O Vital Signs Date Time Temp Pulse Resp B/P Pulse O2 O2 Flow FiO2 Ox Delivery Rate 12/18 0628 80 16 112/60 97 Nasal Cannula 12/18 0610 95.1 12/18 0521 95.8 12/18 0420 95.5 12/18 0307 94.9 12/18 0200 94.2 12/18 0110 93.4 12/18 0008 93.4 12/18 0000 99 Nasal 2.0L Cannula 12/17 2309 93.9 12/17 2257 82 19 102/60 99 Nasal Cannula 12/17 2256 93.7 12/17 2150 67 16 117/62 100 Nasal 2.0L Cannula 12/17 1847 97.2 73 18 117/60 96 Nasal 2.0L Cannula 12/17 1622 99 Nasal 2.0L Cannula 12/17 1612 61 20 115/64 99 Nasal Cannula Intake & Output 12/18 0800 12/18 0000 12/17 1600 Intake Total 240 Output Total Balance 240 Intake, Oral 240 Number 1 Bowel Movements Patient 76.204 kg Weight Physical Exam General Appearance Alert, Oriented X3, Cooperative Skin thin, shiny skin, with areas of oozing fluid, bruises, HEENT Atraumatic, PERRLA, EOMI Neck Supple, No JVD Cardiovascular Normal S1, Normal S2, murmur positive Lungs bilateral basal crepts Abdomen Soft, No Tenderness, distension Neurological Normal Speech Extremities No Clubbing, No Cyanosis, generalized pitting edema Vascular Normal Pulses, Pulses Symmetrical Assessment/Plan Assessment: Patient is an 89-year-old female from [facility] with significant past medical history of shingles, Lyme disease, hearing loss, cataract, atrial fibrillation not on coumadin, hypertension, hyperlipidemia, hyperthyroidism/ 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 Vital signs at the time of admission-temperature 97.2, pulse 61, respiratory rate 20, blood pressure 115/64, SPO2 99% on 2 liters nasal cannula Chest CT-1. 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 Lung Generalized anasarca Cholelithiasis Permanent Atrial fibrillation not on any anticoagulant Hypertension Hyperlipidemia Type 2 diabetes, not on by mouth medication Moderate Aortic stenosis 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 Advised for strict I/O charting daily weight We advised to keep NPO for Pleurex catheter placement tmr. We will repeat CBC/BEP We will continue all home medication Diet - NPO Code status - DNR/DNI DVT prophylaxis - ALPS/ Heparin As Ranked By This Provider Problem List: 1. Hypothermia 2. CHF (congestive heart failure) 3. Anasarca 4. Cirrhosis Core Measures/Miscellaneous Acute Coronary Syndrome ACS Diagnosis: No Cerebrovascular Accident CVA/TIA Diagnosis: No Congestive Heart Failure CHF Diagnosis: Yes Venous Thromboembolism VTE Risk Factors: Age > 40 VTE Prophylaxis Ordered Inpt: Mechanical (ALPS[facility]TEDS) [facility] prophylaxis d/t: No contraindications No VTE Pharm Prophylaxis d/t: Anticoagulation not kaylynn VTE Diagnosis: No VTE Type: NONE VTE Confirmed by (Test): NONE Severe Sepsis Severe Sepsis Present: No BC x2: Yes Lactic Acid x2: Yes IV ABX Broad Spectrum: Yes Septic Shock Septic Shock Present: No Miscellaneous Documentation Attending Case Discussed With: AMBAR YOUNG MD Primary Care Physician: LIYAH BEAR MD 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 Level of Patient Care: General Medicine ROSEMARIE العراقي 12/17/168: Resident Review Statement Resident Statement: discussed with cad intern Other Findings: She is 89-year-old woman with past medical history of atrial fibrillation not on any anticoagulation right now because of recent history of GI bleed and due to multiple comorbidities, type 2 diabetes not on hypoglycemic agents, hypertension , hyperlipidemia, history of breast cancer status post lumpectomy and radiation now on anastrozole, history of multinodular goiter on methimazole, chronic left- sided pleural effusion, CHF with preserved EF, osteoporosis and cirrhosis. She was recently discharged from [facility] on December 10 for hepatic encephalopathy, rectal bleed and supratherapeutic INR. For chronic pleural effusion thoracentesis was done in previous admission (around 1 L of pleural fluid was removed). Fluid was transudative and pleural fluid culture was negative. she was BIBA from [place] for worsening shortness of breath. Patient is scheduled for Pleurx catheter placement by Dr. Ashley tomorrow. Currently she is at her baseline, 2 L and saturating 97-99%. She offers no complaints except diarrhea that started today. She reports having soft stools at least 4 times today. Stool is nonbloody. She denies any fever, chills, nausea, vomiting, abdominal pain. She just started physical therapy today. Vitals and admission: Temperature 97.2, pulse 61, respiratory rate 20, blood pressure 1:15/64 and oxygen saturation 99% on 2 L Positive physical exam findings: Mucous membranes dry, heart rate irregularly irregular on auscultation, lung exam reveals decreased breath sounds and crackles bilaterally, generalized anasarca, right arm is more swollen than left. Bilateral lower extremity swelling. There is a bruise on front of right leg. Pertinent labs: H&H 10.1/30.1, sodium 131, depression, 27, BUN 44, creatinine 1.3, glucose 360, total bilirubin 1.7, AST 68, alkaline phosphatase 271. EKG: Atrial fibrillation with heart rate 62, no acute ST-T wave changes CXR: Reaccumulation of left-sided pleural effusion associated with compression atelectasis of left lower lobe CT chest, abdomen and pelvis: Large left-sided pleural effusion, compression atelectasis of left lung, increasing ascites, cholelithiasis, lymphadenopathy in the infrarenal region, gastric distention, thyromegaly, mitral valve disease Assessment and plan She is 89-year-old woman with multiple comorbidities is going to be admitted as observation on general medicine floor for placement of Pleurx catheter tomorrow for chronic left-sided pleural effusion. Problem list 1. Worsening shortness of breath. Most likely reaccumulation of left-sided pleural effusion. Please note that patient had thoracentesis on December 10 and 1 L of pleural fluid was removed that was transudative and cultures were negative. Patient is at her baseline saturating 96-99%. 2. Chronic normocytic anemia 3. Hyponatremia. Sodium 131. Could be due to hyperglycemia and anasarca 4. Hyperkalemia. Potassium 5.7. Patient was taking potassium before coming to ER. 5. Acute kidney injury. Creatinine 1.3. Most likely due to poor renal perfusion 6. Type 2 diabetes not on hypoglycemics 7. Generalized anasarca 8. Elevated bilirubin, alkaline phosphatase and AST. Patient has history of cirrhosis. 9. History of multinodular goiter 10. History of A. fib. Coumadin was stopped on previous admission because of GI bleed and multiple comorbidities 11. H/O liver cirrhosis and hepatic encephalopathy PLAN We will admit patient to general medicine floor. Vitals every shift. Continue supplemental oxygen and keep oxygen saturation more than 92%. Patient is nothing by mouth after midnight tonight and going for Pleurx catheter placement by Dr. Ashley tomorrow. Her recent INR is 1.44. We will continue all other home medications. We will hold potassium and magnesium supplements that she was taking and STR. We would repeat potassium in a.m. and if still high then we can give her by mouth Kayexalate. Repeat sodium in a.m. We will recheck kidney functions in a.m. Avoid nephrotoxins. Will continue all other home medications. Subcutaneous heparin for DVT prophylaxis. Pain management pathway. DNR/DNI. Daughter is lauren GONZALEZ [phone] AMBAR YOUNG MD 12/18/16 1445: Attending MD Review Statement Attending Statement Attending MD Statement: examined this patient, discuss w/resident/PA/NITRATE OPERATOR, agreed w/resident/PA/NITRATE OPERATOR, discussed with family, reviewed EMR data (avail), discussed with nursing, reviewed images, amended to note Attending Assessment/Plan: Mrs. Lei is an 89-year-old female who was referred to the hospital from her SNF after she was noted to be extremely short of breath when visited by her program engagement director. She was in STR after being hospitalized for acute liver failure and acute GI bleed. She has a history of cirrhosis of multiple etiologies including steatosis. Present problems include shortness of breath, obtundation, liver cirrhosis, atrial fibrillation(not anticoagulated secondary to GI bleed and other factors), T2 DM, toxic multinodular goiter, dyslipidemia, and hypertension. Present plan is to observe the patient overnight and proceed with placement of a Pleurx catheter by thoracic surgery in the a.m.. Her other modalities of care will be continued.
[2016-12-17 22:32] LABS: PT 15.1 SEC (9.4-12.5)
[2016-12-17 22:57] VITALS: BP 102/60
[2016-12-18 06:28] VITALS: BP 112/60
[2016-12-18 07:10] VITALS: BP 110/70
[2016-12-18 08:37] LABS: ABSOLUTE BASOPHIL COUNT 0 /CUMM (0.0-0.2); ABSOLUTE EOSINOPHIL COUNT 0 /CUMM (0.0-0.7); ABSOLUTE GRANULOCYTE CT 5.4 /CUMM (1.4-6.5); ABSOLUTE LYMPH COUNT 0.4 /CUMM (1.2-3.4); ABSOLUTE MONOCYTE COUNT 0.5 /CUMM (0.10-0.60); BASOPHIL % 0.1 % (0.0-2.0); EOSINOPHIL % 0 % (0-5); HEMATOCRIT 28.2 % (37-47); MEAN CORPUSCULAR HGB 31.9 PG (27.0-31.0); MEAN CORPUSCULAR HGB CONC 33.3 G/DL (33.0-37.0); MEAN CORPUSCULAR VOLUME 95.8 FL (81.0-99.0); MEAN PLATELET VOLUME 8.4 FL (7.4-10.4); RBC DISTRIBUTION WIDTH 15.3 % (11.5-14.5); RED BLOOD CELL CT 2.94 /CUMM (4.20-5.40); WHITE BLOOD CELL COUNT 6.3 /CUMM (4.8-10.8)
--- NOTE | 2016-12-18 08:48 | Cons- Wound Care ---
General Information and HPI Consulting Request Date of Consult: 12/18/16 Requested By: HECTOR TSANG,AMBAR Santos Reason for Consult: Multiple ulcers present on admission History of Present Illness: Patient is an 89-year-old woman with multiple medical problems and chronic confusion thought secondary to underlying liver disease who is scheduled to have a Pleurx catheter was found to have multiple ulcers present on admission. Allergies/Medications Allergies: Coded Allergies: atorvastatin (Intermediate, MODERATE PAIN TO BACK AND SHOULDERS 01/20/16) scallops (GI DISTRESS 01/20/16) Home Med List: Acetaminophen (Tylenol) 325 MG TABLET 2 TAB PO Q6-PRN PRN FEVER > 101 ( Reported) Acetaminophen (Acephen) 650 MG SUPP.RECT 1 SUPP ID Q4H PRN PAIN/TEMP>100 ( Reported) Albuterol Sulfate 2.5 MG/3 ML (0.083 %) VIAL.NEB 1 Vial INH/BENJAMÍN Q6H PRN RESPIRATORY (Reported) Alendronate Sodium (Fosamax) 70 MG TABLET 1 TAB PO QTUES BONES (Reported) in the morning, at least 30 minutes before the first food, beverage, or medication of the day Amlodipine Besylate 5 MG TABLET 1 TAB PO DAILY hypertension Anastrozole 1 MG TABLET 1 MG PO DAILY ANTIESTROGEN (Reported) Bisacodyl 10 MG SUPP.RECT 1 SUP RC PRN GI (Reported) Calcium Carbonate/Vitamin D3 (Os-Phill 500+D3 Caplet) 500 MG-200 TABLET 1 TAB PO BID SUPPLEMENT (Reported) Cholecalciferol (Vitamin D3) 1,000 UNIT TABLET 1 TAB PO DAILY SUPPLEMENT ( Reported) Diclofenac Sodium (Voltaren) 1 % GEL..GRAM. 1 GM TOP PRN PAIN (Reported) apply to affected area(s) Ferrous Sulfate 325 MG (65 MG IRON) TABLET 1 TAB PO DAILY SUPPLEMENT ( Reported) Fluvastatin Sodium (Lescol) 20 MG CAPSULE 20 MG PO QHS CHOLESTEROL (Reported) Lactulose 10 GRAM/15 ML SOLUTION 30 ML PO QAM High ammonia Titrate to 2-3 bowel movements a day. Magnesium Hydroxide (Milk Of Magnesia) 400 MG/5 ML ORAL.SUSP 30 ML PO DAILY PRN CONSTIPATION (Reported) Magnesium Oxide (Magnesium) 400 MG CAPSULE 1 CAP PO DAILY low magnesium follows up with Dr. Garcia Meclizine HCl 12.5 MG TABLET 1 TAB PO Q6H PRN VERTIGO (Reported) Melatonin 3 MG TABLET 1 TAB PO QPM INSOMNIA (Reported) Methimazole 5 MG TABLET 2.5 MG PO Thursday THYROID PROBLEMS ( Reported) Na Phos,M-B/Na Phos,Di-Ba (Fleet Enema) 19 GRAM-7 GRAM/118 ML ENEMA 1 E RC DAILY PRN GI (Reported) Naloxone HCl (Narcan) 4 MG/ACTUATION SPRAY 4 MG ANTONIA AD PRN OPIOID INDUCED RESP DEPRESSION (Reported) Omeprazole 40 MG CAPSULE.DR 1 CAP PO DAILY Stomach health Potassium Chloride 20 MEQ TAB.ER.PRT 1 TAB PO DAILY SUPPLEMENT (Reported) Quinapril HCl (Accupril) 20 MG TABLET 1 TAB PO DAILY HEART/BP (Reported) Review of Systems Review of Systems: Patient is lethargic Past History Travel History Traveled to [place] past 21 day No Medical History Blood Transfusion Hx: Yes Neurological: SHINGLES LYMES DISEASE EENT: allergies, cataracts, hearing loss, POSTNASAL DRIP Cardiovascular: AFIB, hypertension, hyperlipidemia, AORTIC STENOSIS Respiratory: bronchitis, pneumonia, L pleural effusion THORACENTESIS Gastrointestinal: NONE Hepatic: NONE Renal: NONE Musculoskeletal: osteoarthritis, osteoporosis, BAKERS CYST LEFT WRIST FRACTURE LEFT ANKLE FRACTURE Psychiatric: NONE Endocrine: diabetes, hyperthyroidism Blood Disorders: anemia, LYME DISEASE Cancer(s): breast cancer, SKIN CANCER (LUMPECTOMY NO LYMPH NODES REMOVED) 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 self Services at Home: None Smoking Status: Former Smoker Functional Ability ADLs Needs Assist: dressing, eating, toileting, bathing. IADLs Needs Assist: shopping, housework, finances, food prep, telephone, transportation, medication admin. Exam & Diagnostic Data Vital Signs and I&O Vital Signs Result Date Time Pulse Ox 98 12/18 0825 O2 Delivery Nasal Cannula 12/18 0825 O2 Flow Rate 2.0L 12/18 0825 B/P 110/70 12/18 0710 Temp 97.3 12/18 0710 Pulse 79 12/18 0710 Resp 15 12/18 0710 Intake & Output 12/18 0000 12/17 1600 12/17 0800 Intake Total 240 Output Total Balance 240 Intake, Oral 240 Patient 168 lb Weight Exam of her right buttock shows there to be an unstageable 1.5 x 0.6 cm ulcer in an area of erythema likely related to Ama. Over the left upper back is a stage II ulcer approximately 1 x 0.5 cm. There are serous filled blisters on both arms. There is total body anasarca in the setting of profound hypoalbuminemia. Assessment/Plan Impression/Plan: 89-year-old woman with anasarca and hypoalbuminemia who was scheduled for a Pleurx catheter was found to have multiple ulcers present on admission. These are pressure injury ulcers. Recommend offloading with a low air loss mattress and appropriate positioning. The right buttock ulcer can be treated with Santyl ointment and Xeroform for enzymatic debridement on a daily basis. Topical anti- fungal cream or powder can be used. The left posterior back ulcer can be treated with Xeroform and offloading daily Consult Acknowledgment - Thank you for your consult request.
--- NOTE | 2016-12-18 08:56 | Cons- CRCU ---
BLANQUITA TSANG,TERRENCE 12/18/16 0856: General Information and HPI History of Present Illness: 89 years-old F with past medical history of chronic right-sided heart failure, chronic pleural effusion, atrial fibrillation not on Coumadin (history of recent GI bleed), hypertension, hyperlipidemia, hyperthyroidism, diabetes mellitus, aortic stenosis, osteoarthritis, osteoporosis, history of breast cancer status post lumpectomy, was referred from [facility] for worsening shortness of breath for a day. She is supposed to receive Pleurx catheter placement today due to recurrent left -sided pleural effusions, but because of her change in respiratory status, worsening shortness of breath, she was referred from her nursing facility to the emergency department early on. After initial treatment in the emergency department, she has still breathing with labor, has increased respiratory rate but is saturating well with additional oxygen via nasal cannula. She is confused but speaking in few words softly and much of her history was obtained from her daughter and emergency department records. She did not have fever, chills, cough, chest pain, palpitation, fall. But again, her review of systems is limited due to her clinical condition. Allergies/Medications Allergies: Coded Allergies: atorvastatin (Intermediate, MODERATE PAIN TO BACK AND SHOULDERS 01/20/16) scallops (GI DISTRESS 01/20/16) Home Med List: Acetaminophen (Tylenol) 325 MG TABLET 2 TAB PO Q6-PRN PRN FEVER > 101 ( Reported) Acetaminophen (Acephen) 650 MG SUPP.RECT 1 SUPP SC Q4H PRN PAIN/TEMP>100 ( Reported) Albuterol Sulfate 2.5 MG/3 ML (0.083 %) VIAL.NEB 1 Vial INH/BENJAMÍN Q6H PRN RESPIRATORY (Reported) Alendronate Sodium (Fosamax) 70 MG TABLET 1 TAB PO QTUES BONES (Reported) in the morning, at least 30 minutes before the first food, beverage, or medication of the day Amlodipine Besylate 5 MG TABLET 1 TAB PO DAILY hypertension Anastrozole 1 MG TABLET 1 MG PO DAILY ANTIESTROGEN (Reported) Bisacodyl 10 MG SUPP.RECT 1 SUP RC PRN GI (Reported) Calcium Carbonate/Vitamin D3 (Os-Phill 500+D3 Caplet) 500 MG-200 TABLET 1 TAB PO BID SUPPLEMENT (Reported) Cholecalciferol (Vitamin D3) 1,000 UNIT TABLET 1 TAB PO DAILY SUPPLEMENT ( Reported) Diclofenac Sodium (Voltaren) 1 % GEL..GRAM. 1 GM TOP PRN PAIN (Reported) apply to affected area(s) Ferrous Sulfate 325 MG (65 MG IRON) TABLET 1 TAB PO DAILY SUPPLEMENT ( Reported) Fluvastatin Sodium (Lescol) 20 MG CAPSULE 20 MG PO QHS CHOLESTEROL (Reported) Lactulose 10 GRAM/15 ML SOLUTION 30 ML PO QAM High ammonia Titrate to 2-3 bowel movements a day. Magnesium Hydroxide (Milk Of Magnesia) 400 MG/5 ML ORAL.SUSP 30 ML PO DAILY PRN CONSTIPATION (Reported) Magnesium Oxide (Magnesium) 400 MG CAPSULE 1 CAP PO DAILY low magnesium follows up with Dr. Garcia Meclizine HCl 12.5 MG TABLET 1 TAB PO Q6H PRN VERTIGO (Reported) Melatonin 3 MG TABLET 1 TAB PO QPM INSOMNIA (Reported) Methimazole 5 MG TABLET 2.5 MG PO Thursday THYROID PROBLEMS ( Reported) Na Phos,M-B/Na Phos,Di-Ba (Fleet Enema) 19 GRAM-7 GRAM/118 ML ENEMA 1 E RC DAILY PRN GI (Reported) Naloxone HCl (Narcan) 4 MG/ACTUATION SPRAY 4 MG ANTONIA AD PRN OPIOID INDUCED RESP DEPRESSION (Reported) Omeprazole 40 MG CAPSULE.DR 1 CAP PO DAILY Stomach health Potassium Chloride 20 MEQ TAB.ER.PRT 1 TAB PO DAILY SUPPLEMENT (Reported) Quinapril HCl (Accupril) 20 MG TABLET 1 TAB PO DAILY HEART/BP (Reported) Review of Systems Review of Systems Constitutional: Reports: see HPI, weakness. EENTM: Reports: no symptoms. Cardiovascular: Reports: no symptoms. Respiratory: Reports: see HPI, orthopnea, short of breath. Denies: cough, sputum production, stridor, wheezing. GI: Reports: no symptoms. Genitourinary: Reports: no symptoms. Musculoskeletal: Reports: no symptoms. Skin: Reports: see HPI (has chronic ulcers at back). Neurological/Psychological: Reports: no symptoms. Hematologic/Endocrine: Reports: no symptoms. All Other Systems: Reviewed and Negative Past History Travel History Traveled to [place] past 21 day No Medical History Blood Transfusion Hx: Yes Neurological: SHINGLES LYMES DISEASE EENT: allergies, cataracts, hearing loss, POSTNASAL DRIP Cardiovascular: AFIB, hypertension, hyperlipidemia, AORTIC STENOSIS Respiratory: bronchitis, pneumonia, L pleural effusion THORACENTESIS Gastrointestinal: NONE Hepatic: NONE Renal: NONE Musculoskeletal: osteoarthritis, osteoporosis, BAKERS CYST LEFT WRIST FRACTURE LEFT ANKLE FRACTURE Psychiatric: NONE Endocrine: diabetes, hyperthyroidism Blood Disorders: anemia, LYME DISEASE Cancer(s): breast cancer, SKIN CANCER (LUMPECTOMY NO LYMPH NODES REMOVED) 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 self Services at Home: None Smoking Status: Former Smoker Functional Ability ADLs Needs Assist: dressing, eating, toileting, bathing. IADLs Needs Assist: shopping, housework, finances, food prep, telephone, transportation, medication admin. Exam & Diagnostic Data Last 24 Hrs of Vital Signs/I&O Vital Signs Date Time Temp Pulse Resp B/P Pulse O2 O2 Flow FiO2 Ox Delivery Rate 12/18 0825 98 Nasal 2.0L Cannula 12/18 0710 97.3 79 15 110/70 99 Nasal 2.0L Cannula 12/18 0628 80 16 112/60 97 Nasal Cannula 12/18 0610 95.1 12/18 0521 95.8 12/18 0420 95.5 12/18 0307 94.9 12/18 0200 94.2 12/18 0110 93.4 12/18 0008 93.4 12/18 0000 99 Nasal 2.0L Cannula 12/17 2309 93.9 12/17 2257 82 19 102/60 99 Nasal Cannula 12/17 2256 93.7 12/17 2150 67 16 117/62 100 Nasal 2.0L Cannula 12/17 1847 97.2 73 18 117/60 96 Nasal 2.0L Cannula 12/17 1622 99 Nasal 2.0L Cannula 12/17 1612 61 20 115/64 99 Nasal Cannula Intake & Output 12/18 1600 12/18 0800 12/18 0000 Intake Total 0 240 Output Total 150 Balance -150 240 Intake, IV 0 Intake, Oral 0 240 Number 2 Bowel Movements Output, Urine 150 Patient 76.204 kg 76.204 kg Weight Physical Exam General Appearance: alert, awake, anxious, mild distress, obese, respiratory distress present, confused, but answering to queries Head: atraumatic, normal appearance Eyes: Bilateral: normal appearance, PERRL, EOMI. Ears, Nose, Throat: normal pharynx, normal ENT inspection Neck: normal inspection, supple, full range of motion Respiratory: rhonchi, wheezing, added conducted sound on expiration with each breath Cardiovascular: regular rate/rhythm Gastrointestinal: normal bowel sounds, soft, non-tender Extremities: normal inspection, normal capillary refill Neurologic/Psych: patient is slow to speak, could be due to respiratory distress , and bit confused as well, so could not complete her neurological examination Lymphatic: no anterior cervical dimple Last 48 Hrs of Labs/Claude: Laboratory Tests 12/18/16 0910: Ammonia Pending 12/18/16 0750: Anion Gap 5, Estimated GFR 39 L, Glucose 274 H, Calcium 7.4 L, Phosphorus 2.8 , Magnesium 2.0, Total Bilirubin 1.7 H, AST 60 H, ALT 49, Albumin 2.0 L, TSH Pending, Free T4 Pending, CBC w Diff NO MAN DIFF REQ, RBC 2.94 L, MCV 95.8, MCH 31.9 H, RDW 15.3 H, MPV 8.4, Gran % 85.6 H, Lymphocytes % 6.1 L, Monocytes % 8.2, Eosinophils % 0, Basophils % 0.1, Absolute Granulocytes 5.4, Absolute Lymphocytes 0.4 L, Absolute Monocytes 0.5, Absolute Eosinophils 0, Absolute Basophils 0, PUBS MCHC 33.3 12/18/16 0600: CBC w Diff Cancelled, WBC Cancelled, RBC Cancelled, Hgb Cancelled, Hct Cancelled , MCV Cancelled, MCH Cancelled, RDW Cancelled, Plt Count Cancelled, MPV Cancelled, PUBS MCHC Cancelled 12/18/16 0105: Urinalysis LIGHT H, Urine Color YEL, Urine Clarity TURBD H, Urine pH 7.5, Ur Specific [place] 1.020, Urine Protein 100 H, Urine Ketones NEG, Urine Nitrite NEG, Urine Bilirubin NEG, Urine Urobilinogen 0.2, Ur Leukocyte Esterase MOD H, Ur Microscopic SEDIMENT EXAMINED, Urine RBC 5-10 H, Urine WBC PACKD H, Ur Epithelial Cells FEW, Urine Mucus MOD H, Urine Hemoglobin MOD H, Urine Glucose NEG 12/18/16 0030: Total Bilirubin Cancelled, Direct Bilirubin Cancelled, AST Cancelled, ALT Cancelled, Alkaline Phosphatase Cancelled, Total Protein Cancelled, Albumin Cancelled 12/17/16 1644: Anion Gap 9, Estimated GFR 39 L, BUN/Creatinine Ratio 33.8 H, Glucose 360 H, Calcium 7.5 L, Magnesium 2.0, Total Bilirubin 1.7 H, AST 68 H, ALT 50, Alkaline Phosphatase 271 H, Troponin I 0.03, Total Protein 6.3, Albumin 2.2 L, Globulin 4.1, Albumin/Globulin Ratio 0.5 L, TSH 2.680, Free T4 2.41 H, PT 15.1 H, INR 1.44 H, CBC w Diff NO MAN DIFF REQ, RBC 3.16 L, MCV 95.1, MCH 32.0 H, RDW 15.4 H, MPV 8.4, Gran % 92.2 H, Lymphocytes % 4.2 L, Monocytes % 3.6, Eosinophils % 0, Basophils % 0 L, Absolute Granulocytes 6.1, Absolute Lymphocytes 0.3 L, Absolute Monocytes 0.2, Absolute Eosinophils 0, Absolute Basophils 0, PUBS MCHC 33.7 Diagnostic Data CXR Results Some reaccumulation of the left-sided pleural effusion associated with compression atelectasis of the left lower lobe. DICTATED BY: JUDAH BHATT MD DATE/TIME DICTATED:12/17/161717 FITNESS AND WELLNESS MANAGER:KWESI DATE/TIME TRANSCRIBED:12/17/161717 Other Results CT chest and abd-pelvis: 1. Minimal decrease in the volume of the moderately large left pleural effusion. Compression atelectasis of a portion of the left lung. 2. Abnormal appearance to the left breast. (Skin thickening and increased soft tissue density). 3. Increasing ascites. Increasing anasarca. 4. Cholelithiasis. 5. Lymphadenopathy in the infrarenal periaortic region. (No change from previous). Lymph nodes are also seen along both iliac chains. 6. Gastric distention. 7. Thyromegaly. 8. Mitral valve disease. DICTATED BY: JUDAH BHATT MD DATE/TIME DICTATED:12/17/161808 FITNESS AND WELLNESS MANAGER:KWESI DATE/TIME TRANSCRIBED:12/17/161808 Assessment/Plan Impression/Plan: 89 years-old F with past medical history of chronic right-sided heart failure, chronic pleural effusion, atrial fibrillation not on Coumadin (history of recent GI bleed), hypertension, hyperlipidemia, hyperthyroidism, diabetes mellitus, aortic stenosis, osteoarthritis, osteoporosis, history of breast cancer status post lumpectomy, was referred from [facility] for worsening shortness of breath for a day. In the emergency department, she was hypothermic with temperature 93.7, rate of 20, with oxygen saturation 99% with 2 L/m oxygen via nasal cannula, blood pressure 115/64, pulse 61. Her WBC was 6.7, hemoglobin 10.1, hematocrit 30.1, platelets 142, sodium was slightly lower with 131, hyperkalemic with 5.7, BUN 44, creatinine 1.3, glucose 360, calcium 7.5, albumin 2.2, total bilirubin 1.7, alkaline phosphatase 271. She is currently being evaluated and managed in the ICU for the following issues : #Hypothermia: Her temperature has already been corrected, and has been stable. Infectious disease: #Urinary tract infection Patient's urine has packed WBC, with moderate leukocyte esterase, suggestive of urinary tract infection. -Ceftriaxone has been started for now -Need to follow up on urine cultures, and modify antibiotics accordingly Wound: #Wound consult has been placed. Dr. Ferrell saw the patient and recommended daily Collagenase with Xerofoam dressing, and Nystatin powder. Orders placed accordingly. Metabolic: #Hyperkalemia K has been 5.7 in two reads. Currently, patient has been placed on lactulose for high ammonia. Plan to see if potassium level decreases after she has a few bowel movement. If consistently high, plan to give her on Kayexalate per rectum. #Diabetes mellitus Patient is currently nothing by mouth, but will eventually returning tired if she passes swallow evaluation after Pleurx cath placement today. -Accu-Cheks have been ordered regularly -Insulin on sliding scale has been ordered #Altered mental status Patient has a history of cirrhosis and hepatic lymphopathy with recent hospitalization. -Follow-up with ammonia level -Continue lactulose 10 g daily Respiratory: #Acute on chronic respiratory failure, chronic pleural effusion Patient has long-standing history of respiratory failure and pleural effusion. See has had multiple thoracentesis which made her feel better but has quick recurrences. She was plan to undergo a procedure to place a Pleurx catheter today but did have worsening shortness of breath in the nursing facility and was sent to the emergency department. -Planned to place Pleurx catheter today by Surgical team. Tentative timing is 12 noon. -Pending swallow eval after that. Will proceed from there. Cardiovascular: #Latest echo is from September 2016, which shows ejection fraction of more than 60%. Recent consultation with it security specialist Dr Lopez on 12/06/2016 suggested that her shortness of breath is only due to pleural effusion and no CHF. #HTN Will continue her Amlodipine 5mg daily dose only after the procedure is complete and her vitals are normalizing. #History of atrial fibrillation Patient has atrial fibrillation, but is not under any Coumadin currently, because he had a recent history of GI bleeding. Nutrition: #Malnutrition Patient is albumin of 2.2, has poor oral intake, and multiple chronic medical problems that worsens the situation. This also contributes to the anasarca see is having right now. She is nothing by mouth for now for the procedure today. Pending swallow evaluation after the procedure. #History of Breast cancer: Patient has a history of breast cancer, status post lumpectomy and taking oral medications. -Plan to continue her home medication with anastrozole #Diet: Currently nothing by mouth, pending Pleurx catheter placement #DVT prophylaxis with Alps and heparin subcutaneous 3 times a day #CODE STATUS: DNR/DNI Consult Acknowledgment - Thank you for your consult request. Say RENDON MD 12/18/16 0904: General Information and HPI Consulting Request Date of Consult: 12/18/16 Requested By: Dr. Garcia Reason for Consult: Increased left pleural effusion Source of Information: patient, old records Exam Limitations: clinical condition Assessment/Plan Other Findings/Comments: I have personally seen and examined the patient. I agree with the resident's assessment and plan as detailed above. Briefly, the patient is an 89-year-old female who is followed by Dr. Arguello. The patient has a comp K to history including atrial fibrillation, off anticoagulation, hypertension, hyperlipidemia , hyperthyroidism, diabetes, aortic stenosis, osteoarthritis, osteoporosis, history of breast cancer, and chronic right-sided heart failure. The patient has cirrhosis noting the etiology is a combination of chronic right-sided heart failure and steatosis. I evaluated the patient in the halfway yesterday noting that she was significantly dyspneic. An outside chest x-ray showed an increasing left pleural effusion. She underwent thoracentesis twice last week noting that 1 L of fluid was evacuated each time. Because the patient was experiencing worsening dyspnea again, I sent her to the emergency department for admission and Pleurx catheter placement which will occur later today. We will check thyroid function studies as well as an ammonia level. She is nothing by mouth in anticipation of the procedure later today. Of note, the patient had a temperature of 93 on the floor and was transferred to the critical care unit where she was measured at 95. Her body temperature is now improved and within normal limits. Consult Acknowledgment - Thank you for your consult request.
[2016-12-18 09:08] LABS: PLATELET COUNT 130 /CUMM (130-400)
[2016-12-18 09:09] LABS: GRANULOCYTE % 85.6 % (42.2-75.2)
--- NOTE | 2016-12-18 14:27 | Event Note ---
Event Note Event Note: Patient's daughter, who is also her power of banking attorney, was concerned about plan of care for the patient. She had concerns about Plurex catheter placement today given her mental condition and due to high amount of ammonia. Me and my resident Dr. Myron Perdomo discussed the current situation of the patient with her daughter, talked about the procedure, its risks and benefits, and the need to carry out the procedure for her recurrent pleural effusions. In the same setting, discussion was started about her long-term goals of care, her prognosis, and options of palliative care, including comfort measures and hospice care. Her daughter apparently had already started thinking about the options prior to her admission and mentioned that she would like patient to go through the procedure first so that she could be more comfortable with her breathing, and later could change to comfort care. She clearly knew about the possibility of reverting the CODE STATUS as well. Her primary care physician Dr. Garcia as well as Dr. Colleen Morales MD were informed, who also had conversation with patient's daughter. After careful discussion and considering all the options, patient's CODE STATUS was changed to comfort measures, most of her medications were held, morphine and lorazepam were added when necessary, case management informed and official hospice consult was placed for the morning. Attendings Dr. Garcia and Dr. Morales informed and agreed to the plan.
--- NOTE | 2016-12-18 14:58 | PN- Att Addend ---
Attending Addendum Attending Brief Note Mrs. Lei was seen this morning and again upon her return from her Pleurx catheter placement. She is obtunded and only semi-responsive. He is afebrile with satisfactory blood pressure and satisfactory O2 saturation on 2 L via nasal cannula. Pulmonary exam reveals decreased breath sounds on the left anteriorly. There is a surgical dressing in the left subaxillary region. Cardiovascular exam reveals an irregular rhythm. She remains diffusely edematous. Pertinent laboratory during terminations reveal a sodium of 131 and a serum ammonia of 145. We have discussed the situation with the patient's daughter and indicated that Mrs. Lei prognosis is very poor. We have presented information from the daughter that she wishes her mother to change to a comfort care only status. We have forwarded this information to case management and inpatient hospice. At this time we will start morphine sulfate, lorazepam, and transdermal scopolamine in addition to the previously implemented care regimen.
[2016-12-18 16:00] VITALS: BP 128/74
--- NOTE | 2016-12-18 16:49 | Operative Report ---
Operative/Inv Procedure Report Surgery Date: 12/18/16 Name of Procedure: Left Pleurx catheter Pre-Operative Diagnosis: Recurrent symptomatic left pleural effusion Post-Operative Diagnosis: Same Estimated Blood Loss: scant Surgeon/Assistant Import Manager: Shubham Ashley Anesthesia: local monitored anesthesi Operative/Procedure Note Note: After placement of monitoring lines the patient's left chest was prepped with chlorhexidine scrub and draped in a sterile fashion. 1% lidocaine was used local anesthetic. The chest was entered in the midaxillary line and there was return of serous effusion. The wire was passed through the sheath into the chest with no resistance. An incision was made in the lower chest wall counterincision made at the wire. The Pleurx catheter was tunneled from the anterior to the posterior incision and the dacryon cuff was placed subcutaneously. The wire tract was gently progressively dilated with no resistance. The sheath dilator was passed over the wire with no resistance. The catheter was passed into the chest with no resistance. The There was drainage of approximately 500 mL of serous effusion. The posterior incision was closed with a Vicryl suture and the catheter was secured to the skin with silk suture. After removal of the drapes it was noted that we were somewhat lower on the chest wall than previously thought. Concerns were that the catheter might be below the diaphragm. The patient was reprepped and draped in the thoracentesis was done 2 interspaces above the entry site of the catheter. There was no return of fluid also was obvious that the pleural cavity had been drained and the catheter was in the correct space. With the enclosed dressing. The patient tolerated the procedure well and was returned to the intensive care unit.
--- NOTE | 2016-12-18 16:55 | Cons- Thoracic Surgery ---
General Information and HPI Consulting Request Date of Consult: 12/17/16 Requested By: AMBAR YOUNG MD Reason for Consult: Recurrent symptomatic left pleural effusion History of Present Illness: The patient is an 89-year-old woman with breast cancer. She has had 2 previous thoracentesis with rapid reaccumulation of the fluid on her left side. 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 She is sent into the emergency room where an emergency room evaluation is done to evaluate her recurrent symptomatic left pleural effusion. Therapeutic options being discussed a repeat thoracentesis versus Pleurx catheter placement. Allergies/Medications Allergies: Coded Allergies: atorvastatin (Intermediate, MODERATE PAIN TO BACK AND SHOULDERS 01/20/16) scallops (GI DISTRESS 01/20/16) Home Med List: Acetaminophen (Tylenol) 325 MG TABLET 2 TAB PO Q6-PRN PRN FEVER > 101 ( Reported) Acetaminophen (Acephen) 650 MG SUPP.RECT 1 SUPP ID Q4H PRN PAIN/TEMP>100 ( Reported) Albuterol Sulfate 2.5 MG/3 ML (0.083 %) VIAL.NEB 1 Vial INH/BENJAMÍN Q6H PRN RESPIRATORY (Reported) Alendronate Sodium (Fosamax) 70 MG TABLET 1 TAB PO QTUES BONES (Reported) in the morning, at least 30 minutes before the first food, beverage, or medication of the day Amlodipine Besylate 5 MG TABLET 1 TAB PO DAILY hypertension Anastrozole 1 MG TABLET 1 MG PO DAILY ANTIESTROGEN (Reported) Bisacodyl 10 MG SUPP.RECT 1 SUP RC PRN GI (Reported) Calcium Carbonate/Vitamin D3 (Os-Phill 500+D3 Caplet) 500 MG-200 TABLET 1 TAB PO BID SUPPLEMENT (Reported) Cholecalciferol (Vitamin D3) 1,000 UNIT TABLET 1 TAB PO DAILY SUPPLEMENT ( Reported) Diclofenac Sodium (Voltaren) 1 % GEL..GRAM. 1 GM TOP PRN PAIN (Reported) apply to affected area(s) Ferrous Sulfate 325 MG (65 MG IRON) TABLET 1 TAB PO DAILY SUPPLEMENT ( Reported) Fluvastatin Sodium (Lescol) 20 MG CAPSULE 20 MG PO QHS CHOLESTEROL (Reported) Lactulose 10 GRAM/15 ML SOLUTION 30 ML PO QAM High ammonia Titrate to 2-3 bowel movements a day. Magnesium Hydroxide (Milk Of Magnesia) 400 MG/5 ML ORAL.SUSP 30 ML PO DAILY PRN CONSTIPATION (Reported) Magnesium Oxide (Magnesium) 400 MG CAPSULE 1 CAP PO DAILY low magnesium follows up with Dr. Young Meclizine HCl 12.5 MG TABLET 1 TAB PO Q6H PRN VERTIGO (Reported) Melatonin 3 MG TABLET 1 TAB PO QPM INSOMNIA (Reported) Methimazole 5 MG TABLET 2.5 MG PO Thursday THYROID PROBLEMS ( Reported) Na Phos,M-B/Na Phos,Di-Ba (Fleet Enema) 19 GRAM-7 GRAM/118 ML ENEMA 1 E RC DAILY PRN GI (Reported) Naloxone HCl (Narcan) 4 MG/ACTUATION SPRAY 4 MG ANTONIA AD PRN OPIOID INDUCED RESP DEPRESSION (Reported) Omeprazole 40 MG CAPSULE.DR 1 CAP PO DAILY Stomach health Potassium Chloride 20 MEQ TAB.ER.PRT 1 TAB PO DAILY SUPPLEMENT (Reported) Quinapril HCl (Accupril) 20 MG TABLET 1 TAB PO DAILY HEART/BP (Reported) Current Medications: Current Medications Sig/Misha Start time Last Medication Dose Route Stop Time Status Admin Acetaminophen 325 MG Q6P PRN 12/18 1500 AC ID Acetaminophen 650 MG Q6P PRN 12/17 2100 DC PO Albuterol Sulfate 3 ML Q6P PRN 12/17 2115 AC INH Anastrozole 1 MG DAILY 12/18 1000 AC 12/18 PO 0958 Ceftriaxone Sodium 1,000 MG DAILY 12/18 1000 AC 12/18 IV 1146 Cholecalciferol 1,000 IU DAILY 12/18 1000 DC 12/18 PO 1001 Collagenase 0 DAILY 12/18 1000 AC 12/18 TOP 1147 Ferrous Sulfate 325 MG DAILY 12/18 1000 DC 12/18 PO 1001 Heparin Sodium 5,000 UNIT Q8 12/17 2200 DC 12/17 (Porcine) SC 2238 Lactulose 10 GM ONCE ONE 12/18 1030 DC 12/18 PO 12/18 1031 1148 Lactulose 20 GM TID 12/18 1025 AC PO Lactulose 10 GM QAM 12/18 1000 DC 12/18 PO 1000 Lorazepam 1 MG Q2-3 HRS NEEDED.. 12/18 1445 AC 12/18 IV 1509 Melatonin 3 MG QPM 12/17 2200 DC 12/17 PO 2235 Methimazole 2.5 MG 12/19 1000 AC PO Morphine Sulfate 2 MG Q2P PRN 12/18 1445 AC 12/18 IV 1457 Nystatin 1 FRANK BID 12/18 1000 AC 12/18 TOP 1001 Nystatin 1 FRANK BID 12/18 0115 DC 12/18 TOP 0642 Omeprazole 40 MG DAILY AC 12/18 0700 DC PO Scopolamine HBr 1 PAT Q72H 12/18 1500 AC TOP Past History Medical History Blood Transfusion Hx: Yes Neurological: SHINGLES LYMES DISEASE EENT: allergies, cataracts, hearing loss, POSTNASAL DRIP Cardiovascular: AFIB, hypertension, hyperlipidemia, AORTIC STENOSIS Respiratory: bronchitis, pneumonia, L pleural effusion THORACENTESIS Gastrointestinal: NONE Hepatic: NONE Renal: NONE Musculoskeletal: osteoarthritis, osteoporosis, BAKERS CYST LEFT WRIST FRACTURE LEFT ANKLE FRACTURE Psychiatric: NONE Endocrine: diabetes, hyperthyroidism Blood Disorders: anemia, LYME DISEASE Cancer(s): breast cancer, SKIN CANCER (LUMPECTOMY NO LYMPH NODES REMOVED) 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 self Services at Home: None Smoking Status: Former Smoker Functional Ability ADLs Needs Assist: dressing, eating, toileting, bathing. IADLs Needs Assist: shopping, housework, finances, food prep, telephone, transportation, medication admin. Review of Systems Review of Systems: Is notable for her dyspnea. She says she is breathing better now that she is arrived in the hospital. She has had a minor cough. It is nonproductive. She has had no chest pain. There've been no fevers night sweats or chills. The rest of his 12 point review of systems is unremarkable. Exam & Diagnostic Data Vital Signs and I&O Vital Signs Date Time Temp Pulse Resp B/P Pulse O2 O2 Flow FiO2 Ox Delivery Rate 12/18 1200 98 Nasal 2.0L Cannula 12/18 0825 98 Nasal 2.0L Cannula 12/18 0710 97.3 79 15 110/70 99 Nasal 2.0L Cannula 12/18 0628 80 16 112/60 97 Nasal Cannula 12/18 0610 95.1 12/18 0521 95.8 12/18 0420 95.5 12/18 0307 94.9 12/18 0200 94.2 12/18 0110 93.4 12/18 0008 93.4 12/18 0000 99 Nasal 2.0L Cannula 12/17 2309 93.9 12/17 2257 82 19 102/60 99 Nasal Cannula 12/17 2256 93.7 12/17 2150 67 16 117/62 100 Nasal 2.0L Cannula 12/17 1847 97.2 73 18 117/60 96 Nasal 2.0L Cannula Intake & Output 12/18 1600 12/18 0800 12/18 0000 12/17 1600 12/17 0800 12/17 0000 Intake Total 60 0 240 Output Total 150 Balance 60 -150 240 Intake, IV 30 0 Intake, Oral 30 0 240 Number 1 2 Bowel Movements Output, Urine 150 Patient 168 lb 168 lb Weight Physical Exam: On examination in the emergency room she is mildly dyspneic and does get winded with short sentences. Her skin is warm and well perfused no suspicious lesions noted. The sclerae are anicteric and mucous membranes are moist. There is no cervical or supraclavicular lymphadenopathy. Her breath sounds are diminished on the left side with no wheezes or rhonchi noted. She is breathing with accessory muscles. Cardiac exam shows a regular rhythm and rate with no murmurs or sounds. Her abdomen is soft and slightly distended with normal bowel sounds. It is nontender. The periphery shows 2+ edema bilaterally with no ischemia. Her neurologic exam is grossly normal motor and sensory function. Imaging Results: Chest x-ray shows consolidative process with a fusion of the left base. A CT scan of the chest shows a left pleural effusion with compressive atelectasis of the left lower lobe. Assessment/Plan Assessment/Plan The patient is an 89-year-old woman with ascites and what might be a transhepatic symptomatic hydropneumothorax of the left chest causing significant respiratory distress. Although Pleurx catheter is not ideal management with the preferred management being aggressive control of the ascites, and my experiences been useful in patients like this where the therapeutic options are limited. I discussed with her and her manager mall placement of a Pleurx catheter in the patient is anxious to have this relief of her dyspnea. She did get fairly good relief after each for thoracenteses so I think it is reasonable per to pursue this. She's has eaten lunch so we will need to do this tomorrow. In my opinion she can remain an observation patient and be sent back to her care facility afterwards. Obviously the medicine team will make a decision regarding admission and I will defer to them on that. We will preop her for a left Pleurx catheter placement on 12/18/2016. Consult Acknowledgment - Thank you for your consult request.
--- NOTE | 2016-12-18 19:54 | RADIOLOGY REPORT ---
EXAMINATION: XR PORTABLE CHEST CLINICAL INFORMATION: History of breast cancer. Left pleural effusion with Pleurx catheter in place. COMPARISON: Portable chest x-ray done yesterday. TECHNIQUE: Portable semierect view of the chest was obtained. FINDINGS: A chest tube is in place directed to the upper left hemithorax. There are certainly decrease in left pleural effusion. Some residual atelectasis is present. There is a small left apical pneumothorax. There is no indication of pneumomediastinum or subcutaneous emphysema. The right lung is clear. IMPRESSION: 1. Decreased pleural effusion. 2. Small apical pneumothorax. This critical result was discussed with Dr. Chatterjee at 7:45 PM on December 18 and it was ascertained that the content and urgency of the report was understood at the time of direct communication.
[2016-12-18 23:00] VITALS: BP 102/60
--- NOTE | 2016-12-19 07:08 | PN- Resident CRCU ---
Subjective HPI/CRCU Issues: Patient is in ICU because she was acutely dyspneic and underwent Pleurx catheter placement yesterday for her recurrent pleural effusions. I followed up and examined the patient today. She is lying comfortably in her bed and does not appear to be in acute distress. She was made comfort care measures yesterday after Pleurx catheter placement, which drained significant amount of transudative fluid from her left pleural space. No issues overnight. Objective Vital Signs & I&O Last 8 Hrs of Vitals and I&O: Vital Signs Date Time Temp Pulse Resp B/P Pulse O2 O2 Flow FiO2 Ox Delivery Rate 12/19 799 99 Nasal 3.0L Cannula 12/19 799 96.2 58 16 105/64 99 Exam General Appearance: no apparent distress, awake, comfortable, obese, mouth wide open most fo the times Head: atraumatic, normal appearance Ears, Nose, Throat: normal pharynx Neck: normal inspection, supple Respiratory: b/l crepts heard over lung covarrubias Cardiovascular: regular rate/rhythm Gastrointestinal: normal bowel sounds, soft, non-tender Extremities: normal inspection, normal capillary refill Skin: intact, normal color, warm/dry Current Medications: Current Medications Sig/Misha Start time Last Medication Dose Route Stop Time Status Admin Acetaminophen 325 MG Q6P PRN 12/18 1500 AC DC Acetaminophen 650 MG Q6P PRN 12/17 2100 DC PO Albuterol Sulfate 3 ML Q6P PRN 12/17 2115 AC INH Anastrozole 1 MG DAILY 12/18 1000 AC 12/18 PO 0958 Ceftriaxone Sodium 1,000 MG DAILY 12/18 1000 AC 12/19 IV 0914 Cholecalciferol 1,000 IU DAILY 12/18 1000 DC 12/18 PO 1001 Collagenase 0 DAILY 12/18 1000 AC 12/19 TOP 0915 Fentanyl Citrate 100 MCG .STK-MED ONE 12/18 1237 DC IM 12/18 1238 Ferrous Sulfate 325 MG DAILY 12/18 1000 DC 12/18 PO 1001 Heparin Sodium 5,000 UNIT Q8 12/17 2199 DC 12/17 (Porcine) SC 2238 Lactulose 20 GM TID 12/18 1025 AC PO Lorazepam 1 MG Q2-3 HRS NEEDED.. 12/18 1445 AC 12/18 IV 1909 Melatonin 3 MG QPM 12/17 2200 DC 12/17 PO 2235 Methimazole 2.5 MG 12/19 1000 AC PO Morphine Sulfate 2 MG Q2P PRN 12/18 1445 AC 12/19 IV 0559 Nystatin 1 FRANK BID 12/18 1000 12/19 TOP 0914 Omeprazole 40 MG DAILY AC 12/18 0700 DC PO Scopolamine HBr 1 PAT Q72H 12/18 1500 12/18 TOP 1717 Impression/Plan Impression/Problem List Impression: 89 years-old F with past medical history of chronic right-sided heart failure, chronic pleural effusion, atrial fibrillation not on Coumadin (history of recent GI bleed), hypertension, hyperlipidemia, hyperthyroidism, diabetes mellitus, aortic stenosis, osteoarthritis, osteoporosis, history of breast cancer status post lumpectomy, was referred from [facility] for worsening shortness of breath for a day. Comfort measures: -analgesic -scopolamine patch -ativan among others in place Patient's family is having a discussion about hospice care today and plan to change her code status to hospice if family/POA decides so. #Respiratory distress, secondary to pleural Pleurx catheter is in place over her left side of her chest. Plan to keep it there in case she has future effusions. #Urinary tract infection Continue ceftriaxone for now #Hyperkalemia, resolved #Better mentation than yesterday, lactulose continuing #History of atrial fibrillation, not on anticoagulants due to history of GI bleeding. #History of breast cancer Continuing medications anastrozole #Malnutrition Pending swallow evaluation and nutritional planning afterwards. Diet: Currently nothing by mouth. DVT prophylaxis with alps. CODE STATUS: Comfort measures. Problem List: 1. Anasarca 2. Supratherapeutic INR 3. Hepatic encephalopathy 4. Neutropenia 5. Hyperlipidemia 6. Hypertension 7. Diabetes mellitus 8. Atrial fibrillation 9. Altered mental status Pain Ratin Pain Location: cannot assess Pain Goal: Remain pain free Pain Plan: morphine Tomorrow's Labs & Rationales: none, per patient's code status Plan DVT/Prophylaxis: NONE
[2016-12-19 08:00] VITALS: BP 105/64
--- NOTE | 2016-12-19 15:05 | PN- Att Addend ---
Attending Addendum Attending Brief Note Mrs. Lei was discontinued with family members present. She has been in comfort care status since the previous evening. She appears comfortable and is in no acute distress. We are continuing with morphine sulfate, lorazepam, and transdermal scopolamine. She has been deemed appropriate for hospice care and is presently in the process of being admitted to that service.
== END 2016-12-19 15:21 | disposition hospice, home (50) ==
LOC: ENRESERVTM → ENRESERVDT → ERH 15:59 → CRI 19:28 → ERHI 19:28 → CRI 22:17 → 2NA 22:18 → CRI 12-18 07:19
PROVIDERS: Internal Medicine; Physician Assistant; ADMIT Internal Medicine
DX: J90 Pleural effusion, not elsewhere classified (principal); D64.9 Anemia, unspecified; E87.5 Hyperkalemia; N17.9 Acute kidney failure, unspecified; E11.9 Type 2 diabetes mellitus without complications; K74.60 Unspecified cirrhosis of liver; E04.2 Nontoxic multinodular goiter; I48.91 Unspecified atrial fibrillation; I10 Essential (primary) hypertension; E78.5 Hyperlipidemia, unspecified; I35.0 Nonrheumatic aortic (valve) stenosis; L89.310 Pressure ulcer of right buttock, unstageable; L89.122 Pressure ulcer of left upper back, stage 2
CPT/HCPCS: 1328; 1425; 1530; 1748; 6020; 87070; 87075; 87205; 36415; 74176; 81001; 82436; 87040; 87086; 88305; 93005; 93010; 96372; C1729; G0378; J0690; J0696; J1644

== ENCOUNTER 2016-12-19 15:30 | Inpatient (IN) | payer OTHER ==
--- NOTE | 2016-12-19 16:52 | PN- Att Addend ---
Attending Addendum Attending Brief Note Hospice Admission H&P Chief Complaint: Admit to hospice Source: Family, medical records. 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 Original plan was for pleurex catheter placement, which she underwent on 12/18/2016. It drained 500cc initially. Pt continued to have poor responsiveness and dyspnea, small pneumothorax noted on CXR. On admission she was also noted to have hypothermia, hyperkalemia, elevated ammonia, UTI. Due to poor condition and poor prognosis daughter/POA opted for comfort measures and then ultimately hospice care. Allergies: Atorvastatin, scallops. Review of Systems: Pt. unable to respond. Appears comfortable. Past Medical History: Chronic heart failure with preserved EF, chronic pleural effusion, atrial fibrillation not on Coumadin therapy due to history of recent GI bleed, hypertension, hyperlipidemia, hyperthyroidism, diabetes mellitus type 2, aortic stenosis, osteoarthritis, osteoporosis, breast cancer status post lumpectomy, shingles, Lyme disease, hearing deficit, steatosis Past Surgical History: Pleurx catheter placement left chest wall Family History: Noncontributory Psychosocial History: , daughter Shwetha is LISA. Former smoker Functional Ability: dependent for adls/iadls Exam and Diagnostic Data: Vital signs: T-96.2; HR-58; RR-16; BP-105/64 Physical Exam: General: Unresponsive, appears comfortable HEENT: Normocephalic and atraumatic. Pupils equal and reactive to light. Oral mucosa dry. Heart: regular rate and rhythm, no murmur appreciated. Lungs: Unlabored, no congestion noted. 2 L nasal O2 in place. Dressing to left chest wall. Abdomen: Obese, soft and nontender. Positive bowel sounds. Extremities: No clubbing, cyanosis; anasarca Neuro/Psych: unresponsive to tactile or verbal stimuli. Labs/Imaging: cbc with WBC 6.3, Hgb 9.4, HCT 28.2, platelet 1:30. Chemistries with sodium 133, potassium 5.7, BUN 46, creatinine 1.3, AST 60, ALT 49, ammonia 145, albumin 2.[address] 12/17/16: MPRESSION: 1. Minimal decrease in the volume of the moderately large left pleural effusion. Compression atelectasis of a portion of the left lung. 2. Abnormal appearance to the left breast. (Skin thickening and increased soft tissue density). 3. Increasing ascites. Increasing anasarca. 4. Cholelithiasis. 5. Lymphadenopathy in the infrarenal periaortic region. (No change from previous). Lymph nodes are also seen along both iliac chains. 6. Gastric distention. 7. Thyromegaly. 8. Mitral valve disease. Chest x-ray 12/18/16 shows decreased pleural effusion, small apical pneumothorax. Assessment/Plan: This is an 89-year-old female with extensive past medical history including recurrent left pleural effusion secondary to cirrhosis now with respiratory failure who is being admitted for hospice care. Orders written. Morphine 2 mg IV every 6 hours scheduled, 2 mg IV every hour when necessary pain/dyspnea. Ativan 1 mg IV every 3 hours as needed for anxiety. Scopolamine patches in place: Robinul 400 g subcutaneous or IV every 4 hours as needed for copious secretions.
--- NOTE | 2016-12-19 19:50 | NUR ---
PT ARRIVED TO THE FLOOR AT APPROX 1800. SHE WAS ON A SIZEWISE MATTRESS, 3L N/C, APPEARS COMFORTABLE, SCOPE PATCH BEHIND R EAR, SKIN TEAR TO TO RF, COVERED WITH XEROFORM AND TELFA, ULCER TO BACK WITH XEROFORM AND TELFA DRESSING, UNSTAGABLE AREA TO R BUTTOCKS, NO DRESSING ORDERS AT THIS TIME, ANASARCA, WEEPING EDEMA, PT UNRESPONSIVE AT THIS TIME, NO FAMILY HERE AT THIS TIME. PLEUREX CATH TO L LUNG, DRESSING UNDER L BREAST S/P DRAINAGE
--- NOTE | 2016-12-19 23:15 | NUR ---
PT UNRESPONSIVE; 2LNC RR 8-10, UNLABORED. +3-4 EDEMA TO UPPER EXTREMEDIES, WEEPING. PT MOANING, GAVE PRN ATIVAN, APPEARS COMFORTABLE AT THIS TIME. FAMILY BA AT BEDSIDE MOST OF EVES. TURNED AND REPOSITIONED FOR COMFORT, MOUTH CARE GIVEN, WILL MONITOR
--- NOTE | 2016-12-20 08:00 | NUR ---
PT HAVING INCREASED CONGESTION AND RESTLESS, ATIVAN AND RUBINOL GIVEN, PT REPOSITIONED, NO FAMILY PRESANT.
[2016-12-20 09:38] VITALS: BP 90/40
--- NOTE | 2016-12-20 12:00 | NUR ---
PT MOANING AT TIMES, SCHEDULED MORPHINE GIVEN, PT REPOSITIONED, NO FAMILY PRESANT. PT'S DAUGHTER WAS VISITING EARLIER, PLAN OF CARE REVIEWED.
--- NOTE | 2016-12-20 12:09 | PN- Att Addend ---
Attending Addendum Attending Brief Note Doing ok Sleeping and comfortable family at the bed side Vitals reveiewd Exam unremarkable Intake & Output 12/20 1600 12/20 0800 12/20 0000 Intake Total 0 0 Output Total 0 0 Balance 0 0 Intake, Oral 0 0 Output, Urine 0 0 Current Medications Sig/Misha Start time Last Medication Dose Route Stop Time Status Admin Acetaminophen 650 MG Q4P PRN 12/19 1645 AC ND Artificial Tears 2 GTT Q2P PRN 12/19 1645 AC OU Bisacodyl 10 MG DAILY NEEDED PRN 12/19 1645 AC ND Glycerin 2 SPRAY Q4P PRN 12/19 1645 AC PO Glycerin/Mineral Oil 1 FRANK Q SHIFT PRN 12/19 1645 AC TOP Glycopyrrolate 400 MCG Q4P PRN 12/19 1645 AC 12/19 SC 1834 Glycopyrrolate 400 MCG Q4P PRN 12/19 1645 AC 12/20 IV 0809 Lorazepam 0.5 MG Q4 12/19 1800 CAN IV Lorazepam 0.5 MG Q6 12/19 1800 DC IV Lorazepam 1 MG Q3P PRN 12/19 1645 AC 12/20 IV 0757 Morphine Sulfate 2 MG Q6 12/19 1800 AC 12/20 IV 1153 Morphine Sulfate 2 MG Q1P PRN 12/19 1645 AC IV Scopolamine HBr 1 PAT Q72 12/19 1650 AC TOP COnt all comfort meds Discussed with family
--- NOTE | 2016-12-20 20:00 | NUR ---
THIS RN RECEIVED REPORT FROM KOLE PERKINS. PT UNRESPONSIVE, ON 2L NC. RHONCHI NOTED THROUGHOUT. 2 SCOPE PATCHES BEHIND EAR. GENERALIZED EDEMA +3 THROUGHOUT BODY W/ SOME WEEPING NOTED. L ABD SQ BUTTON IN PLACE FOR RUBINOL. R ABD SQ BUTTON IN PLACE FOR MORPHINE. MOUTHCARE PROVIDED AT THIS TIME. PATIENT TURNED TO R SIDE. PATIENT RR 16, EVEN AND NON-LABORED. AUDIBLE MOANING NOTED WITH EACH INHALE. PRN MORPHINE GIVEN SQ. WILL RE-ASSESS. FAMILY AT BEDSIDE. WILL CONTINUE TO MONITOR.
--- NOTE | 2016-12-21 00:04 | NUR ---
PATIENT REMAINS UNRESPONSIVE. RR 18, NON LABORED BUT IRREGULAR WITH MOANING UPON EACH INHALATION. PT GIVEN SCHEDULED MORPHINE PER EMAR. PRN RUBINOL GIVEN AT 2044 FOR AUDIBLE SECRETIONS. PT TURNED AND REPOSITIONED TO L SIDE. MELE CARE PROVIDED. NO INCONTINENCE NOTED AT THIS TIME. WILL CONTINUE TO CLOSELY MONITOR.
--- NOTE | 2016-12-21 04:06 | NUR ---
PATIENT IS RESTING WITH EYES CLOSED, APPEARS COMFORTABLE. RR 8-10 WITH OCCASIONAL PERIODS OF APNEA. MOANING HAS SIGNIFICANTLY REDUCED. PT WAS TURNED AND REPOSITIONED. ORAL CARE AND SKIN CARE PROVIDED. NO AUDIBLE SECRETIONS NOTED. WILL CONTINUE TO CLOSELY MONITOR.
[2016-12-21 07:37] VITALS: BP 82/40
--- NOTE | 2016-12-21 11:09 | PN- Att Addend ---
Attending Addendum Attending Brief Note Sleeping Comfortable Current Medications Sig/Misha Start time Last Medication Dose Route Stop Time Status Admin Acetaminophen 650 MG Q4P PRN 12/19 1645 AC NC Artificial Tears 2 GTT Q2P PRN 12/19 1645 AC OU Bisacodyl 10 MG DAILY NEEDED PRN 12/19 1645 AC NC Glycerin 2 SPRAY Q4P PRN 12/19 1645 AC PO Glycerin/Mineral Oil 1 FRANK Q SHIFT PRN 12/19 1645 AC TOP Glycopyrrolate 600 MCG .STK-MED ONE 12/20 1213 DC IM 12/20 1214 Glycopyrrolate 400 MCG Q4P PRN 12/19 1645 AC 12/21 SC 1010 Glycopyrrolate 400 MCG Q4P PRN 12/19 1645 AC 12/20 IV 0809 Lorazepam 1 MG Q3P PRN 12/20 1645 AC SC Lorazepam 1 MG Q3P PRN 12/19 1645 DC 12/20 IV 0757 Morphine Sulfate 2 MG Q6 12/20 1800 AC 12/21 SC 0521 Morphine Sulfate 2 MG Q1P PRN 12/20 1645 AC 12/20 SC 1955 Morphine Sulfate 2 MG Q6 12/19 1800 DC 12/20 IV 1153 Morphine Sulfate 2 MG Q1P PRN 12/19 1645 DC 12/20 IV 1318 Scopolamine HBr 2 PAT Q72 12/23 1000 AC 12/20 TOP 1643 Scopolamine HBr 1 PAT .STK-MED ONE 12/20 1637 DC TOP 12/20 1638 Scopolamine HBr 1 PAT Q72 12/19 1650 DC TOP Vital Signs Date Time Temp Pulse Resp B/P Pulse O2 O2 Flow FiO2 Ox Delivery Rate 12/21 0800 Nasal Cannula 12/21 0737 97.2 51 8 82/40 87 Nasal 2.0L Cannula 12/21 0000 Nasal 2.0L Cannula 12/20 1600 Nasal 2.0L Cannula COnt all comfort meds Meds reviewed
--- NOTE | 2016-12-21 13:09 | NUR ---
11:10- PT PRONOUNCED. DAUGHTER AT BEDSIDE AT TIME OF . DR. 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 13:00- TRUCK SWITCHER AT BEDSIDE. 13:10- FAMILY LEFT FLOOR. ALL PAPERWORK COMPLETED.
--- NOTE | 2016-12-22 13:30 | Discharge Summary ---
Visit Information Visit Dates Admission Date: 12/19/16 Discharge Date: 12/21/16 Hospital Course Course Attending Physician: AMBAR YOUNG MD Primary Care Physician: CHEMA TSANG,LIYAH [facility] Hospital Course: This is an 89-year-old female with extensive past medical history including recurrent left pleural effusion secondary to cirrhosis now with respiratory failure who is admitted for hospice care. She was kept comfortable with morphine and ativan until she peacefully on 12/21/16. Allergies: Coded Allergies: atorvastatin (Intermediate, MODERATE PAIN TO BACK AND SHOULDERS 01/20/16) scallops (GI DISTRESS 01/20/16) Disposition Summary Disposition Principal Diagnosis: Acute respiratory failure Recurrent left pleural effusion Cirrhosis-heopatic and cardiac Additional Diagnosis: Chronic heart failure with preserved ejection fraction Atrial fibrillation Discharge Disposition: Discharge Instructions General Discharge Information Code Status: Hospice Patient's Diet: N/A Patient's Activity: N/A Follow-Up Instructions/Appts: N/A Copies To: AMBAR YOUNG MD; LIYAH BEAR MD
== END 2016-12-21 11:10 | disposition expired | DRG 189 ==
LOC: 2NA 15:30 → CRI 15:30 → 2NA 17:36
PROVIDERS: ADMIT Internal Medicine
DX: J96.00 Acute respiratory failure, unspecified whether with hypoxia or hypercapnia (principal); J90 Pleural effusion, not elsewhere classified; K74.60 Unspecified cirrhosis of liver; I48.91 Unspecified atrial fibrillation; Z51.5 Encounter for palliative care